=== PATIENT | male | born 1950 | race Caucasian/White ===

== ENCOUNTER 2020-07-19 11:33 | Outpatient (CLI) | payer MEDICARE, SELFPAY ==
--- NOTE | 2020-07-19 11:56 | CT_ITS ---
WS: [id number] CT CHEST WITHOUT INTRAVENOUS CONTRAST HISTORY: Pulmonary lesion. TECHNIQUE: Contiguous 5 mm axial imaging performed on the thorax. Coronal and sagittal reformats are submitted. All CT scans at [facility] use at least one of these dose optimization techniq ues: automated exposure control; mA and/or kV adjustment per patient size (includes targeted exams wh ere dose is matched to clinical indication); or iterative reconstruction. CONTRAST: None DLP: 950.55 mGycm COMPARISON: 07/04/2019 Lungs and central airway: Severe chronic emphysema. Bullous and bleb disease. Significant adverse traci nge in the previously described soft tissue and fibrotic process in the RIGHT upper lobe since 019. Progression in the irregular wall thickening and soft tissue component surrounding the area of f ibrosis/cystic/cavitary disease in the RIGHT upper lobe. The entire cystic and soft tissue component measures approximately 5.2 x 3.5 cm. There is progression of the scarring and fibrosis and tethering with tagging extending towards the pleural surface. Bilateral pulmonary nodules are now identified. T hese nodules range in size from a few millimeters to 10 mm. Nodules are present in the RIGHT upper an d RIGHT lower lobes and also LEFT upper and lower lobes. Additional area of soft tissue thickening along the LEFT lateral trachea Pleura: Normal. No pleural effusion. Heart and pericardium: Normal size heart with no pericardial effusion. Mediastinum and funmilayo: Small mediastinal and hilar lymph nodes. Larger lymph nodes at the RIGHT hilum cannot be excluded without IV contrast. Vessels: Mild atherosclerosis aorta and coronary arteries. Chest wall and lower neck: No soft tissue masses. Upper abdomen: No hiatal hernia. Visualized unenhanced liver is negative. No adrenal mass. Exophytic 2.0 cm cyst upper pole RIGHT kidney. Pancreas is markedly atrophic and fatty replaced. No adrenal mas s. Osseous structures: Increase in the thoracic kyphosis. No osteoblastic or osteolytic disease is appre ciated. CT/CT chest wo con [id number] IMPRESSION: 1. Significant progression of the irregular soft tissue mass surrounding the c ystic/cavitary fibrotic lesion in the RIGHT upper lobe since 07/04/2019 with new additional metastatic pulmonary nodules. Highly suspicious for neoplasm with m etastatic disease. Recommend PET/CT imaging for further evaluation at this time . 2. Severe emphysema. 3. Atherosclerosis aorta. 4. Fatty replacement of the pancreas. 5. No adrenal mass. 6. Soft tissue thickening along the LEFT lateral tracheal wall. Endoscopy may be necessary for further evaluation. May be a focal area of mucus.
== END 2020-07-19 11:34 | disposition home or self-care (01) ==
PROVIDERS: Family Provider Nurse Practitioner Family; PCP Nurse Practitioner Family; Visit Provider Nurse Practitioner Family
DX: J98.4 Other disorders of lung (principal); J43.9 Emphysema, unspecified; I70.0 Atherosclerosis of aorta; R91.8 Other nonspecific abnormal finding of lung field
CPT/HCPCS: 71250

== ENCOUNTER 2020-08-20 08:42 | Day surgery (SDC) | payer MEDICARE, SELFPAY ==
[2020-08-17 11:18] VITALS: BMI 31.8
--- NOTE | 2020-08-17 12:12 | ANES.PREANE2 ---
Pre-Anesthetic Assessment Pre-Anesthetic Assessment: Height/Weight: Height 1.83 m Weight 106.594 kg Preop Diagnosis: Lung mass Proposed Procedure: Operation Date: 08/20/20 10:40 Proposed Procedures p Bronchoscopy(Not Applicable) - Gama Moreno MD s Mediastinoscopy(Not Applicable) - Gama Moreno MD Was Beta Adriana taken within 24 hours: N/A Social: Social History: No alcohol and No tobacco Comment: Quit smoking 15 years ago Exam: Pre-Anes Outpt Exam: alert, oriented x 3, clear to auscultation bilaterally and regular rate & rhythm Airway: Submandibular: WNL Cervical ROM: WNL MP: 2 History/ROS: No significant complaints Pulmonary: Pulmonary: COPD Comments: Emphysematous COPD CV/HEM: CV/HEM: HTN : : None reported Hepatic: Hepatic: None reported GI: GI: None reported Metabolic: Metabolic: Hyperlipidemia Musc/skel: Musc/skel: None reported Neuropsych: Neuropsych: None reported Anesthetic Plan: ASA status: 3 Anesthesia: General Other: Disc A-line PFSH Anesthesia PFSH: Family History Father CAD (coronary artery disease) Denies family history of Diabetes Hyperlipidemia Cancer Hypertension Stroke Social History Smoking and tobacco status: smoker, details unknown cigarettes Packs smoked per day: 2 Years cigarettes smoked: 40 Quit status (tobacco): has quit using tobacco Year quit tobacco: 2002 Alcohol intake: never Lives independently: Yes Household members: none Housing: House Marital status: History of recent travel: No Data Anesthesia Cardiac Studies: No Data to Display
[2020-08-17 12:15] LABS: Add Urine Microscopic? NO
[2020-08-17 12:21] LABS: Basophils # 0.1 10^3/uL (0.0-0.1); Basophils % 0.8 %; Eosinophils # 0.2 10^3/uL (0.0-0.8); Eosinophils % 2.5 %; Hematocrit 44.7 % (42.0-52.0); Hemoglobin 14.4 g/dL (11.7-16.6); Lymphocytes # 1.1 10^3/uL (0.8-4.8); Mean Corpuscular HGB Conc 32.2 g/dL (30.0-36.0); Mean Corpuscular Volume 96.1 fL (80-94); Mean Platelet Volume 9.9 fL (7.4-10.4); Monocytes # 0.9 10^3/uL (0.2-0.9); Monocytes % 14.4 %; Neutrophils # 3.82 10^3/uL (1.8-7.7); Neutrophils % 63.8 %; Nucleated Red Blood Cells % 0 %; Platelet Count 169 10^3/cmm (130-400); Red Blood Count 4.65 10^6/uL (4.1-5.3); Red Cell Distribution Width 14.3 % (12.1-15.1)
[2020-08-17 12:37] LABS: INR 0.97 (0.8-1.2)
[2020-08-17 12:53] LABS: Alanine Aminotransferase 16 U/L (0-41); Albumin Level 4.2 g/dL (3.5-5.2); Alkaline Phosphatase 64 IU/L (40-130); Anion Gap 13.1 (5-19); Aspartate Amino Transferase 29 U/L (0-40); Blood Urea Nitrogen 19 mg/dL (8-23); Calcium 9.2 mg/dL (8.5-10.5); Carbon Dioxide 28 mmol/L (22-29); Chloride 105 mmol/L (98-107); Globulin 3.1 g/dL (1.3-4.6); Glucose 85 mg/dL (65-115); Osmolality Calculated 296 mOsm/kg (285-295); Potassium 4.1 mmol/L (3.5-5.1); Sodium 142 mmol/L (136-145); Total Bilirubin 0.4 mg/dL (0.15-1.2); Total Protein 7.3 g/dL (6.6-8.7)
[2020-08-17 13:39] LABS: Bilirubin Urine Neg (Negative); Blood Urine Neg (Negative); Glucose Urine UA Norm (Normal); Ketones Urine Negative (Negative); Leukocyte Esterase Urine Negative (Negative); Nitrate Urine Negative (Negative); Protein Urine Neg (Negative); Urine Appearance Clear (CLEAR); Urine Color Yellow (Yellow); Urobilinogen Urine Neg (Negative); pH Urine 6 (5-7)
--- NOTE | 2020-08-20 08:48 | ECG_ITS ---
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 Measurements Intervals [place] Rate: 65 P: 47 ME: 178 QRS: 5 QRSD: 109 T: 55 QT: 403 QTc: 421 Interpretive Statements SINUS RHYTHM NONSPECIFIC T-WAVE ABNORMALITY Compared to ECG 08/23/2018 20:28:58 No significant changes Electronically Signed On 08-20-2020 20:18:39 CDT by Porsha Reyes M.D. [id number]
[2020-08-20 08:56] VITALS: BP 150/74; PULSE 66; RESP 16; TEMP 36.1; O2SAT 96
[2020-08-20] MEDS: sodium chloride 0.9% 1,000 ML 30 ML IV (09:16)
--- NOTE | 2020-08-20 09:27 | P.ANESUD_ITS ---
Pre-Anesthetic Update Pre-Anesthetic Assessment: Date of Surgery/Procedure: 08/20/20 Preop Sharlene gnosis: Lung mass Proposed Procedure: Operation Date: 08/20/20 10:40 Proposed Procedures p Bronchoscopy(Not Applicable) - Gama Moreno MD s Mediastinoscopy(Not Applicable) - Gama Moreno MD Any changes to Pre-Anesthetic Assessment?: No Last Intake: Intake Last Liquid Date 08/19/20 Last Liquid Time 22:00 Last Solid Date 08/19/20 Last Solid Time 22:00 Vitals: Temperature 97.0 F L 08/20/20 08:56 Temperature Source Temporal Artery S can 08/20/20 08:56 Pulse Rate 66 08/20/20 08:56 Respiratory Rate 16 08/20/20 08:56 Blood Pressure 150/74 08/20/20 08:56 Blood Pressure Lynne n 99 08/20/20 08:56 Pulse Oximetry 96 08/20/20 08:56 Oxygen Delivery Me thod 08/20/20 08:56 Exam: Pre-Anes Outpt Exam: alert, oriented x 3, clear to auscultation bilaterally and regular rate & rhythm Cardiac Studies: No Data to Display
--- NOTE | 2020-08-20 10:35 | W.PM.OPSUD ---
Surgery/Procedure H&P Update DATE OF PROCEDURE: August 20, 2020 DATE H&P PERFORMED: 08/08/20 H&P UPDATE INFORMATION: I have reviewed H&P completed within last 30 days, I have examined patient prior to procedure and No changes to prior documentation PREOP DIAGNOSIS: Lung mass PRIMARY INDICATION FOR PROCEDURE: Cavitary RUL mass with increased activity on PET scan and increased activity of mediastinal lymph node PLANNED PROCEDURE: Operation Date: 08/20/20 10:40 Proposed Procedures p Bronchoscopy(Not Applicable) - Gama Moreno MD s Mediastinoscopy(Not Applicable) - Gama Moreno MD
[2020-08-20] MEDS: cetacaine Spray 5 gm Can 5 SPRAY (11:50)
[2020-08-20] MEDS: EPINEPHrine 1 mg/mL INJ XX (11:50)
--- NOTE | 2020-08-20 12:05 | PM.OP ---
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 Flexible diagnostic bronchoscopy with biopsy 2. Mediastinoscopy with biopsy Specimens removed/disposition: Endobronchial biopsies x3 of segmental bronchus of right upper lobe Lymph nodes from the mediastinum and stations 4R and precarina were sent to pathology. Frozen section of station 4R lymph nodes returned metastatic adenocarcinoma. Surgeon: Gama Moreno Anesthesia: General Complications: None: Postprocedure chest x-ray pending Condition: stable Disposition: PACU Brief History: Mr. Ozuna is a 69-year-old gentleman with a long history of tobacco use and an enlarging cavitary lesion of the right upper lobe along with scattered pulmonary nodules bilaterally concerning for metastatic disease as well as mediastinal adenopathy with a prominent lymph node at station 4R. PET scan does show increased activity in this cavitary lesion as well as mediastinal lymph node. Bronchoscopy and mediastinoscopy were recommended and the rationale carefully discussed. He is in agreement. Details and risks of both procedures were carefully and frankly discussed. Proper consents have been reviewed and signed. Procedure: 1. Flexible diagnostic bronchoscopy Procedure: Mr. Ozuna underwent general endotracheal anesthesia with an 8.0 endotracheal tube. With adequate anesthesia, flexible bronchoscope was inserted through the endotracheal tube. In a methodical fashion the trachea, sharee, right main bronchus and associated lobar bronchi were inspected. In a similar fashion the left side was inspected. Secretions were cleared as needed to allow for adequate inspection. Normal saline or normal saline and bicarbonate solution were used to clear thick or tenacious secretions. Findings: Branching anatomy was normal. Sharee was sharp. There was no evidence for submucosal infiltration or extrinsic compression. Secretions were rather thick, clear, and light in volume. No skyla endobronchial lesions were identified, however, in the right upper lobe and what appeared to be the anterior segment, there was some effacement of the mucosa with some edema and inability to completely open this region manually with the scope. This was near the extent of the scopes reach in relation to caliber of the segmental bronchi. I elected to perform endobronchial biopsies in this region x3. Specimens were placed in formalin for permanent analysis. Modest bleeding was controlled with the use of a solution of saline and epinephrine with good effect. I will bronchi were then cleared of any small amounts of blood and irrigant. Scope was then withdrawn. Once completed, the scope was withdrawn under direct visualization confirming cleared secretions and no substantial bleeding. Endoscopic photos were taken as required to document pathology. Following this, Mr. Ozuna was repositioned in preparation for planned mediastinoscopy. 2. Mediastinoscopy with biopsy After repositioning and sterilely prepping and draping, transverse incision was made just above the sternal notch and carried down to this obtains tissues and through adipose tissue with bridging veins being secured with clips prior to division. Anterior surface of the trachea was reached. Clot section was then performed with the surgeon's finger. Mediastinal scope was then inserted and advanced down along the anterior surface of the trachea where at the station 4R, very large prominent lymph node packet was identified. After careful aspiration, multiple biopsies were taken and sent to pathology for frozen analysis. Pathology has returned metastatic adenocarcinoma. Further biopsies were taken from substantial lymphoid tissue in the precarinal region as well. Once completed, hemostasis was controlled utilizing cautery followed by packing and subsequent use of Surgicel gauze. Patient was placed in the reverse Trendelenburg position. Hemostasis confirmed. Sponge and needle count was correct. Wound was then closed in 2 layers of 2-0 Vicryl suture. Skin was reapproximated in a subcuticular manner. Sterile dressings were applied. Mr. Ozuna was awakened from anesthesia and extubated. He is taken to the postoperative care unit. We did intellectual property counsel with family at the completion of the procedure.
[2020-08-20] MEDS: vancomycin 1,000 MG SDV 1000 MG IRRIGATION (12:20)
[2020-08-20 13:18] VITALS: BP 136/86; PULSE 83; RESP 16; TEMP 36.2; O2SAT 98
--- NOTE | 2020-08-20 13:21 | PTH.FRZRPT ---
Frozen Section Notes Specimen(s): Lymph node station 4R. Gross: The specimen is received fresh in a container labeled the patient's name and MRN number and additionally labeled, station 4R lymph node for frozen section diagnoses and consists of 8 fragments of trimlbe-red tissue measuring 1.3 x 0.6 x 0.4 cm. 2 fragments that appear suspicious measuring 0.6 cm in greatest dimension are submitted in cassette FS A1. Preliminary Impression: Lymph node, station 4R, excisional biopsy: ?Metastatic adenocarcinoma. - Specimen Information Pathologist: Kenyatta Connell Date: 08/20/20 Specimen reported at what time: 12:56 - Clinician Specimen collection time: 12:43 Clinician reported to: Gama Moreno
[2020-08-20 13:25] VITALS: BP 145/77; PULSE 73; RESP 20; TEMP 36.3; O2SAT 98
[2020-08-20 13:30] VITALS: BP 141/71; PULSE 77; RESP 16; TEMP 36.6; O2SAT 97
[2020-08-20] MEDS: HYDROcodone-acetaminophen 5-325 mg Tablet 1 TAB PO (13:39)
[2020-08-20 13:45] VITALS: BP 157/80; PULSE 64; RESP 17; TEMP 36.6; O2SAT 95
--- NOTE | 2020-08-20 14:20 | ANE.PACU2 ---
Inpatient post-anesthesia follow up: Airway intact: Yes Vital signs: Temperature 97.9 F Pulse Rate 64 Respiratory Rate 17 Blood Pressure 157/80 Pulse Oximetry 95 Oxygen Delivery Me thod Room Air Oxygen Flow Rate 8 Fraction of Inspir ed Oxygen Hydration adequate: Yes Nausea and vomiting: No Pain level: 2 Mental status: Baseline
[2020-12-04 07:53] LABS: PD-L1 (Clone 22C3) by IHC BBPL See Report
== END 2020-08-20 14:20 | disposition home or self-care (01) ==
PROVIDERS: Internal Medicine Medical Oncology; PCP Nurse Practitioner Family; Visit Provider Thoracic Surgery (Cardiothoracic Vascular Surgery)
PROC: 0BJ08ZZ Inspection of Tracheobronchial Tree, Via Natural or Artificial Opening Endoscopic (ICD-10-PCS; CPT 31622; principal; 2020-08-20 10:30)
PROC: 0WJC4ZZ Inspection of Mediastinum, Percutaneous Endoscopic Approach (ICD-10-PCS; CPT 39401; 2020-08-20 10:30)
DX: R91.8 Other nonspecific abnormal finding of lung field (principal)
CPT/HCPCS: 12345; 31625; 36415; 80053; 81003; 85025; 85610; 86850; 86900; 86920; 87635; 88305; 88342; 93005; J0171; J0690; J2405; J2704; J2710; J3010; J3370; J3490; J7030

== ENCOUNTER 2020-09-03 12:32 | Outpatient (CLI) | payer MEDICARE, SELFPAY ==
--- NOTE | 2020-09-03 16:14 | ONC CON_ITS ---
Dr. Yun New Patient Note Patient: Roge Ozuna Unit #: [id number]: 1950 Dicatated By: Shamar Yun M.D.Date of Visit: Sep 03, 2020 Onc MED New Patient/Consult Referring Physician: Monet Ashton N.P. Chief Complaint: Lung cancer. 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 This is a patient with multiple medical illnesses including hypertension, hyperlipidemia, GERD, rheumatoid arthritis, peripheral neuropathy, benign prostatic hypertrophy, and emphysema. He has, though, been in good general health. He has been followed for an abnormal chest CT scan, with the main concern being a nodule at the right lung base noted on a study from June 2017. On follow-up studies that nodule had resolved. Also noted were some fibrotic changes in the right upper lobe which had remained stable as of August 2018. A repeat chest CT on 07/04/2019 showed progression in the scarring and soft tissue surrounding bullous disease in the right upper lobe, possibly due to progression of fibrosis, though early neoplasm was not excluded. His repeat chest CT on 07/19/2020 showed significant progression of irregular soft tissue mass surrounding the cystic/cavitary fibrotic lesion in the right upper lobe. The lesion measured approximately 5.2 x 3.5 cm. The appearance was highly suspicious for neoplasm. Also noted was soft tissue thickening along the left lateral tracheal wall, possibly due to focal area of mucus. Also noted were bilateral pulmonary nodules ranging in size from a few millimeters up to 10 mm, suspicious for metastatic disease. Further evaluation with PET/CT on 07/28/2020 showed FDG avid cavitary right upper lobe mass measuring 4.5 x 5.1 cm, SUV 12.1, indicating high probability of malignancy. Secondary pulmonary nodules were noted in the right upper lobe, superior segment right lower lobe, left apex, and medial left lower lung base, consistent with metastatic disease. A 1.7 cm right paratracheal lymph node was also FDG avid, SUV 4.8, consistent with a metastatic node. He was referred to Dr. Moreno. On 08/20/2020 he underwent flexible diagnostic bronchoscopy with endobronchial biopsy from the right upper lobe and mediastinoscopy with biopsy of station 4R lymph node. Pathology from the right upper lobe biopsy showed adenosquamous carcinoma favoring lung primary. 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 He has been feeling pretty good generally. He says his energy is not too bad. He still has normal activity. ECOG score is 0. His appetite is good. He does not have fever or night sweats. He says he does tend to have acid reflux, but he does not complain of cough. He has some shortness of breath, but his breathing is not getting any worse. He has occasional pulling/heaviness in his chest. He has chronic constipation. He does have some difficulty voiding, as he tends to start and stop. He has joint pain, mainly in the knees and ankles. He also has a little back pain. He does not complain of headache. He sometimes has dizziness when he gets up too fast. He has no focal neurologic symptoms. Past Medical History: His medical history includes benign prostatic hypertrophy, emphysema, gastroesophageal reflux disease, hypercholesterolemia, hypertension, peripheral neuropathy, and rheumatoid arthritis. Past Surgical History: He unerwent flexible diagnostic bronchoscopy and mediastinoscopy on08/20/2020. His only other surgery was an appendectomy in 2008. Medications: Aspirin 81 Tablet, enteric coated Oral daily, Atorvastatin Calcium 1 (40 mg) Tablet Oral daily, Co Q10 (200 mg) Capsule Oral daily, Finasteride (5 mg) Tablet Oral daily, Lyrica (225 mg) Capsule Oral b.i.d., Nortriptyline HCl (10 mg) Capsule Oral daily, Omeprazole 1 (20 mg) Capsule Delayed Release Oral daily, Tamsulosin HCl 2 Capsule (of 0.4 mg) Oral daily Allergies: No Known Allergies. Social History: Mr. Ozuna is and he is a disabled. He has a history of smoking about 2 packs of cigarettes daily for about 40 years. He quit smoking 15 years ago. He previously had some weekend alcohol use, but he also quit drinking at the same time. Family History: Father of heart disease and mother of TB. He had 2 half-brothers, one of whom is due to drug related problems. Review Of Symptoms: Constitutional - He has been feeling pretty good generally. His energy is not too bad. He has normal activity. Appetite is good and weight is stable. He has no fever or night sweats. ECOG score is 0, Eyes - No change in vision, ENMT - No sinus congestion/drainage. No mouth sores. No sore throat or difficulty swallowing, Hematologic/Lymphatic - He has easy bruising, Respiratory - He has some shortness of breath, but his breathing has not been getting any worse. He does not complain of cough. He has occasional pulling/heaviness in his chest. No hemoptysis, Cardiovascular - No angina pain. No palpitations, Gastrointestinal - No nausea or vomiting. He has acid reflux. He has chronic constipation. No blood in the stool or black stools, Genitourinary (M) - He has some difficulty voiding and he tends to start and stop. No dysuria or hematuria. No urinary frequency. No urgency or incontinence, Musculoskeletal - He has arthritis pain in his knees and ankles and he has a little back pain, Integumentary - No skin rash, Neurologic - No headache. He sometimes has dizziness if he gets up too fast. No numbness or tingling. No other focal neurologic symptoms, Psychiatric - No anxiety or depression. No insomnia. Vital Signs: Performed on Sep 03, 2020 13:10: 0, 31.98 (HIGH), 2.28 sq.m, 72.00 in, 98 %, 74 /min, 18 /min, 152/74 mm(hg) (HIGH), 96.9 F (LOW), and 235.8 lbs (HIGH). Physical Examination: Constitutional - He appears to be in good general health, Eyes - Sclerae nonicteric. Conjunctivae clear, ENMT - No lesions noted in the oral cavity, Neck - No mass or thyromegaly, Hematologic/Lymphatic - No cervical, clavicular, or axillary adenopathy, Respiratory - Lungs are clear with diminished air movement bilaterally, Cardiovascular - Heart rhythm is regular. There is no murmur, gallop, or rub noted, Abdomen - Soft and non-tender. Liver and spleen are not enlarged. There is no abdominal mass or ascites noted and there is no inguinal adenopathy, Back/Spine - No spine or CVA tenderness noted, Extremities - Slight edema. I am not able to palpate pedal pulses, Integumentary - No rashes. No suspicious skin lesions noted, Neurologic - No focal neurologic deficits noted. Impression: 1. 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 2. He underwent diagnostic flexible bronchoscopy and mediastinoscopy on 08/08/2020. 3. He has CT evidence of underlying COPD. His other medical illnesses include: 4. Hypertension. 5. Hyperlipidemia. 6. GERD. 7. Rheumatoid arthritis. 8. Peripheral neuropathy. 9. Benign prostatic hypertrophy. Plan: The CT findings and pathology results were reviewed with the patient. We also reviewed the CT images, and we discussed the clinical implications. He has non-small cell carcinoma involving the upper lobe of the right lung. There is biopsy-proven mediastinal lymph node involvement. There is CT and PET/CT evidence of multiple bilateral pulmonary nodules, consistent with metastatic disease. He is advised that his disease is not going to be amenable to either surgery or radiation. With regard to the latter, I also will review the CT scan with the radiation oncologist, but my expectation is that he will need to begin systemic therapy as initial treatment. Specific treatment recommendations, though, will depend on additional pathologic studies to include a next generation sequencing study and PD-L1 expression, and those will be requested today. In the meantime, he also will need to complete staging with brain MRI. Signed By: Shamar Yun M.D. <<Signature on File>>
== END 2020-09-03 12:33 | disposition home or self-care (01) ==
LOC: ONCMED 12:36
PROVIDERS: PCP Nurse Practitioner Family; Visit Provider Internal Medicine Medical Oncology
DX: C34.11 Malignant neoplasm of upper lobe, right bronchus or lung (principal); C77.1 Secondary and unspecified malignant neoplasm of intrathoracic lymph nodes; R91.8 Other nonspecific abnormal finding of lung field; I10 Essential (primary) hypertension; E78.5 Hyperlipidemia, unspecified; K21.9 Gastro-esophageal reflux disease without esophagitis; M06.9 Rheumatoid arthritis, unspecified; G62.9 Polyneuropathy, unspecified; N40.0 Benign prostatic hyperplasia without lower urinary tract symptoms
CPT/HCPCS: 99205

== ENCOUNTER 2020-09-10 08:00 | Outpatient (CLI) | payer MEDICARE, SELFPAY ==
--- NOTE | 2020-09-10 08:07 | MR_ITS ---
WS: [id number] MRI HEAD WITH CONTRAST TECHNIQUE: Sagittal T1, T2 axial, T2 axial FLAIR, axial susceptibility weighted imaging, axial diffus ion weighted images, and coronal T2 images were obtained. Pre and post-T1 axial and post T1 coronal i mages. ADC and FSPGR images. CLINICAL INFORMATION: Lung cancer COMPARISON: PET/CT July 28, 2020 FINDINGS: No evidence of restricted diffusion to suggest acute ischemia. Ventricular system and basal cisterns are patent. Heterogeneously enhancing intrasellar mass with suprasellar extension measuring 1.4 x 1.6 x 1.7 CM. Suprasellar extension results in mild mass effect on the optic chiasm. Recommend correlati on with visual symptoms. Slight extension to the right cavernous sinus. Cavernous sinuses and Meckel' s cave appear patent. No hemosiderin on the susceptibility weighted images. No other suspicious intracranial signal abnorma lities. Moderate parenchymal volume loss. Normal posterior fossa. Normal vascular flow voids at the s kull base. No extra-axial fluid collections. Paranasal sinuses and mastoid air cells are well aerated . No enhancing intraparenchymal abnormalities. Normal dural venous sinuses. MR/MR head wo/w con [id number] IMPRESSION: 1. No evidence of restricted diffusion to suggest acute ischemia. 2. Intrasellar pituitary mass with suprasellar extension measuring 1.4 x 1.6 x 1.7 cm AP by transverse by craniocaudal with impingement on the optic chiasm. Findings typical for pituitary macroadenoma. Involvement of the right cavernous sinus. Cavernous carotid arteries are patent. 3. No other suspicious intracranial signal abnormalities. 4. Moderate parenchymal volume loss. 5. Paranasal sinuses and mastoid air cells are well aerated. 6. No suspicious enhancing intracranial parenchymal abnormalities.
== END 2020-09-10 08:01 | disposition home or self-care (01) ==
LOC: RADSHAW 08:04
PROVIDERS: PCP Nurse Practitioner Family; Visit Provider Internal Medicine Medical Oncology
DX: C34.11 Malignant neoplasm of upper lobe, right bronchus or lung (principal)
CPT/HCPCS: 70553; A9579

== ENCOUNTER 2020-10-03 11:58 | Outpatient (CLI) | payer MEDICARE, SELFPAY ==
[2020-10-03 12:41] LABS: Basophils # 0.1 10^3/uL (0.0-0.1); Basophils % 1.1 %; Eosinophils # 0.2 10^3/uL (0.0-0.8); Eosinophils % 2.3 %; Hemoglobin 14.2 g/dL (11.7-16.6); Lymphocytes # 0.9 10^3/uL (0.8-4.8); Lymphocytes % 13.1 %; Mean Corpuscular HGB Conc 31.6 g/dL (30.0-36.0); Mean Corpuscular Hemoglobin 30.6 pg (28.0-34.0); Mean Platelet Volume 9.4 fL (7.4-10.4); Monocytes # 0.7 10^3/uL (0.2-0.9); Monocytes % 11.4 %; Neutrophils # 4.64 10^3/uL (1.8-7.7); Neutrophils % 71.3 %; Nucleated Red Blood Cells % 0 %; Platelet Count 183 10^3/cmm (130-400); Red Blood Count 4.64 10^6/uL (4.1-5.3); Red Cell Distribution Width 13.8 % (12.1-15.1); White Blood Count 6.5 10^3/uL (4.0-10.0)
[2020-10-03 12:55] LABS: Alanine Aminotransferase 16 U/L (0-41); Albumin Level 3.8 g/dL (3.5-5.2); Alkaline Phosphatase 71 IU/L (40-130); Anion Gap 11.2 (5-19); Aspartate Amino Transferase 24 U/L (0-40); Blood Urea Nitrogen 12 mg/dL (8-23); Calcium 8.9 mg/dL (8.5-10.5); Carbon Dioxide 29 mmol/L (22-29); Chloride 103 mmol/L (98-107); Globulin 2.9 g/dL (1.3-4.6); Glucose 104 mg/dL (65-115); Osmolality Calculated 288 mOsm/kg (285-295); Potassium 4.2 mmol/L (3.5-5.1); Sodium 139 mmol/L (136-145); Total Bilirubin 0.3 mg/dL (0.15-1.2); Total Protein 6.7 g/dL (6.6-8.7)
[2020-10-03 15:02] LABS: Thyroid Stimulating Hormone 1.77 uIU/mL (0.27-4.20)
--- NOTE | 2020-10-05 11:51 | ONC FU_ITS ---
Dr. Yun Patient Follow-Up Note Patient: Roge Ozuna Unit #: [id number]: 1950 Dicatated By: Shamar Yun M.D.Date of Visit:Oct 03, 2020 Onc Med Follow-up/Prog Note Chief Complaint: Lung cancer. 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 He has been followed for an abnormal chest CT scan, with the main concern being a nodule at the right lung base noted on a study from June 2017. On follow-up studies that nodule had resolved. Also noted were some fibrotic changes in the right upper lobe which had remained stable as of August 2018. A repeat chest CT on 07/04/2019 showed progression in the scarring and soft tissue surrounding bullous disease in the right upper lobe, possibly due to progression of fibrosis, though early neoplasm was not excluded. His repeat chest CT on 07/19/2020 showed significant progression of irregular soft tissue mass surrounding the cystic/cavitary fibrotic lesion in the right upper lobe. The lesion measured approximately 5.2 x 3.5 cm. The appearance was highly suspicious for neoplasm. Also noted was soft tissue thickening along the left lateral tracheal wall, possibly due to focal area of mucus. Also noted were bilateral pulmonary nodules ranging in size from a few millimeters up to 10 mm, suspicious for metastatic disease. Further evaluation with PET/CT on 07/28/2020 showed FDG avid cavitary right upper lobe mass measuring 4.5 x 5.1 cm, SUV 12.1, indicating high probability of malignancy. Secondary pulmonary nodules were noted in the right upper lobe, superior segment right lower lobe, left apex, and medial left lower lung base, consistent with metastatic disease. A 1.7 cm right paratracheal lymph node was also FDG avid, SUV 4.8, consistent with a metastatic node. He was referred to Dr. Moreno. On 08/20/2020 he underwent flexible diagnostic bronchoscopy with endobronchial biopsy from the right upper lobe and mediastinoscopy with biopsy of station 4R lymph node. Pathology from the right upper lobe biopsy showed adenosquamous carcinoma favoring lung primary. 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 A next generation sequencing study showed no actionable mutations. The PD-L1 (22c3) expression was positive at 25% and the PD-L1 (28-8) expression was positive at 35%. His staging head MRI showed an intrasellar pituitary mass with suprasellar extension measuring 1.4 x 1.6 x 1.7 cm. There was associated impingement on the optic chiasm. 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 There appeared to be involvement of the right cavernous sinus but cavernous carotid arteries were noted to be patent. There were no suspicious enhancing intracranial parenchymal abnormalities noted. His other medical illnesses include hypertension, hyperlipidemia, GERD, rheumatoid arthritis, peripheral neuropathy, benign prostatic hypertrophy, and emphysema. He has history of smoking 2 packs of cigarettes daily. He quit smoking 15 years ago. I had seen him initially on 09/03/2020. With evidence of multiple pulmonary metastatic lesions bilaterally, it appeared that he would require systemic therapy. Specific recommendations were deferred pending outcome of the results of the next generation sequencing study, and those have just now become available. He still feels good generally. He has normal activity. He has good appetite. He says he has gained weight. He says he has a little bit of fever about once a week. He has no night sweating. He does not complain of shortness of breath, cough, or chest pain. He has no GI complaints other than constipation, which has been a chronic problem for years. He says his bladder function is so-so. He has pain in his back and in his knees, which also is chronic. He does not complain of headache. He has numbness/tingling in his feet. Medications: Aspirin 81 Tablet, enteric coated Oral daily, Atorvastatin Calcium 1 (40 mg) Tablet Oral daily, Co Q10 (200 mg) Capsule Oral daily, Finasteride (5 mg) Tablet Oral daily, Lyrica (225 mg) Capsule Oral b.i.d., Nortriptyline HCl (10 mg) Capsule Oral daily, Omeprazole 1 (20 mg) Capsule Delayed Release Oral daily, Tamsulosin HCl 2 Capsule (of 0.4 mg) Oral daily Allergies: No Known Allergies. Review of Systems: Constitutional - He generally feels good. He has normal activity. Appetite is good and he has gained weight. No fever or night sweats. ECOG score is 1, ENMT - No sinus congestion/drainage. No mouth sores. No sore throat or difficulty swallowing, Hematologic/Lymphatic - No abnormal bruising or bleeding, Respiratory - No shortness of breath. No cough. No pleuritic pain or hemoptysis, Cardiovascular - No angina pain. No palpitations, Gastrointestinal - No nausea or vomiting. No heartburn or acid reflux. He has chronic constipation. No blood in the stool or black stools, Genitourinary (M) - Bladder function is so-so. No dysuria or hematuria. No urgency or incontinence, Musculoskeletal - He has pain in his back and in his knees, Integumentary - No skin rash, Neurologic - No headache. He sometimes has dizziness. He has numbness/tingling in his feet. No other focal neurologic symptoms, Psychiatric - No anxiety or depression. No insomnia. Vital Signs: Performed on Oct 03, 2020 13:09 Height - 72.00 in Weight - 244.0 lbs (HIGH) BSA - 2.32 sq.m BMI - 33.09 (HIGH) Temperature - 97.6 F (LOW) Pulse - 69 /min Respiration - 20 /min BP - 150/80 mm(hg) (HIGH) O2 Sat - 96 % Pain - 0 Physical Examination: Constitutional - He looks pretty good generally, Eyes - Sclerae nonicteric. Conjunctivae clear, ENMT - No lesions noted in the oral cavity, Hematologic/Lymphatic - No cervical, clavicular, or axillary adenopathy, Respiratory - Lungs are clear with diminished air movement bilaterally, Cardiovascular - Heart rhythm is regular. There is no murmur, gallop, or rub noted, Abdomen - Soft. Liver and spleen are not enlarged. There is no abdominal mass or ascites noted and there is no inguinal adenopathy, Extremities - Mild edema, Neurologic - No focal neurologic deficits noted. Lab/Imaging: Test performed on Oct 03, 2020 12:27 Sodium 139 mmol/L TSH 1.77 uIU/mL Potassium 4.2 mmol/L Chloride 103 mmol/L CO2 29 mmol/L Anion Gap 11.2 BUN 12 mg/dL Creatinine 1.0 mg/dL Cr Clearance (Est) 104.53 mL/min Glucose 104 mg/dL Osmolality - Calculated 288 mOsm/kg Calcium 8.9 mg/dL Protein, Total 6.7 g/dL Albumin 3.8 g/dL Globulin 2.9 g/dL Bilirubin, Total 0.3 mg/dL ALT (SGPT) 16 U/L AST (SGOT) 24 U/L Alkaline Phosphatase 71 IU/L WBC 6.5 10 3/uL RBC 4.64 10 6/uL HGB 14.2 g/dL HCT 45.0 % MCV 97.0 fL MCH 30.6 pg MCHC 31.6 g/dL RDW 13.8 % Platelet Count 183 10 3/cmm MPV 9.4 fL Neutrophils 4.64 10 3/uL Lymphocytes 0.9 10 3/uL Monocytes 0.7 10 3/uL Eosinophils 0.2 10 3/uL Basophils 0.1 10 3/uL Neutrophil % 71.3 % Lymphocyte % 13.1 % Monocyte % 11.4 % Eosinophil % 2.3 % Basophils % 1.1 % NRBC % 0 % Impression: 1. 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 His next generation sequencing study showed no actionable mutation, but the tumor was noted to be positive for PD-L1 expression. 2. He underwent diagnostic flexible bronchoscopy and mediastinoscopy on 08/08/2020. 3. 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 4. He has CT evidence of underlying COPD. His other medical illnesses include: 5. Hypertension. 6. Hyperlipidemia. 7. GERD. 8. Rheumatoid arthritis. 9. Peripheral neuropathy. 10. Benign prostatic hypertrophy. Plan: With evidence of pulmonary metastatic lesions bilaterally, he was recommended to initiate systemic therapy. Specific treatment recommendations were initially deferred pending outcome of the next generation sequencing study. With his tumor showing positive PD-L1 expression at less than 50%, the recommended treatment per NCCN guidelines would be chemotherapy in combination with immunotherapy. The patient, however, does not want to assume the risk of chemotherapy associated toxicities, and his preference instead is to proceed with a trial of immunotherapy alone. As such, he will be scheduled to return for treatment with pembrolizumab 200 mg by IV infusion every 3 weeks, pending verification of insurance coverage. Potential side effects were reviewed. The main concern would be the potential for exacerbation of his rheumatoid arthritis. We also discussed the MRI findings. Under other circumstances I would recommend referral to a neurosurgeon, but in the setting of metastatic non-small cell lung cancer, I feel it would be more appropriate to initially just monitor expectantly. Signed By: Shamar Yun M.D. <<Signature on File>>
== END 2020-10-03 11:59 | disposition home or self-care (01) ==
LOC: ONCMED 12:00
PROVIDERS: PCP Nurse Practitioner Family; Visit Provider Internal Medicine Medical Oncology
DX: C34.11 Malignant neoplasm of upper lobe, right bronchus or lung (principal); C78.02 Secondary malignant neoplasm of left lung; J44.9 Chronic obstructive pulmonary disease, unspecified; I10 Essential (primary) hypertension; E78.5 Hyperlipidemia, unspecified; K21.9 Gastro-esophageal reflux disease without esophagitis; M06.9 Rheumatoid arthritis, unspecified; G62.9 Polyneuropathy, unspecified; N40.0 Benign prostatic hyperplasia without lower urinary tract symptoms; Z79.899 Other long term (current) drug therapy
CPT/HCPCS: 36415; 80053; 84443; 85025; 99214

== ENCOUNTER 2020-11-07 05:31 | Outpatient (RCR) | payer MEDICARE, SELFPAY ==
[2020-10-17] MEDS: sodium chloride 0.9% 250 ML 125 ML IV (13:50)
--- NOTE | 2020-11-07 11:00 | ONC FU_ITS ---
[facility] Patient Note Patient: Roge Ozuna Unit #: [id number]: 1950 Dictated By: Ted SantosDate of Visit: Nov 07, 2020 Onc MED Follow-Up/Prog Note Chief Complaint: Lung cancer. 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 He has been followed for an abnormal chest CT scan, with the main concern being a nodule at the right lung base noted on a study from June 2017. On follow-up studies that nodule had resolved. Also noted were some fibrotic changes in the right upper lobe which had remained stable as of August 2018. A repeat chest CT on 07/04/2019 showed progression in the scarring and soft tissue surrounding bullous disease in the right upper lobe, possibly due to progression of fibrosis, though early neoplasm was not excluded. His repeat chest CT on 07/19/2020 showed significant progression of irregular soft tissue mass surrounding the cystic/cavitary fibrotic lesion in the right upper lobe. The lesion measured approximately 5.2 x 3.5 cm. The appearance was highly suspicious for neoplasm. Also noted was soft tissue thickening along the left lateral tracheal wall, possibly due to focal area of mucus. Also noted were bilateral pulmonary nodules ranging in size from a few millimeters up to 10 mm, suspicious for metastatic disease. Further evaluation with PET/CT on 07/28/2020 showed FDG avid cavitary right upper lobe mass measuring 4.5 x 5.1 cm, SUV 12.1, indicating high probability of malignancy. Secondary pulmonary nodules were noted in the right upper lobe, superior segment right lower lobe, left apex, and medial left lower lung base, consistent with metastatic disease. A 1.7 cm right paratracheal lymph node was also FDG avid, SUV 4.8, consistent with a metastatic node. He was referred to Dr. Moerno. On 08/20/2020 he underwent flexible diagnostic bronchoscopy with endobronchial biopsy from the right upper lobe and mediastinoscopy with biopsy of station 4R lymph node. Pathology from the right upper lobe biopsy showed adenosquamous carcinoma favoring lung primary. 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 A next generation sequencing study showed no actionable mutations. The PD-L1 (22c3) expression was positive at 25% and the PD-L1 (28-8) expression was positive at 35%. His staging head MRI showed an intrasellar pituitary mass with suprasellar extension measuring 1.4 x 1.6 x 1.7 cm. There was associated impingement on the optic chiasm. 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 There appeared to be involvement of the right cavernous sinus but cavernous carotid arteries were noted to be patent. There were no suspicious enhancing intracranial parenchymal abnormalities noted. His other medical illnesses include hypertension, hyperlipidemia, GERD, rheumatoid arthritis, peripheral neuropathy, benign prostatic hypertrophy, and emphysema. He has history of smoking 2 packs of cigarettes daily. He quit smoking [address] Yun had seen him initially on 09/03/2020. With evidence of multiple pulmonary metastatic lesions bilaterally, it appeared that he would require systemic therapy. Specific recommendations were deferred pending outcome of the results of the next generation sequencing study, and that became available in September 2020. With evidence of pulmonary metastatic lesions bilaterally, he was recommended to initiate systemic therapy. Specific treatment recommendations were initially deferred pending outcome of the next generation sequencing study. With his tumor showing positive PD-L1 expression at less than 50%, the recommended treatment per NCCN guidelines would be chemotherapy in combination with immunotherapy. Mr Ozuna, however, did not want to assume the risk of chemotherapy associated toxicities, and he preferred to proceed with a trial of immunotherapy alone. He began pembrolizumab 200 mg by IV infusion every 3 weeks on 10/17/2020. Mr. Ozuna is here today for follow-up. He is due for his second cycle of pembrolizumab. He states he tolerated the first cycle pretty well. He did have a flare of his RA in his right knee. He states that last week it began to swell and was having quite a bit of discomfort. It is somewhat better today the swelling has settled down but he is still having some discomfort with it. He states this really no worse than what it normally is when his RA flares up but he had not had any problems for a little while. He continues to have chronic back pain but states is no worse than what it has been. He states he does have a headache that kind of comes and goes. He states is been worse after the MRI. He denies any vision changes. He denies any one-sided weakness or numbness. He has had no sinus drainage. He states is just a dull ache. He states is not real bad and he does not take any medication for it. He states that he has had some shortness of breath but still the same as it has been. He states it is no worse. He denies any cough or hemoptysis. He denies any chest pain or palpitations. He states his appetite is good. His energy is fair. He has had no bowel or bladder issues. He denies any hearing or vision changes. His ECOG is 0. Past Medical History: Benign prostatic hypertrophy Emphysema Gastroesophageal reflux disease Hypercholesterolemia Hypertension Peripheral neuropathy Rheumatoid arthritis Past Surgical History: Flexible diagnostic bronchoscopy and mediastinoscopy in 2019 Appendectomy in 2008 Allergies: No Known Allergies. Medications: Aspirin 81 Tablet, enteric coated Oral daily Atorvastatin Calcium 1 (40 mg) Tablet Oral daily Co Q10 (200 mg) Capsule Oral daily Finasteride (5 mg) Tablet Oral daily Lyrica (225 mg) Capsule Oral b.i.d. Nortriptyline HCl (10 mg) Capsule Oral daily Omeprazole 1 (20 mg) Capsule Delayed Release Oral daily Tamsulosin HCl 2 Capsule (of 0.4 mg) Oral daily Family History: Mr. Ozuna's mother at age 19: tuberculosis. Mr. Ozuna's father is : heart disease. Father of heart disease and mother of TB. He had 2 half-brothers, one of whom is due to drug related problems. Social History: Mr. Ozuna is and he is a disabled. Mr. Ozuna quit smoking 17 years ago but had smoked 2.0 packs/day for 40 years. He is a former drinker. He has a history of smoking about 2 packs of cigarettes daily for about 40 years. He quit smoking 15 years ago. He previously had some weekend alcohol use, but he also quit drinking at the same time. Review Of Symptoms: Constitutional Denies fevers, chills, night sweats, excessive fatigue or weight loss. Allergic/Immunologic No reactions. Eyes Denies significant visual changes. No diplopia. No amaurosis. ENMT Denies changes in hearing, sore throat, mouth sores, difficulty or changes in swallowing ability, and/or sinus drainage. Hematologic/Lymphatic Denies easy bruising or bleeding. The patient denies any tender or palpable lymph nodes. Respiratory Denies new or worsening dyspnea on exertion, chest pain, cough or hemoptysis. Denies orthopnea. Cardiovascular Denies anginal chest pain, palpitations or orthopnea. Gastrointestinal Denies nausea, vomiting, diarrhea, GI bleeding, or constipation. Denies change in bowel habits and/or stool color, no heartburn or early satiety. Genitourinary (M) Denies hematuria, dysuria, increased frequency, urgency, hesitancy or incontinence. Musculoskeletal See above Integumentary Denies chronic rashes, inflammation, ulcerations or skin changes. Neurologic Denies headache, blurred vision, and no areas of focal weakness or numbness. Normal gait. No sensory problems. Psychiatric Denies insomnia, depression, stephan or mood swings. Vital Signs: Performed on Nov 07, 2020 09:30 Height - 72.00 in Weight - 241.6 lbs (LOW) BSA - 2.31 sq.m BMI - 32.77 (HIGH) Temperature - 97.7 F (LOW) Pulse - 79 /min Respiration - 18 /min BP - 151/68 mm(hg) (HIGH) O2 Sat - 95 % (LOW) Pain - 2,0 - Fully active, able to carry on all predisease activities without restrictions. (ECOG) Physical Examination: Constitutional Alert, oriented, no acute distress. Skin pink, warm and dry. Head Normocephalic; atraumatic. Eyes Conjunctivae and sclerae are clear and without icterus. Pupils are reactive and equal. Neck Supple without masses or thyromegaly. No jugular venous distension. Hematologic/Lymphatic No petechiae or purpura. No tender or palpable lymph nodes in the cervical or supraclavicular areas. Respiratory Lungs are clear to auscultation without rhonchi or wheezing. Cardiovascular Regular rate and rhythm of heart without murmurs,clicks, gallops or rubs. Abdomen Non-tender, non-distended, no masses or ascites. Good bowel sounds noted in all quads. No guarding or rebound tenderness. No pulsatile masses. Back/Spine Non-tender to palpation. Extremities No visible deformities, no cyanosis, clubbing or edema. Musculoskeletal No tenderness or swelling, normal range of motion without obvious weakness. Integumentary No rashes or lesions. Neurologic No sensory or motor deficits, normal cerebellar function, normal gait. Psychiatric Alert and oriented times three. Coherent speech. Verbalizes understanding of our discussions today. Laboratory:Test performed on Oct 03, 2020 12:27 Sodium 139 mmol/L TSH 1.77 uIU/mL Potassium 4.2 mmol/L Chloride 103 mmol/L CO2 29 mmol/L Anion Gap 11.2 BUN 12 mg/dL Creatinine 1.0 mg/dL Cr Clearance (Est) 104.53 mL/min Glucose 104 mg/dL Osmolality - Calculated 288 mOsm/kg Calcium 8.9 mg/dL Protein, Total 6.7 g/dL Albumin 3.8 g/dL Globulin 2.9 g/dL Bilirubin, Total 0.3 mg/dL ALT (SGPT) 16 U/L AST (SGOT) 24 U/L Alkaline Phosphatase 71 IU/L WBC 6.5 10 3/uL RBC 4.64 10 6/uL HGB 14.2 g/dL HCT 45.0 % MCV 97.0 fL MCH 30.6 pg MCHC 31.6 g/dL RDW 13.8 % Platelet Count 183 10 3/cmm MPV 9.4 fL Neutrophils 4.64 10 3/uL Lymphocytes 0.9 10 3/uL Monocytes 0.7 10 3/uL Eosinophils 0.2 10 3/uL Basophils 0.1 10 3/uL Neutrophil % 71.3 % Lymphocyte % 13.1 % Monocyte % 11.4 % Eosinophil % 2.3 % Basophils % 1.1 % NRBC % 0 % Impression: 1. 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 His next generation sequencing study showed no actionable mutation, but the tumor was noted to be positive for PD-L1 expression. 2. He underwent diagnostic flexible bronchoscopy and mediastinoscopy on 08/08/2020. 3. 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 4. He has CT evidence of underlying COPD. His other medical illnesses include: 5. Hypertension. 6. Hyperlipidemia. 7. GERD. 8. Rheumatoid arthritis. 9. Peripheral neuropathy. 10. Benign prostatic hypertrophy. With evidence of pulmonary metastatic lesions bilaterally, he was recommended to initiate systemic therapy. Specific treatment recommendations were initially deferred pending outcome of the next generation sequencing study. With his tumor showing positive PD-L1 expression at less than 50%, the recommended treatment per NCCN guidelines would be chemotherapy in combination with immunotherapy. Mr Ozuna, however, did not want to assume the risk of chemotherapy associated toxicities, and he preferred to proceed with a trial of immunotherapy alone. He began pembrolizumab 200 mg by IV infusion every 3 weeks on 10/17/2020. Mr. Ozuna began his first dose of pembrolizumab on 10/17/2020. He has tolerated it well overall. He did have some flare of his right knee pain from his rheumatoid arthritis. He has chronic back pain but states is not changed at all. He denies any other concerns with the immunotherapy at this time. We did discuss at length that the immunotherapy is most likely flaring his rheumatoid arthritis. I did give him the option of delaying his treatment today or proceeding. He states the knee pain is not that bad and he wants to pursue the immunotherapy today. Plan: 1. right lung upper lobe adenosquamous carcinoma with evidence of multiple bilateral pulmonary nodules???PD-L1+: A. Proceed with pembrolizumab 200 mg IV B. We will plan to see him back in 3 weeks as scheduled with CBC CMP and follow-up TSH. 2. Rheumatoid arthritis: A. Recent flare in right knee-most likely due to immunotherapy. We discussed utilizing steroids, nonsteroidal anti-inflammatory such as Aleve and Voltaren gel topically to the right knee and possible pain medication if he needs it. He states that he will try the Aleve or the Voltaren gel if the pain gets any worse. He did 1 proceed with treatment today but promises to call if the flare gets worse or if he has more joints involved. At that time we will need to possibly consider steroid treatment and taper. 3. Headache: Onset since his MRI in September. He states it comes and goes. He states is not that bad and he does not take medications for it. He has been advised to monitor to see if it worsens after his second dose of immunotherapy/pembrolizumab. 4. Mr. Ozuna was encouraged to contact us in interim should questions or problems arise. Signed By: Ted Santos-, AOCNP Shamar Yun MD <<Signature on File>>
== END 2020-11-08 23:59 | disposition home or self-care (01) ==
LOC: ONCMED 05:31
PROVIDERS: PCP Nurse Practitioner Family; Visit Provider Nurse Practitioner
DX: Z51.12 Encounter for antineoplastic immunotherapy (principal); C34.11 Malignant neoplasm of upper lobe, right bronchus or lung; C77.1 Secondary and unspecified malignant neoplasm of intrathoracic lymph nodes; C78.01 Secondary malignant neoplasm of right lung; C78.02 Secondary malignant neoplasm of left lung; R51.9 Headache, unspecified; M06.9 Rheumatoid arthritis, unspecified; D35.2 Benign neoplasm of pituitary gland; J44.9 Chronic obstructive pulmonary disease, unspecified; I10 Essential (primary) hypertension; E78.5 Hyperlipidemia, unspecified; K21.9 Gastro-esophageal reflux disease without esophagitis; G62.9 Polyneuropathy, unspecified; N40.0 Benign prostatic hyperplasia without lower urinary tract symptoms; Z87.891 Personal history of nicotine dependence; Z79.899 Other long term (current) drug therapy
CPT/HCPCS: 96413; 99214; J7050; J9271

== ENCOUNTER 2020-11-28 08:25 | Outpatient (RCR) | payer MEDICARE, SELFPAY ==
[2020-11-28 09:16] LABS: Basophils # 0.1 10^3/uL (0.0-0.1); Basophils % 1.1 %; Eosinophils # 0.2 10^3/uL (0.0-0.8); Eosinophils % 4.6 %; Hematocrit 43.9 % (42.0-52.0); Hemoglobin 14.3 g/dL (11.7-16.6); Lymphocytes # 1.2 10^3/uL (0.8-4.8); Lymphocytes % 27.3 %; Mean Corpuscular HGB Conc 32.6 g/dL (30.0-36.0); Mean Corpuscular Hemoglobin 31.4 pg (28.0-34.0); Mean Corpuscular Volume 96.3 fL (80-94); Mean Platelet Volume 10.1 fL (7.4-10.4); Monocytes # 1.1 10^3/uL (0.2-0.9); Monocytes % 23.3 %; Neutrophils # 1.94 10^3/uL (1.8-7.7); Neutrophils % 42.8 %; Nucleated Red Blood Cells % 0 %; Platelet Count 143 10^3/cmm (130-400); Red Blood Count 4.56 10^6/uL (4.1-5.3); Red Cell Distribution Width 13.9 % (12.1-15.1); White Blood Count 4.5 10^3/uL (4.0-10.0)
[2020-11-28 10:00] LABS: Alanine Aminotransferase 22 U/L (0-41); Albumin Level 3.6 g/dL (3.5-5.2); Alkaline Phosphatase 72 IU/L (40-130); Aspartate Amino Transferase 34 U/L (0-40); Blood Urea Nitrogen 15 mg/dL (8-23); Calcium 8.4 mg/dL (8.5-10.5); Carbon Dioxide 27 mmol/L (22-29); Chloride 101 mmol/L (98-107); Glucose 95 mg/dL (65-115); Osmolality Calculated 285 mOsm/kg (285-295); Sodium 137 mmol/L (136-145); Thyroid Stimulating Hormone 2.68 uIU/mL (0.27-4.20); Total Bilirubin 0.3 mg/dL (0.15-1.2); Total Protein 6.6 g/dL (6.6-8.7)
[2020-11-28 10:14] LABS: Anion Gap 12.8 (5-19); Potassium 3.8 mmol/L (3.5-5.1)
[2020-11-28] MEDS: sodium chloride 0.9% 250 ML 125 ML IV (10:56)
--- NOTE | 2020-11-28 12:15 | XR_ITS ---
WS: [id number] Left hip, AP and frog leg, AP pelvis, 11/28/2020 Clinical Data: HIP PAIN-INCLUDE PELVIS Comparison: None. Findings: No fractures or dislocations are seen. The hips show no erosion, sclerosis, narrowing or cyst formati on. The acetabular lips are prominent.The SI joints and pubic symphysis are unremarkable. The soft ti ssues are normal. XR/XR hip LT 2-3V wo/w pel* [id number] Impression: 1. Negative pelvis. 2. Bilateral ostial arthritis with prominent acetabular lips.
--- NOTE | 2020-11-28 12:17 | XR_ITS ---
WS: [id number] Left femur and thigh, AP and lateral views, 11/28/2020 Clinical Data: LEG PAIN Comparison: None. Findings: No fractures or dislocations are seen. The soft tissues are normal. The visualized left knee shows na rrowing of the medial joint compartment.. The left hip shows a prominent acetabular lip. XR/XR femur LT min 2V* [id number] Impression: 1. Negative left thigh and femur. 2. Prominent acetabular lip adjacent to the left femoral head. 3. Medial joint compartment narrowing of the left knee.
--- NOTE | 2020-12-02 09:31 | ONC FU_ITS ---
Dr. Yun Patient Follow-Up Note Patient: Roge Ozuna Unit #: [id number]: 1950 Dicatated By: Shamar Yun M.D.Date of Visit:Nov 28, 2020 Onc Med Follow-up/Prog Note Chief Complaint: Lung cancer. 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 He has been followed for an abnormal chest CT scan, with the main concern being a nodule at the right lung base noted on a study from June 2017. On follow-up studies that nodule had resolved. Also noted were some fibrotic changes in the right upper lobe which had remained stable as of August 2018. A repeat chest CT on 07/04/2019 showed progression in the scarring and soft tissue surrounding bullous disease in the right upper lobe, possibly due to progression of fibrosis, though early neoplasm was not excluded. His repeat chest CT on 07/19/2020 showed significant progression of irregular soft tissue mass surrounding the cystic/cavitary fibrotic lesion in the right upper lobe. The lesion measured approximately 5.2 x 3.5 cm. The appearance was highly suspicious for neoplasm. Also noted was soft tissue thickening along the left lateral tracheal wall, possibly due to focal area of mucus. Also noted were bilateral pulmonary nodules ranging in size from a few millimeters up to 10 mm, suspicious for metastatic disease. Further evaluation with PET/CT on 07/28/2020 showed FDG avid cavitary right upper lobe mass measuring 4.5 x 5.1 cm, SUV 12.1, indicating high probability of malignancy. Secondary pulmonary nodules were noted in the right upper lobe, superior segment right lower lobe, left apex, and medial left lower lung base, consistent with metastatic disease. A 1.7 cm right paratracheal lymph node was also FDG avid, SUV 4.8, consistent with a metastatic node. He was referred to Dr. Moreno. On 08/20/2020 he underwent flexible diagnostic bronchoscopy with endobronchial biopsy from the right upper lobe and mediastinoscopy with biopsy of station 4R lymph node. Pathology from the right upper lobe biopsy showed adenosquamous carcinoma favoring lung primary. 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 A next generation sequencing study showed no actionable mutations. The PD-L1 (22c3) expression was positive at 25% and the PD-L1 (28-8) expression was positive at 35%. His staging head MRI showed an intrasellar pituitary mass with suprasellar extension measuring 1.4 x 1.6 x 1.7 cm. There was associated impingement on the optic chiasm. 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 There appeared to be involvement of the right cavernous sinus but cavernous carotid arteries were noted to be patent. There were no suspicious enhancing intracranial parenchymal abnormalities noted. I had seen him initially on 09/03/2020. With evidence of multiple pulmonary metastatic lesions bilaterally, it appeared that he would require systemic therapy. By next generation sequencing, his tumor was positive for PD-L1 expression at 25% for PD-L1 (22c3). There were no actionable mutations identified. With his PD-L1 positive at less than 50%, he was recommended to have combined chemotherapy/immunotherapy, per NCCN guidelines. However, he opted to have immunotherapy monotherapy. His other medical illnesses include hypertension, hyperlipidemia, GERD, rheumatoid arthritis, peripheral neuropathy, benign prostatic hypertrophy, and emphysema. He has history of smoking 2 packs of cigarettes daily. He quit smoking 15 years ago. INTERIM HISTORY: He began cycle 1 of pembrolizumab on 10/17/2020. He tolerated it well and continued with cycle 2 on 11/07/2020. He is seen for a follow-up visit. He has been feeling pretty good generally. He says his energy is not too bad. He is doing light work. ECOG score is 1. He has good appetite. He has no fever or night sweats. His breathing has been pretty good, though he does get short of breath with activity. He has just occasional cough. He brings up only a small amount of phlegm, but he thinks that there may have been a little blood in it at times. He has no GI complaints other than constipation. Bladder function is the same. He starts and stops. Recently has been having pain in his left hip and left leg. He also has arthritis pain in his knees, which is chronic. He has numbness/tingling in his feet, but that has been going on for a long time. Medications: Aspirin 81 Tablet, enteric coated Oral daily, Atorvastatin Calcium 1 (40 mg) Tablet Oral daily, Co Q10 (200 mg) Capsule Oral daily, Finasteride (5 mg) Tablet Oral daily, Lyrica (225 mg) Capsule Oral b.i.d., Nortriptyline HCl (10 mg) Capsule Oral daily, Omeprazole 1 (20 mg) Capsule Delayed Release Oral daily, Tamsulosin HCl 2 Capsule (of 0.4 mg) Oral daily Allergies: No Known Allergies. Vital Signs: Performed on Nov 28, 2020 09:50 Height - 72.00 in Weight - 242.8 lbs (HIGH) BSA - 2.31 sq.m BMI - 32.93 (HIGH) Temperature - 97.2 F (LOW) Pulse - 64 /min Respiration - 18 /min BP - 141/74 mm(hg) (HIGH) O2 Sat - 95 % (LOW) Pain - 0 Physical Examination: Constitutional - He looks good generally, Eyes - Sclerae nonicteric. Conjunctivae clear, ENMT - No lesions noted in the oral cavity, Hematologic/Lymphatic - No cervical, clavicular, or axillary adenopathy, Respiratory - Lungs are clear with diminished air movement bilaterally, Cardiovascular - Heart rhythm is regular. There is no murmur, gallop, or rub noted, Abdomen - Soft. Liver and spleen are not enlarged. There is no abdominal mass or ascites noted and there is no inguinal adenopathy, Extremities - No edema, Neurologic - No focal neurologic deficits noted. Lab/Imaging: Test performed on Nov 28, 2020 08:44 Sodium 137 mmol/L TSH 2.68 uIU/mL Potassium 3.8 mmol/L Chloride 101 mmol/L CO2 27 mmol/L Anion Gap 12.8 BUN 15 mg/dL Creatinine 1.0 mg/dL Cr Clearance (Est) 104.0200 mL/min Glucose 95 mg/dL Osmolality - Calculated 285 mOsm/kg Calcium 8.4 mg/dL Protein, Total 6.6 g/dL Albumin 3.6 g/dL Globulin 3.0 g/dL Bilirubin, Total 0.3 mg/dL ALT (SGPT) 22 U/L AST (SGOT) 34 U/L Alkaline Phosphatase 72 IU/L WBC 4.5 10 3/uL RBC 4.56 10 6/uL HGB 14.3 g/dL HCT 43.9 % MCV 96.3 fL MCH 31.4 pg MCHC 32.6 g/dL RDW 13.9 % Platelet Count 143 10 3/cmm MPV 10.1 fL Neutrophils 1.94 10 3/uL Lymphocytes 1.2 10 3/uL Monocytes 1.1 10 3/uL Eosinophils 0.2 10 3/uL Basophils 0.1 10 3/uL Neutrophil % 42.8 % Lymphocyte % 27.3 % Monocyte % 23.3 % Eosinophil % 4.6 % Basophils % 1.1 % NRBC % 0 % Problem List: 1. Adenosquamous carcinoma involving the upper lobe of the right lung, by clinical evaluation stage TAMARA (T3, N2, M1a), with PET/CT evidence of multiple bilateral pulmonary nodules. His next generation sequencing study showed no actionable mutation, but the tumor was noted to be positive for PD-L1 expression. 2. He underwent diagnostic flexible bronchoscopy and mediastinoscopy on 08/08/2020. 3. 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 4. He has CT evidence of underlying COPD. His other medical illnesses include: 5. Hypertension. 6. Hyperlipidemia. 7. GERD. 8. Rheumatoid arthritis. 9. Peripheral neuropathy. 10. Benign prostatic hypertrophy. Problems Addressed with this Encounter and Plan: 1. Adenosquamous carcinoma involving the upper lobe of the right lung, by clinical evaluation stage TAMARA (T3, N2, M1a), with PET/CT evidence of multiple bilateral pulmonary nodules. The PD-L1 (22c3) expression was postive at 25%. He opted to have immunotherapy alone. He has now completed 2 cycles of treatment with pembrolizumab 200 mg by IV infusion every 3 weeks. Thus far he has had no obvious treatment related adverse effects. He has not been evaluated for response, but in the absence of any evidence of disease progression he will continue with cycle 3 of pembrolizumab. The dosage will remain the same. He returns for treatment in 3 weeks and for a follow-up visit in 6 weeks. 2. He has new pain in the left hip and left leg. He will be scheduled for x-rays of the pelvis, left hip, and left femur. He will have further evaluation as indicated. 3. He has ongoing complaints of constipation. He will be given instructions to start a bowel regimen with senna/docusate. 4. 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 He will require ongoing monitoring. Signed By: Shamar Yun M.D. <<Signature on File>>
== END 2020-12-09 23:59 | disposition home or self-care (01) ==
LOC: ONCMED 08:25
PROVIDERS: PCP Nurse Practitioner Family; Visit Provider Internal Medicine Medical Oncology
DX: Z51.12 Encounter for antineoplastic immunotherapy (principal); C34.11 Malignant neoplasm of upper lobe, right bronchus or lung; C78.01 Secondary malignant neoplasm of right lung; C78.02 Secondary malignant neoplasm of left lung; D69.6 Thrombocytopenia, unspecified; J44.9 Chronic obstructive pulmonary disease, unspecified; I10 Essential (primary) hypertension; E78.5 Hyperlipidemia, unspecified; K21.9 Gastro-esophageal reflux disease without esophagitis; M06.9 Rheumatoid arthritis, unspecified; G62.9 Polyneuropathy, unspecified; N40.0 Benign prostatic hyperplasia without lower urinary tract symptoms; Z79.899 Other long term (current) drug therapy
CPT/HCPCS: 73502; 73552; 80053; 84443; 85025; 96413; 99214; J7050; J9271

== ENCOUNTER 2020-12-04 13:14 | Emergency (ER) | payer MEDICARE, SELFPAY ==
[2020-12-04] VITALS (7 sets, daily range): BP systolic 116–139; BP diastolic 74–84; PULSE 75–78; RESP 18–20; TEMP 36.6; O2SAT 87–96; BMI 32.5
--- NOTE | 2020-12-04 13:31 | XR_ITS ---
WS: [id number] Exam: XR chest 1V portable [id number] Date/Time of Exam: 12/04/2020 1:50 PM Reason For Exam: cough, sob Comparison 08/23/2018. A lobulated masslike density is seen in the upper lobe of the right lung. This measures 5.2 cm at gre atest dimension. There is also an ill-defined 4.5 cm focal density in the region of the lingula. Also there is diffuse infiltrate in the left lower lung zone that is suspicious for pneumonia. Normal hea rt size. The mediastinum and bony thorax are unremarkable. No pleural effusions. XR/XR chest 1V portable [id number] IMPRESSION: 1. 5.2 cm mass in the upper lobe of the right lung suspicious for malignancy. 2. 4.5 cm mass or focal infiltrate in the left lower lung zone. There is also d iffuse infiltrate in the left lower lung zone suspicious for pneumonia.
--- NOTE | 2020-12-04 13:37 | ED_ITS ---
HPI - COVID General: Chief Complaint: COVID symptoms Stated Complaint: phy ref/cough/cob Time Seen by Provider: 12/04/20 13:30 Triage information: Has fever, cough or shortness of breath . No known COVID + exposure last 14 days History of Present Illness: HPI Narrative: Patient with a history of increasing shortness of breath fever chills muscle aches cough over the last few days. Is currently under treatment for lung cancer. MD complaint: has COVID symptoms Prior covid testing: no COVID 19 common symptoms: positive fever(s), chills, non-productive cough, dyspnea and body aches; negative headache(s), throat pain, nasal congestion, nausea or vomiting COVID 19 other sytmptoms: negative chest pain Onset (ago): day(s) Severity: moderate Pertinent comorbid conditions: cancer, immunocompromised state and other (Lung cancer) COVID Results: SARS-CoV-2 Antigen (Rapid) Positive (Negative) H 12/04/20 13:50 12/04/20 SARS-CoV-2 RNA (RT-PCR) Not detected (NOT DETECTED) 08/17/20 11:24 08/17/20 Nasal/Oral Coronavirus 2019 PCR Pending 08/17/20 09:36 08/17/20 Review of Systems Const: Reports: fever(s), chills and body aches Eyes: Denies: change in vision or blurry vision ENMT: Denies: throat pain or nasal congestion Card: Denies: chest pain or dyspnea on exertion Resp: Reports: dyspnea and non-productive cough GI: Denies: abdominal pain, nausea or vomiting : Denies: difficulty urinating Musc: Denies: extremity pain Skin/Breast: Denies: rash Neuro: Denies: headache(s) Psych: Denies: anxiety or depression Guillaume/Lymph: Denies: easy bruising PFSH ED PFSH: Family History Father CAD (coronary artery disease) Denies family history of Diabetes Hyperlipidemia Cancer Hypertension Stroke Social History Smoking and tobacco status: smoker, details unknown cigarettes Packs smoked per day: 2 Years cigarettes smoked: 40 Quit status (tobacco): has quit using tobacco Year quit tobacco: 2002 Alcohol intake: never Lives independently: Yes Household members: none Housing: House Marital status: History of recent travel: No Physical Exam Const: COMMON NORMALS: no acute distress, average body habitus and patient oriented x3 HENMT: COMMON NORMALS: normocephalic HEAD & SCALP: normal to inspection and normocephalic FACE & SINUS: normal facial exam Eye: COMMON NORMALS: conjunctivae normal GENERAL EYE: appearance normal, both eyes and all related structures CONJUNCTIVA: Yes conjunctivae normal Neck/C-Spine: COMMON NORMALS: no JVD Chest: COMMONS NORMALS: normal inspection of the chest Resp: COMMON NORMALS: normal respiratory effort AUSCULTATION: diminished lung sounds Cardio: COMMON NORMALS: no JVD, regular rate and regular rhythm RATE: regular rate RHYTHM: regular rhythm GI: COMMON NORMALS: Normal to inspection, nondistended, normoactive bowel sounds present Extremity: COMMON NORMALS: normal to inspection and full ROM Neuro: COMMON NORMALS: patient oriented x3 Course 2 Vital Signs: Vital signs: Vital Signs Temperature 97.9 F 12/04/20 13:25 Pulse Rate 75 12/04/20 13:56 Respiratory Rate 20 H 12/04/20 13:56 Blood Pressure 116/75 12/04/20 13:56 Pulse Oximetry 95 12/04/20 13:56 MDM - COVID MDM Narrative: Medical decision making narrative: Discussed patient's treatment results and treatment plan with Dr. Gaston. Lab Data: Labs: Lab Results 12/04/20 12/04/20 Range/Units 13:50 13:50 Influenza Type A A g Negative (Negative) Influenza Type B A g Positive H (Negative) SARS-CoV-2 Ag (Rap id) Positive H (Negative) COVID Results: SARS-CoV-2 Antigen (Rapid) Positive (Negative) H 12/04/20 13:50 12/04/20 SARS-CoV-2 RNA (RT-PCR) Not detected (NOT DETECTED) 08/17/20 11:24 08/17/20 Nasal/Oral Coronavirus 2019 PCR Pending 08/17/20 09:36 08/17/20 Discharge Plan Discharge Prescriptions: No Action finasteride 5 mg tablet 5 mg PO DAILY RF: 0 tamsulosin 0.4 mg capsule 0.4 mg PO DAILY RF: 0 famotidine 20 mg tablet 20 mg PO BID RF: 0 atorvastatin 40 mg tablet 40 mg PO DAILY RF: 0 coenzyme Q10 [CoQ-10] 100 mg capsule 100 mg PO DAILY RF: 0 pregabalin [Lyrica] 225 mg capsule 225 mg PO BID RF: 0 aspirin 325 mg tablet 325 mg PO DAILY RF: 0 amitriptyline 25 mg tablet 25 mg PO DAILY RF: 0 Coding Level of Care Code ED Socially Responsible [employer] for [employer] Fwd Exam Comprehensive
[2020-12-04 14:44] LABS: Influenza A by IFA Negative (Negative); Influenza B by IFA Positive (Negative)
[2020-12-04 14:45] LABS: SARS Covid-2 Antigen Positive (Negative)
[2020-12-04] MEDS: dexamethasone 4 mg Tablet 10 MG PO (15:49)
[2020-12-04 15:50] LABS: Basophils % 0.3 %; Eosinophils % 0.5 %; Hematocrit 44.1 % (42.0-52.0); Hemoglobin 14.5 g/dL (11.7-16.6); Lymphocytes # 0.8 10^3/uL (0.8-4.8); Lymphocytes % 19.8 %; Mean Corpuscular HGB Conc 32.9 g/dL (30.0-36.0); Mean Corpuscular Hemoglobin 30.6 pg (28.0-34.0); Mean Platelet Volume 9.4 fL (7.4-10.4); Monocytes # 0.7 10^3/uL (0.2-0.9); Monocytes % 16.8 %; Neutrophils # 2.41 10^3/uL (1.8-7.7); Neutrophils % 62.1 %; Nucleated Red Blood Cells % 0 %; Platelet Count 115 10^3/cmm (130-400); Red Blood Count 4.74 10^6/uL (4.1-5.3); Red Cell Distribution Width 13.4 % (12.1-15.1); White Blood Count 3.9 10^3/uL (4.0-10.0)
[2020-12-04 16:09] LABS: Alanine Aminotransferase 20 U/L (0-41); Albumin Level 3.7 g/dL (3.5-5.2); Alkaline Phosphatase 65 IU/L (40-130); Anion Gap 11.4 (5-19); Aspartate Amino Transferase 53 U/L (0-40); Blood Urea Nitrogen 15 mg/dL (8-23); Calcium 8.7 mg/dL (8.5-10.5); Carbon Dioxide 27 mmol/L (22-29); Chloride 99 mmol/L (98-107); Globulin 3.4 g/dL (1.3-4.6); Glucose 101 mg/dL (65-115); Osmolality Calculated 277 mOsm/kg (285-295); Potassium 4.4 mmol/L (3.5-5.1); Sodium 133 mmol/L (136-145); Total Bilirubin 0.6 mg/dL (0.15-1.2); Total Protein 7.1 g/dL (6.6-8.7)
== END 2020-12-04 17:21 | disposition home or self-care (01) ==
PROVIDERS: Emergency Provider Nurse Practitioner Family; PCP Nurse Practitioner Family
DX: U07.1 COVID-19 (principal); Z79.82 Long term (current) use of aspirin; F17.210 Nicotine dependence, cigarettes, uncomplicated; C34.90 Malignant neoplasm of unspecified part of unspecified bronchus or lung
CPT/HCPCS: 12345; 36415; 71045; 80053; 85025; 87426; 87804; 99282; 99283; J8540

== ENCOUNTER 2021-01-01 05:58 | Outpatient (CLI) | payer MEDICARE, SELFPAY | END 2021-01-01 05:59 | disposition home or self-care (01) | LOC: ONCMED 05:59 | PROVIDERS: PCP Nurse Practitioner Family; Visit Provider Internal Medicine Medical Oncology | DX: Z51.12 Encounter for antineoplastic immunotherapy (principal); C34.11 Malignant neoplasm of upper lobe, right bronchus or lung; C78.02 Secondary malignant neoplasm of left lung; D69.6 Thrombocytopenia, unspecified | CPT/HCPCS: 96413; J7050; J9271 ==

== ENCOUNTER 2021-01-24 09:50 | Outpatient (CLI) | payer MEDICARE, SELFPAY ==
[2021-01-24 10:36] LABS: Basophils # 0.1 10^3/uL (0.0-0.1); Basophils % 1.4 %; Eosinophils # 0.2 10^3/uL (0.0-0.8); Eosinophils % 4.8 %; Hematocrit 44.1 % (42.0-52.0); Hemoglobin 13.9 g/dL (11.7-16.6); Lymphocytes # 1.1 10^3/uL (0.8-4.8); Mean Corpuscular HGB Conc 31.5 g/dL (30.0-36.0); Mean Corpuscular Hemoglobin 30.5 pg (28.0-34.0); Mean Corpuscular Volume 96.7 fL (80-94); Mean Platelet Volume 11.2 fL (7.4-10.4); Monocytes # 0.8 10^3/uL (0.2-0.9); Monocytes % 16.4 %; Neutrophils # 2.78 10^3/uL (1.8-7.7); Nucleated Red Blood Cells % 0 %; Platelet Count 165 10^3/cmm (130-400); Red Blood Count 4.56 10^6/uL (4.1-5.3); Red Cell Distribution Width 14.9 % (12.1-15.1); White Blood Count 5.1 10^3/uL (4.0-10.0)
[2021-01-24 11:38] LABS: Alanine Aminotransferase 22 U/L (0-41); Albumin Level 3.5 g/dL (3.5-5.2); Alkaline Phosphatase 61 IU/L (40-130); Anion Gap 12.7 (5-19); Aspartate Amino Transferase 32 U/L (0-40); Blood Urea Nitrogen 13 mg/dL (8-23); Calcium 8.6 mg/dL (8.5-10.5); Carbon Dioxide 25 mmol/L (22-29); Chloride 105 mmol/L (98-107); Globulin 3.2 g/dL (1.3-4.6); Glucose 81 mg/dL (65-115); Lactate Dehydrogenase 225 U/L (135-225); Osmolality Calculated 287 mOsm/kg (285-295); Potassium 3.7 mmol/L (3.5-5.1); Sodium 139 mmol/L (136-145); Thyroid Stimulating Hormone 2.45 uIU/mL (0.27-4.20); Total Bilirubin 0.2 mg/dL (0.15-1.2); Total Protein 6.7 g/dL (6.6-8.7)
--- NOTE | 2021-02-04 00:08 | ONC FU_ITS ---
[facility] Patient Note Patient: Roge Ozuna Unit #: [id number]: [id number] Dictated By: Ted SantosDate of Visit: Jan 24, 2021 Onc MED Follow-Up/Prog Note Chief Complaint: Lung cancer. 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 He has been followed for an abnormal chest CT scan, with the main concern being a nodule at the right lung base noted on a study from June 2017. On follow-up studies that nodule had resolved. Also noted were some fibrotic changes in the right upper lobe which had remained stable as of August 2018. A repeat chest CT on 07/04/2019 showed progression in the scarring and soft tissue surrounding bullous disease in the right upper lobe, possibly due to progression of fibrosis, though early neoplasm was not excluded. His repeat chest CT on 07/19/2020 showed significant progression of irregular soft tissue mass surrounding the cystic/cavitary fibrotic lesion in the right upper lobe. The lesion measured approximately 5.2 x 3.5 cm. The appearance was highly suspicious for neoplasm. Also noted was soft tissue thickening along the left lateral tracheal wall, possibly due to focal area of mucus. Also noted were bilateral pulmonary nodules ranging in size from a few millimeters up to 10 mm, suspicious for metastatic disease. Further evaluation with PET/CT on 07/28/2020 showed FDG avid cavitary right upper lobe mass measuring 4.5 x 5.1 cm, SUV 12.1, indicating high probability of malignancy. Secondary pulmonary nodules were noted in the right upper lobe, superior segment right lower lobe, left apex, and medial left lower lung base, consistent with metastatic disease. A 1.7 cm right paratracheal lymph node was also FDG avid, SUV 4.8, consistent with a metastatic node. He was referred to Dr. Moreno. On 08/20/2020 he underwent flexible diagnostic bronchoscopy with endobronchial biopsy from the right upper lobe and mediastinoscopy with biopsy of station 4R lymph node. Pathology from the right upper lobe biopsy showed adenosquamous carcinoma favoring lung primary. 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 A next generation sequencing study showed no actionable mutations. The PD-L1 (22c3) expression was positive at 25% and the PD-L1 (28-8) expression was positive at 35%. His staging head MRI showed an intrasellar pituitary mass with suprasellar extension measuring 1.4 x 1.6 x 1.7 cm. There was associated impingement on the optic chiasm. 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 There appeared to be involvement of the right cavernous sinus but cavernous carotid arteries were noted to be patent. There were no suspicious enhancing intracranial parenchymal abnormalities noted. Dr Yun had seen him initially on 09/03/2020. With evidence of multiple pulmonary metastatic lesions bilaterally, it appeared that he would require systemic therapy. By next generation sequencing, his tumor was positive for PD-L1 expression at 25% for PD-L1 (22c3). There were no actionable mutations identified. With his PD-L1 positive at less than 50%, he was recommended to have combined chemotherapy/immunotherapy, per NCCN guidelines. However, he opted to have immunotherapy monotherapy. His other medical illnesses include hypertension, hyperlipidemia, GERD, rheumatoid arthritis, peripheral neuropathy, benign prostatic hypertrophy, and emphysema. He has history of smoking 2 packs of cigarettes daily. He quit smoking 15 years ago. INTERIM HISTORY: He began cycle 1 of pembrolizumab on 10/17/2020. He tolerated it well and has completed 4 cycles thus far. Mr Ozuna is here today for followup. He is due for cycle 5 pembrolizumab (Keytruda). He states overall he is doing well. He has no new concerns today. He denies any fever or chills. He denies any recent Covid 19 exposure or symptoms. He did test positive for the SARS???Covid???2 antigen (rapid) and influenza type B on November 24, 2020. He did not require hospital admission. He states his breathing is pretty good for him. He denies any new pain. He states his bowels and bladder are about the same. He has constipation is some better with the senna/docusate. He has recently been having pain in his left hip and left leg but states it is no worse today. He also has arthritis pain in his knees, which is chronic. He has numbness/tingling in his feet, but that has been going on for a long time. On November 28, 2020, he did have x-rays of the left thigh and femur which were negative for bone mets. He also had x-ray of the pelvis and right and left hip at the same time. Again there were no bone metastasis but bilateral osteoarthritis with prominent acetabular lips per Dr. Zuniga's report. Past Medical History: Benign prostatic hypertrophy Emphysema Gastroesophageal reflux disease Hypercholesterolemia Hypertension Peripheral neuropathy Rheumatoid arthritis Past Surgical History: Flexible diagnostic bronchoscopy and mediastinoscopy in 2019 Appendectomy in 2008 Allergies: No Known Allergies. Medications: Aspirin 81 Tablet, enteric coated Oral daily Atorvastatin Calcium 1 (40 mg) Tablet Oral daily Co Q10 (200 mg) Capsule Oral daily Finasteride (5 mg) Tablet Oral daily Lyrica (225 mg) Capsule Oral b.i.d. Nortriptyline HCl (10 mg) Capsule Oral daily Omeprazole 1 (20 mg) Capsule Delayed Release Oral daily Tamsulosin HCl 2 Capsule (of 0.4 mg) Oral daily Family History: Mr. Ozuna's mother at age 19: tuberculosis. Mr. Ozuna's father is : heart disease. Father of heart disease and mother of TB. He had 2 half-brothers, one of whom is due to drug related problems. Social History: Mr. Ozuna is and he is a disabled. Mr. Ozuna quit smoking 18 years ago but had smoked 2.0 packs/day for 40 years. He is a former drinker. He has a history of smoking about 2 packs of cigarettes daily for about 40 years. He quit smoking 15 years ago. He previously had some weekend alcohol use, but he also quit drinking at the same time. 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 Review Of Symptoms: Constitutional Denies fevers, chills, night sweats, excessive fatigue or weight loss. Allergic/Immunologic No reactions. Eyes Denies significant visual changes. No diplopia. No amaurosis. ENMT Denies changes in hearing, sore throat, mouth sores, difficulty or changes in swallowing ability, and/or sinus drainage. Hematologic/Lymphatic Denies easy bruising or bleeding. The patient denies any tender or palpable lymph nodes. Respiratory Denies new or worsening dyspnea on exertion, chest pain, cough or hemoptysis. Denies orthopnea. Cardiovascular Denies anginal chest pain, palpitations or orthopnea. Gastrointestinal Denies nausea, vomiting, diarrhea, GI bleeding, or constipation. Denies change in bowel habits and/or stool color, no heartburn or early satiety. Genitourinary (M) Denies hematuria, dysuria, increased frequency, urgency, hesitancy or incontinence. Musculoskeletal See above Integumentary Denies chronic rashes, inflammation, ulcerations or skin changes. Neurologic Denies headache, blurred vision, and no areas of focal weakness or numbness. Normal gait. No sensory problems. Psychiatric Denies insomnia, depression, stephan or mood swings. Vital Signs: Performed on Jan 24, 2021 12:15 Height - 72.00 in Weight - 243 lbs (HIGH) BSA - 2.31 sq.m BMI - 32.96 (HIGH) Temperature - 95.9 F (LOW) Pulse - 78 /min Respiration - 18 /min BP - 121/86 mm(hg) O2 Sat - 96 % Pain - 6 Fatigue - 8,1 - No physically strenuous activity, but ambulatory and able to carry out light or sedentary work (e.g. office work, light house work). (ECOG) Physical Examination: Constitutional Alert, oriented, no acute distress. Skin pink, warm and dry. Head Normocephalic; atraumatic. Eyes Conjunctivae and sclerae are clear and without icterus. Pupils are reactive and equal. Neck Supple without masses or thyromegaly. No jugular venous distension. Hematologic/Lymphatic No petechiae or purpura. No tender or palpable lymph nodes in the cervical or supraclavicular areas. Respiratory Lungs are clear to auscultation without rhonchi or wheezing. Cardiovascular Regular rate and rhythm of heart without murmurs,clicks, gallops or rubs. Abdomen Non-tender, non-distended, no masses or ascites. Good bowel sounds noted in all quads. No guarding or rebound tenderness. No pulsatile masses. Back/Spine Non-tender to palpation. Extremities No visible deformities, no cyanosis, clubbing or edema. Musculoskeletal No tenderness or swelling, normal range of motion without obvious weakness. Integumentary No rashes or lesions. Neurologic No sensory or motor deficits, normal cerebellar function, normal gait. Psychiatric Alert and oriented times three. Coherent speech. Verbalizes understanding of our discussions today. Laboratory:Test performed on Jan 24, 2021 10:49 LDH (Total) 225 U/L Sodium 139 mmol/L TSH 2.45 uIU/mL Potassium 3.7 mmol/L Chloride 105 mmol/L CO2 25 mmol/L Anion Gap 12.7 BUN 13 mg/dL Creatinine 0.9 mg/dL Cr Clearance (Est) 115.6700 mL/min Glucose 81 mg/dL Osmolality - Calculated 287 mOsm/kg Calcium 8.6 mg/dL Protein, Total 6.7 g/dL Albumin 3.5 g/dL Globulin 3.2 g/dL Bilirubin, Total 0.2 mg/dL ALT (SGPT) 22 U/L AST (SGOT) 32 U/L Alkaline Phosphatase 61 IU/L Test performed on Jan 24, 2021 10:13 WBC 5.1 10 3/uL RBC 4.56 10 6/uL HGB 13.9 g/dL HCT 44.1 % MCV 96.7 fL MCH 30.5 pg MCHC 31.5 g/dL RDW 14.9 % Platelet Count 165 10 3/cmm MPV 11.2 fL Neutrophils 2.78 10 3/uL Lymphocytes 1.1 10 3/uL Monocytes 0.8 10 3/uL Eosinophils 0.2 10 3/uL Basophils 0.1 10 3/uL Neutrophil % 55.0 % Lymphocyte % 22.0 % Monocyte % 16.4 % Eosinophil % 4.8 % Basophils % 1.4 % NRBC % 0 % Impression: 1. Adenosquamous carcinoma involving the upper lobe of the right lung, by clinical evaluation stage TAMARA (T3, N2, M1a), with PET/CT evidence of multiple bilateral pulmonary nodules. His next generation sequencing study showed no actionable mutation, but the tumor was noted to be positive for PD-L1 expression. 2. He underwent diagnostic flexible bronchoscopy and mediastinoscopy on 08/08/2020. 3. 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 4. He has CT evidence of underlying COPD. His other medical illnesses include: 5. Hypertension. 6. Hyperlipidemia. 7. GERD. 8. Rheumatoid arthritis. 9. Peripheral neuropathy. 10. Benign prostatic hypertrophy. Plan: 1. Adenosquamous carcinoma involving the upper lobe of the right lung, by clinical evaluation stage TAMARA (T3, N2, M1a), with PET/CT evidence of multiple bilateral pulmonary nodules. The PD-L1 (22c3) expression was postive at 25%. He opted to have immunotherapy alone. He has now completed 2 cycles of treatment with pembrolizumab 200 mg by IV infusion every 3 weeks. Thus far he has had no obvious treatment related adverse effects. He has not been evaluated for response, but in the absence of any evidence of disease progression A. Proceed with cycle 5 pembrolizumab 200 mg. B. Today's labs reviewed in detail discussed with Mr. Ozuna and a copy was given to him. WBC 5.1, hemoglobin 13.9 platelets are 65,000 ANC is 2780. Potassium 3.7 creatinine 0.9 LFTs are normal TSH is 2.45. 2. He has pain in the left hip and left leg. A. Xrays from 11/28/2020 were negative for bone mets, but he does have arthritis. B. B. He continues to have pain but states it is no worse. He is currently on Lyrica to 25 twice daily. He is also on baby aspirin daily. C. He states that he has been on arthritis medicine in the past. He does have a history of RA as well. His chart indicates that he has been on Voltaren 75 mg twice daily. He has also been on prednisone 10 mg daily. He states typically the prednisone does not help a whole lot unless he is at high dosing. That is currently contraindicated with the immunotherapy. D. We will have him try Celebrex 200 mg daily. He is to call if his insurance does not cover this. 3. Chronic constipation A. Currently controlled with senna and docusate. B. Mr. Ozuna is advised that he can increase to 2 tablets twice daily if needed. C. He also may try MiraLAX if needed. He states currently he is comfortable with his bowel habits. 4. 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 He will require ongoing monitoring. 5. Follow-up plan A. We will plan to see him back in 3 weeks with CBC CMP and TSH. B. Mr. Ozuna instructed to contact us in the interim should questions or problems arise. C. He has not been yet evaluated for response to his immunotherapy. He will complete 5 cycles today. Signed By: Ted Santos-, AOCNP Shamar Yun MD <<Signature on File>>
== END 2021-01-24 09:51 | disposition home or self-care (01) ==
LOC: ONCMED 09:52
PROVIDERS: PCP Nurse Practitioner Family; Visit Provider Nurse Practitioner
DX: Z51.12 Encounter for antineoplastic immunotherapy (principal); C34.11 Malignant neoplasm of upper lobe, right bronchus or lung; C78.02 Secondary malignant neoplasm of left lung; D69.49 Other primary thrombocytopenia; J44.9 Chronic obstructive pulmonary disease, unspecified; I10 Essential (primary) hypertension; E78.5 Hyperlipidemia, unspecified; K21.9 Gastro-esophageal reflux disease without esophagitis; M06.9 Rheumatoid arthritis, unspecified; G62.9 Polyneuropathy, unspecified; N40.0 Benign prostatic hyperplasia without lower urinary tract symptoms; Z79.899 Other long term (current) drug therapy
CPT/HCPCS: 80053; 83615; 84443; 85025; 96413; 99214; J7050; J9271

== ENCOUNTER 2021-02-14 06:18 | Outpatient (CLI) | payer MEDICARE, SELFPAY ==
[2021-02-14 09:10] LABS: Basophils # 0.1 10^3/uL (0.0-0.1); Basophils % 1.3 %; Eosinophils # 0.2 10^3/uL (0.0-0.8); Eosinophils % 3.9 %; Hematocrit 42.7 % (42.0-52.0); Lymphocytes # 0.9 10^3/uL (0.8-4.8); Lymphocytes % 18.6 %; Mean Corpuscular HGB Conc 32.8 g/dL (30.0-36.0); Mean Corpuscular Hemoglobin 31.8 pg (28.0-34.0); Mean Platelet Volume 11.2 fL (7.4-10.4); Monocytes # 0.7 10^3/uL (0.2-0.9); Monocytes % 14.7 %; Neutrophils # 2.82 10^3/uL (1.8-7.7); Neutrophils % 60.9 %; Nucleated Red Blood Cells % 0 %; Platelet Count 148 10^3/cmm (130-400); Red Cell Distribution Width 14.8 % (12.1-15.1); White Blood Count 4.6 10^3/uL (4.0-10.0)
[2021-02-14 09:47] LABS: Alanine Aminotransferase 19 U/L (0-41); Albumin Level 3.6 g/dL (3.5-5.2); Alkaline Phosphatase 67 IU/L (40-130); Aspartate Amino Transferase 27 U/L (0-40); Blood Urea Nitrogen 16 mg/dL (8-23); Calcium 8.6 mg/dL (8.5-10.5); Carbon Dioxide 26 mmol/L (22-29); Chloride 104 mmol/L (98-107); Glucose 106 mg/dL (65-115); Osmolality Calculated 288 mOsm/kg (285-295); Sodium 138 mmol/L (136-145); Thyroid Stimulating Hormone 3.97 uIU/mL (0.27-4.20); Total Bilirubin 0.3 mg/dL (0.15-1.2); Total Protein 6.6 g/dL (6.6-8.7)
[2021-02-14 10:19] LABS: Anion Gap 11.9 (5-19); Potassium 3.9 mmol/L (3.5-5.1)
--- NOTE | 2021-02-16 17:52 | ONC FU_ITS ---
Dr. Yun Patient Follow-Up Note Patient: Roge Ozuna Unit #: [id number]: [id number] Dicatated By: Shamar Yun M.D.Date of Visit:Feb 14, 2021 Onc Med Follow-up/Prog Note Chief Complaint: Lung cancer. 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 He has been followed for an abnormal chest CT scan, with the main concern being a nodule at the right lung base noted on a study from June 2017. On follow-up studies that nodule had resolved. Also noted were some fibrotic changes in the right upper lobe which had remained stable as of August 2018. A repeat chest CT on 07/04/2019 showed progression in the scarring and soft tissue surrounding bullous disease in the right upper lobe, possibly due to progression of fibrosis, though early neoplasm was not excluded. His repeat chest CT on 07/19/2020 showed significant progression of irregular soft tissue mass surrounding the cystic/cavitary fibrotic lesion in the right upper lobe. The lesion measured approximately 5.2 x 3.5 cm. The appearance was highly suspicious for neoplasm. Also noted was soft tissue thickening along the left lateral tracheal wall, possibly due to focal area of mucus. Also noted were bilateral pulmonary nodules ranging in size from a few millimeters up to 10 mm, suspicious for metastatic disease. Further evaluation with PET/CT on 07/28/2020 showed FDG avid cavitary right upper lobe mass measuring 4.5 x 5.1 cm, SUV 12.1, indicating high probability of malignancy. Secondary pulmonary nodules were noted in the right upper lobe, superior segment right lower lobe, left apex, and medial left lower lung base, consistent with metastatic disease. A 1.7 cm right paratracheal lymph node was also FDG avid, SUV 4.8, consistent with a metastatic node. He was referred to Dr. Moreno. On 08/20/2020 he underwent flexible diagnostic bronchoscopy with endobronchial biopsy from the right upper lobe and mediastinoscopy with biopsy of station 4R lymph node. Pathology from the right upper lobe biopsy showed adenosquamous carcinoma favoring lung primary. 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 A next generation sequencing study showed no actionable mutations. The PD-L1 (22c3) expression was positive at 25% and the PD-L1 (28-8) expression was positive at 35%. His staging head MRI showed an intrasellar pituitary mass with suprasellar extension measuring 1.4 x 1.6 x 1.7 cm. There was associated impingement on the optic chiasm. 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 There appeared to be involvement of the right cavernous sinus but cavernous carotid arteries were noted to be patent. There were no suspicious enhancing intracranial parenchymal abnormalities noted. I had seen him initially on 09/03/2020. With evidence of multiple pulmonary metastatic lesions bilaterally, it appeared that he would require systemic therapy. By next generation sequencing, his tumor was positive for PD-L1 expression at 25% for PD-L1 (22c3). There were no actionable mutations identified. With his PD-L1 positive at less than 50%, he was recommended to have combined chemotherapy/immunotherapy, per NCCN guidelines. However, he opted to have immunotherapy monotherapy. His other medical illnesses include hypertension, hyperlipidemia, GERD, rheumatoid arthritis, peripheral neuropathy, benign prostatic hypertrophy, and emphysema. He has history of smoking 2 packs of cigarettes daily. He quit smoking 15 years ago. INTERIM HISTORY: He began cycle 1 of pembrolizumab on 10/17/2020. He tolerated it well and he then continued treatment at 3-week intervals. He received cycle 5 on 01/24/2021. He is seen for a follow-up visit. He has been feeling pretty good generally. He has not been as active lately, but his energy is still pretty good. He says he is sometimes a little shaky. His ECOG score is 1. He has good appetite. He has no fever or night sweats. He complains of having dry mouth. His breathing has been pretty good. He does not complain of cough and he has not been having chest pain. He currently has no GI/ complaints. His bowel function is better now. He has significant pain in his knees, but no other joint or bone pain. He does not complain of headache. He sometimes has dizziness when he first gets up. He has no numbness/paresthesia or other focal neurologic symptoms. Medications: Aspirin 81 Tablet, enteric coated Oral daily, Atorvastatin Calcium 1 (40 mg) Tablet Oral daily, Co Q10 (200 mg) Capsule Oral daily, Finasteride (5 mg) Tablet Oral daily, Lyrica (225 mg) Capsule Oral b.i.d., Nortriptyline HCl (10 mg) Capsule Oral daily, Omeprazole 1 (20 mg) Capsule Delayed Release Oral daily, Tamsulosin HCl 2 Capsule (of 0.4 mg) Oral daily Allergies: No Known Allergies. Vital Signs: Performed on Feb 14, 2021 09:18 Height - 72.00 in Weight - 249.6 lbs (HIGH) BSA - 2.34 sq.m BMI - 33.85 (HIGH) Temperature - 96.9 F (LOW) Pulse - 82 /min Respiration - 18 /min BP - 147/77 mm(hg) (HIGH) O2 Sat - 92 % (LOW) Pain - 7 Fatigue - 0 Physical Examination: Constitutional - He looks pretty good generally, Eyes - Sclerae nonicteric. Conjunctivae clear, ENMT - No lesions noted in the oral cavity, Hematologic/Lymphatic - No cervical, clavicular, or axillary adenopathy, Respiratory - Lungs are clear with diminished air movement bilaterally, Cardiovascular - Heart rhythm is regular. There is no murmur, gallop, or rub noted, Abdomen - Soft. Liver and spleen are not enlarged. There is no abdominal mass or ascites noted and there is no inguinal adenopathy, Extremities - Mild edema, Neurologic - No focal neurologic deficits noted. Lab/Imaging: Test performed on Feb 14, 2021 08:18 Sodium 138 mmol/L TSH 3.97 uIU/mL Potassium 3.9 mmol/L Chloride 104 mmol/L CO2 26 mmol/L Anion Gap 11.9 BUN 16 mg/dL Creatinine 0.9 mg/dL Cr Clearance (Est) 118.8100 mL/min Glucose 106 mg/dL Osmolality - Calculated 288 mOsm/kg Calcium 8.6 mg/dL Protein, Total 6.6 g/dL Albumin 3.6 g/dL Globulin 3.0 g/dL Bilirubin, Total 0.3 mg/dL ALT (SGPT) 19 U/L AST (SGOT) 27 U/L Alkaline Phosphatase 67 IU/L WBC 4.6 10 3/uL RBC 4.40 10 6/uL HGB 14.0 g/dL HCT 42.7 % MCV 97.0 fL MCH 31.8 pg MCHC 32.8 g/dL RDW 14.8 % Platelet Count 148 10 3/cmm MPV 11.2 fL Neutrophils 2.82 10 3/uL Lymphocytes 0.9 10 3/uL Monocytes 0.7 10 3/uL Eosinophils 0.2 10 3/uL Basophils 0.1 10 3/uL Neutrophil % 60.9 % Lymphocyte % 18.6 % Monocyte % 14.7 % Eosinophil % 3.9 % Basophils % 1.3 % NRBC % 0 % Problem List: 1. Adenosquamous carcinoma involving the upper lobe of the right lung, by clinical evaluation stage TAMARA (T3, N2, M1a), with PET/CT evidence of multiple bilateral pulmonary nodules. His next generation sequencing study showed no actionable mutation, but the tumor was noted to be positive for PD-L1 expression. 2. He underwent diagnostic flexible bronchoscopy and mediastinoscopy on 08/08/2020. 3. 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 4. He has CT evidence of underlying COPD. 5. Hypertension. 6. Hyperlipidemia. 7. GERD. 8. Rheumatoid arthritis. 9. Peripheral neuropathy. 10. Benign prostatic hypertrophy. Problems Addressed with this Encounter and Plan: 1. 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 The PD-L1 (22c3) expression was postive at 25%. He opted to have immunotherapy alone. He has been tolerating treatment well. He has not had any restaging evaluation, but his overall clinical status has remained stable. He will proceed with cycle 6 of pembrolizumab, but with the dosage increase to 400 mg and with treatment now administered at 6-week intervals. 2. 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 The MRI will be repeated in 6 weeks along with his restaging chest CT. Signed By: Shamar Yun M.D. <<Signature on File>>
== END 2021-02-14 06:19 | disposition home or self-care (01) ==
LOC: ONCMED 06:21
PROVIDERS: PCP Nurse Practitioner Family; Visit Provider Internal Medicine Medical Oncology
DX: Z51.12 Encounter for antineoplastic immunotherapy (principal); C34.11 Malignant neoplasm of upper lobe, right bronchus or lung; C78.02 Secondary malignant neoplasm of left lung; D35.2 Benign neoplasm of pituitary gland; Z51.81 Encounter for therapeutic drug level monitoring; Z79.899 Other long term (current) drug therapy
CPT/HCPCS: 80053; 84443; 85025; 96413; 99214; J7050; J9271

== ENCOUNTER → 2021-03-01 17:54 | Outpatient (BNVA) | payer MEDICARE, SELFPAY | PROVIDERS: PCP Nurse Practitioner Family; Visit Provider Nurse Practitioner | DX: R23.3 Spontaneous ecchymoses (principal) | CPT/HCPCS: 85025 ==

== ENCOUNTER 2021-03-06 19:51 | Emergency (ER) | payer MEDICARE, SELFPAY ==
[2021-03-06 19:57] VITALS: BP 147/101; PULSE 105; RESP 24; TEMP 36.9; O2SAT 96; BMI 27.3
[2021-03-06 20:04] VITALS: PULSE 98
--- NOTE | 2021-03-06 20:14 | CTR_ITS ---
PROCEDURE INFORMATION: Exam: CTA Chest With Contrast Exam date and time: 03/06/2021 8:34 PM Age: 70 years old Clinical indication: Abnormal findings; Abnormal diagnostic tests; Elevated d-dimer; Shortness of breath; Additional info: R/O pe. Dyspnea TECHNIQUE: Imaging protocol: Computed tomographic angiography of the chest with contrast. 3D rendering (Not supervised by radiologist): MIP and/or 3D reconstructed images were created by the technologist. Total images: 949 Radiation optimization: All CT scans at this facility use at least one of these dose optimization techniques: automated exposure control; mA and/or kV adjustment per patient size (includes targeted exams where dose is matched to clinical indication); or iterative reconstruction. Contrast material: VISI 320; Contrast volume: 95 ml; Contrast route: INTRAVENOUS (IV); COMPARISON: CTA Thorac/Abd Aor 14121/15025 08/23/2018 1:08 PM RADIATION DOSE METRICS: Total DLP (mGy-cm): 615.51 FINDINGS: Pulmonary arteries: No visible evidence of pulmonary embolism/pulmonary arterial thrombus. Aorta: The thoracic aorta is nonaneurysmal. Mild arteriosclerosis. Lungs: New right upper lobe spiculated mass approximate dimensions 39 mm x 28 mm x 32 mm. Mass has evolved at the site of a previous parenchymal scar. Potential scar carcinoma. Advanced bullous emphysema. Pleural spaces: Unremarkable. No pneumothorax. No pleural effusion. Heart: No cardiomegaly. No visible pericardial effusion. Moderate coronary artery disease. Lymph nodes: Prominent mediastinal and hilar lymph nodes. Interval increase in pre-existing mediastinal lymph nodes since last evaluation of 08/23/2018. Dominant aortopulmonic node measures 12 mm in the short axis. Pancreas: Advanced partial fatty replacement of the pancreas. No visible pancreatic ductal ectasia. Kidneys and ureters: Simple renal cortical cyst superior pole right kidney. No follow-up recommended. Bones/joints: No visible active or acute osseous pathology. Soft tissues: Unremarkable. CT/CT angio chest PE protcl [id number] IMPRESSION: 1. No visible evidence of pulmonary embolism/pulmonary arterial thrombus. 2. New right upper lobe spiculated mass approximate dimensions 39 mm x 28 mm x 32 mm. Mass has evolved at the site of a previous parenchymal scar. Potential scar carcinoma. 3. Prominent mediastinal and hilar lymph nodes. 4. Advanced bullous emphysema. 5. Moderate coronary artery disease. COMMENTS: Consistent with the [employer]'s Incidental Findings Committee white paper (J Am Diya Radiol 2018): Any incidental renal lesion less than 1 cm or classified as too small to characterize, or any incidental cystic renal lesion characterized as simple-appearing, is likely benign. No follow-up imaging is recommended for these lesions per consensus recommendations based on imaging criteria. Radiation Dose CTDIVOL = (mGy): DLP = 615.51 (mGy-cm)
--- NOTE | 2021-03-06 20:17 | ECG_ITS ---
[facility] Test Date: 2021-03-06 Pat Name: Roge Ozuna Department: Room: Gender: Male Director Of Graduate Admissions: : 1950 Requested By: Andrea Og Order Number: [id number] MD: Juan Daniel Montenegro M.D. Measurements Intervals [place] Rate: 94 P: 45 IL: 138 QRS: 20 QRSD: 148 T: 50 QT: 387 QTc: 485 Interpretive Statements SINUS RHYTHM LEFT BUNDLE BRANCH BLOCK [120+ ms QRS DURATION, 80+ ms Q/S IN V1/V2, 85+ ms R IN I/aVL/V5/V6] Compared to ECG 08/20/2020 08:57:13 Left bundle-branch block now present T-wave abnormality no longer present Electronically Signed On 03-07-2021 10:21:29 CDT by Juan Daniel Montenegro M.D. [id number]
--- NOTE | 2021-03-06 20:19 | XRR_ITS ---
PROCEDURE INFORMATION: Exam: XR Right Knee Exam date and time: 03/06/2021 8:21 PM Age: 70 years old Clinical indication: Pain; Knee; Right; Additional info: Knee pain TECHNIQUE: Imaging protocol: XR Right knee. Views: 3 views. Total images: 3 COMPARISON: CR Knee 3 views, RIGHT* [id number] 09/07/2019 1:23 PM FINDINGS: Bones/joints: Large joint effusion. No visible fracture, subluxation, or dislocation. Chondrocalcinosis. Mild primary osteoarthritis. Osteopenia. Soft tissues: Unremarkable. XR/XR knee RT 3V* [id number] IMPRESSION: Large joint effusion.
--- NOTE | 2021-03-06 20:19 | XRR_ITS ---
PROCEDURE INFORMATION: Exam: XR Left Knee Exam date and time: 03/06/2021 8:21 PM Age: 70 years old Clinical indication: Pain; Knee; Bilateral; Additional info: Knee pain TECHNIQUE: Imaging protocol: XR Left knee. Views: 3 views. Total images: 3 COMPARISON: No relevant prior studies available. FINDINGS: Bones/joints: Moderately large joint effusion. No visible fracture, subluxation, or dislocation. Mild chondrocalcinosis. Early primary osteoarthritis. Soft tissues: Unremarkable. XR/XR knee LT 3V* [id number] IMPRESSION: Moderately large joint effusion.
[2021-03-06 20:28] LABS: Basophils % 0.4 %; Eosinophils % 0.3 %; Hemoglobin 13.4 g/dL (11.7-16.6); Lymphocytes # 0.9 10^3/uL (0.8-4.8); Lymphocytes % 9.6 %; Mean Corpuscular HGB Conc 32.7 g/dL (30.0-36.0); Mean Corpuscular Hemoglobin 30.1 pg (28.0-34.0); Mean Corpuscular Volume 92.1 fL (80-94); Mean Platelet Volume 9.4 fL (7.4-10.4); Monocytes % 10.6 %; Neutrophils # 7.08 10^3/uL (1.8-7.7); Neutrophils % 78.4 %; Nucleated Red Blood Cells % 0 %; Platelet Count 193 10^3/cmm (130-400); Red Blood Count 4.45 10^6/uL (4.1-5.3); Red Cell Distribution Width 14.5 % (12.1-15.1)
[2021-03-06 20:33] LABS: D Dimer 3.55 ug/mIFEU (0-0.59)
[2021-03-06] MEDS: iodixanol 320 mg/mL 100mL Btl IV (20:38)
[2021-03-06 20:47] LABS: Troponin(5th) Baseline 14 ng/L (0-15)
[2021-03-06 20:55] LABS: Alanine Aminotransferase 10 U/L (0-41); Albumin Level 3.7 g/dL (3.5-5.2); Alkaline Phosphatase 64 IU/L (40-130); Anion Gap 14.2 (5-19); Aspartate Amino Transferase 18 U/L (0-40); Blood Urea Nitrogen 12 mg/dL (8-23); Calcium 8.1 mg/dL (8.5-10.5); Carbon Dioxide 25 mmol/L (22-29); Chloride 93 mmol/L (98-107); Globulin 3.4 g/dL (1.3-4.6); Glucose 98 mg/dL (65-115); NT Pro B Type Natriuretic Pept 541 pg/mL (0-125); Osmolality Calculated 266 mOsm/kg (285-295); Potassium 4.2 mmol/L (3.5-5.1); Sodium 128 mmol/L (136-145); Total Protein 7.1 g/dL (6.6-8.7)
[2021-03-06 21:10] VITALS: PULSE 98; RESP 18; O2SAT 97
[2021-03-06] MEDS: ipratropium-albuterol 3 mL Neb INHALATION (21:10)
[2021-03-06 21:16] VITALS: PULSE 92
[2021-03-06 21:32] VITALS: BP 163/55; PULSE 101; RESP 17; O2SAT 97
[2021-03-06] MEDS: HYDROcodone-acetaminophen 5-325 mg Tablet 2 TAB PO (21:55)
--- NOTE | 2021-03-06 21:59 | ED_ITS ---
HPI - Extremity Problem General: Chief complaint: Extremity Problem,Nontraumatic Stated complaint: KNEE PAIN Time Seen by Provider: 03/06/21 19:57 History of Present Illness: HPI Narrative: The patient is a 70-year-old male with known right upper lung cancer undergoing immunotherapy who comes to the ER complaining of chronic shortness of breath and bilateral severe knee pain and swelling. He has a history of rheumatoid arthritis per Dr. Yun's note and t he patient does admit to significant joint swelling off and on. Within the last couple days he also had a DVT scan bilaterally which was negative. Denies injury to his knees. That is his chief complaint is knee pain. EMS noted him to be around 90% on room air on scene and placed him on 2 L which brought him up to the upper 90s. On arrival to the ER he is not requiring oxygen and satting in the mid to upper 90s. MD Complaint: joint swelling and joint pain Onset (ago): day(s) Pain Consistency: constant Location: left, right and knee Severity scale (1-10): 10 Quality: sharp Radiation: none Relieving factors: rest Exacerbating factors: weight bearing, walking and other (He cannot walk with this pain) Associated symptoms: Deny chest pain or rash Review of Systems General: Reports: 10 or more systems reviewed and unremarkable except in HPI and below Const: Denies: fatigue Eyes: Denies: change in vision, blurry vision or eye redness ENMT: Denies: throat pain, swelling of lips/tongue, ear or mastoid pain or nasal congestion Card: Denies: chest pain, palpitations, irregular heart rhythm, edema, dyspnea on exertion or orthopnea Resp: Denies: dyspnea, productive cough or non-productive cough GI: Denies: abdominal pain, diarrhea or GI cramping : Denies: flank pain, urinary frequency or urinary urgency Musc: Reports: joint pain and joint swelling; Denies: neck pain, back pain, extremity pain, joint redness, limited range of motion or muscle weakness Skin/Breast: Denies: rash, pruritus, erythema, skin pain or skin tenderness Neuro: Denies: headache(s), numbness in extremities, weakness in extremities, sensory changes, difficulty walking, dizziness, confusion or Slurred speech present Psych: Denies: anxiety or depression Endo: Denies: polyuria All/Imm: Denies: urticaria, throat swelling or tongue swelling PFSH ED PFSH: Family History Father CAD (coronary artery disease) Denies family history of Diabetes Hyperlipidemia Cancer Hypertension Stroke Social History Smoking and tobacco status: never smoked Quit status (tobacco): has quit using tobacco Year quit tobacco: 2002 Alcohol intake: never Lives independently: Yes Household members: none Housing: House Marital status: History of recent travel: No Physical Exam Const: COMMON NORMALS: no acute distress, average body habitus, patient oriented x3, no limitations, healthy appearing, alert and well nourished GENERAL APPEARANCE: cooperative, comfortable, well kempt and well developed ORIENTATION/CONSCIOUSNESS: Yes awake, Yes oriented to person, Yes oriented to place and Yes oriented to time HENMT: COMMON NORMALS: normocephalic, external ears normal and Normal external nose present HEAD & SCALP: normal to inspection and normocephalic NOSE: Normal external nose present EXTERNAL EAR: Yes external ears normal MOUTH: Normal oral and palatal mucosa present THROAT: posterior oropharynx normal Eye: COMMON NORMALS: Equal, round and reactive pupils present and EOMs intact bilaterally GENERAL EYE: appearance normal, both eyes and all related structures PUPIL: Yes Equal, round and reactive pupils present Neck/C-Spine: COMMON NORMALS: full ROM, no lymphadenopathy, no meningeal signs and no JVD GENERAL: Yes normal visual inspection Lymph: LYMPHATIC: no lymphadenopathy noted Chest: COMMONS NORMALS: normal inspection of the chest and normal palpation of entire chest wall Resp: COMMON NORMALS: No retractions, No use of accessory muscles and percussion normal EFFORT & INSPECTION: Yes able to speak in complete sentences AUSCULTATION: diminished lung sounds PERCUSSION: percussion normal OTHER: tachypnea. Mild increase work of breathing. After a few mi nutes he relaxed and breathing became normal, his baseline. Cardio: COMMON NORMALS: no JVD, regular rate, regular rhythm, S1 normal heart sound present, S2 normal heart sound present and Peripheral pulses 2+ throughout RATE: regular rate RHYTHM: regular rhythm HEART SOUNDS: S1 normal heart sound present and S2 normal heart sound present PERIPHERAL PULSES: Peripheral pulses 2+ throughout GI: COMMON NORMALS: Normal to inspection, nondistended, normoactive bowel sounds present, Soft to palpation, non-tender and no masses INSPECTION: Yes normal to inspection PALPATION: Yes Soft to palpation : COMMON NORMALS: Yes no CVA tenderness BLADDER/KIDNEY EXAM: Yes no CVA tenderness Back/Pelvis: COMMON NORMALS: no CVA tenderness, thoracic and lumbar spine normal to inspection, no thoracic nor lumbar tenderness and thoraco-lumbar ROM normal Extremity: COMMON NORMALS: normal to inspection, full ROM, capillary refill normal, no joint enlargement and no pedal edema NARRATIVE EXTREMITY EXAM: Bilateral knee effusions which are warm and tender. No significant erythema seen no calf or lower extremity swelling suggestive of DVTs. He has significant weakness related to the knee pain. GENERAL: Yes normal exam except as noted Neuro: COMMON NORMALS: patient oriented x3, CN's II-XII intact bilaterally, moves all extremities, no focal motor deficits, no sensory deficits noted and gait normal SENSORIUM/ORIENTATION: Yes alert, Yes oriented to person, Yes oriented to place and Yes oriented to time MENINGEAL SIGNS: Yes no meningeal signs Psych: COMMON NORMALS: mental status grossly normal, Normal thought process present, cooperative, normal affect and speech normal APPEARANCE: Yes well kempt ATTITUDE: Yes calm SPEECH: Yes normal speech THOUGHT PROCESS: Normal thought process present Skin: COMMON NORMALS: no rashes or lesions noted GENERAL SKIN EXAM: no rashes or lesions noted Course Vital Signs: Vital signs: Vital Signs Temperature 98.4 F 03/06/21 19:57 Pulse Rate 101 H 03/06/21 21:32 Respiratory Rate 17 03/06/21 21:32 Blood Pressure 163/55 03/06/21 21:32 Pulse Oximetry 97 03/06/21 21:32 MDM - Extremity (Nontraumatic) MDM Narrative: Medical decision making narrative: The patient came in complaining of bilateral severe knee pain and swelling. He clearly has bilateral effusions likely from his rheumatoid arthritis. He is also a lung cancer patient and is on immunotherapy. I will give him hydrocodone for the pain and a steroid pack to help with the swelling some but I placed a case management referral to get him into with orthopedic surgery hopefully by next week for further evaluation. ER with worsening symptoms Lab Data: Labs: Lab Results 03/06/21 03/06/21 03/06/21 Range/Units 20:00 20:00 20:00 WBC 9.0 (4.0-10.0) 10^3/ uL RBC 4.45 (4.1-5.3) 10^6/u L Hgb 13.4 (11.7-16.6) g/dL Hct 41.0 L (42.0-52.0) % MCV 92.1 (80-94) fL MCH 30.1 (28.0-34.0) pg MCHC 32.7 (30.0-36.0) g/dL RDW 14.5 (12.1-15.1) % Plt Count 193 (130-400) 10^3/c mm MPV 9.4 (7.4-10.4) fL Neut % (Auto) 78.4 % Lymph % (Auto) 9.6 % [place] % (Auto) 10.6 % Eos % (Auto) 0.3 % Baso % (Auto) 0.4 % Neut # (Auto) 7.08 (1.8-7.7) 10^3/u L Lymph # (Auto) 0.9 (0.8-4.8) 10^3/u L [place] # (Auto) 1.0 H (0.2-0.9) 10^3/u L Eos # (Auto) 0.0 (0.0-0.8) 10^3/u L Baso # (Auto) 0.0 (0.0-0.1) 10^3/u L Nucleated RBC % (a uto) 0 % Nucleated RBCs # 0.0 /100WBC D-Dimer 3.55 H (0-0.59) ug/mIFE U Sodium 128 L (136-145) mmol/L Potassium 4.2 (3.5-5.1) mmol/L Chloride 93 L (98-107) mmol/L Carbon Dioxide 25 (22-29) mmol/L Anion Gap 14.2 (5-19) BUN 12 (8-23) mg/dL Creatinine 0.9 (0.7-1.2) mg/dL GFR Calculation Not Reportable Glucose 98 (65-115) mg/dL Calculated Osmolal ity 266 L (285-295) mOsm/k g Calcium 8.1 L (8.5-10.5) mg/dL Total Bilirubin 1.0 (0.15-1.2) mg/dL AST 18 (0-40) U/L ALT 10 (0-41) U/L Alkaline Phosphata se 64 (40-130) IU/L Troponin T Baselin e (0-15) ng/L NT-Pro-B Natriuret Pep 541 H (0-125) pg/mL Total Protein 7.1 (6.6-8.7) g/dL Albumin 3.7 (3.5-5.2) g/dL Globulin 3.4 (1.3-4.6) g/dL 03/06/21 Range/Units 20:00 WBC (4.0-10.0) 10^3/ uL RBC (4.1-5.3) 10^6/u L Hgb (11.7-16.6) g/dL Hct (42.0-52.0) % MCV (80-94) fL MCH (28.0-34.0) pg MCHC (30.0-36.0) g/dL RDW (12.1-15.1) % Plt Count (130-400) 10^3/c mm MPV (7.4-10.4) fL Neut % (Auto) % Lymph % (Auto) % [place] % (Auto) % Eos % (Auto) % Baso % (Auto) % Neut # (Auto) (1.8-7.7) 10^3/u L Lymph # (Auto) (0.8-4.8) 10^3/u L [place] # (Auto) (0.2-0.9) 10^3/u L Eos # (Auto) (0.0-0.8) 10^3/u L Baso # (Auto) (0.0-0.1) 10^3/u L Nucleated RBC % (a uto) % Nucleated RBCs # /100WBC D-Dimer (0-0.59) ug/mIFE U Sodium (136-145) mmol/L Potassium (3.5-5.1) mmol/L Chloride (98-107) mmol/L Carbon Dioxide (22-29) mmol/L Anion Gap (5-19) BUN (8-23) mg/dL Creatinine (0.7-1.2) mg/dL GFR Calculation Glucose (65-115) mg/dL Calculated Osmolal ity (285-295) mOsm/k g Calcium (8.5-10.5) mg/dL Total Bilirubin (0.15-1.2) mg/dL AST (0-40) U/L ALT (0-41) U/L Alkaline Phosphata se (40-130) IU/L Troponin T Baselin e 14 (0-15) ng/L NT-Pro-B Natriuret Pep (0-125) pg/mL Total Protein (6.6-8.7) g/dL Albumin (3.5-5.2) g/dL Globulin (1.3-4.6) g/dL Discharge Plan Discharge Patient Disposition: Home Clinical Impression: Bilateral knee effusions Condition: Stable Prescriptions: New hydrocodone-acetaminophen 5-325 mg tablet 1 tab PO Q6H PRN (Reason: pain) Qty: 15 RF: 0 Medrol (Jaspal) 4 mg tablets,dose pack See Rx Instructions .ROUTE .COMPLEX Qty: 21 RF: 0 albuterol sulfate 90 mcg/actuation HFA aerosol inhaler 2 inh inhalation Q6H PRN (Reason: shortness of breath or wheezing) 30 Days RF: 0 No Action finasteride 5 mg tablet 5 mg PO DAILY RF: 0 tamsulosin 0.4 mg capsule 0.8 mg PO DAILY RF: 0 famotidine 20 mg tablet 20 mg PO BID RF: 0 atorvastatin 40 mg tablet 40 mg PO DAILY RF: 0 coenzyme Q10 [CoQ-10] 100 mg capsule 100 mg PO DAILY RF: 0 pregabalin [Lyrica] 225 mg capsule 225 mg PO BID RF: 0 aspirin 325 mg tablet 325 mg PO DAILY RF: 0 amitriptyline 25 mg tablet 25 mg PO DAILY RF: 0 celecoxib 200 mg capsule 200 mg PO DAILY RF: 0 nortriptyline 10 mg capsule 10 mg PO BEDTIME RF: 0 furosemide 20 mg tablet 20 mg PO DAILY PRN (Reason: SWELLING/EDEMA) RF: 0 Discharge Orders: Discharge ED (Routine); Ordered 03/06/21 Ordered By: Andrea Og Referrals: Monet Ashton NP [Primary Care Provider] - Discharge Diet: Advance as tolerated Discharge Activity: Increase activity as tolerated Patient Instructions: Osteoarthritis (ED), Knee Effusion (ED), Opioid Safety Activity Restrictions/Additional Instructions: You have bilateral knee effusions which is likely related to your rheumatoid arthritis. Please take the steroid pack as directed and follow-up with your primary care physician in a few days to monitor improvement of your symptoms. Return to the ER at anytime with worsening symptoms. You may take hydrocodone for pain only for severe pain and do not mix with alcohol, drugs, nor operate machinery while using this medication. Also I have given you an albuterol inhaler to help with intermittent shortness of breath and you may use that as prescribed. Most importantly have placed a referral to a project/production manager imaging who should be calling you tomorrow to help you get an appointment with an orthopedic surgeon as they will be able to help you better with your knee pain. Coding Level of Care Code ED Auto [employer]er for Carter Drake Exam Comprehensive
[2021-03-06 22:29] LABS: Troponin 5 2HR 13.19 ng/L (0-15)
[2021-03-06 22:31] LABS: Troponin 5 2HR Delta -0.81 ABS# (0-10)
[2021-03-06] MEDS: predniSONE 20 mg Tablet 40 MG PO (22:57)
[2021-03-06 22:59] VITALS: BP 102/76; PULSE 92; O2SAT 93
--- NOTE | 2021-03-07 08:16 | DCPLANNER ---
senior manager mmcoe had message to schedule a follow up appointment for patient with ortho for bilateral knee effusions. senior manager mmcoe called the ortho clinic, spoke with Neelima, gave clinic patients information. senior manager mmcoe was told that patients information would be printed and reviewed. Clinic will call patient with appointment information.
--- NOTE | 2021-03-12 07:28 | DCPLANNER ---
Patient had a follow up appointment scheduled for 03.08.[address] Mendoza - patient did attend appointment.
== END 2021-03-06 23:00 | disposition home or self-care (01) ==
PROVIDERS: Emergency Provider Family Medicine; PCP Nurse Practitioner Family
DX: M25.462 Effusion, left knee (principal); M25.461 Effusion, right knee; Z79.82 Long term (current) use of aspirin; Z87.891 Personal history of nicotine dependence
CPT/HCPCS: 36415; 71275; 73562; 80053; 83880; 84484; 85025; 85378; 93005; 94640; 99284; J7512; Q9967

== ENCOUNTER 2021-03-25 09:42 | Outpatient (CLI) | payer MEDICARE, SELFPAY ==
--- NOTE | 2021-03-25 10:14 | MR_ITS ---
WS: [id number] MRI BRAIN WITH AND WITHOUT CONTRAST HISTORY: LUNG CANCER COMPARISON: None available. TECHNIQUE: Multiplanar imaging performed through the brain with MultiHance 20 ml's IV. No acute infarcts are seen. Chopra-white matter differentiation is well preserved. No susceptibility artifacts or prior lacunar infarcts. Ventricles and extra-axial spaces are normal. There is a large mild centered in the sella turcica with extension into the suprasellar region. Mass is heterogeneously enhancing and abuts and displaces the optic chiasm. Mass extends over a length of 1.7 cm transversely 1.6 cm and AP by 1.7 cm. The very similar in measurement as compared to the prior examination. There is displacement of the optic chiasm and mild extension into the RIGHT cavernous s inus. No progression of the mass. Visualized posterior fossa and brainstem are also normal. No additional enhancing masses. No vascular malformations. Dural venous sinuses are normal. Paranasal sinuses: Well aerated with no significant disease. Mastoid air cells: Normal. Calvarium and scalp: Normal. MR/MR head wo/w con [id number] IMPRESSION: 1. Stable appearance of the mass centered in the sella turcica with suprasella r extent extension measuring 1.7 x 1.6 x 1.7 cm. Similar to the prior examinati on. Most consistent with pituitary macroadenoma. Very minimal extension into th e RIGHT cavernous sinus. Mild displacement of the optic chiasm. 2. No acute infarcts.
[2021-03-25] MEDS: gadobenate dimeglumine 20 mL vial IV (11:28)
--- NOTE | 2021-03-25 11:43 | CT_ITS ---
WS: [id number] CT CHEST WITH INTRAVENOUS CONTRAST HISTORY: LUNG CANCER TECHNIQUE: Contiguous 5 mm axial imaging performed on the thorax. Coronal and sagittal reformats are submitted. All CT scans at [facility] use at least one of these dose optimization techniq ues: automated exposure control; mA and/or kV adjustment per patient size (includes targeted exams wh ere dose is matched to clinical indication); or iterative reconstruction. CONTRAST: Visipaque 320; 95 mL IV. DLP: 559.84 mGy-cm. COMPARISON: 03/06/2021 and 07/19/2020 Lungs and central airway: Severe paraseptal and centrilobular emphysematous changes. Spiculated mass with tethering in the RIGHT upper lobe measures 3.4 x 1.9 cm. As compared to the most recent study th ere is been an increase in the soft tissue nodular component since 07/19/2020 . There are new scattere d pulmonary opacifications within both lungs which are new since the prior examination. There is a ne w 9 mm nodule, image 29 of series 3 in the RIGHT lower lobe. Reticular nodular changes at the lung ba ses have progressed. Pleura: Normal. No pleural effusion. Heart and pericardium: Normal size heart. Mediastinum and funmilayo: Mediastinal and hilar lymph nodes are mildly hypervascular and have increased i n size and number since 07/19/2020. There are several new and indeterminate lymph nodes along the RIGH T pulmonary ligament and paraesophageal. Vessels: Mild atherosclerosis aorta. Normal size pulmonary artery. Chest wall and lower neck: No soft tissue masses. Upper abdomen: No metastatic disease to the liver or adrenal glands. Small lymph node near the lesser curvature the stomach measures 9 mm. This lymph node was present on the prior studies but smaller. Osseous structures: No destructive process. CT/CT chest w con* [id number] IMPRESSION: 1. Increase in size of the spiculated mass in the LEFT upper lobe associated w ith cavitation since 07/19/2020. Mass measures 3.4 x 1.9 cm. 2. There are new scattered centimeter opacifications which are ill-defined radha aterally and a 9 mm nodule in the posterior RIGHT lower lobe. Early metastatic lesions not excluded. 3. Mild increase in size and number of the mediastinal and hilar lymph nodes a nd lymph node along the lesser curvature the stomach. Early metastatic site inv olvement is likely versus reactive adenopathy. 4. Severe centrilobular and paraseptal emphysema.
== END 2021-03-25 09:43 | disposition home or self-care (01) ==
PROVIDERS: PCP Nurse Practitioner Family; Visit Provider Internal Medicine Medical Oncology
DX: C34.11 Malignant neoplasm of upper lobe, right bronchus or lung (principal); J43.2 Centrilobular emphysema; J43.8 Other emphysema
CPT/HCPCS: 70553; 71260; A9577

== ENCOUNTER 2021-03-28 09:02 | Outpatient (CLI) | payer MEDICARE, SELFPAY ==
[2021-03-28 10:00] LABS: Basophils % 0.5 %; Hematocrit 37.1 % (42.0-52.0); Hemoglobin 11.9 g/dL (11.7-16.6); Lymphocytes # 1.1 10^3/uL (0.8-4.8); Mean Corpuscular HGB Conc 32.1 g/dL (30.0-36.0); Mean Corpuscular Hemoglobin 29.5 pg (28.0-34.0); Mean Corpuscular Volume 92.1 fL (80-94); Mean Platelet Volume 9.3 fL (7.4-10.4); Monocytes # 0.8 10^3/uL (0.2-0.9); Monocytes % 39.6 %; Neutrophils % 7.9 %; Nucleated Red Blood Cells % 0 %; Platelet Count 185 10^3/cmm (130-400); Red Blood Count 4.03 10^6/uL (4.1-5.3); Red Cell Distribution Width 15.1 % (12.1-15.1)
[2021-03-28 10:29] LABS: Neutrophils # 0.16 10^3/uL (1.8-7.7); Slide Review Slide Review Perform
[2021-03-28 10:37] LABS: Alanine Aminotransferase 21 U/L (0-41); Albumin Level 2.9 g/dL (3.5-5.2); Alkaline Phosphatase 69 IU/L (40-130); Aspartate Amino Transferase 26 U/L (0-40); Blood Urea Nitrogen 16 mg/dL (8-23); Calcium 7.9 mg/dL (8.5-10.5); Carbon Dioxide 20 mmol/L (22-29); Chloride 104 mmol/L (98-107); Globulin 4.1 g/dL (1.3-4.6); Glucose 123 mg/dL (65-115); Osmolality Calculated 283 mOsm/kg (285-295); Sodium 135 mmol/L (136-145); Thyroid Stimulating Hormone 3.06 uIU/mL (0.27-4.20); Total Bilirubin 0.4 mg/dL (0.15-1.2)
[2021-03-28 12:11] LABS: Hemoglobin 11.8 g/dL (11.7-16.6); Lymphocytes % 55.9 %; Mean Corpuscular HGB Conc 32.8 g/dL (30.0-36.0); Mean Corpuscular Hemoglobin 30.5 pg (28.0-34.0); Mean Platelet Volume 9.5 fL (7.4-10.4); Monocytes # 0.6 10^3/uL (0.2-0.9); Monocytes % 32.2 %; Neutrophils % 11.9 %; Nucleated Red Blood Cells % 0 %; Platelet Count 171 10^3/cmm (130-400); Red Blood Count 3.87 10^6/uL (4.1-5.3); Red Cell Distribution Width 15.4 % (12.1-15.1); White Blood Count 1.8 10^3/uL (4.0-10.0)
[2021-03-28 12:51] LABS: Neutrophils # 0.21 10^3/uL (1.8-7.7); Slide Review Slide Review Perform
--- NOTE | 2021-04-04 13:44 | ONC FU_ITS ---
[facility] Patient Note Patient: Roge Ozuna Unit #: [id number]: 1950 Dictated By: Ted SantosDate of Visit: March 28, 2021 Onc MED Follow-Up/Prog Note Chief Complaint: Lung cancer. 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 He has been followed for an abnormal chest CT scan, with the main concern being a nodule at the right lung base noted on a study from June 2017. On follow-up studies that nodule had resolved. Also noted were some fibrotic changes in the right upper lobe which had remained stable as of August 2018. A repeat chest CT on 07/04/2019 showed progression in the scarring and soft tissue surrounding bullous disease in the right upper lobe, possibly due to progression of fibrosis, though early neoplasm was not excluded. His repeat chest CT on 07/19/2020 showed significant progression of irregular soft tissue mass surrounding the cystic/cavitary fibrotic lesion in the right upper lobe. The lesion measured approximately 5.2 x 3.5 cm. The appearance was highly suspicious for neoplasm. Also noted was soft tissue thickening along the left lateral tracheal wall, possibly due to focal area of mucus. Also noted were bilateral pulmonary nodules ranging in size from a few millimeters up to 10 mm, suspicious for metastatic disease. Further evaluation with PET/CT on 07/28/2020 showed FDG avid cavitary right upper lobe mass measuring 4.5 x 5.1 cm, SUV 12.1, indicating high probability of malignancy. Secondary pulmonary nodules were noted in the right upper lobe, superior segment right lower lobe, left apex, and medial left lower lung base, consistent with metastatic disease. A 1.7 cm right paratracheal lymph node was also FDG avid, SUV 4.8, consistent with a metastatic node. He was referred to Dr. Moreno. On 08/20/2020 he underwent flexible diagnostic bronchoscopy with endobronchial biopsy from the right upper lobe and mediastinoscopy with biopsy of station 4R lymph node. Pathology from the right upper lobe biopsy showed adenosquamous carcinoma favoring lung primary. 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 A next generation sequencing study showed no actionable mutations. The PD-L1 (22c3) expression was positive at 25% and the PD-L1 (28-8) expression was positive at 35%. His staging head MRI showed an intrasellar pituitary mass with suprasellar extension measuring 1.4 x 1.6 x 1.7 cm. There was associated impingement on the optic chiasm. 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 There appeared to be involvement of the right cavernous sinus but cavernous carotid arteries were noted to be patent. There were no suspicious enhancing intracranial parenchymal abnormalities noted. Dr Yun had seen him initially on 09/03/2020. With evidence of multiple pulmonary metastatic lesions bilaterally, it appeared that he would require systemic therapy. By next generation sequencing, his tumor was positive for PD-L1 expression at 25% for PD-L1 (22c3). There were no actionable mutations identified. With his PD-L1 positive at less than 50%, he was recommended to have combined chemotherapy/immunotherapy, per NCCN guidelines. However, he opted to have immunotherapy monotherapy. His other medical illnesses include hypertension, hyperlipidemia, GERD, rheumatoid arthritis, peripheral neuropathy, benign prostatic hypertrophy, and emphysema. He has history of smoking 2 packs of cigarettes daily. He quit smoking 15 years ago. INTERIM HISTORY: He began cycle 1 of pembrolizumab on 10/17/2020. He tolerated it well and he then continued treatment at 3-week intervals. He received cycle 5 on 01/24/2021. Mr. Ozuna is here today for follow-up. He is due for cycle 7 immunotherapy with pembrolizumab. His last dose was actually February 14, 2021 at which time we transitioned him to the 6-week dosing. He did have a follow-up CT of the chest with contrast on March 25, 2021. He reports an increase in the size of the spiculated mass in the left upper lobe associated with cavitation since 07/19/2020. The mass measures 3.4 x 1.9 cm. There are scattered centimeter opacifications which are ill-defined bilaterally. And a new 9 mm nodule in the posterior right lower lobe. Early metastatic lesions are not excluded. Mild increase in size and number of the mediastinal and hilar lymph nodes and lymph node along the lesser curvature of the stomach. Early metastatic site involvement is likely versus reactive adenopathy. Severe centrilobular and paraseptal emphysema. He also had a brain MRI with and without contrast on March 25, 2021 which reports a stable appearance of the mass centered in the sella turcica with suprasellar extension measuring 1.7 x 1.6 x 1.7 cm. Similar to the prior examination. Most consistent with pituitary macroadenoma. Very minimal extension into the right cavitary sinus. Mild displacement of the optic chiasm. No acute artifact. He states that his appetite has been down and that has been persistent for about 3 to 4 weeks post treatment. He states over the last few days it is started getting better. He also reported after his last treatment he had chills off and on but never documented fever. He denies any productive cough or signs of infection. He states that he felt good other than he was little washed out but not any more than what he felt was normal for him. He states he has been eating because I know I had to. He denies any current fever or chills. He said no chills in the last 72 hours. He states that he is breathing okay. He denies any diarrhea or constipation. He denies any new pain. His ECOG is 2. Past Medical History: Benign prostatic hypertrophy Emphysema Gastroesophageal reflux disease Hypercholesterolemia Hypertension Peripheral neuropathy Rheumatoid arthritis Past Surgical History: Covid 19 2nd dose in 2020 Flexible diagnostic bronchoscopy and mediastinoscopy in 2019 Appendectomy in 2008 Allergies: No Known Allergies. Medications: Aspirin 81 Tablet, enteric coated Oral daily Atorvastatin Calcium 1 (40 mg) Tablet Oral daily Co Q10 (200 mg) Capsule Oral daily Finasteride (5 mg) Tablet Oral daily Lyrica (225 mg) Capsule Oral b.i.d. Nortriptyline HCl (10 mg) Capsule Oral daily Omeprazole 1 (20 mg) Capsule Delayed Release Oral daily Tamsulosin HCl 2 Capsule (of 0.4 mg) Oral daily Family History: Mr. Ozuna's mother at age 19: tuberculosis. Mr. Ozuna's father is : heart disease. Father of heart disease and mother of TB. He had 2 half-brothers, one of whom is due to drug related problems. Social History: Mr. Ozuna is and he is a disabled. Mr. Oznua quit smoking 18 years ago but had smoked 2.0 packs/day for 40 years. He is a former drinker. He has a history of smoking about 2 packs of cigarettes daily for about 40 years. He quit smoking 15 years ago. He previously had some weekend alcohol use, but he also quit drinking at the same time. 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 Review Of Symptoms: <See Above> Vital Signs: Performed on March 28, 2021 11:03 Height - 72.00 in Weight - 227 lbs (LOW) BSA - 2.25 sq.m BMI - 30.79 (HIGH) Temperature - 96.4 F (LOW) Pulse - 88 /min Respiration - 18 /min BP - 92/60 mm(hg) O2 Sat - 94 % (LOW) Pain - 0 Fatigue - 6,1 - No physically strenuous activity, but ambulatory and able to carry out light or sedentary work (e.g. office work, light house work). (ECOG) Physical Examination: Constitutional Alert, oriented, no acute distress. Skin pink, warm and dry. Head Normocephalic; atraumatic. Eyes Conjunctivae and sclerae are clear and without icterus. Pupils are reactive and equal. Neck Supple without masses or thyromegaly. No jugular venous distension. Hematologic/Lymphatic No petechiae or purpura. No tender or palpable lymph nodes in the cervical or supraclavicular areas. Respiratory Lungs are clear to auscultation without rhonchi or wheezing. Cardiovascular Regular rate and rhythm of heart without murmurs,clicks, gallops or rubs. Abdomen Non-tender, non-distended, no masses or ascites. Good bowel sounds noted in all quads. No guarding or rebound tenderness. No pulsatile masses. Back/Spine Non-tender to palpation. Extremities No visible deformities, no cyanosis, clubbing or edema. Musculoskeletal No tenderness or swelling, normal range of motion without obvious weakness. Integumentary No rashes or lesions. Neurologic No sensory or motor deficits, normal cerebellar function, normal gait. Psychiatric Alert and oriented times three. Coherent speech. Verbalizes understanding of our discussions today. Laboratory:Test performed on March 28, 2021 11:44 WBC 1.8 10 3/uL RBC 3.87 10 6/uL HGB 11.8 g/dL HCT 36.0 % MCV 93.0 fL MCH 30.5 pg MCHC 32.8 g/dL RDW 15.4 % Platelet Count 171 10 3/cmm MPV 9.5 fL Neutrophils 0.21 10 3/uL Lymphocytes 1.0 10 3/uL Monocytes 0.6 10 3/uL Eosinophils 0.0 10 3/uL Basophils 0.0 10 3/uL Neutrophil % 11.9 % Lymphocyte % 55.9 % Monocyte % 32.2 % Eosinophil % 0.0 % Basophils % 0.0 % NRBC % 0 % CBC Slide Review Slide Review Perform SLIDE REVIEW AGREES WITH AUTOMATED RESULTS Test performed on March 28, 2021 09:23 TSH 3.06 uIU/mL Cr Clearance (Est) 74.81 mL/min Test performed on Jan 24, 2021 10:49 LDH (Total) 225 U/L Impression: 1. Adenosquamous carcinoma involving the upper lobe of the right lung, by clinical evaluation stage TAMARA (T3, N2, M1a), with PET/CT evidence of multiple bilateral pulmonary nodules. His next generation sequencing study showed no actionable mutation, but the tumor was noted to be positive for PD-L1 expression. 2. He underwent diagnostic flexible bronchoscopy and mediastinoscopy on 08/08/2020. 3. 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 4. He has CT evidence of underlying COPD. 5. Hypertension. 6. Hyperlipidemia. 7. GERD. 8. Rheumatoid arthritis. 9. Peripheral neuropathy. 10. Benign prostatic hypertrophy. Plan/Problems Addressed at this Visit: 1. 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 The PD-L1 (22c3) expression was postive at 25%. He opted to have immunotherapy alone. He has been tolerating treatment well. He has not had any restaging evaluation, but his overall clinical status has remained stable. He was transitioned to the 6-week dosing to 400 mg with cycle [address] Follow-up CT of the chest with contrast from 03/25/2021 reported increase in size of the spiculated mass in the left upper lobe associated with cavitation since 07/19/2020. Mass measures 3.4 x 1.9 cm. There were new scattered centimeter opacifications which are ill-defined bilaterally and a 9 mm nodule in the posterior right lower lobe. Early metastatic lesions are not excluded. Mild increase in size and number of the mediastinal and hilar lymph nodes and lymph node along the lesser curvature of the stomach. Early metastatic site involvement is likely versus reactive adenopathy. Severe centrilobular and paraseptal emphysema. He has had some different side effects with the 6-week dosing. He reports that his appetite was down and his energy was down some. He also had intermittent chills. He now presents with neutropenia with an ANC of 160. He is asymptomatic. A. We will recheck his CBC to make sure this is not an air or incorrect specimen. B. His repeat ANC was 210. His hemoglobin was reported at 11.8 and his platelet count was normal at 171,000. His creatinine had elevated to 1.3 versus 0.9 at his last follow-up. Calcium 7.9. C. After discussing his presentation and labs with Dr. Yun, it is elected to start him on prednisone 40 mg daily-Take with food. We will also start him on Levaquin 500 mg to cover for the severe neutropenia. Follow-up plan A. we will plan to see Mr. Ozuna back in 1 week with CBC CMP. B. He instructed to contact us in interim if any questions or problems arise or any signs or symptoms of infection. We did review neutropenic precautions and signs and symptoms. He verbalized understanding and has no further questions at this time. 2. 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 A. Follow-up MRI from 03/25/2021 reports stable appearance of the mass centered in the sella turcica with suprasellar extent extension measuring 1.7 x 1.6 x 1.7 cm. Similar to the prior examination. Most consistent with pituitary microadenoma. Very minimal extension to the right cavernous sinus. Mild displacement of the optic chiasm. No acute infarcts. Signed By: Ted Santos-AZEEM, [facility] WYANDOTTE HOSPITALSeema Yun MD <<Signature on File>>
== END 2021-03-28 09:03 | disposition home or self-care (01) ==
PROVIDERS: PCP Nurse Practitioner Family; Visit Provider Nurse Practitioner
DX: C34.11 Malignant neoplasm of upper lobe, right bronchus or lung (principal); C79.31 Secondary malignant neoplasm of brain; J43.9 Emphysema, unspecified; I10 Essential (primary) hypertension; E78.5 Hyperlipidemia, unspecified; K21.9 Gastro-esophageal reflux disease without esophagitis; M06.9 Rheumatoid arthritis, unspecified; G62.0 Drug-induced polyneuropathy; T45.1X5A Adverse effect of antineoplastic and immunosuppressive drugs, initial encounter; N40.0 Benign prostatic hyperplasia without lower urinary tract symptoms; Z92.21 Personal history of antineoplastic chemotherapy; Z79.899 Other long term (current) drug therapy
CPT/HCPCS: 36415; 80053; 84443; 85025; 99215

== ENCOUNTER 2021-04-05 11:03 | Outpatient (CLI) | payer MEDICARE, SELFPAY ==
[2021-04-05 11:18] LABS: Basophils % 0.9 %; Hemoglobin 14.1 g/dL (11.7-16.6); Lymphocytes # 0.8 10^3/uL (0.8-4.8); Lymphocytes % 72.4 %; Mean Corpuscular Hemoglobin 29.6 pg (28.0-34.0); Mean Corpuscular Volume 92.4 fL (80-94); Monocytes # 0.3 10^3/uL (0.2-0.9); Monocytes % 26.7 %; Nucleated Red Blood Cells % 0 %; Platelet Count 261 10^3/cmm (130-400); Red Blood Count 4.76 10^6/uL (4.1-5.3); Red Cell Distribution Width 14.9 % (12.1-15.1); White Blood Count 1.2 10^3/uL (4.0-10.0)
[2021-04-05 11:43] LABS: Alanine Aminotransferase 15 U/L (0-41); Albumin Level 3.1 g/dL (3.5-5.2); Alkaline Phosphatase 54 IU/L (40-130); Aspartate Amino Transferase 18 U/L (0-40); Blood Urea Nitrogen 26 mg/dL (8-23); Calcium 8.4 mg/dL (8.5-10.5); Carbon Dioxide 26 mmol/L (22-29); Chloride 100 mmol/L (98-107); Globulin 4.1 g/dL (1.3-4.6); Glucose 86 mg/dL (65-115); Osmolality Calculated 282 mOsm/kg (285-295); Sodium 134 mmol/L (136-145); Total Bilirubin 0.4 mg/dL (0.15-1.2); Total Protein 7.2 g/dL (6.6-8.7)
== END 2021-04-05 11:04 | disposition home or self-care (01) ==
LOC: ONCMED 11:03
PROVIDERS: PCP Nurse Practitioner Family; Visit Provider Internal Medicine Medical Oncology
DX: C34.11 Malignant neoplasm of upper lobe, right bronchus or lung (principal); C78.02 Secondary malignant neoplasm of left lung; D69.6 Thrombocytopenia, unspecified; Z79.899 Other long term (current) drug therapy
CPT/HCPCS: 80053; 85025

== ENCOUNTER 2021-04-11 11:37 | Outpatient (CLI) | payer MEDICARE, SELFPAY ==
[2021-04-11] MEDS: sodium chloride 0.9% 1,000 ML 999 ML IV (13:30)
[2021-04-11] MEDS: fluconazole premix 400 MG/200 ML PIGGYBACK 200 MG IV (13:30)
[2021-04-11 14:13] LABS: Hematocrit 38.2 % (42.0-52.0); Hemoglobin 12.4 g/dL (11.7-16.6); Lymphocytes # 0.3 10^3/uL (0.8-4.8); Lymphocytes % 68.3 %; Mean Corpuscular HGB Conc 32.5 g/dL (30.0-36.0); Mean Corpuscular Hemoglobin 30.3 pg (28.0-34.0); Mean Corpuscular Volume 93.4 fL (80-94); Mean Platelet Volume 9.5 fL (7.4-10.4); Monocytes # 0.1 10^3/uL (0.2-0.9); Monocytes % 26.8 %; Neutrophils % 4.9 %; Nucleated Red Blood Cells % 0 %; Platelet Count 133 10^3/cmm (130-400); Red Blood Count 4.09 10^6/uL (4.1-5.3); Red Cell Distribution Width 14.7 % (12.1-15.1)
[2021-04-11 14:34] LABS: White Blood Count 0.4 10^3/uL (4.0-10.0)
[2021-04-11 14:35] LABS: Neutrophils # 0.02 10^3/uL (1.8-7.7)
[2021-04-11 14:36] LABS: Slide Review Slide Review Perform
[2021-04-11 14:51] LABS: Alanine Aminotransferase 9 U/L (0-41); Albumin Level 2.8 g/dL (3.5-5.2); Alkaline Phosphatase 44 IU/L (40-130); Anion Gap 12.4 (5-19); Aspartate Amino Transferase 13 U/L (0-40); Blood Urea Nitrogen 29 mg/dL (8-23); Calcium 7.6 mg/dL (8.5-10.5); Carbon Dioxide 27 mmol/L (22-29); Chloride 102 mmol/L (98-107); Globulin 3.5 g/dL (1.3-4.6); Glucose 101 mg/dL (65-115); Osmolality Calculated 290 mOsm/kg (285-295); Potassium 4.4 mmol/L (3.5-5.1); Sodium 137 mmol/L (136-145); Thyroid Stimulating Hormone 1.27 uIU/mL (0.27-4.20); Total Bilirubin 0.4 mg/dL (0.15-1.2); Total Protein 6.3 g/dL (6.6-8.7)
[2021-04-11 14:54] LABS: Erythrocyte Sedimentation Rate 54 mm/hr (0-10)
--- NOTE | 2021-04-11 19:48 | ONC FU_ITS ---
Dr. Yun Patient Follow-Up Note Patient: Roge Ozuna Unit #: [id number]: 1950 Dicatated By: Shamar Yun M.D.Date of Visit:Apr 11, 2021 Onc Med Follow-up/Prog Note Chief Complaint: Lung cancer. 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 He has been followed for an abnormal chest CT scan, with the main concern being a nodule at the right lung base noted on a study from June 2017. On follow-up studies that nodule had resolved. Also noted were some fibrotic changes in the right upper lobe which had remained stable as of August 2018. A repeat chest CT on 07/04/2019 showed progression in the scarring and soft tissue surrounding bullous disease in the right upper lobe, possibly due to progression of fibrosis, though early neoplasm was not excluded. His repeat chest CT on 07/19/2020 showed significant progression of irregular soft tissue mass surrounding the cystic/cavitary fibrotic lesion in the right upper lobe. The lesion measured approximately 5.2 x 3.5 cm. The appearance was highly suspicious for neoplasm. Also noted was soft tissue thickening along the left lateral tracheal wall, possibly due to focal area of mucus. Also noted were bilateral pulmonary nodules ranging in size from a few millimeters up to 10 mm, suspicious for metastatic disease. Further evaluation with PET/CT on 07/28/2020 showed FDG avid cavitary right upper lobe mass measuring 4.5 x 5.1 cm, SUV 12.1, indicating high probability of malignancy. Secondary pulmonary nodules were noted in the right upper lobe, superior segment right lower lobe, left apex, and medial left lower lung base, consistent with metastatic disease. A 1.7 cm right paratracheal lymph node was also FDG avid, SUV 4.8, consistent with a metastatic node. He was referred to Dr. Moreno. On 08/20/2020 he underwent flexible diagnostic bronchoscopy with endobronchial biopsy from the right upper lobe and mediastinoscopy with biopsy of station 4R lymph node. Pathology from the right upper lobe biopsy showed adenosquamous carcinoma favoring lung primary. 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 A next generation sequencing study showed no actionable mutations. The PD-L1 (22c3) expression was positive at 25% and the PD-L1 (28-8) expression was positive at 35%. His staging head MRI showed an intrasellar pituitary mass with suprasellar extension measuring 1.4 x 1.6 x 1.7 cm. There was associated impingement on the optic chiasm. 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 There appeared to be involvement of the right cavernous sinus but cavernous carotid arteries were noted to be patent. There were no suspicious enhancing intracranial parenchymal abnormalities noted. I had seen him initially on 09/03/2020. With evidence of multiple pulmonary metastatic lesions bilaterally, it appeared that he would require systemic therapy. By next generation sequencing, his tumor was positive for PD-L1 expression at 25% for PD-L1 (22c3). There were no actionable mutations identified. With his PD-L1 positive at less than 50%, he was recommended to have combined chemotherapy/immunotherapy, per NCCN guidelines. However, he opted to have immunotherapy monotherapy. His other medical illnesses include hypertension, hyperlipidemia, GERD, rheumatoid arthritis, peripheral neuropathy, benign prostatic hypertrophy, and emphysema. He has history of smoking 2 packs of cigarettes daily. He quit smoking 15 years ago. INTERIM HISTORY: He began cycle 1 of pembrolizumab on 10/17/2020. He tolerated it well and he then continued treatment at 3-week intervals. He received cycle 5 on 01/24/2021. At his follow-up visit on 02/14/2021 he appeared stable clinically. He then continued immunotherapy with pembrolizumab but with his treatment changed to the 6-week dosing interval. On 03/06/2021 he was seen in the emergency room with shortness of breath. He also reported having bilateral knee pain. He was noted to have large joint effusions on x-ray. CT pulmonary angiogram showed no evidence of pulmonary embolism. A new spiculated mass measuring 39 x 28 x 32 mm was noted in the right upper lobe. Also noted were prominent mediastinal and hilar lymph nodes. There was advanced bullous emphysema. It was given a Medrol dose pack and symptomatic management with hydrocodone/APAP. A scheduled follow-up chest CT on 03/25/2021 showed right upper lobe spiculated mass measuring 3.4 x 1.9 cm with increase in size of mediastinal and hilar lymph nodes compared to the July 2020 study, and a 9 mm lymph node was noted near the lesser curvature of the stomach. Also noted were new scattered subcentimeter opacifications bilaterally and a 9 mm nodule in the posterior right lower lobe, with early metastatic disease not excluded. Brain MRI at that time showed stable appearance of the mass centered in the sella turcica with suprasellar extension measuring 1.7 x 1.6 x 1.7 cm, consistent with pituitary macroadenoma. Minimal extension was noted into the right cavernous sinus and there was mild displacement of the optic chiasm. He had further laboratory studies on 03/28/2021. At that time his hemoglobin had dropped to 11.8 g with his white blood cell count low at 1800 and his platelet count normal at 171,000. The differential showed only 12% neutrophils, with an absolute neutrophil count of 200. He began on steroid therapy with prednisone 40 mg daily, subsequently decreased to 20 mg daily. His repeat CBC on 04/05/2021 showed hemoglobin back up to 14.1 g, but there was further decrease in the white blood cell count with his ANC reported at 0. With those findings, he began antibiotic coverage with Levaquin. He is seen for a follow-up visit. He has been feeling very weak generally, he has virtually no activity. His ECOG score is 3. His appetite has been poor. He does not have fever or night sweats. He has developed sores in his mouth, and he has having difficulty eating. He also has pain with swallowing, in his upper chest and radiating into his back. He has shortness of breath with activity. He does not complain of cough and he otherwise is not having chest pain. He has had some heartburn. He has ongoing problems with constipation. Bladder function remains adequate, though he has noted a decrease in his urine output. He has no significant joint or bone pain. He does not complain of headache. He is dizzy/lightheaded when he gets up, he also has some jerking in his legs. He has no numbness/paresthesia or other focal neurologic symptoms. Medications: Aspirin 81 Tablet, enteric coated Oral daily, Atorvastatin Calcium 1 (40 mg) Tablet Oral daily, Co Q10 (200 mg) Capsule Oral daily, Finasteride (5 mg) Tablet Oral daily, Lyrica (225 mg) Capsule Oral b.i.d., Nortriptyline HCl (10 mg) Capsule Oral daily, Omeprazole 1 (20 mg) Capsule Delayed Release Oral daily, Tamsulosin HCl 2 Capsule (of 0.4 mg) Oral daily Allergies: No Known Allergies. Vital Signs: Performed on Apr 11, 2021 12:15 Height - 72.00 in Weight - 221 lbs (LOW) BSA - 2.22 sq.m BMI - 29.97 Temperature - 96.9 F (LOW) Pulse - 106 /min (HIGH) Respiration - 18 /min BP - 93/57 mm(hg) O2 Sat - 97 % Pain - 0 Fatigue - 8 Physical Examination: Constitutional - He appears generally weak, but not acutely ill, Eyes - Sclerae nonicteric. Conjunctivae clear, ENMT - There are multiple ulcerations in the oral cavity, Hematologic/Lymphatic - No cervical, clavicular, or axillary adenopathy, Respiratory - Lungs are clear with diminished air movement bilaterally, Cardiovascular - Heart rhythm is regular. There is no murmur, gallop, or rub noted, Abdomen - Soft. Liver and spleen are not enlarged. There is no abdominal mass or ascites noted and there is no inguinal adenopathy, Extremities - No edema, Neurologic - No focal neurologic deficits noted. Lab/Imaging: Test performed on Apr 11, 2021 13:38 Sodium 137 mmol/L TSH 1.27 uIU/mL Potassium 4.4 mmol/L Chloride 102 mmol/L CO2 27 mmol/L Anion Gap 12.4 BUN 29 mg/dL Creatinine 1.1 mg/dL Cr Clearance (Est) 86.0700 mL/min Glucose 101 mg/dL Osmolality - Calculated 290 mOsm/kg Calcium 7.6 mg/dL Protein, Total 6.3 g/dL Albumin 2.8 g/dL Globulin 3.5 g/dL Bilirubin, Total 0.4 mg/dL ALT (SGPT) 9 U/L AST (SGOT) 13 U/L Alkaline Phosphatase 44 IU/L ESR (Sed Rate) 54 mm/hr WBC 0.4 10 3/uL RBC 4.09 10 6/uL HGB 12.4 g/dL HCT 38.2 % MCV 93.4 fL MCH 30.3 pg MCHC 32.5 g/dL RDW 14.7 % Platelet Count 133 10 3/cmm MPV 9.5 fL Neutrophils 0.02 10 3/uL Lymphocytes 0.3 10 3/uL Monocytes 0.1 10 3/uL Eosinophils 0.0 10 3/uL Basophils 0.0 10 3/uL Neutrophil % 4.9 % Lymphocyte % 68.3 % Monocyte % 26.8 % Eosinophil % 0.0 % Basophils % 0.0 % NRBC % 0 % CBC Slide Review Slide Review Perform SLIDE REVIEW AGREES WITH AUTOMATED RESULT Problem List: 1. Adenosquamous carcinoma involving the upper lobe of the right lung, by clinical evaluation stage TAMARA (T3, N2, M1a), with PET/CT evidence of multiple bilateral pulmonary nodules. His next generation sequencing study showed no actionable mutation, but the tumor was noted to be positive for PD-L1 expression. 2. He underwent diagnostic flexible bronchoscopy and mediastinoscopy on 08/08/2020. 3. 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 4. He has CT evidence of underlying COPD. 5. Hypertension. 6. Hyperlipidemia. 7. GERD. 8. Rheumatoid arthritis. 9. Peripheral neuropathy. 10. Benign prostatic hypertrophy. Problems Addressed with this Encounter and Plan: 1. 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 The PD-L1 (22c3) expression was postive at 25%. He opted to have immunotherapy alone. As of his follow-up visit on 02/14/2021 he was tolerating treatment well, and his overall clinical status appeared stable. He continued immunotherapy with pembrolizumab but with his treatment change to the 6-week dosing interval. On 03/06/2021 he is seen in the emergency room with shortness of breath and bilateral knee pain. He had significant knee effusions bilaterally. His CT pulmonary angiogram showed new spiculated mass in the right upper lobe, but no other acute pathology. At that point his lab studies were unrevealing. As of his follow-up visit on 03/28/2021 he had developed severe neutropenia, and he began on steroid therapy with prednisone at 40 mg daily. By 04/05/2021 his neutrophil count had dropped to 0. His other blood counts at that point were normal. 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 He has not been febrile with it, but there has been a dramatic decline in his performance status and general condition. He also has oral stomatitis and symptoms of esophageal candidiasis. His immunotherapy obviously will remain on hold. He will be given IV hydration today and again tomorrow. He will start empiric treatment with fluconazole 400 mg IV today followed by oral fluconazole 200 mg daily and with acyclovir 400 mg 4 times daily for 5 days. He will continue antibiotic prophylaxis with Augmentin. I am going to increase his prednisone to 20 mg 3 times daily. He will have a follow-up visit with lab studies on Thursday. 2. 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 It has remained stable by follow-up surveillance MRI. Signed By: Shamar Yun M.D. <<Signature on File>>
== END 2021-04-11 11:38 | disposition home or self-care (01) ==
LOC: ONCMED 11:39
PROVIDERS: PCP Nurse Practitioner Family; Visit Provider Internal Medicine Medical Oncology
DX: C34.11 Malignant neoplasm of upper lobe, right bronchus or lung (principal); I10 Essential (primary) hypertension; E78.5 Hyperlipidemia, unspecified; K21.9 Gastro-esophageal reflux disease without esophagitis; M06.9 Rheumatoid arthritis, unspecified; G62.9 Polyneuropathy, unspecified; N40.0 Benign prostatic hyperplasia without lower urinary tract symptoms; Z79.52 Long term (current) use of systemic steroids; Z79.899 Other long term (current) drug therapy
CPT/HCPCS: 80053; 84443; 85025; 85651; 96361; 96365; 99215; J1450; J7030

== ENCOUNTER 2021-04-15 05:36 | Outpatient (RCR) | payer MEDICARE, SELFPAY ==
[2021-04-12] MEDS: sodium chloride 0.9% 1,000 ML 999 ML IV (10:39)
[2021-04-15] MEDS: sodium chloride 0.9% 1,000 ML 999 ML IV (15:30)
[2021-04-15 16:30] LABS: Hematocrit 38.7 % (42.0-52.0); Hemoglobin 12.7 g/dL (11.7-16.6); Lymphocytes # 0.3 10^3/uL (0.8-4.8); Mean Corpuscular HGB Conc 32.8 g/dL (30.0-36.0); Mean Corpuscular Hemoglobin 29.7 pg (28.0-34.0); Mean Corpuscular Volume 90.6 fL (80-94); Mean Platelet Volume 8.9 fL (7.4-10.4); Monocytes # 0.2 10^3/uL (0.2-0.9); Monocytes % 34.8 %; Neutrophils % 2.2 %; Nucleated Red Blood Cells % 0 %; Platelet Count 163 10^3/cmm (130-400); Red Blood Count 4.27 10^6/uL (4.1-5.3); Red Cell Distribution Width 14.9 % (12.1-15.1)
[2021-04-15 16:44] LABS: Anion Gap 21.5 (5-19); Blood Urea Nitrogen 33 mg/dL (8-23); Calcium 8.1 mg/dL (8.5-10.5); Carbon Dioxide 18 mmol/L (22-29); Chloride 102 mmol/L (98-107); Glucose 123 mg/dL (65-115); Osmolality Calculated 293 mOsm/kg (285-295); Potassium 4.5 mmol/L (3.5-5.1); Sodium 137 mmol/L (136-145)
[2021-04-15 17:01] LABS: Neutrophils # 0.01 10^3/uL (1.8-7.7); White Blood Count 0.5 10^3/uL (4.0-10.0)
== END 2021-05-08 23:59 | disposition home or self-care (01) ==
LOC: ONCMED 05:36
PROVIDERS: PCP Nurse Practitioner Family; Visit Provider Internal Medicine Medical Oncology
DX: C34.11 Malignant neoplasm of upper lobe, right bronchus or lung (principal); C78.01 Secondary malignant neoplasm of right lung; C78.02 Secondary malignant neoplasm of left lung; D69.6 Thrombocytopenia, unspecified; D70.8 Other neutropenia; Z79.899 Other long term (current) drug therapy
CPT/HCPCS: 80048; 85025; 96360; J7030

== ENCOUNTER 2021-05-22 14:37 | Outpatient (RCR) | payer MEDICARE, SELFPAY ==
[2021-05-15 11:20] LABS: Basophils % 1.4 %; Hematocrit 36.5 % (42.0-52.0); Hemoglobin 11.7 g/dL (11.7-16.6); Lymphocytes # 0.8 10^3/uL (0.8-4.8); Lymphocytes % 53.1 %; Mean Corpuscular HGB Conc 32.1 g/dL (30.0-36.0); Mean Corpuscular Hemoglobin 29.5 pg (28.0-34.0); Mean Corpuscular Volume 92.2 fL (80-94); Mean Platelet Volume 9.7 fL (7.4-10.4); Monocytes # 0.6 10^3/uL (0.2-0.9); Monocytes % 37.9 %; Neutrophils % 7.6 %; Nucleated Red Blood Cells # 0.1 /100WBC; Nucleated Red Blood Cells % 5.5 %; Platelet Count 213 10^3/cmm (130-400); Red Blood Count 3.96 10^6/uL (4.1-5.3); Red Cell Distribution Width 17.2 % (12.1-15.1); White Blood Count 1.5 10^3/uL (4.0-10.0)
[2021-05-15 11:55] LABS: Neutrophils # 0.11 10^3/uL (1.8-7.7); Slide Review Slide Review Perform
[2021-05-22] MEDS: sodium chloride 0.9% 1,000 ML 999 ML IV (15:25)
[2021-05-22 15:27] LABS: Basophils # 0.1 10^3/uL (0.0-0.1); Basophils % 0.7 %; Hematocrit 36.6 % (42.0-52.0); Lymphocytes # 0.6 10^3/uL (0.8-4.8); Lymphocytes % 9.3 %; Mean Corpuscular HGB Conc 32.8 g/dL (30.0-36.0); Mean Corpuscular Hemoglobin 29.9 pg (28.0-34.0); Mean Corpuscular Volume 91.3 fL (80-94); Mean Platelet Volume 9.9 fL (7.4-10.4); Monocytes # 0.2 10^3/uL (0.2-0.9); Monocytes % 2.5 %; Neutrophils # 5.44 10^3/uL (1.8-7.7); Neutrophils % 80.4 %; Nucleated Red Blood Cells % 0.4 %; Platelet Count 176 10^3/cmm (130-400); Positive C 1; Positive M 1; Red Blood Count 4.01 10^6/uL (4.1-5.3); Red Cell Distribution Width 17.1 % (12.1-15.1); White Blood Count 6.8 10^3/uL (4.0-10.0)
[2021-05-22 15:28] LABS: Slide Review Slide Review Perform
[2021-05-22 15:48] LABS: Alanine Aminotransferase 21 U/L (0-41); Albumin Level 3.3 g/dL (3.5-5.2); Alkaline Phosphatase 78 IU/L (40-130); Anion Gap 19.2 (5-19); Aspartate Amino Transferase 29 U/L (0-40); Blood Urea Nitrogen 15 mg/dL (8-23); Calcium 8.3 mg/dL (8.5-10.5); Carbon Dioxide 19 mmol/L (22-29); Chloride 103 mmol/L (98-107); Glucose 176 mg/dL (65-115); Osmolality Calculated 289 mOsm/kg (285-295); Potassium 4.2 mmol/L (3.5-5.1); Sodium 137 mmol/L (136-145); Total Bilirubin 0.4 mg/dL (0.15-1.2); Total Protein 6.3 g/dL (6.6-8.7)
--- NOTE | 2021-05-22 17:58 | ONC FU_ITS ---
Dr. Yun Patient Follow-Up Note Patient: Roge Ozuna Unit #: [id number]: [id number] Dicatated By: Shamar Yun M.D.Date of Visit:May 22, 2021 Onc Med Follow-up/Prog Note Chief Complaint: Lung cancer. 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 He has been followed for an abnormal chest CT scan, with the main concern being a nodule at the right lung base noted on a study from June 2017. On follow-up studies that nodule had resolved. Also noted were some fibrotic changes in the right upper lobe which had remained stable as of August 2018. A repeat chest CT on 07/04/2019 showed progression in the scarring and soft tissue surrounding bullous disease in the right upper lobe, possibly due to progression of fibrosis, though early neoplasm was not excluded. His repeat chest CT on 07/19/2020 showed significant progression of irregular soft tissue mass surrounding the cystic/cavitary fibrotic lesion in the right upper lobe. The lesion measured approximately 5.2 x 3.5 cm. The appearance was highly suspicious for neoplasm. Also noted was soft tissue thickening along the left lateral tracheal wall, possibly due to focal area of mucus. Also noted were bilateral pulmonary nodules ranging in size from a few millimeters up to 10 mm, suspicious for metastatic disease. Further evaluation with PET/CT on 07/28/2020 showed FDG avid cavitary right upper lobe mass measuring 4.5 x 5.1 cm, SUV 12.1, indicating high probability of malignancy. Secondary pulmonary nodules were noted in the right upper lobe, superior segment right lower lobe, left apex, and medial left lower lung base, consistent with metastatic disease. A 1.7 cm right paratracheal lymph node was also FDG avid, SUV 4.8, consistent with a metastatic node. He was referred to Dr. Moreno. On 08/20/2020 he underwent flexible diagnostic bronchoscopy with endobronchial biopsy from the right upper lobe and mediastinoscopy with biopsy of station 4R lymph node. Pathology from the right upper lobe biopsy showed adenosquamous carcinoma favoring lung primary. 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 A next generation sequencing study showed no actionable mutations. The PD-L1 (22c3) expression was positive at 25% and the PD-L1 (28-8) expression was positive at 35%. His staging head MRI showed an intrasellar pituitary mass with suprasellar extension measuring 1.4 x 1.6 x 1.7 cm. There was associated impingement on the optic chiasm. 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 There appeared to be involvement of the right cavernous sinus but cavernous carotid arteries were noted to be patent. There were no suspicious enhancing intracranial parenchymal abnormalities noted. I had seen him initially on 09/03/2020. With evidence of multiple pulmonary metastatic lesions bilaterally, it appeared that he would require systemic therapy. By next generation sequencing, his tumor was positive for PD-L1 expression at 25% for PD-L1 (22c3). There were no actionable mutations identified. With his PD-L1 positive at less than 50%, he was recommended to have combined chemotherapy/immunotherapy, per NCCN guidelines. However, he opted to have immunotherapy monotherapy. His other medical illnesses include hypertension, hyperlipidemia, GERD, rheumatoid arthritis, peripheral neuropathy, benign prostatic hypertrophy, and emphysema. He has history of smoking 2 packs of cigarettes daily. He quit smoking 15 years ago. INTERIM HISTORY: He began cycle 1 of pembrolizumab on 10/17/2020. He tolerated it well and he then continued treatment at 3-week intervals. He received cycle 5 on 01/24/2021. At his follow-up visit on 02/14/2021 he appeared stable clinically. He then continued immunotherapy with pembrolizumab but with his treatment changed to the 6-week dosing interval. On 03/06/2021 he was seen in the emergency room with shortness of breath. He also reported having bilateral knee pain. He was noted to have large joint effusions on x-ray. CT pulmonary angiogram showed no evidence of pulmonary embolism. A new spiculated mass measuring 39 x 28 x 32 mm was noted in the right upper lobe. Also noted were prominent mediastinal and hilar lymph nodes. There was advanced bullous emphysema. It was given a Medrol dose pack and symptomatic management with hydrocodone/APAP. A scheduled follow-up chest CT on 03/25/2021 showed right upper lobe spiculated mass measuring 3.4 x 1.9 cm with increase in size of mediastinal and hilar lymph nodes compared to the July 2020 study, and a 9 mm lymph node was noted near the lesser curvature of the stomach. Also noted were new scattered subcentimeter opacifications bilaterally and a 9 mm nodule in the posterior right lower lobe, with early metastatic disease not excluded. Brain MRI at that time showed stable appearance of the mass centered in the sella turcica with suprasellar extension measuring 1.7 x 1.6 x 1.7 cm, consistent with pituitary macroadenoma. Minimal extension was noted into the right cavernous sinus and there was mild displacement of the optic chiasm. He had further laboratory studies on 03/28/2021. At that time his hemoglobin had dropped to 11.8 g with his white blood cell count low at 1800 and his platelet count normal at 171,000. The differential showed only 12% neutrophils, with an absolute neutrophil count of 200. He began on steroid therapy with prednisone 40 mg daily, subsequently decreased to 20 mg daily. His repeat CBC on 04/05/2021 showed hemoglobin back up to 14.1 g, but there was further decrease in the white blood cell count with his ANC reported at 0. With those findings, he began antibiotic coverage with Levaquin and his prednisone dosage was increased to 60 mg daily. During subsequent follow-up he continued to have severe neutropenia, and he continued to have fairly severe generalized weakness. He did not report any fever, chills, or other symptoms to suggest any acute infectious process. As of 05/15/2021 his white count had increased to 1500, but with ANC still low at approximately 100. His hemoglobin was just slightly decreased at 11.7 g with platelet count normal at 213,000. I did have him reduce prednisone to 20 mg daily. He is seen for follow-up visit, accompanied by his daughter. He was feeling bad enough that he had been staying with her last week. He has been back at his own home the last 3 days. She indicates that when she saw him yesterday he was incoherent. He has been still weak, but he is able to get up and around. ECOG score is 2. Appetite is just so-so. He is eating some. He does not have fever, chills, or night sweats. He has not had sore mouth or throat. He is short of breath with activity. He does not complain of cough and he has not been having chest pain. He had one episode of nausea. He says his bowels have been pretty good. He has had occasional loose stools, but they are mostly formed. He has no complaints. He has no significant joint or bone pain. He does not complain of headache. He sometimes feels dizzy. He has some numbness/tingling in his feet. He has developed significant swelling in his legs and feet. Medications: Aspirin 81 Tablet, enteric coated Oral daily, Atorvastatin Calcium 1 (40 mg) Tablet Oral daily, Finasteride (5 mg) Tablet Oral daily, Lyrica (225 mg) Capsule Oral b.i.d., Nortriptyline HCl (10 mg) Capsule Oral daily, Omeprazole 1 (20 mg) Capsule Delayed Release Oral daily, PredniSONE 1 (20 mg) Tablet Oral t.i.d., Tamsulosin HCl 2 Capsule (of 0.4 mg) Oral daily Allergies: No Known Allergies. Vital Signs: Performed on May 22, 2021 15:55 Height - 72.00 in Temperature - 97.2 F (LOW) Pulse - 94 /min Respiration - 18 /min BP - 98/59 mm(hg) O2 Sat - 94 % (LOW) Pain - 0 Physical Examination: Constitutional - He appears generally weak, Eyes - Sclerae nonicteric. Conjunctivae clear, ENMT - No lesions noted in the oral cavity, Hematologic/Lymphatic - No cervical, clavicular, or axillary adenopathy, Respiratory - Lungs are clear with diminished air movement bilaterally, worse on the left, Cardiovascular - Heart rhythm is regular. There is no murmur, gallop, or rub noted, Abdomen - Soft. Liver and spleen are not enlarged. There is no abdominal mass or ascites noted and there is no inguinal adenopathy, Extremities - There is 2+ lower extremity edema, Neurologic - No focal neurologic deficits noted. Lab/Imaging: Test performed on May 22, 2021 15:15 Sodium 137 mmol/L Potassium 4.2 mmol/L Chloride 103 mmol/L CO2 19 mmol/L Anion Gap 19.2 BUN 15 mg/dL Creatinine 1.1 mg/dL Cr Clearance (Est) 86.0700 mL/min Glucose 176 mg/dL Osmolality - Calculated 289 mOsm/kg Calcium 8.3 mg/dL Protein, Total 6.3 g/dL Albumin 3.3 g/dL Globulin 3.0 g/dL Bilirubin, Total 0.4 mg/dL ALT (SGPT) 21 U/L AST (SGOT) 29 U/L Alkaline Phosphatase 78 IU/L WBC 6.8 10 3/uL RBC 4.01 10 6/uL HGB 12.0 g/dL HCT 36.6 % MCV 91.3 fL MCH 29.9 pg MCHC 32.8 g/dL RDW 17.1 % Platelet Count 176 10 3/cmm MPV 9.9 fL Neutrophils 5.44 10 3/uL Lymphocytes 0.6 10 3/uL Monocytes 0.2 10 3/uL Eosinophils 0.0 10 3/uL Basophils 0.1 10 3/uL Neutrophil % 80.4 % Lymphocyte % 9.3 % Monocyte % 2.5 % Eosinophil % 0.0 % Basophils % 0.7 % NRBC % 0.4 % CBC Slide Review Slide Review Perform Problem List: 1. Adenosquamous carcinoma involving the upper lobe of the right lung, by clinical evaluation stage TAMARA (T3, N2, M1a), with PET/CT evidence of multiple bilateral pulmonary nodules. His next generation sequencing study showed no actionable mutation, but the tumor was noted to be positive for PD-L1 expression. 2. He underwent diagnostic flexible bronchoscopy and mediastinoscopy on 08/08/2020. 3. 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 4. He has CT evidence of underlying COPD. 5. Hypertension. 6. Hyperlipidemia. 7. GERD. 8. Rheumatoid arthritis. 9. Peripheral neuropathy. 10. Benign prostatic hypertrophy. Problems Addressed with this Encounter and Plan: 1. 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 The PD-L1 (22c3) expression was postive at 25%. He opted to have immunotherapy alone. As of his follow-up visit on 02/14/2021 he was tolerating treatment well, and his overall clinical status appeared stable. He continued immunotherapy with pembrolizumab but with his treatment change to the 6-week dosing interval. On 03/06/2021 he was seen in the emergency room with shortness of breath and bilateral knee pain. He had significant knee effusions bilaterally. His CT pulmonary angiogram showed new spiculated mass in the right upper lobe, but no other acute pathology. At that point his lab studies were unrevealing. As of his follow-up visit on 03/28/2021 he had developed severe neutropenia. His treatment was put on hold, and he began on steroid therapy with prednisone at 40 mg daily. By 04/05/2021 his neutrophil count had dropped to 0. His other blood counts at that point were normal. 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 However, somewhere around that time he also had been given the [employer] COVID-19 vaccination, and there is some question now as to whether that may have been the cause for it. In any case, during subsequent follow-up the neutropenia persisted. He was given antibacterial prophylaxis and it also increased his prednisone dosage up to 60 mg daily. As of 1 week ago, his neutrophil count was still only 100, but his CBC today shows complete recovery. Despite the improvement in his blood count, he still feels very weak generally, and he has had relatively poor oral intake. His daughter indicates that he has been incoherent at times, though I do not see any indication of that with his visit today. He is being given IV hydration. He will reduce his prednisone to 10 mg daily. He will stop the antibiotic prophylaxis. He will be scheduled for restaging CT scans. I will tentatively plan a follow-up visit in 2 weeks. 2. 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 It has remained stable by follow-up surveillance MRI. Signed By: Shamar Yun M.D. <<Signature on File>>
== END 2021-06-08 23:59 | disposition home or self-care (01) ==
LOC: ONCMED 14:37
PROVIDERS: PCP Nurse Practitioner Family; Visit Provider Internal Medicine Medical Oncology
DX: C34.11 Malignant neoplasm of upper lobe, right bronchus or lung (principal); C78.02 Secondary malignant neoplasm of left lung; D35.2 Benign neoplasm of pituitary gland; J44.9 Chronic obstructive pulmonary disease, unspecified; I10 Essential (primary) hypertension; E78.5 Hyperlipidemia, unspecified; K21.9 Gastro-esophageal reflux disease without esophagitis; M06.9 Rheumatoid arthritis, unspecified; G62.9 Polyneuropathy, unspecified; N40.0 Benign prostatic hyperplasia without lower urinary tract symptoms; Z79.899 Other long term (current) drug therapy
CPT/HCPCS: 36415; 80053; 85025; 96360; 99214; J7030

== ENCOUNTER 2021-06-04 10:20 | Outpatient (CLI) | payer MEDICARE, SELFPAY ==
--- NOTE | 2021-06-04 10:37 | CT_ITS ---
WS: [id number] Exam: CT chest abd pel w con* Date/Time of Exam: 06/04/2021 10:38 AM Reason For Exam: LUNG CANCER DLP: 2190.[address] scans at [facility] use at least one of these dose optimization techniques: automat ed exposure control; mA and/or kV adjustment per patient size (includes targeted exams where dose is matched to clinical indication); or iterative reconstruction. Comparison 03/25/2021 CT scan of the chest with IV contrast. 3.4 x 1.9 cm spiculated mass again noted in the upper lobe of the right lung is unchanged in size. Em physematous changes with fibrosis and groundglass densities are noted throughout both lungs. Small sa tellite nodules are noted in the superior segment of the right lower lobe and also the anterior right upper lobe both measuring about 7 mm at greatest diameter. Numerous emphysematous blebs are noted. M ild posterior pleural thickening on the right. The thoracic aorta is normal in caliber. There are mi ldly enlarged mediastinal and subcarinal lymph nodes. The largest measuring about 11 mm at greatest s hort axis dimension. These are stable. No pericardial effusion noted. No axillary lymphadenopathy. Th e central pulmonary arteries are clear. No destructive bone lesions are seen. CT/CT chest abd pel w con* IMPRESSION: 1. 3.4 x 1.9 cm spiculated mass in the right upper lobe unchanged in size. 2. Small satellite nodules identified in the superior segment of the right lowe r lobe and also the anterior right upper lobe measuring about 7 mm at greatest diameter. These show little change. 3. Mediastinal and subcarinal lymphadenopathy unchanged. 4. Advanced emphysematous changes with numerous pulmonary blebs and groundglass densities noted in both lungs. CT scan of the abdomen and pelvis with IV and oral contrast. The liver, gallbladder and spleen appear normal. The stomach is unremarkable. T he abdominal aorta is normal in caliber. Normal adrenal glands. 3.4 cm right re nal cyst. Several small left renal cysts also noted. The kidneys are otherwise unremarkable. The portal vein and IVC are patent. Atrophy of the pancreas with fatty replacement. No significant lymphadenopathy seen. No free air. Small rody l loops are normal in caliber. No sign of acute appendix. No significant large bowel abnormality demonstrated. No mass or adenopathy in the pelvis. No obvious destructive bone lesions are seen. 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 The artery measures about 2 cm at gre atest diameter. IMPRESSION: 1. No abdominal mass or significant lymphadenopathy in the abdomen or pelvis. 2. Bilateral renal cysts. Pancreatic atrophy. 3. 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
[2021-06-04] MEDS: iohexol 300 mg/mL 50 mL Btl PO (10:58)
[2021-06-04] MEDS: iohexol 300 mg/mL 100 mL Btl IV (12:15)
== END 2021-06-04 10:21 | disposition home or self-care (01) ==
PROVIDERS: PCP Nurse Practitioner Family; Visit Provider Internal Medicine Medical Oncology
DX: C34.11 Malignant neoplasm of upper lobe, right bronchus or lung (principal); Q61.02 Congenital multiple renal cysts; K86.89 Other specified diseases of pancreas; I72.3 Aneurysm of iliac artery
CPT/HCPCS: 71260; 74177; Q9967

== ENCOUNTER 2021-06-10 10:18 | Emergency (ER) | payer MEDICARE, SELFPAY ==
[2021-06-10 10:22] VITALS: BP 116/79; PULSE 88; RESP 18; TEMP 36.4; O2SAT 98; BMI 30.9
[2021-06-10 10:27] VITALS: BP 122/80; PULSE 96; RESP 18; TEMP 36.4; O2SAT 98
--- NOTE | 2021-06-10 10:55 | ED_ITS ---
HPI - General Adult General: Chief complaint: General Medical Stated complaint: RESOLVED HYPOTENSION Time Seen by Provider: 06/10/21 10:37 Source: EMS Mode of arrival: ambulatory Limitations: no limitations History of Present Illness: HPI narrative: Patient is a 70-year-old male who presents to ED today via EMS from his doctor's office after they called an ambulance secondary to low blood pressure. Patient tells me he had an appointment today for routine medication refills but states while at the doctor's office his blood pressure was 80s/40s so they called an ambulance and brought him here. Upon arrival blood pressure is 120s/80s. He has no complaints of lightheadedness or dizziness. Patient does complain of some lower extremity pitting edema that has been slowly worsening. He has no history of CHF. He does have a history of lung cancer. He denies orthopnea or PND. Onset (ago): week(s) Location: lower extremity Associated symptoms: Reports no associated symptoms; Deny chest pain, dyspnea, headache(s), malaise, nausea, palpitations, syncope or vomiting Treatments prior to arrival: none Review of Systems Const: Denies: fever(s), chills, body aches, fatigue or malaise Eyes: Denies: change in vision or blurry vision Card: Reports: edema, swelling of feet/ankles and dyspnea on exertion (chronic ); Denies: chest pain, palpitations, irregular heart rhythm, lightheadedness, syncope, pre-syncope, orthopnea, leg pain with exertion or acrocyanosis Resp: Denies: dyspnea, productive cough, non-productive cough, hemoptysis or chest congestion GI: Denies: abdominal pain, nausea, vomiting or diarrhea Musc: Reports: extremity swelling Neuro: Denies: headache(s), numbness in extremities, weakness in extremities or sensory changes PFS ED PFSH: Medical History (Updated 06/10/21 @ 12:22 by GREG Henriquez) Rheumatoid arthritis Family History Father CAD (coronary artery disease) Denies family history of Diabetes Hyperlipidemia Cancer Hypertension Stroke Social History Smoking and tobacco status: never smoked Quit status (tobacco): has quit using tobacco Year quit tobacco: 2002 Alcohol intake: never Lives independently: Yes Household members: none Housing: House Marital status: History of recent travel: No Physical Exam Const: COMMON NORMALS: no acute distress, patient oriented x3, no limitations and alert NUTRITIONAL APPEARANCE: obese ORIENTATION/CONSCIOUSNESS: Yes awake, Yes oriented to person, Yes oriented to place and Yes oriented to time HENMT: COMMON NORMALS: normocephalic and atraumatic HEAD & SCALP: normocephalic and atraumatic Resp: COMMON NORMALS: normal respiratory effort and clear to auscultation bilaterally AUSCULTATION: clear to auscultation bilaterally Cardio: COMMON NORMALS: regular rate and regular rhythm RATE: regular rate RHYTHM: regular rhythm Extremity: COMMON NORMALS: capillary refill normal, no joint enlargement and no calf tenderness GENERAL: Yes edema (bilateral 2+ pitting) Neuro: COMMON NORMALS: patient oriented x3 SENSORIUM/ORIENTATION: Yes alert, Yes oriented to person, Yes oriented to place and Yes oriented to time Skin: COMMON NORMALS: no rashes or lesions noted GENERAL SKIN EXAM: no rashes or lesions noted TRAUMA: no lacerations or abrasions Course Vital Signs: Vital signs: Vital Signs Temperature 97.6 F 06/10/21 10:27 Pulse Rate 96 06/10/21 10:27 Respiratory Rate 18 06/10/21 10:27 Blood Pressure 122/80 06/10/21 10:27 Pulse Oximetry 98 06/10/21 10:27 MDM - General Adult MDM Narrative: Medical decision making narrative: Patient's blood pressure has been normal since arrival. He clinically does appear fluid overloaded with bilateral pitting edema. CXR also showing some interstitial congestion. His BNP today is 577. Previous lab value in February of this year was 541. Will give 40mg IV lasix here and will have him increase his lasix at home x 5 days (has rx for 20mg tabs but pharmacy stated this is written as a prn med-patient isn't sure if he has been taking it or not). Will put on potassium with this. Recommend follow up with PCP. I think echo to evaluate for CHF would be a good plan for this patient. Lab Data: Labs: Lab Results 06/10/21 06/10/21 Range/Units 11:16 11:16 WBC 6.7 (4.0-10.0) 10^3/ uL RBC 4.17 (4.1-5.3) 10^6/u L Hgb 12.4 (11.7-16.6) g/dL Hct 39.8 L (42.0-52.0) % MCV 95.4 H (80-94) fL MCH 29.7 (28.0-34.0) pg MCHC 31.2 (30.0-36.0) g/dL RDW 17.4 H (12.1-15.1) % Plt Count 175 (130-400) 10^3/c mm MPV 9.9 (7.4-10.4) fL Neut % (Auto) 70.1 % Lymph % (Auto) 17.0 % [place] % (Auto) 10.7 % Eos % (Auto) 0.0 % Baso % (Auto) 1.3 % Neut # (Auto) 4.69 (1.8-7.7) 10^3/u L Lymph # (Auto) 1.1 (0.8-4.8) 10^3/u L [place] # (Auto) 0.7 (0.2-0.9) 10^3/u L Eos # (Auto) 0.0 (0.0-0.8) 10^3/u L Baso # (Auto) 0.1 (0.0-0.1) 10^3/u L Nucleated RBC % (a uto) 0 % Nucleated RBCs # 0.0 /100WBC Sodium 139 (136-145) mmol/L Potassium 4.1 (3.5-5.1) mmol/L Chloride 105 (98-107) mmol/L Carbon Dioxide 25 (22-29) mmol/L Anion Gap 13.1 (5-19) BUN 11 (8-23) mg/dL Creatinine 1.1 (0.7-1.2) mg/dL GFR Calculation Not Reportable Glucose 95 (65-115) mg/dL Calculated Osmolal ity 287 (285-295) mOsm/k g Calcium 8.1 L (8.5-10.5) mg/dL Total Bilirubin 0.3 (0.15-1.2) mg/dL AST 27 (0-40) U/L ALT 13 (0-41) U/L Alkaline Phosphata se 57 (40-130) IU/L NT-Pro-B Natriuret Pep 577 H (0-125) pg/mL Total Protein 5.6 L (6.6-8.7) g/dL Albumin 3.3 L (3.5-5.2) g/dL Globulin 2.3 (1.3-4.6) g/dL Imaging Data^: CXR: Radiologist's impression: [address] [id number] ReportSigned Patient: Roge Ozuna #: [id number]: [id number]#:[id number]/Sex: 70 / MADM Date: 06/10/21Loc: ERRoom/Bed:Attending Dr: Ordering Provider/Ordering MD: Lamar Millard Date of Service: 06/10/21 Procedure(s): XR chest 1V portable [id number] Accession Number(s): [id number] Report Number: [id number] PROCEDURE INFORMATION: Exam: XR Chest Exam date and time: 06/10/2021 10:54 AM Age: 70 years old Clinical indication: Other: Swelling, legs and feet x 1 week; Prior surgery; Surgery type: Appendectomy; Patient HX: Bilat lung cancer TECHNIQUE: Imaging protocol: XR of the chest. Views: 1 view. COMPARISON: CT chest abd pel w con* 06/04/2021 12:13 PM FINDINGS: Lungs: Parenchymal density is seen in the right upper lobe prior CT chest examination show a mass lesion. There is interstitial congestion left lower lobe. Low lung volumes are seen. No consolidation. Pleural spaces: Unremarkable. No pleural effusion. No pneumothorax. Heart/Mediastinum: Unremarkable. No cardiomegaly. Bones/joints: Unremarkable. XR/XR chest 1V portable [id number] IMPRESSION: 1. Right upper lobe parenchymal density corresponding to mass 2. Left lower lobe interstitial congestion Dictated By:Jimmie Fournier By:Jimmie Fournier Date/Time:06/10/21 1216DD/ 1214 Discharge Plan Discharge Patient Disposition: Home Clinical Impression: Bilateral edema of lower extremity Condition: Stable Prescriptions: New K-Tab 10 mEq tablet extended release 10 meq PO DAILY Qty: 5 RF: 0 No Action finasteride 5 mg tablet 5 mg PO DAILY RF: 0 tamsulosin 0.4 mg capsule 0.8 mg PO DAILY RF: 0 famotidine 20 mg tablet 20 mg PO BID RF: 0 pregabalin [Lyrica] 225 mg capsule 225 mg PO BID RF: 0 amitriptyline 25 mg tablet 25 mg PO DAILY RF: 0 celecoxib 200 mg capsule 200 mg PO DAILY RF: 0 nortriptyline 10 mg capsule 10 mg PO BEDTIME RF: 0 furosemide 20 mg tablet 20 mg PO DAILY PRN (Reason: SWELLING/EDEMA) RF: 0 aspirin 81 mg Tablet,Chewable 81 mg PO DAILY RF: 0 Discharge Orders: Discharge ED (Routine); Ordered 06/10/21 Ordered By: Lamar Millard Referrals: Monet Ashton NP [Primary Care Provider] - Activity Restrictions/Additional Instructions: You should have 20mg furosemide/lasix pills at home. You need to take two of these pills daily for the next 5 days. I have prescribed you potassium pills to take as well as the lasix can cause low potassium levels. As we discussed please follow-up with your primary care provider in 3 to 5 days for reevaluation. Coding Level of Care Code ED Agricultural [employer] for [facility] Exam Detailed
[2021-06-10 11:20] LABS: Basophils # 0.1 10^3/uL (0.0-0.1); Basophils % 1.3 %; Hematocrit 39.8 % (42.0-52.0); Hemoglobin 12.4 g/dL (11.7-16.6); Lymphocytes # 1.1 10^3/uL (0.8-4.8); Mean Corpuscular HGB Conc 31.2 g/dL (30.0-36.0); Mean Corpuscular Hemoglobin 29.7 pg (28.0-34.0); Mean Corpuscular Volume 95.4 fL (80-94); Mean Platelet Volume 9.9 fL (7.4-10.4); Monocytes # 0.7 10^3/uL (0.2-0.9); Monocytes % 10.7 %; Neutrophils # 4.69 10^3/uL (1.8-7.7); Neutrophils % 70.1 %; Nucleated Red Blood Cells % 0 %; Platelet Count 175 10^3/cmm (130-400); Red Blood Count 4.17 10^6/uL (4.1-5.3); Red Cell Distribution Width 17.4 % (12.1-15.1); White Blood Count 6.7 10^3/uL (4.0-10.0)
[2021-06-10 11:52] LABS: Alanine Aminotransferase 13 U/L (0-41); Albumin Level 3.3 g/dL (3.5-5.2); Alkaline Phosphatase 57 IU/L (40-130); Aspartate Amino Transferase 27 U/L (0-40); Blood Urea Nitrogen 11 mg/dL (8-23); Calcium 8.1 mg/dL (8.5-10.5); Carbon Dioxide 25 mmol/L (22-29); Chloride 105 mmol/L (98-107); Globulin 2.3 g/dL (1.3-4.6); Glucose 95 mg/dL (65-115); NT Pro B Type Natriuretic Pept 577 pg/mL (0-125); Osmolality Calculated 287 mOsm/kg (285-295); Sodium 139 mmol/L (136-145); Total Bilirubin 0.3 mg/dL (0.15-1.2); Total Protein 5.6 g/dL (6.6-8.7)
[2021-06-10 12:00] LABS: Anion Gap 13.1 (5-19); Potassium 4.1 mmol/L (3.5-5.1)
[2021-06-10] MEDS: FUROsemide 10 mg/mL SDV 4mL 40 MG IVP (12:28)
[2021-06-10 12:29] VITALS: BP 129/81; PULSE 83; RESP 18; O2SAT 98
== END 2021-06-10 12:39 | disposition home or self-care (01) ==
PROVIDERS: Emergency Provider Physician Assistant; PCP Nurse Practitioner Family
DX: R60.0 Localized edema (principal); Z79.82 Long term (current) use of aspirin; Z87.891 Personal history of nicotine dependence
CPT/HCPCS: 71045; 80053; 83880; 85025; 96374; 99283; J1940

== ENCOUNTER 2021-06-13 06:16 | Outpatient (RCR) | payer MEDICARE, SELFPAY ==
[2021-06-13 12:43] LABS: Hematocrit 37.9 % (42.0-52.0); Mean Corpuscular HGB Conc 31.7 g/dL (30.0-36.0); Mean Corpuscular Hemoglobin 30.3 pg (28.0-34.0); Mean Corpuscular Volume 95.7 fL (80-94); Mean Platelet Volume 9.7 fL (7.4-10.4); Platelet Count 180 10^3/cmm (130-400); Red Blood Count 3.96 10^6/uL (4.1-5.3); Red Cell Distribution Width 17.2 % (12.1-15.1); White Blood Count 6.9 10^3/uL (4.0-10.0)
[2021-06-13 13:22] LABS: Alanine Aminotransferase 11 U/L (0-41); Albumin Level 3.2 g/dL (3.5-5.2); Alkaline Phosphatase 53 IU/L (40-130); Anion Gap 12.9 (5-19); Aspartate Amino Transferase 26 U/L (0-40); Blood Urea Nitrogen 9 mg/dL (8-23); Calcium 8.2 mg/dL (8.5-10.5); Carbon Dioxide 24 mmol/L (22-29); Chloride 105 mmol/L (98-107); Globulin 2.5 g/dL (1.3-4.6); Glucose 83 mg/dL (65-115); Osmolality Calculated 284 mOsm/kg (285-295); Potassium 3.9 mmol/L (3.5-5.1); Sodium 138 mmol/L (136-145); Thyroid Stimulating Hormone 4.75 uIU/mL (0.27-4.20); Total Bilirubin 0.2 mg/dL (0.15-1.2); Total Protein 5.7 g/dL (6.6-8.7)
[2021-06-13 14:37] LABS: Absolute Neutrophil 4.4 10^3/cmm (1.4-6.5); Absolute Segmented Neutrophil 4.4 10/cmm (1.6-7.1); Eosinophils 0 %; Lymphocytes 26 %; Lymphocytes Absolute 1.8 10^3/cmm (1.2-3.4); Monocytes Absolute 0.7 10^3/cmm (0.1-0.6); Platelet Estimate Normal (Normal); Segmented Neutrophils 64 %; Total Cells Counted 100 (0-100)
--- NOTE | 2021-06-16 14:48 | ONC FU_ITS ---
Dr. Ynu Patient Follow-Up Note Patient: Roge Ozuna Unit #: [id number]: 1950 Dicatated By: Shamar Yun M.D.Date of Visit:Jun 13, 2021 Onc Med Follow-up/Prog Note Chief Complaint: Lung cancer. 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 He has been followed for an abnormal chest CT scan, with the main concern being a nodule at the right lung base noted on a study from June 2017. On follow-up studies that nodule had resolved. Also noted were some fibrotic changes in the right upper lobe which had remained stable as of August 2018. A repeat chest CT on 07/04/2019 showed progression in the scarring and soft tissue surrounding bullous disease in the right upper lobe, possibly due to progression of fibrosis, though early neoplasm was not excluded. His repeat chest CT on 07/19/2020 showed significant progression of irregular soft tissue mass surrounding the cystic/cavitary fibrotic lesion in the right upper lobe. The lesion measured approximately 5.2 x 3.5 cm. The appearance was highly suspicious for neoplasm. Also noted was soft tissue thickening along the left lateral tracheal wall, possibly due to focal area of mucus. Also noted were bilateral pulmonary nodules ranging in size from a few millimeters up to 10 mm, suspicious for metastatic disease. Further evaluation with PET/CT on 07/28/2020 showed FDG avid cavitary right upper lobe mass measuring 4.5 x 5.1 cm, SUV 12.1, indicating high probability of malignancy. Secondary pulmonary nodules were noted in the right upper lobe, superior segment right lower lobe, left apex, and medial left lower lung base, consistent with metastatic disease. A 1.7 cm right paratracheal lymph node was also FDG avid, SUV 4.8, consistent with a metastatic node. He was referred to Dr. Moreno. On 08/20/2020 he underwent flexible diagnostic bronchoscopy with endobronchial biopsy from the right upper lobe and mediastinoscopy with biopsy of station 4R lymph node. Pathology from the right upper lobe biopsy showed adenosquamous carcinoma favoring lung primary. 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 A next generation sequencing study showed no actionable mutations. The PD-L1 (22c3) expression was positive at 25% and the PD-L1 (28-8) expression was positive at 35%. His staging head MRI showed an intrasellar pituitary mass with suprasellar extension measuring 1.4 x 1.6 x 1.7 cm. There was associated impingement on the optic chiasm. 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 There appeared to be involvement of the right cavernous sinus but cavernous carotid arteries were noted to be patent. There were no suspicious enhancing intracranial parenchymal abnormalities noted. I had seen him initially on 09/03/2020. With evidence of multiple pulmonary metastatic lesions bilaterally, it appeared that he would require systemic therapy. By next generation sequencing, his tumor was positive for PD-L1 expression at 25% for PD-L1 (22c3). There were no actionable mutations identified. With his PD-L1 positive at less than 50%, he was recommended to have combined chemotherapy/immunotherapy, per NCCN guidelines. However, he opted to have immunotherapy monotherapy. His other medical illnesses include hypertension, hyperlipidemia, GERD, rheumatoid arthritis, peripheral neuropathy, benign prostatic hypertrophy, and emphysema. He has history of smoking 2 packs of cigarettes daily. He quit smoking 15 years ago. INTERIM HISTORY: He began cycle 1 of pembrolizumab on 10/17/2020. He tolerated it well and he then continued treatment at 3-week intervals. He received cycle 5 on 01/24/2021. At his follow-up visit on 02/14/2021 he appeared stable clinically. He then continued immunotherapy with pembrolizumab but with his treatment changed to the 6-week dosing interval. On 03/06/2021 he was seen in the emergency room with shortness of breath. He also reported having bilateral knee pain. He was noted to have large joint effusions on x-ray. CT pulmonary angiogram showed no evidence of pulmonary embolism. A new spiculated mass measuring 39 x 28 x 32 mm was noted in the right upper lobe. Also noted were prominent mediastinal and hilar lymph nodes. There was advanced bullous emphysema. It was given a Medrol dose pack and symptomatic management with hydrocodone/APAP. A scheduled follow-up chest CT on 03/25/2021 showed right upper lobe spiculated mass measuring 3.4 x 1.9 cm with increase in size of mediastinal and hilar lymph nodes compared to the July 2020 study, and a 9 mm lymph node was noted near the lesser curvature of the stomach. Also noted were new scattered subcentimeter opacifications bilaterally and a 9 mm nodule in the posterior right lower lobe, with early metastatic disease not excluded. Brain MRI at that time showed stable appearance of the mass centered in the sella turcica with suprasellar extension measuring 1.7 x 1.6 x 1.7 cm, consistent with pituitary macroadenoma. Minimal extension was noted into the right cavernous sinus and there was mild displacement of the optic chiasm. He had further laboratory studies on 03/28/2021. At that time his hemoglobin had dropped to 11.8 g with his white blood cell count low at 1800 and his platelet count normal at 171,000. The differential showed only 12% neutrophils, with an absolute neutrophil count of 200. He began on steroid therapy with prednisone 40 mg daily, subsequently decreased to 20 mg daily. His repeat CBC on 04/05/2021 showed hemoglobin back up to 14.1 g, but there was further decrease in the white blood cell count with his ANC reported at 0. With those findings, he began antibiotic coverage with Levaquin and his prednisone dosage was increased to 60 mg daily. During subsequent follow-up he continued to have severe neutropenia, and he continued to have fairly severe generalized weakness. He did not report any fever, chills, or other symptoms to suggest any acute infectious process. As of 05/15/2021 his white count had increased to 1500, but with ANC still low at approximately 100. His hemoglobin was just slightly decreased at 11.7 g with platelet count normal at 213,000. I did have him reduce prednisone to 20 mg daily. As of his follow-up visit on 05/22/2021 his neutrophil count had recovered to 5400. His prednisone dosage at that point was reduced to 10 mg daily, and it was subsequently discontinued. Restaging CT scans on 06/04/2021 showed stable right upper lobe spiculated mass measuring 3.4 x 1.9 cm. Emphysematous changes with fibrosis and groundglass densities were noted throughout both lungs and small satellite nodules were noted in the superior segment right lower lobe and in the anterior right upper lobe, both measuring about 7 mm. There were mildly enlarged mediastinal and subcarinal lymph nodes, the largest measuring 11 mm. 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 There were no other significant findings in the abdomen/pelvis. On 06/10/2020 when he presented to the emergency room with swelling in both legs. Earlier in the day he had been noted to have low blood pressure, but it was back up to normal at the time of his ER visit. He was recommended to restart his furosemide along with a potassium supplement. He is seen for a follow-up visit. He says he has been feeling pretty good, though he does have limited activity. He also complains that he has been having jerking in both legs when he gets up and he also sometimes has shaking in his arms when he is trying to use them. He says he tends to get dizzy before he starts jerking. His ECOG score is 2. He has good appetite. He has no fever or night sweats. He has had no mouth sores. He is short of breath with activity. He does not complain of resting dyspnea or cough, and he has not been having chest pain. He has no GI complaints other than his bowels are sometimes a little loose. Bladder function has been okay. He has joint pain, especially in his knees, and he also has some pain in the neck area. He does not complain of headache. He has no numbness/paresthesia or other focal neurologic symptoms. Medications: Aspirin 81 Tablet, enteric coated Oral daily, Atorvastatin Calcium 1 (40 mg) Tablet Oral daily, Finasteride (5 mg) Tablet Oral daily, Furosemide (20 mg) Tablet Oral daily, Lyrica (150 mg) Capsule Oral b.i.d., Nortriptyline HCl (10 mg) Capsule Oral daily, Omeprazole 1 (20 mg) Capsule Delayed Release Oral daily, PredniSONE 1 (20 mg) Tablet Oral t.i.d., Tamsulosin HCl 2 Capsule (of 0.4 mg) Oral daily Allergies: No Known Allergies. Vital Signs: Performed on Jun 13, 2021 13:45 Height - 72.00 in Temperature - 97.1 F (LOW) Pulse - 81 /min Respiration - 18 /min BP - 147/82 mm(hg) (HIGH) O2 Sat - 96 % Pain - 0 Fatigue - 7 Physical Examination: Constitutional - He appears generally weak, Eyes - Sclerae nonicteric. Conjunctivae clear, ENMT - No lesions noted in the oral cavity, Hematologic/Lymphatic - No cervical, clavicular, or axillary adenopathy, Respiratory - Lungs are clear with diminished air movement bilaterally, Cardiovascular - Heart rhythm is regular. There is no murmur, gallop, or rub noted, Abdomen - Soft. Liver and spleen are not enlarged. There is no abdominal mass or ascites noted and there is no inguinal adenopathy, Extremities - There is 2+ lower extremity edema. There are purpuric lesions on both arms, Neurologic - He appears to have weakness in the proximal leg musculature and he has what appears to be intermittent myoclonic jerking. He does not appear to have any focal neurologic deficit. Lab/Imaging: Test performed on Jun 10, 2021 13:05 Sodium 139 mmol/L Potassium 4.1 mmol/L Chloride 105 mmol/L CO2 25 mmol/L Anion Gap 13.1 BUN 11 mg/dL Creatinine 1.1 mg/dL Cr Clearance (Est) 86.07 mL/min Glucose 95 mg/dL Osmolality - Calculated 287 mOsm/kg Calcium 8.1 mg/dL Protein, Total 5.6 g/dL Albumin 3.3 g/dL Globulin 2.3 g/dL Bilirubin, Total 0.3 mg/dL ALT (SGPT) 13 Units/L AST (SGOT) 27 Units/L Alkaline Phosphatase 57 IU/L WBC 6.7 10^3/uL RBC 4.17 10^6/uL HGB 12.4 g/dL HCT 39.8 % MCV 95.4 fl MCH 29.7 pg MCHC 31.2 g/dL RDW 17.4 % Platelet Count 175 10^3/uL MPV 9.9 fl Neutrophils 4.69 10^3/uL Lymphocytes 1.1 10^3/uL Monocytes 0.7 10^3/uL Eosinophils 0.0 10^3/uL Basophils 0.1 10^3/uL Neutrophil % 70.1 % Lymphocyte % 17.0 % Monocyte % 10.7 % Eosinophil % 0.0 % Basophils % 1.3 % Test performed on May 22, 2021 15:15 NRBC % 0.4 % CBC Slide Review Slide Review Perform Test performed on Apr 11, 2021 13:38 TSH 1.27 uIU/mL ESR (Sed Rate) 54 mm/hr Test performed on Jan 24, 2021 10:49 LDH (Total) 225 U/L Problem List: 1. Adenosquamous carcinoma involving the upper lobe of the right lung, by clinical evaluation stage TAMARA (T3, N2, M1a), with PET/CT evidence of multiple bilateral pulmonary nodules. His next generation sequencing study showed no actionable mutation, but the tumor was noted to be positive for PD-L1 expression. 2. He underwent diagnostic flexible bronchoscopy and mediastinoscopy on 08/08/2020. 3. 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 4. He has CT evidence of underlying COPD. 5. Hypertension. 6. Hyperlipidemia. 7. GERD. 8. Rheumatoid arthritis. 9. Peripheral neuropathy. 10. Benign prostatic hypertrophy. Problems Addressed with this Encounter and Plan: 1. 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 The PD-L1 (22c3) expression was postive at 25%. He opted to have immunotherapy alone. As of his follow-up visit on 02/14/2021 he was tolerating treatment well, and his overall clinical status appeared stable. He continued immunotherapy with pembrolizumab but with his treatment change to the 6-week dosing interval. On 03/06/2021 he was seen in the emergency room with shortness of breath and bilateral knee pain. He had significant knee effusions bilaterally. His CT pulmonary angiogram showed new spiculated mass in the right upper lobe, but no other acute pathology. At that point his lab studies were unrevealing. As of his follow-up visit on 03/28/2021 he had developed severe neutropenia. His treatment was put on hold, and he began on steroid therapy with prednisone at 40 mg daily. By 04/05/2021 his neutrophil count had dropped to 0. His other blood counts at that point were normal. 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 However, somewhere around that time he also had been given the [employer] COVID-19 vaccination, and there is some question now as to whether that may have been the cause for it. In any case, during subsequent follow-up the neutropenia persisted. He was given antibacterial prophylaxis and it also increased his prednisone dosage up to 60 mg daily. As of his follow-up visit on 05/22/2021 his neutrophil count had recovered to 5400. His prednisone dosage was reduced to 10 mg daily and it was subsequently discontinued. His restaging CT scans on 06/04/2021 showed no obvious progression of the lung cancer. He has continued, though, to have limited activity tolerance. In addition, he has been having complaints of jerking in both legs when he stands up and he also has had some shaking in his arms when he tries to use them. The cause for this is uncertain. However, it almost certainly does not represent seizure activity. 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 At this point I am going to have him reduce his Lyrica dosage to 150 mg daily, as he really is not having any significant neuropathy pain. He will continue furosemide 20 mg daily for the lower extremity edema, which is also very likely to be steroid related. I will see him again in 1 month, or sooner as needed. 2. 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 It has remained stable by follow-up surveillance MRI. Signed By: Shamar Yun M.D. <<Signature on File>>
== END 2021-07-09 23:59 | disposition home or self-care (01) ==
LOC: ONCMED 06:16
PROVIDERS: Orthopaedic Surgery; PCP Nurse Practitioner Family; Visit Provider Internal Medicine Medical Oncology
DX: C34.11 Malignant neoplasm of upper lobe, right bronchus or lung (principal); C78.02 Secondary malignant neoplasm of left lung; D35.2 Benign neoplasm of pituitary gland; J44.9 Chronic obstructive pulmonary disease, unspecified; I10 Essential (primary) hypertension; E78.5 Hyperlipidemia, unspecified; K21.9 Gastro-esophageal reflux disease without esophagitis; M06.9 Rheumatoid arthritis, unspecified; G62.9 Polyneuropathy, unspecified; N40.0 Benign prostatic hyperplasia without lower urinary tract symptoms; Z79.52 Long term (current) use of systemic steroids; Z79.899 Other long term (current) drug therapy; Z92.21 Personal history of antineoplastic chemotherapy
CPT/HCPCS: 36415; 80053; 84443; 85007; 85027; 99214

== ENCOUNTER 2021-07-16 05:32 | Outpatient (RCR) | payer MEDICARE, SELFPAY ==
[2021-07-12 11:48] LABS: Basophils # 0.1 10^3/uL (0.0-0.1); Basophils % 1.1 %; Eosinophils % 0.6 %; Hematocrit 42.6 % (42.0-52.0); Hemoglobin 13.9 g/dL (11.7-16.6); Lymphocytes # 1.1 10^3/uL (0.8-4.8); Lymphocytes % 17.8 %; Mean Corpuscular HGB Conc 32.6 g/dL (30.0-36.0); Mean Corpuscular Hemoglobin 30.3 pg (28.0-34.0); Mean Platelet Volume 10.1 fL (7.4-10.4); Monocytes # 0.8 10^3/uL (0.2-0.9); Monocytes % 12.5 %; Neutrophils # 4.33 10^3/uL (1.8-7.7); Neutrophils % 67.7 %; Nucleated Red Blood Cells % 0 %; Platelet Count 208 10^3/cmm (130-400); Red Blood Count 4.58 10^6/uL (4.1-5.3); Red Cell Distribution Width 14.6 % (12.1-15.1); White Blood Count 6.4 10^3/uL (4.0-10.0)
--- NOTE | 2021-07-16 10:26 | ONC FU_ITS ---
Dr. Yun Patient Follow-Up Note Patient: Roeg Ozuna Unit #: [id number]: [id number] Dicatated By: Shamar Yun M.D.Date of Visit:Jul 16, 2021 Onc Med Follow-up/Prog Note Chief Complaint: Lung cancer. 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 He has been followed for an abnormal chest CT scan, with the main concern being a nodule at the right lung base noted on a study from June 2017. On follow-up studies that nodule had resolved. Also noted were some fibrotic changes in the right upper lobe which had remained stable as of August 2018. A repeat chest CT on 07/04/2019 showed progression in the scarring and soft tissue surrounding bullous disease in the right upper lobe, possibly due to progression of fibrosis, though early neoplasm was not excluded. His repeat chest CT on 07/19/2020 showed significant progression of irregular soft tissue mass surrounding the cystic/cavitary fibrotic lesion in the right upper lobe. The lesion measured approximately 5.2 x 3.5 cm. The appearance was highly suspicious for neoplasm. Also noted was soft tissue thickening along the left lateral tracheal wall, possibly due to focal area of mucus. Also noted were bilateral pulmonary nodules ranging in size from a few millimeters up to 10 mm, suspicious for metastatic disease. Further evaluation with PET/CT on 07/28/2020 showed FDG avid cavitary right upper lobe mass measuring 4.5 x 5.1 cm, SUV 12.1, indicating high probability of malignancy. Secondary pulmonary nodules were noted in the right upper lobe, superior segment right lower lobe, left apex, and medial left lower lung base, consistent with metastatic disease. A 1.7 cm right paratracheal lymph node was also FDG avid, SUV 4.8, consistent with a metastatic node. He was referred to Dr. Moreno. On 08/20/2020 he underwent flexible diagnostic bronchoscopy with endobronchial biopsy from the right upper lobe and mediastinoscopy with biopsy of station 4R lymph node. Pathology from the right upper lobe biopsy showed adenosquamous carcinoma favoring lung primary. 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 A next generation sequencing study showed no actionable mutations. The PD-L1 (22c3) expression was positive at 25% and the PD-L1 (28-8) expression was positive at 35%. His staging head MRI showed an intrasellar pituitary mass with suprasellar extension measuring 1.4 x 1.6 x 1.7 cm. There was associated impingement on the optic chiasm. 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 There appeared to be involvement of the right cavernous sinus but cavernous carotid arteries were noted to be patent. There were no suspicious enhancing intracranial parenchymal abnormalities noted. I had seen him initially on 09/03/2020. With evidence of multiple pulmonary metastatic lesions bilaterally, it appeared that he would require systemic therapy. By next generation sequencing, his tumor was positive for PD-L1 expression at 25% for PD-L1 (22c3). There were no actionable mutations identified. With his PD-L1 positive at less than 50%, he was recommended to have combined chemotherapy/immunotherapy, per NCCN guidelines. However, he opted to have immunotherapy monotherapy. His other medical illnesses include hypertension, hyperlipidemia, GERD, rheumatoid arthritis, peripheral neuropathy, benign prostatic hypertrophy, and emphysema. He has history of smoking 2 packs of cigarettes daily. He quit smoking 15 years ago. INTERIM HISTORY: He began cycle 1 of pembrolizumab on 10/17/2020. He tolerated it well and he then continued treatment at 3-week intervals. He received cycle 5 on 01/24/2021. At his follow-up visit on 02/14/2021 he appeared stable clinically. He then continued immunotherapy with pembrolizumab but with his treatment changed to the 6-week dosing interval. On 03/06/2021 he was seen in the emergency room with shortness of breath. He also reported having bilateral knee pain. He was noted to have large joint effusions on x-ray. CT pulmonary angiogram showed no evidence of pulmonary embolism. A new spiculated mass measuring 39 x 28 x 32 mm was noted in the right upper lobe. Also noted were prominent mediastinal and hilar lymph nodes. There was advanced bullous emphysema. It was given a Medrol dose pack and symptomatic management with hydrocodone/APAP. A scheduled follow-up chest CT on 03/25/2021 showed right upper lobe spiculated mass measuring 3.4 x 1.9 cm with increase in size of mediastinal and hilar lymph nodes compared to the July 2020 study, and a 9 mm lymph node was noted near the lesser curvature of the stomach. Also noted were new scattered subcentimeter opacifications bilaterally and a 9 mm nodule in the posterior right lower lobe, with early metastatic disease not excluded. Brain MRI at that time showed stable appearance of the mass centered in the sella turcica with suprasellar extension measuring 1.7 x 1.6 x 1.7 cm, consistent with pituitary macroadenoma. Minimal extension was noted into the right cavernous sinus and there was mild displacement of the optic chiasm. He had further laboratory studies on 03/28/2021. At that time his hemoglobin had dropped to 11.8 g with his white blood cell count low at 1800 and his platelet count normal at 171,000. The differential showed only 12% neutrophils, with an absolute neutrophil count of 200. He began on steroid therapy with prednisone 40 mg daily, subsequently decreased to 20 mg daily. His repeat CBC on 04/05/2021 showed hemoglobin back up to 14.1 g, but there was further decrease in the white blood cell count with his ANC reported at 0. With those findings, he began antibiotic coverage with Levaquin and his prednisone dosage was increased to 60 mg daily. During subsequent follow-up he continued to have severe neutropenia, and he continued to have fairly severe generalized weakness. He did not report any fever, chills, or other symptoms to suggest any acute infectious process. As of 05/15/2021 his white count had increased to 1500, but with ANC still low at approximately 100. His hemoglobin was just slightly decreased at 11.7 g with platelet count normal at 213,000. I did have him reduce prednisone to 20 mg daily. As of his follow-up visit on 05/22/2021 his neutrophil count had recovered to 5400. His prednisone dosage at that point was reduced to 10 mg daily, and it was subsequently discontinued. Restaging CT scans on 06/04/2021 showed stable right upper lobe spiculated mass measuring 3.4 x 1.9 cm. Emphysematous changes with fibrosis and groundglass densities were noted throughout both lungs and small satellite nodules were noted in the superior segment right lower lobe and in the anterior right upper lobe, both measuring about 7 mm. There were mildly enlarged mediastinal and subcarinal lymph nodes, the largest measuring 11 mm. 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 There were no other significant findings in the abdomen/pelvis. On 06/10/2020 when he presented to the emergency room with swelling in both legs. Earlier in the day he had been noted to have low blood pressure, but it was back up to normal at the time of his ER visit. He was recommended to restart his furosemide along with a potassium supplement. I had seen him for a follow-up visit on 06/13/2021. At that point he was still having some orthostatic symptoms as well as some weakness in both legs. I did have him try reducing his Lyrica dosage, and I opted to keep him off prednisone. He is seen for a follow-up visit. He has been feeling a little better generally. He still has limited activity, but he now attributes it mainly to knee pain and limited mobility. He continues to have some swelling in his legs, but it is not as bad, and the muscle jerking is also not as bad. His ECOG score is 2. He has good appetite. He has no fever or night sweats. He has not had sore mouth or throat, and he does not complain of cough. He has some shortness of breath, but he says his breathing is a little better. He has very little chest pain now. He has no GI or complaints. He has no other joint or bone pain. He does not complain of headache. He is still sometimes lightheaded, mainly when he first gets up. He has numbness/tingling in his feet. Medications: Aspirin 81 Tablet, enteric coated Oral daily, Atorvastatin Calcium 1 (40 mg) Tablet Oral daily, Finasteride (5 mg) Tablet Oral daily, Furosemide (20 mg) Tablet Oral daily, Lyrica (150 mg) Capsule Oral b.i.d., Nortriptyline HCl (10 mg) Capsule Oral daily, Omeprazole 1 (20 mg) Capsule Delayed Release Oral daily, Tamsulosin HCl 2 Capsule (of 0.4 mg) Oral daily Allergies: No Known Allergies. Vital Signs: Performed on Jul 16, 2021 07:53 Height - 72.00 in Weight - 228.6 lbs (HIGH) BSA - 2.25 sq.m BMI - 31.00 (HIGH) Temperature - 97 F (LOW) Pulse - 96 /min Respiration - 18 /min BP - 123/73 mm(hg) O2 Sat - 93 % (LOW) Pain - 7 Physical Examination: Constitutional - He appears somewhat weak generally, Eyes - Sclerae nonicteric. Conjunctivae clear, ENMT - No lesions noted in the oral cavity, Hematologic/Lymphatic - No cervical, clavicular, or axillary adenopathy, Respiratory - Lungs are clear with diminished air movement bilaterally, Cardiovascular - Heart rhythm is regular. There is no murmur, gallop, or rub noted, Abdomen - Soft. Liver and spleen are not enlarged. There is no abdominal mass or ascites noted and there is no inguinal adenopathy, Extremities - There is mild lower extremity edema, Neurologic - No focal neurologic deficits noted. Lab/Imaging: Test performed on Jul 12, 2021 11:20 Sodium 139 mmol/L TSH 2.19 uIU/mL Chloride 103 mmol/L CO2 26 mmol/L BUN 11 mg/dL Creatinine 0.9 mg/dL Cr Clearance (Est) 105.2000 mL/min Glucose 98 mg/dL Osmolality - Calculated 287 mOsm/kg Calcium 9.0 mg/dL Albumin 3.6 g/dL Globulin 2.8 g/dL Bilirubin, Total 0.2 mg/dL Alkaline Phosphatase 41 IU/L WBC 6.4 10 3/uL RBC 4.58 10 6/uL HGB 13.9 g/dL HCT 42.6 % MCV 93.0 fl MCH 30.3 pg MCHC 32.6 g/dL RDW 14.6 % Platelet Count 208 10 3/cmm MPV 10.1 fL Neutrophils 4.33 10 3/uL Lymphocytes 1.1 10 3/uL Monocytes 0.8 10 3/uL Eosinophils 0.0 10 3/uL Basophils 0.1 10 3/uL Neutrophil % 67.7 % Lymphocyte % 17.8 % Monocyte % 12.5 % Eosinophil % 0.6 % Basophils % 1.1 % NRBC % 0 % Problem List: 1. Adenosquamous carcinoma involving the upper lobe of the right lung, by clinical evaluation stage TAMARA (T3, N2, M1a), with PET/CT evidence of multiple bilateral pulmonary nodules. His next generation sequencing study showed no actionable mutation, but the tumor was noted to be positive for PD-L1 expression. 2. He underwent diagnostic flexible bronchoscopy and mediastinoscopy on 08/08/2020. 3. 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 4. He has CT evidence of underlying COPD. 5. Hypertension. 6. Hyperlipidemia. 7. GERD. 8. Rheumatoid arthritis. 9. Peripheral neuropathy. 10. Benign prostatic hypertrophy. Problems Addressed with this Encounter and Plan: 1. 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 The PD-L1 (22c3) expression was postive at 25%. He opted to have immunotherapy alone. As of his follow-up visit on 02/14/2021 he was tolerating treatment well, and his overall clinical status appeared stable. He continued immunotherapy with pembrolizumab but with his treatment change to the 6-week dosing interval. On 03/06/2021 he was seen in the emergency room with shortness of breath and bilateral knee pain. He had significant knee effusions bilaterally. His CT pulmonary angiogram showed new spiculated mass in the right upper lobe, but no other acute pathology. At that point his lab studies were unrevealing. As of his follow-up visit on 03/28/2021 he had developed severe neutropenia. His treatment was put on hold, and he began on steroid therapy with prednisone at 40 mg daily. By 04/05/2021 his neutrophil count had dropped to 0. His other blood counts at that point were normal. 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 However, somewhere around that time he also had been given the [employer] COVID-19 vaccination, and there is some question now as to whether that may have been the cause for it. In any case, during subsequent follow-up the neutropenia persisted. He was given antibacterial prophylaxis and I also increased his prednisone dosage up to 60 mg daily. As 05/22/2021 his neutrophil count had recovered to 5400. His prednisone dosage was reduced to 10 mg daily and it was subsequently discontinued. His restaging CT scans on 06/04/2021 showed no obvious progression of the lung cancer. As of his follow-up visit on 06/13/2021 he still had very limited activity tolerance. He also was having orthostatic symptoms and he continued to have significant swelling in the lower extremities. He remained off steroid therapy. His Lyrica dosage was reduced to 150 mg daily and he continued furosemide at 20 mg daily. Since then he has had some improvement in his performance status. He continues to have limited activity, now attributable mainly to knee pain. As such, he is going to restart prednisone at 10 mg twice daily. His furosemide dosage will be increased to 40 mg daily. I will see him again in 1 month. 2. 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 It has remained stable by follow-up surveillance MRI. Signed By: Shamar Yun M.D. <<Signature on File>>
== END 2021-08-08 23:59 | disposition home or self-care (01) ==
LOC: ONCMED 05:32
PROVIDERS: PCP Nurse Practitioner Family; Visit Provider Internal Medicine Medical Oncology
DX: C34.11 Malignant neoplasm of upper lobe, right bronchus or lung (principal); C78.02 Secondary malignant neoplasm of left lung; D35.2 Benign neoplasm of pituitary gland; J44.9 Chronic obstructive pulmonary disease, unspecified; I10 Essential (primary) hypertension; E78.5 Hyperlipidemia, unspecified; K21.9 Gastro-esophageal reflux disease without esophagitis; M06.9 Rheumatoid arthritis, unspecified; G62.9 Polyneuropathy, unspecified; N40.0 Benign prostatic hyperplasia without lower urinary tract symptoms; Z79.52 Long term (current) use of systemic steroids; Z79.899 Other long term (current) drug therapy; Z92.21 Personal history of antineoplastic chemotherapy
CPT/HCPCS: 36415; 85025; 99214

== ENCOUNTER → 2021-07-31 08:39 | Outpatient (BNVA) | payer MEDICARE, SELFPAY | PROVIDERS: PCP Nurse Practitioner Family; Visit Provider Internal Medicine Rheumatology | DX: L40.50 Arthropathic psoriasis, unspecified (principal); C34.90 Malignant neoplasm of unspecified part of unspecified bronchus or lung; Z79.52 Long term (current) use of systemic steroids | CPT/HCPCS: 99214 ==

== ENCOUNTER 2021-09-04 06:37 | Outpatient (RCR) | payer MEDICARE, SELFPAY ==
[2021-09-04 14:07] LABS: Basophils % 0.3 %; Hematocrit 47.6 % (42.0-52.0); Hemoglobin 15.3 g/dL (11.7-16.6); Lymphocytes # 1.1 10^3/uL (0.8-4.8); Lymphocytes % 14.3 %; Mean Corpuscular HGB Conc 32.1 g/dL (30.0-36.0); Mean Corpuscular Hemoglobin 29.7 pg (28.0-34.0); Mean Corpuscular Volume 92.2 fl (80-94); Mean Platelet Volume 10.3 fL (7.4-10.4); Monocytes # 0.6 10^3/uL (0.2-0.9); Monocytes % 8.6 %; Neutrophils # 5.64 10^3/uL (1.8-7.7); Nucleated Red Blood Cells % 0 %; Platelet Count 188 10^3/cmm (130-400); Red Blood Count 5.16 10^6/uL (4.1-5.3); Red Cell Distribution Width 14.1 % (12.1-15.1); White Blood Count 7.4 10^3/uL (4.0-10.0)
[2021-09-04 14:45] LABS: Alanine Aminotransferase 28 U/L (0-41); Albumin Level 4.2 g/dL (3.5-5.2); Alkaline Phosphatase 54 IU/L (40-130); Aspartate Amino Transferase 31 U/L (0-40); Blood Urea Nitrogen 21 mg/dL (8-23); Calcium 9.2 mg/dL (8.5-10.5); Carbon Dioxide 32 mmol/L (22-29); Chloride 97 mmol/L (98-107); Glucose 116 mg/dL (65-115); Magnesium 2.4 mg/dL (1.7-2.3); Osmolality Calculated 284 mOsm/kg (285-295); Sodium 135 mmol/L (136-145); Thyroid Stimulating Hormone 1.17 uIU/mL (0.27-4.20); Total Bilirubin 0.3 mg/dL (0.15-1.2); Total Protein 7.2 g/dL (6.6-8.7)
[2021-09-04 14:51] LABS: Anion Gap 10.1 (5-19); Potassium 4.1 mmol/L (3.5-5.1)
[2021-09-05 14:47] LABS: Erythrocyte Sedimentation Rate 11 mm/hr (0-10)
--- NOTE | 2021-09-08 10:54 | ONC FU_ITS ---
Dr. Yun Patient Follow-Up Note Patient: Roge Ozuna Unit #: [id number]: 1950 Dicatated By: Shamar Yun M.D.Date of Visit:Sep 04, 2021 Onc Med Follow-up/Prog Note Chief Complaint: Lung cancer. 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 He has been followed for an abnormal chest CT scan, with the main concern being a nodule at the right lung base noted on a study from June 2017. On follow-up studies that nodule had resolved. Also noted were some fibrotic changes in the right upper lobe which had remained stable as of August 2018. A repeat chest CT on 07/04/2019 showed progression in the scarring and soft tissue surrounding bullous disease in the right upper lobe, possibly due to progression of fibrosis, though early neoplasm was not excluded. His repeat chest CT on 07/19/2020 showed significant progression of irregular soft tissue mass surrounding the cystic/cavitary fibrotic lesion in the right upper lobe. The lesion measured approximately 5.2 x 3.5 cm. The appearance was highly suspicious for neoplasm. Also noted was soft tissue thickening along the left lateral tracheal wall, possibly due to focal area of mucus. Also noted were bilateral pulmonary nodules ranging in size from a few millimeters up to 10 mm, suspicious for metastatic disease. Further evaluation with PET/CT on 07/28/2020 showed FDG avid cavitary right upper lobe mass measuring 4.5 x 5.1 cm, SUV 12.1, indicating high probability of malignancy. Secondary pulmonary nodules were noted in the right upper lobe, superior segment right lower lobe, left apex, and medial left lower lung base, consistent with metastatic disease. A 1.7 cm right paratracheal lymph node was also FDG avid, SUV 4.8, consistent with a metastatic node. He was referred to Dr. Moreno. On 08/20/2020 he underwent flexible diagnostic bronchoscopy with endobronchial biopsy from the right upper lobe and mediastinoscopy with biopsy of station 4R lymph node. Pathology from the right upper lobe biopsy showed adenosquamous carcinoma favoring lung primary. 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 A next generation sequencing study showed no actionable mutations. The PD-L1 (22c3) expression was positive at 25% and the PD-L1 (28-8) expression was positive at 35%. His staging head MRI showed an intrasellar pituitary mass with suprasellar extension measuring 1.4 x 1.6 x 1.7 cm. There was associated impingement on the optic chiasm. 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 There appeared to be involvement of the right cavernous sinus but cavernous carotid arteries were noted to be patent. There were no suspicious enhancing intracranial parenchymal abnormalities noted. I had seen him initially on 09/03/2020. With evidence of multiple pulmonary metastatic lesions bilaterally, it appeared that he would require systemic therapy. By next generation sequencing, his tumor was positive for PD-L1 expression at 25% for PD-L1 (22c3). There were no actionable mutations identified. With his PD-L1 positive at less than 50%, he was recommended to have combined chemotherapy/immunotherapy, per NCCN guidelines. However, he opted to have immunotherapy monotherapy. His other medical illnesses include hypertension, hyperlipidemia, GERD, rheumatoid arthritis, peripheral neuropathy, benign prostatic hypertrophy, and emphysema. He has history of smoking 2 packs of cigarettes daily. He quit smoking 15 years ago. INTERIM HISTORY: He began cycle 1 of pembrolizumab on 10/17/2020. He tolerated it well and he then continued treatment at 3-week intervals. He received cycle 5 on 01/24/2021. At his follow-up visit on 02/14/2021 he appeared stable clinically. He then continued immunotherapy with pembrolizumab but with his treatment changed to the 6-week dosing interval. On 03/06/2021 he was seen in the emergency room with shortness of breath. He also reported having bilateral knee pain. He was noted to have large joint effusions on x-ray. CT pulmonary angiogram showed no evidence of pulmonary embolism. A new spiculated mass measuring 39 x 28 x 32 mm was noted in the right upper lobe. Also noted were prominent mediastinal and hilar lymph nodes. There was advanced bullous emphysema. It was given a Medrol dose pack and symptomatic management with hydrocodone/APAP. A scheduled follow-up chest CT on 03/25/2021 showed right upper lobe spiculated mass measuring 3.4 x 1.9 cm with increase in size of mediastinal and hilar lymph nodes compared to the July 2020 study, and a 9 mm lymph node was noted near the lesser curvature of the stomach. Also noted were new scattered subcentimeter opacifications bilaterally and a 9 mm nodule in the posterior right lower lobe, with early metastatic disease not excluded. Brain MRI at that time showed stable appearance of the mass centered in the sella turcica with suprasellar extension measuring 1.7 x 1.6 x 1.7 cm, consistent with pituitary macroadenoma. Minimal extension was noted into the right cavernous sinus and there was mild displacement of the optic chiasm. He had further laboratory studies on 03/28/2021. At that time his hemoglobin had dropped to 11.8 g with his white blood cell count low at 1800 and his platelet count normal at 171,000. The differential showed only 12% neutrophils, with an absolute neutrophil count of 200. He began on steroid therapy with prednisone 40 mg daily, subsequently decreased to 20 mg daily. His repeat CBC on 04/05/2021 showed hemoglobin back up to 14.1 g, but there was further decrease in the white blood cell count with his ANC reported at 0. With those findings, he began antibiotic coverage with Levaquin and his prednisone dosage was increased to 60 mg daily. During subsequent follow-up he continued to have severe neutropenia, and he continued to have fairly severe generalized weakness. He did not report any fever, chills, or other symptoms to suggest any acute infectious process. As of 05/15/2021 his white count had increased to 1500, but with ANC still low at approximately 100. His hemoglobin was just slightly decreased at 11.7 g with platelet count normal at 213,000. I did have him reduce prednisone to 20 mg daily. As of his follow-up visit on 05/22/2021 his neutrophil count had recovered to 5400. His prednisone dosage at that point was reduced to 10 mg daily, and it was subsequently discontinued. Restaging CT scans on 06/04/2021 showed stable right upper lobe spiculated mass measuring 3.4 x 1.9 cm. Emphysematous changes with fibrosis and groundglass densities were noted throughout both lungs and small satellite nodules were noted in the superior segment right lower lobe and in the anterior right upper lobe, both measuring about 7 mm. There were mildly enlarged mediastinal and subcarinal lymph nodes, the largest measuring 11 mm. 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 There were no other significant findings in the abdomen/pelvis. On 06/10/2021 he presented to the emergency room with swelling in both legs. Earlier in the day he had been noted to have low blood pressure, but it was back up to normal at the time of his ER visit. He was recommended to restart his furosemide along with a potassium supplement. I had seen him for a follow-up visit on 06/13/2021. At that point he was still having some orthostatic symptoms as well as some weakness in both legs. I did have him try reducing his Lyrica dosage, and I opted to keep him off prednisone. As of his follow-up visit on 07/16/2021 he continued to have significant joint pain and limited activity, and had opted to restart the prednisone at 10 mg twice daily. He also had an increase his furosemide dosage for his lower extremity edema. He is seen for a follow-up visit. He has been feeling better generally on the prednisone. He has been able to taper the dosage to 2.5 mg in the morning and 5 mg in the evening. He has been able to control his edema taking 40 mg of furosemide daily. His energy is pretty good. He is able to do light work. ECOG score is 1. He has good appetite. He has no fever or night sweats. He has not had sore mouth or throat, and he does not complain of cough. He does have some shortness of breath. He has not been having chest pain. He has no GI/ complaints other than constipation, which he manages with milk of magnesia as needed. He still has a little pain in his right leg, but overall that has improved significantly. He does not complain of headache. He has some orthostatic lightheadedness. He still has numbness/tingling in his feet. Medications: Aspirin 81 Tablet, enteric coated Oral daily, Atorvastatin Calcium 1 (40 mg) Tablet Oral daily, Finasteride (5 mg) Tablet Oral daily, Furosemide (20 mg) Tablet Oral daily, Lyrica (150 mg) Capsule Oral b.i.d., Nortriptyline HCl (10 mg) Capsule Oral daily, Omeprazole 1 (20 mg) Capsule Delayed Release Oral daily, Tamsulosin HCl 2 Capsule (of 0.4 mg) Oral daily Allergies: No Known Allergies. Vital Signs: Performed on Sep 04, 2021 14:55 Height - 72.00 in Weight - 226.6 lbs (LOW) BSA - 2.25 sq.m BMI - 30.73 (HIGH) Temperature - 95.8 F (LOW) Pulse - 66 /min Respiration - 18 /min BP - 116/67 mm(hg) O2 Sat - 98 % Pain - 0 Fatigue - 7 Physical Examination: Constitutional - He looks pretty good generally, Eyes - Sclerae nonicteric. Conjunctivae clear, ENMT - No lesions noted in the oral cavity, Hematologic/Lymphatic - No cervical, clavicular, or axillary adenopathy, Respiratory - Lungs are clear with diminished air movement bilaterally, Cardiovascular - Heart rhythm is regular. There is no murmur, gallop, or rub noted, Abdomen - Soft. Liver and spleen are not enlarged. There is no abdominal mass or ascites noted and there is no inguinal adenopathy, Extremities - No edema, Neurologic - No focal neurologic deficits noted. Lab/Imaging: Test performed on Sep 04, 2021 13:54 Magnesium 2.4 mg/dL Sodium 135 mmol/L TSH 1.17 uIU/mL Potassium 4.1 mmol/L Chloride 97 mmol/L CO2 32 mmol/L Anion Gap 10.1 BUN 21 mg/dL Creatinine 1.0 mg/dL Cr Clearance (Est) 95.65 mL/min Glucose 116 mg/dL Osmolality - Calculated 284 mOsm/kg Calcium 9.2 mg/dL Protein, Total 7.2 g/dL Albumin 4.2 g/dL Globulin 3.0 g/dL Bilirubin, Total 0.3 mg/dL ALT (SGPT) 28 U/L AST (SGOT) 31 U/L Alkaline Phosphatase 54 IU/L ESR (Sed Rate) 11 mm/hr WBC 7.4 10 3/uL RBC 5.16 10 6/uL HGB 15.3 g/dL HCT 47.6 % MCV 92.2 fl MCH 29.7 pg MCHC 32.1 g/dL RDW 14.1 % Platelet Count 188 10 3/cmm MPV 10.3 fL Neutrophils 5.64 10 3/uL Lymphocytes 1.1 10 3/uL Monocytes 0.6 10 3/uL Eosinophils 0.0 10 3/uL Basophils 0.0 10 3/uL Neutrophil % 76.0 % Lymphocyte % 14.3 % Monocyte % 8.6 % Eosinophil % 0.0 % Basophils % 0.3 % NRBC % 0 % Problem List: 1. Adenosquamous carcinoma involving the upper lobe of the right lung, by clinical evaluation stage TAMARA (T3, N2, M1a), with PET/CT evidence of multiple bilateral pulmonary nodules. His next generation sequencing study showed no actionable mutation, but the tumor was noted to be positive for PD-L1 expression. 2. He underwent diagnostic flexible bronchoscopy and mediastinoscopy on 08/08/2020. 3. 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 4. He has CT evidence of underlying COPD. 5. Hypertension. 6. Hyperlipidemia. 7. GERD. 8. Rheumatoid arthritis. 9. Peripheral neuropathy. 10. Benign prostatic hypertrophy. Problems Addressed with this Encounter and Plan: 1. 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 The PD-L1 (22c3) expression was postive at 25%. He opted to have immunotherapy alone. As of his follow-up visit on 02/14/2021 he was tolerating treatment well, and his overall clinical status appeared stable. He continued immunotherapy with pembrolizumab but with his treatment change to the 6-week dosing interval. On 03/06/2021 he was seen in the emergency room with shortness of breath and bilateral knee pain. He had significant knee effusions bilaterally. His CT pulmonary angiogram showed new spiculated mass in the right upper lobe, but no other acute pathology. At that point his lab studies were unrevealing. As of his follow-up visit on 03/28/2021 he had developed severe neutropenia. His treatment was put on hold, and he began on steroid therapy with prednisone at 40 mg daily. By 04/05/2021 his neutrophil count had dropped to 0. His other blood counts at that point were normal. 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 However, somewhere around that time he also had been given the [employer] COVID-19 vaccination, and there is some question now as to whether that may have been the cause for it. In any case, during subsequent follow-up the neutropenia persisted. He was given antibacterial prophylaxis and I also increased his prednisone dosage up to 60 mg daily. As 05/22/2021 his neutrophil count had recovered to 5400. His prednisone dosage was reduced to 10 mg daily and it was subsequently discontinued. His restaging CT scans on 06/04/2021 showed no obvious progression of the lung cancer. As of his follow-up visit on 06/13/2021 he still had very limited activity tolerance. He also was having orthostatic symptoms and he continued to have significant swelling in the lower extremities. He remained off steroid therapy. His Lyrica dosage was reduced to 150 mg daily and he continued furosemide at 20 mg daily. As of his follow-up visit on 07/16/2021 he restarted prednisone at 10 mg twice daily and his furosemide dosage was increased to 40 mg daily. Since then he has been feeling better. He has been able to taper the prednisone dosage to 2.5 mg in morning and 5 mg in the evening. At least for now he will just continue on his same treatment. I will plan to see him again sometime in October, and I will schedule him for a restaging chest CT scan prior to that visit. 2. 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 It has remained stable by follow-up surveillance MRI. Signed By: Shamar Yun M.D. <<Signature on File>>
== END 2021-09-08 23:59 | disposition home or self-care (01) ==
LOC: ONCMED 06:37
PROVIDERS: PCP Nurse Practitioner Family; Visit Provider Internal Medicine Medical Oncology
DX: C34.11 Malignant neoplasm of upper lobe, right bronchus or lung (principal); D35.2 Benign neoplasm of pituitary gland; J44.9 Chronic obstructive pulmonary disease, unspecified; I10 Essential (primary) hypertension; E78.5 Hyperlipidemia, unspecified; K21.9 Gastro-esophageal reflux disease without esophagitis; M06.9 Rheumatoid arthritis, unspecified; G62.9 Polyneuropathy, unspecified; N40.0 Benign prostatic hyperplasia without lower urinary tract symptoms; Z79.899 Other long term (current) drug therapy; Z92.21 Personal history of antineoplastic chemotherapy
CPT/HCPCS: 36415; 80053; 83735; 84443; 85025; 85651; 99214

== ENCOUNTER 2021-10-17 13:30 | Outpatient (CLI) | payer MEDICARE, SELFPAY ==
[2021-10-17 14:54] LABS: Basophils # 0.1 10^3/uL (0.0-0.1); Basophils % 1.1 %; Eosinophils % 0.3 %; Hematocrit 42.5 % (42.0-52.0); Lymphocytes # 1.5 10^3/uL (0.8-4.8); Lymphocytes % 19.8 %; Mean Corpuscular HGB Conc 32.9 g/dL (30.0-36.0); Mean Corpuscular Hemoglobin 29.4 pg (28.0-34.0); Mean Corpuscular Volume 89.1 fl (80-94); Mean Platelet Volume 9.8 fL (7.4-10.4); Neutrophils # 4.86 10^3/uL (1.8-7.7); Nucleated Red Blood Cells % 0 %; Platelet Count 220 10^3/cmm (130-400); Red Blood Count 4.77 10^6/uL (4.1-5.3); White Blood Count 7.5 10^3/uL (4.0-10.0)
[2021-10-17 15:40] LABS: Alanine Aminotransferase 35 U/L (0-41); Albumin Level 3.7 g/dL (3.5-5.2); Alkaline Phosphatase 57 IU/L (40-130); Anion Gap 14.7 (5-19); Aspartate Amino Transferase 46 U/L (0-40); Blood Urea Nitrogen 11 mg/dL (8-23); Calcium 8.6 mg/dL (8.5-10.5); Carbon Dioxide 26 mmol/L (22-29); Chloride 101 mmol/L (98-107); Globulin 3.1 g/dL (1.3-4.6); Glucose 78 mg/dL (65-115); Osmolality Calculated 284 mOsm/kg (285-295); Potassium 3.7 mmol/L (3.5-5.1); Sodium 138 mmol/L (136-145); Thyroid Stimulating Hormone 2.16 uIU/mL (0.27-4.20); Total Bilirubin 0.3 mg/dL (0.15-1.2); Total Protein 6.8 g/dL (6.6-8.7)
--- NOTE | 2021-10-17 17:36 | ONC FU_ITS ---
Dr. Yun Patient Follow-Up Note Patient: Roge Ozuna Unit #: [id number]: 1950 Dicatated By: Shamar Yun M.D.Date of Visit:Oct 17, 2021 Onc Med Follow-up/Prog Note Chief Complaint: Lung cancer. 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 He had been followed for an abnormal chest CT scan, with the main concern being a nodule at the right lung base noted on a study from June 2017. On follow-up studies that nodule had resolved. Also noted were some fibrotic changes in the right upper lobe which had remained stable as of August 2018. A repeat chest CT on 07/04/2019 showed progression in the scarring and soft tissue surrounding bullous disease in the right upper lobe, possibly due to progression of fibrosis, though early neoplasm was not excluded. His repeat chest CT on 07/19/2020 showed significant progression of irregular soft tissue mass surrounding the cystic/cavitary fibrotic lesion in the right upper lobe. The lesion measured approximately 5.2 x 3.5 cm. The appearance was highly suspicious for neoplasm. Also noted was soft tissue thickening along the left lateral tracheal wall, possibly due to focal area of mucus. Also noted were bilateral pulmonary nodules ranging in size from a few millimeters up to 10 mm, suspicious for metastatic disease. Further evaluation with PET/CT on 07/28/2020 showed FDG avid cavitary right upper lobe mass measuring 4.5 x 5.1 cm, SUV 12.1, indicating high probability of malignancy. Secondary pulmonary nodules were noted in the right upper lobe, superior segment right lower lobe, left apex, and medial left lower lung base, consistent with metastatic disease. A 1.7 cm right paratracheal lymph node was also FDG avid, SUV 4.8, consistent with a metastatic node. He was referred to Dr. Moreno. On 08/20/2020 he underwent flexible diagnostic bronchoscopy with endobronchial biopsy from the right upper lobe and mediastinoscopy with biopsy of station 4R lymph node. Pathology from the right upper lobe biopsy showed adenosquamous carcinoma favoring lung primary. 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 A next generation sequencing study showed no actionable mutations. The PD-L1 (22c3) expression was positive at 25% and the PD-L1 (28-8) expression was positive at 35%. His staging head MRI showed an intrasellar pituitary mass with suprasellar extension measuring 1.4 x 1.6 x 1.7 cm. There was associated impingement on the optic chiasm. 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 There appeared to be involvement of the right cavernous sinus but cavernous carotid arteries were noted to be patent. There were no suspicious enhancing intracranial parenchymal abnormalities noted. I had seen him initially on 09/03/2020. With evidence of multiple pulmonary metastatic lesions bilaterally, it appeared that he would require systemic therapy. By next generation sequencing, his tumor was positive for PD-L1 expression at 25% for PD-L1 (22c3). There were no actionable mutations identified. With his PD-L1 positive at less than 50%, he was recommended to have combined chemotherapy/immunotherapy, per NCCN guidelines. However, he opted to have immunotherapy alone. He then began cycle 1 of pembrolizumab on 10/17/2020. He tolerated it well and he continued treatment at 3-week intervals. He received cycle 5 on 01/24/2021. At his follow-up visit on 02/14/2021 he appeared stable clinically. He then continued immunotherapy with pembrolizumab but with his treatment changed to the 6-week dosing interval. On 03/06/2021 he was seen in the emergency room with shortness of breath. He also reported having bilateral knee pain. He was noted to have large joint effusions on x-ray. CT pulmonary angiogram showed no evidence of pulmonary embolism. A new spiculated mass measuring 39 x 28 x 32 mm was noted in the right upper lobe. Also noted were prominent mediastinal and hilar lymph nodes. There was advanced bullous emphysema. He was given a Medrol dose pack and symptomatic management with hydrocodone/APAP. A scheduled follow-up chest CT on 03/25/2021 showed right upper lobe spiculated mass measuring 3.4 x 1.9 cm with increase in size of mediastinal and hilar lymph nodes compared to the July 2020 study, and a 9 mm lymph node was noted near the lesser curvature of the stomach. Also noted were new scattered subcentimeter opacifications bilaterally and a 9 mm nodule in the posterior right lower lobe, with early metastatic disease not excluded. Brain MRI at that time showed stable appearance of the mass centered in the sella turcica with suprasellar extension measuring 1.7 x 1.6 x 1.7 cm, consistent with pituitary macroadenoma. Minimal extension was noted into the right cavernous sinus and there was mild displacement of the optic chiasm. He had further laboratory studies on 03/28/2021. At that time his hemoglobin had dropped to 11.8 g with his white blood cell count low at 1800 and his platelet count normal at 171,000. The differential showed only 12% neutrophils, with an absolute neutrophil count of 200. He began on steroid therapy with prednisone 40 mg daily, subsequently decreased to 20 mg daily. His repeat CBC on 04/05/2021 showed hemoglobin back up to 14.1 g, but there was further decrease in the white blood cell count with his ANC reported at 0. With those findings, he began antibiotic coverage with Levaquin and his prednisone dosage was increased to 60 mg daily. During subsequent follow-up he continued to have severe neutropenia, and he continued to have fairly severe generalized weakness. He did not report any fever, chills, or other symptoms to suggest any acute infectious process. As of 05/15/2021 his white count had increased to 1500, but with ANC still low at approximately 100. His hemoglobin was just slightly decreased at 11.7 g with platelet count normal at 213,000. I did have him reduce prednisone to 20 mg daily. As of his follow-up visit on 05/22/2021 his neutrophil count had recovered to 5400. His prednisone dosage at that point was reduced to 10 mg daily, and it was subsequently discontinued. Restaging CT scans on 06/04/2021 showed stable right upper lobe spiculated mass measuring 3.4 x 1.9 cm. Emphysematous changes with fibrosis and groundglass densities were noted throughout both lungs and small satellite nodules were noted in the superior segment right lower lobe and in the anterior right upper lobe, both measuring about 7 mm. There were mildly enlarged mediastinal and subcarinal lymph nodes, the largest measuring 11 mm. 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 With those findings, he continued on observation/symptomatic management. His other medical illnesses include hypertension, hyperlipidemia, GERD, rheumatoid arthritis, peripheral neuropathy, benign prostatic hypertrophy, and emphysema. He has history of smoking 2 packs of cigarettes daily. He quit smoking 15 years ago. INTERIM HISTORY: On 06/10/2021 he presented to the emergency room with swelling in both legs. Earlier in the day he had been noted to have low blood pressure, but it was back up to normal at the time of his ER visit. He was recommended to restart his furosemide along with a potassium supplement. I had seen him for a follow-up visit on 06/13/2021. At that point he was still having some orthostatic symptoms as well as some weakness in both legs. I did have him try reducing his Lyrica dosage, and I opted to keep him off prednisone. As of his follow-up visit on 07/16/2021 he continued to have significant joint pain and limited activity, and had opted to restart the prednisone at 10 mg twice daily. He also had an increase his furosemide dosage for his lower extremity edema. At his follow-up visit on 09/04/2021 he was feeling better generally, though he continued to have swelling in the lower extremities, and he had begun to taper the prednisone dosage. Repeat chest CT on 10/17/2021 showed slight increase in the right upper lobe spiculated mass measuring 3.5 x 2.0 x 3.5 cm compared to 3.4 x 1.9 x 3.1 cm on the prior study from May. An additional nodule in the right upper lobe anteriorly measured 1.6 cm compared to 0.7 cm. Smaller nodules in the superior segment right lower lobe were noted to have improved and a subpleural opacity in the left lower lobe appeared stable at 7 cm. There was improved mediastinal and subcarinal lymphadenopathy. There were advanced chronic emphysematous changes with bulla formation. He is seen for a follow-up visit. He has been feeling pretty good generally, though about 2 weeks ago he was hacking up a little bit of blood, but it quit after stopping the prednisone. He has had pretty good energy and he has been doing light work. ECOG score is 1. He has good appetite. He has no fever or night sweats. He has not had sore mouth or throat. He currently is not having cough. He says his breathing is fair. He is sometimes short of breath. He has a little chest pain now and then. He has no GI or complaints other than some constipation, but it is adequately managed with senna. He has had some back pain, and he also reports having pain in his knees. He has just very occasional headache. He sometimes feels lightheaded when he first gets up. He has some numbness in his toes. Medications: Aspirin 81 Tablet, enteric coated Oral daily, Atorvastatin Calcium 1 (40 mg) Tablet Oral daily, Finasteride (5 mg) Tablet Oral daily, Furosemide (20 mg) Tablet Oral daily, Lyrica (150 mg) Capsule Oral b.i.d., Nortriptyline HCl (10 mg) Capsule Oral daily, Omeprazole 1 (20 mg) Capsule Delayed Release Oral daily, Tamsulosin HCl 2 Capsule (of 0.4 mg) Oral daily Allergies: No Known Allergies. Vital Signs: Performed on Oct 17, 2021 16:09 Height - 72.00 in Weight - 227.4 lbs (HIGH) BSA - 2.25 sq.m BMI - 30.84 (HIGH) Temperature - 96.2 F (LOW) Pulse - 96 /min Respiration - 18 /min BP - 130/74 mm(hg) O2 Sat - 99 % Pain - 0 Fatigue - 6 Physical Examination: Constitutional - He looks pretty good generally, Eyes - Sclerae nonicteric. Conjunctivae clear, ENMT - No lesions noted in the oral cavity, Hematologic/Lymphatic - No cervical, clavicular, or axillary adenopathy, Respiratory - Lungs are clear with diminished air movement bilaterally, Cardiovascular - Heart rhythm is regular. There is no murmur, gallop, or rub noted, Abdomen - Soft. Liver and spleen are not enlarged. There is no abdominal mass or ascites noted and there is no inguinal adenopathy, Extremities - Slight edema, Neurologic - No focal neurologic deficits noted. Lab/Imaging: CBC shows hemoglobin 14.0 g, white blood cell count 7500, and platelet count 220,000. Comprehensive metabolic profile is unremarkable except for slightly elevated SGOT at 46/40 U/L. Problem List: 1. Adenosquamous carcinoma involving the upper lobe of the right lung, by clinical evaluation stage TAMARA (T3, N2, M1a), with PET/CT evidence of multiple bilateral pulmonary nodules. His next generation sequencing study showed no actionable mutation, but the tumor was noted to be positive for PD-L1 expression. 2. He underwent diagnostic flexible bronchoscopy and mediastinoscopy on 08/08/2020. 3. 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 4. He has CT evidence of underlying COPD. 5. Hypertension. 6. Hyperlipidemia. 7. GERD. 8. Rheumatoid arthritis. 9. Peripheral neuropathy. 10. Benign prostatic hypertrophy. Problems Addressed with this Encounter and Plan: 1. 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 The PD-L1 (22c3) expression was postive at 25%. He opted to have immunotherapy alone. As of his follow-up visit on 02/14/2021 he was tolerating treatment well, and his overall clinical status appeared stable. He continued immunotherapy with pembrolizumab but with his treatment change to the 6-week dosing interval. On 03/06/2021 he was seen in the emergency room with shortness of breath and bilateral knee pain. He had significant knee effusions bilaterally. His CT pulmonary angiogram showed new spiculated mass in the right upper lobe, but no other acute pathology. At that point his lab studies were unrevealing. As of his follow-up visit on 03/28/2021 he had developed severe neutropenia. His treatment was put on hold, and he began on steroid therapy with prednisone at 40 mg daily. By 04/05/2021 his neutrophil count had dropped to 0. His other blood counts at that point were normal. 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 However, somewhere around that time he also had been given the [employer] COVID-19 vaccination, and there is some question now as to whether that may have been the cause for it. In any case, during subsequent follow-up the neutropenia persisted. He was given antibacterial prophylaxis and I also increased his prednisone dosage up to 60 mg daily. As 05/22/2021 his neutrophil count had recovered to 5400. His prednisone dosage was reduced to 10 mg daily and it was subsequently discontinued. His restaging CT scans on 06/04/2021 showed no obvious progression of the lung cancer. During subsequent follow-up he had restarted prednisone due to joint pain other side effects, but he recently had tapered off of it again. His current CT scan shows only slight progression of right upper lobe pulmonary nodules and no other evidence of disease progression. His overall clinical status appears stable. His options for further treatment are limited, as the severity of his neutropenia would preclude further immunotherapy and he does not want to take cytotoxic chemotherapy. Furthermore, there were no actionable mutations identified on his next generation sequencing. Since his disease progression does appear to be limited to the upper lobe of the right lung, I will review the scans with Dr. Fournier to see whether or not he may be an appropriate candidate for palliative radiation. 2. 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 It has remained stable by follow-up surveillance MRI. Signed By: Shamar Yun M.D. <<Signature on File>>
[2021-10-18 14:00] LABS: Erythrocyte Sedimentation Rate 56 mm/hr (0-10)
== END 2021-10-17 13:31 | disposition home or self-care (01) ==
LOC: ONCMED 13:31
PROVIDERS: PCP Nurse Practitioner Family; Visit Provider Internal Medicine Medical Oncology
DX: C34.11 Malignant neoplasm of upper lobe, right bronchus or lung (principal); C78.02 Secondary malignant neoplasm of left lung; D35.2 Benign neoplasm of pituitary gland; J44.9 Chronic obstructive pulmonary disease, unspecified; I10 Essential (primary) hypertension; E78.5 Hyperlipidemia, unspecified; K21.9 Gastro-esophageal reflux disease without esophagitis; M06.9 Rheumatoid arthritis, unspecified; G62.9 Polyneuropathy, unspecified; N40.0 Benign prostatic hyperplasia without lower urinary tract symptoms; Z79.899 Other long term (current) drug therapy; Z92.21 Personal history of antineoplastic chemotherapy; R91.8 Other nonspecific abnormal finding of lung field
CPT/HCPCS: 36415; 71260; 80053; 84443; 85025; 85651; 99214; Q9967

== ENCOUNTER 2021-10-17 14:28 | Outpatient (CLI) | payer MEDICARE, SELFPAY ==
--- NOTE | 2021-10-17 | CT_ITS ---
WS: [id number] CT CHEST TECHNIQUE: Contrast enhanced CT of the chest with coronal and sagittal reformatted images. CLINICAL INFORMATION: LUNG CANCER COMPARISON: CT June 04, 2021 DLP: 1011.[address] scans at [facility] use at least one of these dose optimization techniques: automated e xposure control; mA and/or kV adjustment per patient size (includes targeted exams where dose is matc hed to clinical indication); or iterative reconstruction. FINDINGS: Again seen is the spiculated mass in the right upper lobe appears slightly more prominent compared to previous today measuring 3.5 x 2.0 x 3.5 cm AP by transverse by craniocaudal compared to 3.4 x 1.9 x 3.1 cm. Progressed nodule in the right upper lobe anteriorly today measuring 1.6 cm compared to 0.7 cm previously. Smaller nodules in the super segment right lower lobe have improved compared to previo us. Small subpleural opacity left lower lobe measuring 7 mm is stable. Improved mediastinal and subcarinal lymphadenopathy. No progressed lymphadenopathy. Advanced chronic emphysematous changes with bulla formation. Aortic calcification. Normal caliber thoracic aorta. Prox imal main pulmonary arteries are normal. No axillary lymphadenopathy. Adrenal glands are normal. Partially visualized right renal cyst. Fatty atrophy of the pancreas. CT/CT chest w con* [id number] IMPRESSION: 1. Progressed spiculated mass in the right upper lobe described above. Increas ed solid soft tissue component compared to June 04, 2021 today measuring 3.5 x 2.0 x 3.5cm . 2. Additional progressed satellite nodule in the right upper lobe anteriorly t ama measuring 1.6 cm compared to 0.7 cm previous. 3. A few small nodules in the super segment right lower lobe have improved. 4. Improved anterior mediastinal and subcarinal lymphadenopathy. No progressiv e lymphadenopathy today. 5. No other significant changes compared to previous.
[2021-10-17] MEDS: iohexol 300 mg/mL 100 mL Btl IV (15:18)
== END 2021-10-17 14:29 | disposition home or self-care (01) ==
PROVIDERS: PCP Nurse Practitioner Family; Visit Provider Internal Medicine Medical Oncology
DX: C34.11 Malignant neoplasm of upper lobe, right bronchus or lung (principal); R91.8 Other nonspecific abnormal finding of lung field
CPT/HCPCS: 71260; Q9967

== ENCOUNTER → 2021-10-30 09:46 | Outpatient (BNVA) | payer MEDICARE, SELFPAY | PROVIDERS: PCP Nurse Practitioner Family; Visit Provider Internal Medicine Rheumatology | DX: L40.50 Arthropathic psoriasis, unspecified (principal); C34.90 Malignant neoplasm of unspecified part of unspecified bronchus or lung; Z79.899 Other long term (current) drug therapy; Z79.52 Long term (current) use of systemic steroids | CPT/HCPCS: 99214 ==

== ENCOUNTER 2021-11-28 08:58 | Outpatient (CLI) | payer MEDICARE, SELFPAY ==
--- NOTE | 2021-12-01 10:55 | ONC FU_ITS ---
Dr. Yun Patient Follow-Up Note Patient: Roge Ozuna Unit #: [id number]: 1950 Dicatated By: Shamar Yun M.D.Date of Visit:Nov 28, 2021 Onc Med Follow-up/Prog Note Chief Complaint: Lung cancer. 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 He had been followed for an abnormal chest CT scan, with the main concern being a nodule at the right lung base noted on a study from June 2017. On follow-up studies that nodule had resolved. Also noted were some fibrotic changes in the right upper lobe which had remained stable as of August 2018. A repeat chest CT on 07/04/2019 showed progression in the scarring and soft tissue surrounding bullous disease in the right upper lobe, possibly due to progression of fibrosis, though early neoplasm was not excluded. His repeat chest CT on 07/19/2020 showed significant progression of irregular soft tissue mass surrounding the cystic/cavitary fibrotic lesion in the right upper lobe. The lesion measured approximately 5.2 x 3.5 cm. The appearance was highly suspicious for neoplasm. Also noted was soft tissue thickening along the left lateral tracheal wall, possibly due to focal area of mucus. Also noted were bilateral pulmonary nodules ranging in size from a few millimeters up to 10 mm, suspicious for metastatic disease. Further evaluation with PET/CT on 07/28/2020 showed FDG avid cavitary right upper lobe mass measuring 4.5 x 5.1 cm, SUV 12.1, indicating high probability of malignancy. Secondary pulmonary nodules were noted in the right upper lobe, superior segment right lower lobe, left apex, and medial left lower lung base, consistent with metastatic disease. A 1.7 cm right paratracheal lymph node was also FDG avid, SUV 4.8, consistent with a metastatic node. He was referred to Dr. Moreno. On 08/20/2020 he underwent flexible diagnostic bronchoscopy with endobronchial biopsy from the right upper lobe and mediastinoscopy with biopsy of station 4R lymph node. Pathology from the right upper lobe biopsy showed adenosquamous carcinoma favoring lung primary. 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 A next generation sequencing study showed no actionable mutations. The PD-L1 (22c3) expression was positive at 25% and the PD-L1 (28-8) expression was positive at 35%. His staging head MRI showed an intrasellar pituitary mass with suprasellar extension measuring 1.4 x 1.6 x 1.7 cm. There was associated impingement on the optic chiasm. 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 There appeared to be involvement of the right cavernous sinus but cavernous carotid arteries were noted to be patent. There were no suspicious enhancing intracranial parenchymal abnormalities noted. I had seen him initially on 09/03/2020. With evidence of multiple pulmonary metastatic lesions bilaterally, it appeared that he would require systemic therapy. By next generation sequencing, his tumor was positive for PD-L1 expression at 25% for PD-L1 (22c3). There were no actionable mutations identified. With his PD-L1 positive at less than 50%, he was recommended to have combined chemotherapy/immunotherapy, per NCCN guidelines. However, he opted to have immunotherapy alone. He then began cycle 1 of pembrolizumab on 10/17/2020. He tolerated it well and he continued treatment at 3-week intervals. He received cycle 5 on 01/24/2021. At his follow-up visit on 02/14/2021 he appeared stable clinically. He then continued immunotherapy with pembrolizumab but with his treatment changed to the 6-week dosing interval. On 03/06/2021 he was seen in the emergency room with shortness of breath. He also reported having bilateral knee pain. He was noted to have large joint effusions on x-ray. CT pulmonary angiogram showed no evidence of pulmonary embolism. A new spiculated mass measuring 39 x 28 x 32 mm was noted in the right upper lobe. Also noted were prominent mediastinal and hilar lymph nodes. There was advanced bullous emphysema. He was given a Medrol dose pack and symptomatic management with hydrocodone/APAP. A scheduled follow-up chest CT on 03/25/2021 showed right upper lobe spiculated mass measuring 3.4 x 1.9 cm with increase in size of mediastinal and hilar lymph nodes compared to the July 2020 study, and a 9 mm lymph node was noted near the lesser curvature of the stomach. Also noted were new scattered subcentimeter opacifications bilaterally and a 9 mm nodule in the posterior right lower lobe, with early metastatic disease not excluded. Brain MRI at that time showed stable appearance of the mass centered in the sella turcica with suprasellar extension measuring 1.7 x 1.6 x 1.7 cm, consistent with pituitary macroadenoma. Minimal extension was noted into the right cavernous sinus and there was mild displacement of the optic chiasm. He had further laboratory studies on 03/28/2021. At that time his hemoglobin had dropped to 11.8 g with his white blood cell count low at 1800 and his platelet count normal at 171,000. The differential showed only 12% neutrophils, with an absolute neutrophil count of 200. He began on steroid therapy with prednisone 40 mg daily, subsequently decreased to 20 mg daily. His repeat CBC on 04/05/2021 showed hemoglobin back up to 14.1 g, but there was further decrease in the white blood cell count with his ANC reported at 0. With those findings, he began antibiotic coverage with Levaquin and his prednisone dosage was increased to 60 mg daily. During subsequent follow-up he continued to have severe neutropenia, and he continued to have fairly severe generalized weakness. He did not report any fever, chills, or other symptoms to suggest any acute infectious process. As of 05/15/2021 his white count had increased to 1500, but with ANC still low at approximately 100. His hemoglobin was just slightly decreased at 11.7 g with platelet count normal at 213,000. I did have him reduce prednisone to 20 mg daily. As of his follow-up visit on 05/22/2021 his neutrophil count had recovered to 5400. His prednisone dosage at that point was reduced to 10 mg daily, and it was subsequently discontinued. Restaging CT scans on 06/04/2021 showed stable right upper lobe spiculated mass measuring 3.4 x 1.9 cm. Emphysematous changes with fibrosis and groundglass densities were noted throughout both lungs and small satellite nodules were noted in the superior segment right lower lobe and in the anterior right upper lobe, both measuring about 7 mm. There were mildly enlarged mediastinal and subcarinal lymph nodes, the largest measuring 11 mm. 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 With those findings, he continued on observation/symptomatic management. His other medical illnesses include hypertension, hyperlipidemia, GERD, rheumatoid arthritis, peripheral neuropathy, benign prostatic hypertrophy, and emphysema. He has history of smoking 2 packs of cigarettes daily. He quit smoking 15 years ago. INTERIM HISTORY: On 06/10/2021 he presented to the emergency room with swelling in both legs. Earlier in the day he had been noted to have low blood pressure, but it was back up to normal at the time of his ER visit. He was recommended to restart his furosemide along with a potassium supplement. I had seen him for a follow-up visit on 06/13/2021. At that point he was still having some orthostatic symptoms as well as some weakness in both legs. I did have him try reducing his Lyrica dosage, and I opted to keep him off prednisone. As of his follow-up visit on 07/16/2021 he continued to have significant joint pain and limited activity, and had opted to restart the prednisone at 10 mg twice daily. He also had an increase his furosemide dosage for his lower extremity edema. At his follow-up visit on 09/04/2021 he was feeling better generally, though he continued to have swelling in the lower extremities, and he had begun to taper the prednisone dosage. Repeat chest CT on 10/17/2021 showed slight increase in the right upper lobe spiculated mass measuring 3.5 x 2.0 x 3.5 cm compared to 3.4 x 1.9 x 3.1 cm on the prior study from May. An additional nodule in the right upper lobe anteriorly measured 1.6 cm compared to 0.7 cm. Smaller nodules in the superior segment right lower lobe were noted to have improved and a subpleural opacity in the left lower lobe appeared stable at 7 cm. There was improved mediastinal and subcarinal lymphadenopathy. There were advanced chronic emphysematous changes with bulla formation. Restaging PET/CT on 11/23/2021 showed modest improvement in the central right upper lobe malignancy measuring 2.4 x 3.5 cm compared to 4.4 x 5.1 cm on the July 2020 study. The SUV was 10.5. There was slight progression of the secondary right upper lobe nodule measuring 1.7 cm compared to 1.2 cm with SUV 5.6. The superior segment right lower lobe nodule was no longer evident. FDG positive mediastinal lymph nodes appeared to have resolved. He is seen for a follow-up visit. He has been feeling pretty good generally. He does have some fatigue, but he is able to do light work. ECOG score is 1. He has good appetite. He has no fever or night sweats. He has not had sore mouth or throat. He does not complain of cough. He says his breathing is not too good, but it is not any worse. He occasionally has pain in the upper right chest. He has no GI complaints other than his bowel function is so-so. He complains that his urination is slow. He has pain in his knees, which is chronic. He has no other joint or bone pain. He does not complain of headache. He has occasional orthostatic lightheadedness. He has some numbness in his toes. Medications: Aspirin 81 Tablet, enteric coated Oral daily, Atorvastatin Calcium 1 (40 mg) Tablet Oral daily, Finasteride (5 mg) Tablet Oral daily, Furosemide (20 mg) Tablet Oral daily, Lyrica (150 mg) Capsule Oral b.i.d., Nortriptyline HCl (10 mg) Capsule Oral daily, Omeprazole 1 (20 mg) Capsule Delayed Release Oral daily, Tamsulosin HCl 2 Capsule (of 0.4 mg) Oral daily Allergies: No Known Allergies. Vital Signs: Performed on Nov 28, 2021 09:15 Height - 72.00 in Weight - 231.2 lbs (HIGH) BSA - 2.27 sq.m BMI - 31.36 (HIGH) Temperature - 96.8 F (LOW) Pulse - 71 /min Respiration - 16 /min BP - 95/54 mm(hg) O2 Sat - 91 % (LOW) Pain - 0 Fatigue - 6 Physical Examination: Constitutional - He looks pretty good generally, Eyes - Sclerae nonicteric. Conjunctivae clear, ENMT - No lesions noted in the oral cavity, Hematologic/Lymphatic - No cervical, clavicular, or axillary adenopathy, Respiratory - Lungs are clear with diminished air movement bilaterally, Cardiovascular - Heart rhythm is regular. There is no murmur, gallop, or rub noted, Abdomen - Soft. Liver and spleen are not enlarged. There is no abdominal mass or ascites noted and there is no inguinal adenopathy, Extremities - No edema, Neurologic - No focal neurologic deficits noted. Problem List: 1. Adenosquamous carcinoma involving the upper lobe of the right lung, by clinical evaluation stage TAMARA (T3, N2, M1a), with PET/CT evidence of multiple bilateral pulmonary nodules. His next generation sequencing study showed no actionable mutation, but the tumor was noted to be positive for PD-L1 expression. 2. He underwent diagnostic flexible bronchoscopy and mediastinoscopy on 08/08/2020. 3. 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 4. He has CT evidence of underlying COPD. 5. Hypertension. 6. Hyperlipidemia. 7. GERD. 8. Rheumatoid arthritis. 9. Peripheral neuropathy. 10. Benign prostatic hypertrophy. Problems Addressed with this Encounter and Plan: 1. 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 The PD-L1 (22c3) expression was postive at 25%. He opted to have immunotherapy alone. As of his follow-up visit on 02/14/2021 he was tolerating treatment well, and his overall clinical status appeared stable. He continued immunotherapy with pembrolizumab but with his treatment change to the 6-week dosing interval. On 03/06/2021 he was seen in the emergency room with shortness of breath and bilateral knee pain. He had significant knee effusions bilaterally. His CT pulmonary angiogram showed new spiculated mass in the right upper lobe, but no other acute pathology. At that point his lab studies were unrevealing. As of his follow-up visit on 03/28/2021 he had developed severe neutropenia. His treatment was put on hold, and he began on steroid therapy with prednisone at 40 mg daily. By 04/05/2021 his neutrophil count had dropped to 0. His other blood counts at that point were normal. 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 However, somewhere around that time he also had been given the [employer] COVID-19 vaccination, and there is some question now as to whether that may have been the cause for it. In any case, during subsequent follow-up the neutropenia persisted. He was given antibacterial prophylaxis and I also increased his prednisone dosage up to 60 mg daily. As 05/22/2021 his neutrophil count had recovered to 5400. His prednisone dosage was reduced to 10 mg daily and it was subsequently discontinued. His restaging CT scans on 06/04/2021 showed no obvious progression of the lung cancer. During subsequent follow-up he had restarted prednisone due to joint pain other side effects, but he recently had tapered off of it again. His repeat CT scan in October 2021 showed only slight progression of right upper lobe pulmonary nodules and no other evidence of disease progression. His restaging PET/CT on 11/23/2021 showed modest improvement in the central right upper lobe malignancy compared to the July 2020 study. There was slight progression of the secondary right upper lobe nodule with resolution of the superior segment right lower lobe nodule and the mediastinal adenopathy. With residual disease localized to the 2 right upper lobe lung nodules, I had conferred with Dr. Fournier regarding the possibility of treating the residual disease with radiation. As the larger of the 2 lesions did not appear to be amenable to SBRT due to size limitations, is offered the option to undergo chemoradiation, which would include treatment to both lung lesions and the mediastinal lymph nodes. The other option would be palliative radiation alone, but the likelihood of any significant benefit would be very low. I reviewed anticipated side effects with the chemoradiation. He has all along been opposed to undergoing cytotoxic chemotherapy, and he does not want to do the chemoradiation. As such, I will continue to follow him with observation/symptomatic management. I will see him again in 3 months, or sooner as needed. 2. 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 It has remained stable by follow-up surveillance MRI. Signed By: Shamar Yun M.D. <<Signature on File>>
== END 2021-11-28 08:59 | disposition home or self-care (01) ==
LOC: ONCMED 09:07
PROVIDERS: PCP Nurse Practitioner Family; Visit Provider Internal Medicine Medical Oncology
DX: Z51.12 Encounter for antineoplastic immunotherapy (principal); C34.11 Malignant neoplasm of upper lobe, right bronchus or lung; R22.0 Localized swelling, mass and lump, head; J44.9 Chronic obstructive pulmonary disease, unspecified; I10 Essential (primary) hypertension; E78.5 Hyperlipidemia, unspecified; K21.9 Gastro-esophageal reflux disease without esophagitis; M06.9 Rheumatoid arthritis, unspecified; G62.9 Polyneuropathy, unspecified; N40.0 Benign prostatic hyperplasia without lower urinary tract symptoms; Z79.52 Long term (current) use of systemic steroids
CPT/HCPCS: 99214

== ENCOUNTER 2022-02-12 08:29 | Outpatient (CLI) | payer MEDICARE, SELFPAY ==
--- NOTE | 2022-02-12 08:43 | CT_ITS ---
WS: [id number] CT CHEST TECHNIQUE: Contrast enhanced CT of the chest with coronal and sagittal reformatted images. CLINICAL INFORMATION: LUNG CANCER COMPARISON: PET CT November 23, [address] October 17, 2021 DLP: 677.[address] scans at [facility] use at least one of these dose optimization techniques: automated e xposure control; mA and/or kV adjustment per patient size (includes targeted exams where dose is matc hed to clinical indication); or iterative reconstruction. FINDINGS: Again seen is the spiculated mass in the RIGHT upper lobe stable in appearance compared to the prior PET/CT and chest CT. This measures approximately 3.4 x 2.3 x 3.5 cm AP by transverse by craniocaudal. Additional secondary nodule in the anterior RIGHT upper lobe stable since the recent PET/CT. Today t his measures 1.7 x 1.0 x 1.3 cm AP by transverse by craniocaudal. A few surrounding satellite nodules some of which are slightly more prominent today but subcentimeter in size. Remainder of examination is stable. No mediastinal or hilar lymphadenopathy. Normal caliber thoracic aorta. Proximal main pulmonary arter ies are normal. No axillary lymphadenopathy. Adrenal glands are normal. Fatty atrophy of the pancreas. IMPRESSION: 1. Spiculated RIGHT upper lobe mass is unchanged since the recent examinations. 2. Secondary nodule in the anterior RIGHT upper lobe is stable since the recent PET CT November 23 022 3. A few surrounding satellite nodules subcentimeter in size, some of which are slightly more promin ent today. These are technically indeterminant and recommend continued surveillance. 4. No new or progressive adenopathy 5. No other significant changes compared to previous.
[2022-02-12] MEDS: iohexol 300 mg/mL 100 mL Btl IV (09:58)
[2022-02-12 10:00] LABS: Blood Urea Nitrogen 18 mg/dL (8-23)
== END 2022-02-12 08:30 | disposition home or self-care (01) ==
PROVIDERS: PCP Nurse Practitioner Family; Visit Provider Internal Medicine Medical Oncology
DX: C34.11 Malignant neoplasm of upper lobe, right bronchus or lung (principal); R91.1 Solitary pulmonary nodule
CPT/HCPCS: 71260; 82565; 84520

== ENCOUNTER 2022-02-18 11:21 | Outpatient (CLI) | payer MEDICARE, SELFPAY ==
--- NOTE | 2022-02-20 21:42 | ONC FU_ITS ---
Leighann Rajan Progress Note Patient: Roge Ozuna Unit #: [id number]: [id number] Dicatated By: Leighann Rajan N.P.Date of Visit:Feb 18, 2022 Onc MED Follow-up/Prog Note Chief Complaint: Lung cancer. 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 He had been followed for an abnormal chest CT scan, with the main concern being a nodule at the right lung base noted on a study from June 2017. On follow-up studies that nodule had resolved. Also noted were some fibrotic changes in the right upper lobe which had remained stable as of August 2018. A repeat chest CT on 07/04/2019 showed progression in the scarring and soft tissue surrounding bullous disease in the right upper lobe, possibly due to progression of fibrosis, though early neoplasm was not excluded. His repeat chest CT on 07/19/2020 showed significant progression of irregular soft tissue mass surrounding the cystic/cavitary fibrotic lesion in the right upper lobe. The lesion measured approximately 5.2 x 3.5 cm. The appearance was highly suspicious for neoplasm. Also noted was soft tissue thickening along the left lateral tracheal wall, possibly due to focal area of mucus. Also noted were bilateral pulmonary nodules ranging in size from a few millimeters up to 10 mm, suspicious for metastatic disease. Further evaluation with PET/CT on 07/28/2020 showed FDG avid cavitary right upper lobe mass measuring 4.5 x 5.1 cm, SUV 12.1, indicating high probability of malignancy. Secondary pulmonary nodules were noted in the right upper lobe, superior segment right lower lobe, left apex, and medial left lower lung base, consistent with metastatic disease. A 1.7 cm right paratracheal lymph node was also FDG avid, SUV 4.8, consistent with a metastatic node. He was referred to Dr. Moreno. On 08/20/2020 he underwent flexible diagnostic bronchoscopy with endobronchial biopsy from the right upper lobe and mediastinoscopy with biopsy of station 4R lymph node. Pathology from the right upper lobe biopsy showed adenosquamous carcinoma favoring lung primary. 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 A next generation sequencing study showed no actionable mutations. The PD-L1 (22c3) expression was positive at 25% and the PD-L1 (28-8) expression was positive at 35%. His staging head MRI showed an intrasellar pituitary mass with suprasellar extension measuring 1.4 x 1.6 x 1.7 cm. There was associated impingement on the optic chiasm. 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 There appeared to be involvement of the right cavernous sinus but cavernous carotid arteries were noted to be patent. There were no suspicious enhancing intracranial parenchymal abnormalities noted. Dr. Yun had seen him initially on 09/03/2020. With evidence of multiple pulmonary metastatic lesions bilaterally, it appeared that he would require systemic therapy. By next generation sequencing, his tumor was positive for PD-L1 expression at 25% for PD-L1 (22c3). There were no actionable mutations identified. With his PD-L1 positive at less than 50%, he was recommended to have combined chemotherapy/immunotherapy, per NCCN guidelines. However, he opted to have immunotherapy alone. He then began cycle 1 of pembrolizumab on 10/17/2020. He tolerated it well and he continued treatment at 3-week intervals. He received cycle 5 on 01/24/2021. At his follow-up visit on 02/14/2021 he appeared stable clinically. He then continued immunotherapy with pembrolizumab but with his treatment changed to the 6-week dosing interval. On 03/06/2021 he was seen in the emergency room with shortness of breath. He also reported having bilateral knee pain. He was noted to have large joint effusions on x-ray. CT pulmonary angiogram showed no evidence of pulmonary embolism. A new spiculated mass measuring 39 x 28 x 32 mm was noted in the right upper lobe. Also noted were prominent mediastinal and hilar lymph nodes. There was advanced bullous emphysema. He was given a Medrol dose pack and symptomatic management with hydrocodone/APAP. A scheduled follow-up chest CT on 03/25/2021 showed right upper lobe spiculated mass measuring 3.4 x 1.9 cm with increase in size of mediastinal and hilar lymph nodes compared to the July 2020 study, and a 9 mm lymph node was noted near the lesser curvature of the stomach. Also noted were new scattered subcentimeter opacifications bilaterally and a 9 mm nodule in the posterior right lower lobe, with early metastatic disease not excluded. Brain MRI at that time showed stable appearance of the mass centered in the sella turcica with suprasellar extension measuring 1.7 x 1.6 x 1.7 cm, consistent with pituitary macroadenoma. Minimal extension was noted into the right cavernous sinus and there was mild displacement of the optic chiasm. He had further laboratory studies on 03/28/2021. At that time his hemoglobin had dropped to 11.8 g with his white blood cell count low at 1800 and his platelet count normal at 171,000. The differential showed only 12% neutrophils, with an absolute neutrophil count of 200. He began on steroid therapy with prednisone 40 mg daily, subsequently decreased to 20 mg daily. His repeat CBC on 04/05/2021 showed hemoglobin back up to 14.1 g, but there was further decrease in the white blood cell count with his ANC reported at 0. With those findings, he began antibiotic coverage with Levaquin and his prednisone dosage was increased to 60 mg daily. During subsequent follow-up he continued to have severe neutropenia, and he continued to have fairly severe generalized weakness. He did not report any fever, chills, or other symptoms to suggest any acute infectious process. As of 05/15/2021 his white count had increased to 1500, but with ANC still low at approximately 100. His hemoglobin was just slightly decreased at 11.7 g with platelet count normal at 213,000. I did have him reduce prednisone to 20 mg daily. As of his follow-up visit on 05/22/2021 his neutrophil count had recovered to 5400. His prednisone dosage at that point was reduced to 10 mg daily, and it was subsequently discontinued. Restaging CT scans on 06/04/2021 showed stable right upper lobe spiculated mass measuring 3.4 x 1.9 cm. Emphysematous changes with fibrosis and groundglass densities were noted throughout both lungs and small satellite nodules were noted in the superior segment right lower lobe and in the anterior right upper lobe, both measuring about 7 mm. There were mildly enlarged mediastinal and subcarinal lymph nodes, the largest measuring 11 mm. 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 With those findings, he continued on observation/symptomatic management. His other medical illnesses include hypertension, hyperlipidemia, GERD, rheumatoid arthritis, peripheral neuropathy, benign prostatic hypertrophy, and emphysema. He has history of smoking 2 packs of cigarettes daily. He quit smoking 15 years ago. INTERIM HISTORY: On 06/10/2021 he presented to the emergency room with swelling in both legs. Earlier in the day he had been noted to have low blood pressure, but it was back up to normal at the time of his ER visit. He was recommended to restart his furosemide along with a potassium supplement. I had seen him for a follow-up visit on 06/13/2021. At that point he was still having some orthostatic symptoms as well as some weakness in both legs. I did have him try reducing his Lyrica dosage, and I opted to keep him off prednisone. As of his follow-up visit on 07/16/2021 he continued to have significant joint pain and limited activity, and had opted to restart the prednisone at 10 mg twice daily. He also had an increase his furosemide dosage for his lower extremity edema. At his follow-up visit on 09/04/2021 he was feeling better generally, though he continued to have swelling in the lower extremities, and he had begun to taper the prednisone dosage. Repeat chest CT on 10/17/2021 showed slight increase in the right upper lobe spiculated mass measuring 3.5 x 2.0 x 3.5 cm compared to 3.4 x 1.9 x 3.1 cm on the prior study from May. An additional nodule in the right upper lobe anteriorly measured 1.6 cm compared to 0.7 cm. Smaller nodules in the superior segment right lower lobe were noted to have improved and a subpleural opacity in the left lower lobe appeared stable at 7 cm. There was improved mediastinal and subcarinal lymphadenopathy. There were advanced chronic emphysematous changes with bulla formation. Restaging PET/CT on 11/23/2021 showed modest improvement in the central right upper lobe malignancy measuring 2.4 x 3.5 cm compared to 4.4 x 5.1 cm on the July 2020 study. The SUV was 10.5. There was slight progression of the secondary right upper lobe nodule measuring 1.7 cm compared to 1.2 cm with SUV 5.6. The superior segment right lower lobe nodule was no longer evident. FDG positive mediastinal lymph nodes appeared to have resolved. Patient presents today for a follow-up visit. He continues to have a moderate amount of fatigue his ECOG is 1. His appetite is good. He denies fever, chills, night sweats. No sinus drainage or congestion. No shortness of breath, cough, chest pain. He denies any GI or problems. He has arthritis in his knees but otherwise he feels well. No headaches or dizziness. Review Of Symptoms: See above. Past Medical History: Benign prostatic hypertrophy Emphysema Gastroesophageal reflux disease Hypercholesterolemia Hypertension Peripheral neuropathy Rheumatoid arthritis Past Surgical History: Covid 19 2nd dose in 2020 Flexible diagnostic bronchoscopy and mediastinoscopy in 2019 Appendectomy in 2008 Allergies: No Known Allergies. Medications: Aspirin 81 Tablet, enteric coated Oral daily Atorvastatin Calcium 1 (40 mg) Tablet Oral daily Finasteride (5 mg) Tablet Oral daily Furosemide (20 mg) Tablet Oral daily Nortriptyline HCl (10 mg) Capsule Oral daily Omeprazole 1 (20 mg) Capsule Delayed Release Oral daily Tamsulosin HCl 2 Capsule (of 0.4 mg) Oral daily Family History: Mr. Ozuna's mother at age 19: tuberculosis. Mr. Ozuna's father is : heart disease. Father of heart disease and mother of TB. He had 2 half-brothers, one of whom is due to drug related problems. Social History: Mr. Ozuna is and he is a disabled. Mr. Ozuna quit smoking 19 years ago but had smoked 2.0 packs/day for 40 years. He is a former drinker. He has a history of smoking about 2 packs of cigarettes daily for about 40 years. He quit smoking 15 years ago. He previously had some weekend alcohol use, but he also quit drinking at the same time. 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 Physical Examination: Performed on Feb 18, 2022 12:20: Height - 72.00 in, Weight - 225.6 lbs (LOW), BSA - 2.24 sq.m, BMI - 30.60 (HIGH), Temperature - 97.0 F (LOW), Pulse - 91 /min, Respiration - 16 /min, BP - 133/83 mm(hg), O2 Sat - 98 %, Pain - 0, and Fatigue - 7. Performance Status: 1 - No physically strenuous activity, but ambulatory and able to carry out light or sedentary work (e.g. office work, light house work). (ECOG) Constitutional Alert, cooperative, oriented. Mood and affect appropriate. Appears close to chronological age. Well nourished. Well developed. Respiratory Lungs are clear to auscultation without rhonchi or wheezing. Cardiovascular Regular rate and rhythm of heart without murmurs, gallops or rubs. Abdomen Non-tender, non-distended, no masses, ascites or hepatosplenomegaly. Good bowel sounds. No guarding or rebound tenderness. Musculoskeletal No tenderness or swelling, normal range of motion without obvious weakness. Psychiatric Alert and oriented times three. Coherent speech. Verbalizes understanding of our discussions today. Laboratory: Test performed on Oct 17, 2021 14:16 Sodium 138 mmol/L TSH 2.16 uIU/mL Potassium 3.7 mmol/L Chloride 101 mmol/L CO2 26 mmol/L Anion Gap 14.7 BUN 11 mg/dL Creatinine 1.0 mg/dL Cr Clearance (Est) 95.99 mL/min Glucose 78 mg/dL Osmolality - Calculated 284 mOsm/kg Calcium 8.6 mg/dL Protein, Total 6.8 g/dL Albumin 3.7 g/dL Globulin 3.1 g/dL Bilirubin, Total 0.3 mg/dL ALT (SGPT) 35 U/L AST (SGOT) 46 U/L Alkaline Phosphatase 57 IU/L ESR (Sed Rate) 56 mm/hr WBC 7.5 10 3/uL RBC 4.77 10 6/uL HGB 14.0 g/dL HCT 42.5 % MCV 89.1 fl MCH 29.4 pg MCHC 32.9 g/dL RDW 15.0 % Platelet Count 220 10 3/cmm MPV 9.8 fL Neutrophils 4.86 10 3/uL Lymphocytes 1.5 10 3/uL Monocytes 1.0 10 3/uL Eosinophils 0.0 10 3/uL Basophils 0.1 10 3/uL Neutrophil % 65.0 % Lymphocyte % 19.8 % Monocyte % 13.0 % Eosinophil % 0.3 % Basophils % 1.1 % NRBC % 0 % Test performed on Sep 04, 2021 13:54 Magnesium 2.4 mg/dL Impression: 1. Adenosquamous carcinoma involving the upper lobe of the right lung, by clinical evaluation stage TAMARA (T3, N2, M1a), with PET/CT evidence of multiple bilateral pulmonary nodules. His next generation sequencing study showed no actionable mutation, but the tumor was noted to be positive for PD-L1 expression. 2. He underwent diagnostic flexible bronchoscopy and mediastinoscopy on 08/08/2020. 3. 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 4. He has CT evidence of underlying COPD. 5. Hypertension. 6. Hyperlipidemia. 7. GERD. 8. Rheumatoid arthritis. 9. Peripheral neuropathy. 10. Benign prostatic hypertrophy. Plan: 1. 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 The PD-L1 (22c3) expression was postive at 25%. He opted to have immunotherapy alone. As of his follow-up visit on 02/14/2021 he was tolerating treatment well, and his overall clinical status appeared stable. He continued immunotherapy with pembrolizumab but with his treatment change to the 6-week dosing interval. On 03/06/2021 he was seen in the emergency room with shortness of breath and bilateral knee pain. He had significant knee effusions bilaterally. His CT pulmonary angiogram showed new spiculated mass in the right upper lobe, but no other acute pathology. At that point his lab studies were unrevealing. As of his follow-up visit on 03/28/2021 he had developed severe neutropenia. His treatment was put on hold, and he began on steroid therapy with prednisone at 40 mg daily. By 04/05/2021 his neutrophil count had dropped to 0. His other blood counts at that point were normal. 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 However, somewhere around that time he also had been given the [employer] COVID-19 vaccination, and there is some question now as to whether that may have been the cause for it. In any case, during subsequent follow-up the neutropenia persisted. He was given antibacterial prophylaxis and I also increased his prednisone dosage up to 60 mg daily. As 05/22/2021 his neutrophil count had recovered to 5400. His prednisone dosage was reduced to 10 mg daily and it was subsequently discontinued. His restaging CT scans on 06/04/2021 showed no obvious progression of the lung cancer. During subsequent follow-up he had restarted prednisone due to joint pain other side effects, but he recently had tapered off of it again. His repeat CT scan in October 2021 showed only slight progression of right upper lobe pulmonary nodules and no other evidence of disease progression. His restaging PET/CT on 11/23/2021 showed modest improvement in the central right upper lobe malignancy compared to the July 2020 study. There was slight progression of the secondary right upper lobe nodule with resolution of the superior segment right lower lobe nodule and the mediastinal adenopathy. With residual disease localized to the 2 right upper lobe lung nodules, Dr. Yun had conferred with Dr. Fournier regarding the possibility of treating the residual disease with radiation. As the larger of the 2 lesions did not appear to be amenable to SBRT due to size limitations, he is offered the option to undergo chemoradiation, which would include treatment to both lung lesions and the mediastinal lymph nodes. The other option would be palliative radiation alone, but the likelihood of any significant benefit would be very low. Dr. Yun reviewed anticipated side effects with the chemoradiation. He has all along been opposed to undergoing cytotoxic chemotherapy, and he does not want to do the chemoradiation. He had a surveillance CT scan of the chest on 02/12/2022 which indicated: 1. Spiculated RIGHT upper lobe mass is unchanged since the recent examinations. 2. Secondary nodule in the anterior RIGHT upper lobe is stable since the recent PET CT November 23, 2021 3. A few surrounding satellite nodules subcentimeter in size, some of which are slightly more prominent today. These are technically indeterminant and recommend continued surveillance. 4. No new or progressive adenopathy 5. No other significant changes compared to previous. He has been followed with surveillance and expectant management. He is showing no signs or symptoms of disease progression. He will follow-up in [address] scan of chest 2. 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 It has remained stable by follow-up surveillance MRI. Signed By: Leighann Rajan N.P. <<Signature on File>>
== END 2022-02-18 11:22 | disposition home or self-care (01) ==
PROVIDERS: PCP Nurse Practitioner Family; Visit Provider Nurse Practitioner Family
DX: C34.11 Malignant neoplasm of upper lobe, right bronchus or lung (principal); C77.9 Secondary and unspecified malignant neoplasm of lymph node, unspecified; Z87.891 Personal history of nicotine dependence; E23.7 Disorder of pituitary gland, unspecified
CPT/HCPCS: 99214

== ENCOUNTER → 2022-02-28 09:08 | Outpatient (BNVA) | payer MEDICARE, SELFPAY | PROVIDERS: PCP Nurse Practitioner Family; Visit Provider Internal Medicine Rheumatology | DX: Z79.52 Long term (current) use of systemic steroids (principal); C34.90 Malignant neoplasm of unspecified part of unspecified bronchus or lung; L40.50 Arthropathic psoriasis, unspecified | CPT/HCPCS: 99214 ==

== ENCOUNTER → 2022-06-26 09:48 | Outpatient (BNVA) | payer MEDICARE, SELFPAY | PROVIDERS: PCP Nurse Practitioner Family; Visit Provider Internal Medicine Rheumatology | DX: L40.50 Arthropathic psoriasis, unspecified (principal); C34.11 Malignant neoplasm of upper lobe, right bronchus or lung; Z79.899 Other long term (current) drug therapy | CPT/HCPCS: 99214 ==

== ENCOUNTER 2022-07-09 08:43 | Oncology outpatient (recurring) (ONCR) | payer MEDICARE, SELFPAY ==
--- NOTE | 2022-06-25 12:44 | CT_ITS ---
WS: [id number] CT CHEST TECHNIQUE: Contrast enhanced CT of the chest with coronal and sagittal reformatted images. CLINICAL INFORMATION: LUNG CANCER COMPARISON: CT chest February 12, 2022, PET CT November 23, [address] October 17, 2021 DLP: 814.[address] scans at [facility] use at least one of these dose optimization techniques: automated e xposure control; mA and/or kV adjustment per patient size (includes targeted exams where dose is matc hed to clinical indication); or iterative reconstruction. FINDINGS: Previously described spiculated RIGHT upper lobe mass is progressed and more confluent in appearance compared to February 12, 2019. Today this measures approximately 6.7 x 3.4 x 3.1 cm extending into the R IGHT upper lobe and extending inferiorly to the RIGHT hilum. This is now confluent with the previousl y described adjacent satellite nodule. Bronchovascular thickening along the RIGHT hilum. Progressed R IGHT hilar lymph node measuring 10 mm. Normal sized anterior mediastinal and peribronchial lymph node s. Normal AP window lymph nodes. Additional adjacent satellite nodule along the posterior margin of t he lesion along the fissure measuring 12 mm. Similar-appearing patchy infiltrates in the RIGHT upper lobe. Moderate narrowing of the RIGHT upper lobe bronchus. Previously RIGHT upper lobe cystic mass measured 3.4 x 2.3 x 3.5 cm AP by transverse by craniocaudal. RIGHT lower lobe subpleural nodule progressed compared to previous measuring 7 mm along the diaphrag m. Moderate chronic emphysematous changes. No axillary lymphadenopathy. RIGHT renal cyst. Adrenal glands are normal. Fatty atrophy of the pancreas. Normal caliber thoracic aorta. Proximal main pulmonary ar teries are normal. No axillary lymphadenopathy. Adrenal glands are normal. Fatty atrophy of the pancr eas. CT/CT chest w con* [id number] IMPRESSION: 1. Significant increase in size and confluence RIGHT upper lobe mass today sonny suring 6.7 x 3.4 x 3.1 cm extending into the RIGHT upper lobe and extending inf eriorly to the RIGHT hilum. This is now confluent with the previously described adjacent satellite nodule. Findings compatible with disease progression. 2. Progressed 10 millimeter RIGHT hilar lymph node. 3. Additional progressed satellite nodule along the posterior margin measuring 12 mm at the fissure. 4. Moderate narrowing of the RIGHT upper lobe bronchus.
[2022-06-25 13:23] LABS: Blood Urea Nitrogen 19 mg/dL (8-23)
[2022-06-25] MEDS: iohexol 350 mg/mL 100 mL Btl IV (13:36)
[2022-07-03 13:40] LABS: Basophils # 0.1 10^3/uL (0.0-0.1); Basophils % 1.1 %; Eosinophils # 0.1 10^3/uL (0.0-0.8); Eosinophils % 2.1 %; Hematocrit 42.9 % (42.0-52.0); Hemoglobin 13.9 g/dL (11.7-16.6); Lymphocytes # 1.3 10^3/uL (0.8-4.8); Lymphocytes % 20.5 %; Mean Corpuscular HGB Conc 32.4 g/dL (30.0-36.0); Mean Corpuscular Hemoglobin 30.5 pg (28.0-34.0); Mean Corpuscular Volume 94.3 fl (80-94); Mean Platelet Volume 9.7 fL (7.4-10.4); Monocytes # 0.6 10^3/uL (0.2-0.9); Monocytes % 9.6 %; Neutrophils # 4.14 10^3/uL (1.8-7.7); Neutrophils % 66.4 %; Nucleated Red Blood Cells % 0 %; Platelet Count 170 10^3/cmm (130-400); Red Blood Count 4.55 10^6/uL (4.1-5.3); Red Cell Distribution Width 13.2 % (12.1-15.1); White Blood Count 6.2 10^3/uL (4.0-10.0)
[2022-07-03 13:53] LABS: Chloride 101 mmol/L (98-107); Potassium 3.8 mmol/L (3.5-5.1); Sodium 138 mmol/L (136-145)
[2022-07-03 14:31] LABS: Alanine Aminotransferase 17 U/L (0-41); Alkaline Phosphatase 61 U/L (40-130); Anion Gap 15.8 (5-19); Aspartate Amino Transferase 28 U/L (0-40); Blood Urea Nitrogen 22 mg/dL (8-23); Calcium 8.9 mg/dL (8.5-10.5); Carbon Dioxide 25 mmol/L (22-29); Globulin 2.5 g/dL (1.3-4.6); Glucose 77 mg/dL (65-115); Osmolality Calculated 288 mOsm/kg (285-295); Total Bilirubin 0.3 mg/dL (0.15-1.2); Total Protein 6.5 g/dL (6.6-8.7)
--- NOTE | 2022-07-09 | CT_ITS ---
Radiation Therapy Planning CT images; total exam DLP: 908.09 mGy-cm MTDD
--- NOTE | 2022-07-09 11:53 | N.ONRAD NP_ITS ---
Radiation Oncology New Patient Visit Patient: Roge Ozuna MR#: [id number] : 1950> Age: 71> Sex: Male> Dictated by: Dr. Joe White Date of Service: 07/09/2022 Referring Physician(s) : Shamar Yun M.D. 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 Radiotherapy to date: Summary > No prior radiation therapy. Chief Complaint / History of Present Illness: Mr. Ozuna is a 71-year-old man with adenosquamous carcinoma of the right lung. His diagnosis was made in August 2020 and his stage at that time was 4A (T3, N2, M1 a). He had a 5.2 x 3.5 cm mass in the right upper lobe with hilar and mediastinal lymphadenopathy as well as multiple bilateral lung nodules that appeared to represent metastatic disease. It was recommended he receive combined chemotherapy and immunotherapy. However Mr. Ozuna rejected chemotherapy and treatment was begun with pembrolizumab in October 2020. Restaging CT 03/25/2021 showed a mixed response with the primary cancer smaller, measuring 3.4 x 1.9 cm, but progression of the mediastinal and hilar lymphadenopathy as well as the lung nodules. A few days later his routine lab work showed severe neutropenia with an absolute neutrophil count of 200. 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 By mid May 2021 his neutrophil count had recovered. A restaging CT 06/04/2021 showed the primary cancer to be stable and probable improvement in the mediastinal lymphadenopathy and pulmonary nodules. A PET in November 2021 showed some improvement of the right upper lobe mass, slight progression in a right upper lobe nodule, but otherwise improvement in the lung nodules and mediastinal lymphadenopathy. He had repeat chest CT 06/25/2022 which shows progression of the primary cancer in the right upper lobe to 6.7 x 3.4 x 3.1 cm. The mass has become confluent with a previously noted satellite nodule. There is 1 right hilar node that has increased in size and now measures 10 mm. Mediastinal lymphadenopathy has resolved. Most of the previous bilateral pulmonary nodules have resolved. There is 1 satellite nodule measuring about 12 mm. Mr. Ozuna performance status is quite good. He is able to go about sedentary activities without any difficulty. Appetite is normal. He has no troublesome pulmonary symptoms. He has no bone pain. During his original work-up on brain imaging he was noted to have a mass in the pituitary which appeared to extend minimally into the right cavernous sinus and to displace the optic chiasm. Mr. Ozuna has not had any troublesome neurologic symptoms and he has not had any visual symptoms. 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 No active treatment recommended. Continued follow-up is recommended. Because of no progressive metastatic disease and progression of the primary cancer, it is recommended that Mr. Ozuna be evaluated for palliative radiation therapy. He continues to reject chemotherapy as a treatment option, and he confirmed that with me today. Current Medications: Aspirin 81, atorvastatin Calcium, celeBREX, finasteride, fluconazole, furosemide, furosemide, keytruda, levaquin, lyrica, nortriptyline HCl, omeprazole, predniSONE, pregabalin, primidone, prochlorperazine Maleate, tamsulosin HCl. Allergies: No Known Allergies Medical History: Benign prostatic hypertrophy, emphysema, gastroesophageal reflux disease, hypercholesterolemia, hypertension, peripheral neuropathy, rheumatoid arthritis. No history of collagen vascular disease. No previous radiation therapy. Surgical History: Appendectomy in 2008, covid 19 2nd dose in 12/2020 and flexible diagnostic bronchoscopy and mediastinoscopy on 08/20/2020. Family History: Father is having experienced heart disease. Mother is at age 19 having experienced tuberculosis. Father of heart disease and mother of TB. He had 2 half-brothers, one of whom is due to drug related problems. Social History: Last screened on 11/28/2021 - Yes - but has quit for 19 years. Smoked 2.0 packs/day for 40 years (80 pack years). Last screened on 11/28/2021 - Past drinker. Current Complaints / Review of Systems: . Vital Signs: Performed on 07/09/2022 8:56 AM BMI - 30.38 kg/m2 (high), Height - 72 in, Weight - 224.0 lbs, Temperature - 97.0 f, Pulse - 77 /min, Respiration - 16 /min, O2 Sat - 97 %, Pain - 0, Fatigue - 6 and BP - 124/ 69 mm(hg). Physical Exam: General: Alert, oriented, no acute distress. Neurologic: no gross abnormalities. Normal movement and strength in his extremities. Normal gait. Extraocular eye movements were normal. Neck: No masses detected. No lymphadenopathy. Supple. Lungs: Clear to percussion. On auscultation no rales, rhonchi, or wheezes. Heart: Regular rhythm. No murmur or gallop or rub. Abdomen: No distention. No organomegaly, mass, or tenderness. Bowel sounds normal. Musculoskeletal: No bone tenderness. 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 Lab: Test performed on 02/12/2022 8:53 AM eGFR - 64.0 ml/min (low). Imaging: See HPI Impression: Mr. Ozuna is a gentleman with a complex history of non-small cell lung cancer. He had metastatic disease at presentation based on having multiple bilateral lung nodules. He refused chemotherapy and therefore received immunotherapy. That treatment was complicated by an autoimmune neutropenia that required stopping treatment. Over time he has done well. Most pulmonary nodules have resolved. Mediastinal lymphadenopathy has resolved and he has a single hilar node that measures 10 mm and may represent disease. He has definitely had progression of the right upper lobe mass. In view of his good performance status, lack of symptoms from the cancer, and the lack of symptomatic metastatic disease, he is a candidate for palliative radiation to the area of the primary cancer and the right hilum. I discussed that with him. I discussed a palliative course of radiation over approximately 3 to 3-1/2 weeks. I discussed acute side effects and possible long-term complications. I primarily discussed the risk of pulmonary fibrosis which could worsen his pulmonary status and even lead to oxygen dependence. He wishes to proceed with treatment. Plan: Simulation performed today. Signed by: 07/09/2022 11:52:24 AM <<Signature on File>> Time spent with patient: CPT Code: CPT Code:
== END 2022-07-09 23:59 | disposition home or self-care (01) ==
PROVIDERS: Nurse Practitioner Family; PCP Family Medicine; Visit Provider Internal Medicine Medical Oncology
DX: Z51.0 Encounter for antineoplastic radiation therapy (principal); C34.11 Malignant neoplasm of upper lobe, right bronchus or lung; D70.1 Agranulocytosis secondary to cancer chemotherapy; T45.1X5A Adverse effect of antineoplastic and immunosuppressive drugs, initial encounter; C77.8 Secondary and unspecified malignant neoplasm of lymph nodes of multiple regions; C78.02 Secondary malignant neoplasm of left lung; Z79.52 Long term (current) use of systemic steroids; Z79.899 Other long term (current) drug therapy
CPT/HCPCS: 71260; 77290; 77295; 77300; 77334; 80053; 82565; 84520; 85025; 99205; 99214

== ENCOUNTER 2022-08-05 10:39 | Oncology outpatient (recurring) (ONCR) | payer MEDICARE, SELFPAY ==
--- NOTE | 2022-07-15 14:52 | ONCRAD TMN_ITS ---
Radiation Oncology Treatment Management Note Patient Name: Roge Ozuna Date of : 1950 Date of Service: 07/15/2022 Attending Physician: Lev Fournier M.D. Roge Ozuna is a 71 year-old white male diagnosed with a clinical stage IV ([id number]) non-small cell lung cancer. The patient has received 2.5 Gy of a prescribed 40 Chopra with an intensity modulated radiotherapy plan utilizing a step and shoot treatment technique. Upon review of systems, he denied pulmonary symptoms. On physical examination, the patient weighed 246 lbs. His temperature was 96.6 ???F with a blood pressure of 137/72 mmHg. The pulse was 74 bpm and his respiratory rate was 20. Oxygen saturation while breathing room air was 93%. There was no erythema within the treatment stephens. Continue thoracic radiotherapy as prescribed. Signed by: Dr. Lev Fournier 07/15/2022 2:51:07 PM
--- NOTE | 2022-07-15 14:53 | ONCRAD TMN_ITS ---
Radiation Oncology Treatment Management Note Patient Name: Roge Ozuna Date of : 1950 Date of Service: 07/15/2022 Attending Physician: Lve Fournier M.D. Roge Ozuna is a 71 year-old white male diagnosed with a clinical stage IV ([id number]) non-small cell lung cancer. The patient has received 2.5 Gy of a prescribed 40 Chopra with an intensity modulated radiotherapy plan utilizing a step and shoot treatment technique. Upon review of systems, he denied pulmonary symptoms. On physical examination, the patient weighed 223 lbs. His temperature was 96.7 ???F and the blood pressure was 127/69 mmHg. The pulse was 83 bpm and his respiratory rate was 18. The oxygen saturation while breathing room air was 97%. There was no erythema within the treatment stephens. Continue thoracic radiotherapy as prescribed. Signed by: Dr. Lev Fournier 07/15/2022 2:52:17 PM
--- NOTE | 2022-07-21 11:27 | ONCRAD TMN_ITS ---
Radiation Oncology Treatment Management Note Patient Name: Roge Ozuna Date of : 1950 Date of Service: 07/21/2022 Attending Physician: Lev Fournier M.D. Roge Ozuna is a 71 year-old white male diagnosed with a clinical stage IV ([id number]) non-small cell lung cancer. The patient has received 12.5 Gy of a prescribed 40 Chopra with an intensity modulated radiotherapy plan utilizing a step and shoot treatment technique. Upon review of systems, he denied pulmonary symptoms. On physical examination, the patient weighed 221 lbs. His temperature was 97.2 ???F and the blood pressure was 131/73 mmHg. The pulse was 85 bpm and his respiratory rate was 18. The oxygen saturation while breathing room air was 96%. There was no erythema within the treatment stephens. Decreased left sided breath sounds were auscultated. Continue thoracic radiotherapy as planned. Signed by: Dr. Lev Fournier 07/21/2022 11:26:11 AM
--- NOTE | 2022-07-28 11:11 | ONCRAD TMN_ITS ---
Radiation Oncology Treatment Management Note Patient Name: Roge Ozuna Date of : 1950 Date of Service: 07/28/2022 Attending Physician: Lev Fournier M.D. Roge Ozuna is a 71 year-old white male diagnosed with a clinical stage IV ([id number]) non-small cell lung cancer. The patient has received 25 Gy of a prescribed 40 Chopra with an intensity modulated radiotherapy plan utilizing a step and shoot treatment technique. Upon review of systems, he denied pulmonary symptoms. On physical examination, the patient weighed 222 lbs. His temperature was 97.1 ???F and the blood pressure was 126/78 mmHg. The pulse was 87 bpm and his respiratory rate was 16. The oxygen saturation while breathing room air was 98%. There was no erythema within the treatment stephens. Reduced left sided breath sounds were auscultated. Continue thoracic radiotherapy as prescribed. Signed by: Dr. Lev Fournier 07/28/2022 11:10:24 AM
--- NOTE | 2022-08-05 10:58 | N.ONRD TS_ITS ---
Radiation OncologyTreatment Summary Patient Name: Roge Ozuna Date of : 1950 Date of Service: 08/05/2022 Attending Physician: Lev Fournier M.D. Roge Ozuna has completed palliative thoracic radiotherapy for the management of a clinical stage IV ([id number]) non-small cell lung cancer. Thoracic radiation therapy was delivered between the dates of July 15, 2022 through August 05, 2022. A prescribed dose of 40 Gy was delivered in 15 fractions encompassing 22 elapsed days. The right upper-lobe mass was treated utilizing a 3-dimensional radiotherapy plan. The plan required four gantry angles (20???, 170???, 210???, and 320???). The collimator rotation 0???. The field sizes spanned between 10.7 cm x 8.9 cm to 11.7 cm x 8.9 cm. The SSDs measured a minimum of 83.1 cm to a maximum of 89.3 cm. The ports delivered 102 MU, 36 MU, 119 MU, and 105 MU corresponding to the gantry angles described. All treatments were performed with the Apart[employer] linear accelerator and an isocentric technique. The dose was calculated by Anisotropic Analytic Algorithm. A photon energy of 15 MV was prescribed with the plan normalized to deliver 100% of the prescription dose to 95% of the planning target volume. The plan was designed and approved by the [facility] physician. Signed by: Dr. Lev Fournier 08/05/2022 10:56:34 AM
== END 2022-08-08 23:59 | disposition home or self-care (01) ==
PROVIDERS: Absent Provider Internal Medicine Medical Oncology; PCP Family Medicine; Visit Provider Radiology Radiation Oncology
DX: Z51.0 Encounter for antineoplastic radiation therapy (principal); C34.31 Malignant neoplasm of lower lobe, right bronchus or lung; Z87.891 Personal history of nicotine dependence
CPT/HCPCS: 77336; 77387; 77412

== ENCOUNTER 2022-09-03 14:02 | Oncology outpatient (recurring) (ONCR) | payer MEDICARE, SELFPAY | END 2022-09-08 23:59 | disposition home or self-care (01) | PROVIDERS: PCP Family Medicine; Visit Provider Internal Medicine Medical Oncology | DX: C34.81 Malignant neoplasm of overlapping sites of right bronchus and lung (principal); C78.02 Secondary malignant neoplasm of left lung; Z92.21 Personal history of antineoplastic chemotherapy; Z92.3 Personal history of irradiation; Z87.891 Personal history of nicotine dependence | CPT/HCPCS: 99214 ==

== ENCOUNTER → 2022-09-17 13:00 | Outpatient (BNVA) | payer MEDICARE, SELFPAY | PROVIDERS: PCP Family Medicine; Visit Provider Internal Medicine Rheumatology | DX: L40.50 Arthropathic psoriasis, unspecified (principal); C34.11 Malignant neoplasm of upper lobe, right bronchus or lung; M54.50 Low back pain, unspecified; G89.29 Other chronic pain; Z79.52 Long term (current) use of systemic steroids | CPT/HCPCS: 99214 ==

== ENCOUNTER 2022-10-10 12:22 | Outpatient (CLI) | payer MEDICARE, SELFPAY ==
[2022-10-10] MEDS: iohexol 350 mg/mL 500 mL Btl (per mL) IV (12:28)
--- NOTE | 2022-10-10 12:30 | CT_ITS ---
WS: [id number] CT CHEST WITH INTRAVENOUS CONTRAST HISTORY: Restaging lung cancer. TECHNIQUE: Contiguous 5 mm axial imaging performed on the thorax. Coronal and sagittal reformats are submitted. All CT scans at [facility] use at least one of these dose optimization techniques: automated exposure control; mA and/or kV adjustment per patient size (includes targeted exams where dose is matched to clinical indication); or iterative reconstruction. CONTRAST: Omnipaque 350; 95 mL IV. DLP: 856.89 mGy.cm COMPARISON: 06/25/2022 Lungs and central airway: Severe centrilobular emphysema. Irregular conglomerate consolidation known to be a neoplasm has significantly decreased in size since 06/25/2022. Irregular shaped mass now measu res 5.0 x 2.6 cm as compared to 6.7 x 3.4 on the prior study. The smaller adjacent satellite nodules have essentially resolved. There is very mild narrowing of the RIGHT upper lobe bronchus with no prog ression. Interstitial thickening in the periphery of the lower lung stephens. RIGHT diaphragmatic nodul e measures 10 mm and is unchanged. 9 mm nodule along the medial LEFT diaphragmatic surface. No interv al change. Pleura: Normal. No pleural effusion. Heart and pericardium: Normal size heart. Mild coronary artery calcification. No effusion. Mediastinum and funmilayo: No mediastinum or hilar adenopathy. Vessels: Mild atherosclerosis aorta. No aneurysm. Normal size pulmonary artery. Chest wall and lower neck: No soft tissue masses. Upper abdomen: Hepatic steatosis. Fatty replacement of the pancreas. Mild cortical thinning of each k idney with bilateral cysts. Osseous structures: No destructive process. CT/CT chest w con* [id number] IMPRESSION: 1. Moderate decrease in size irregular mass in the RIGHT upper lobe. The adjac ent small satellite lesions have resolved are also decreased in size. Mass now measures 5.0 x 2.6 cm. 2. Very small nodules along the diaphragmatic surfaces of the RIGHT and LEFT l ower lobes. No change in size. 3. No mediastinal or hilar adenopathy. 4. Hepatic steatosis and fatty replacement of the pancreas.
[2022-10-10 13:04] LABS: Blood Urea Nitrogen 19 mg/dL (8-23)
== END 2022-10-10 12:23 | disposition home or self-care (01) ==
LOC: RAD 12:23
PROVIDERS: PCP Family Medicine; Visit Provider Internal Medicine Medical Oncology
DX: C34.11 Malignant neoplasm of upper lobe, right bronchus or lung; K76.0 Fatty (change of) liver, not elsewhere classified
CPT/HCPCS: 71260; 82565; 84520; Q9967

== ENCOUNTER 2022-11-27 10:02 | Oncology outpatient (recurring) (ONCR) | payer MEDICARE, SELFPAY ==
[2022-11-27 10:37] LABS: Basophils # 0.1 10^3/uL (0.0-0.1); Basophils % 1.1 %; Eosinophils # 0.2 10^3/uL (0.0-0.8); Eosinophils % 2.5 %; Hematocrit 45.9 % (42.0-52.0); Hemoglobin 14.6 g/dL (11.7-16.6); Lymphocytes % 15.9 %; Mean Corpuscular HGB Conc 31.8 g/dL (30.0-36.0); Mean Corpuscular Hemoglobin 30.5 pg (28.0-34.0); Mean Platelet Volume 9.2 fL (7.4-10.4); Monocytes # 0.6 10^3/uL (0.2-0.9); Monocytes % 9.5 %; Neutrophils # 4.53 10^3/uL (1.8-7.7); Neutrophils % 70.7 %; Nucleated Red Blood Cells % 0 %; Platelet Count 186 10^3/cmm (130-400); Red Blood Count 4.78 10^6/uL (4.1-5.3); Red Cell Distribution Width 13.1 % (12.1-15.1); White Blood Count 6.4 10^3/uL (4.0-10.0)
[2022-11-27 10:59] LABS: Alanine Aminotransferase 14 U/L (0-41); Albumin Level 4.3 g/dL (3.5-5.2); Alkaline Phosphatase 64 U/L (40-130); Anion Gap 16.3 (5-19); Aspartate Amino Transferase 26 U/L (0-40); Blood Urea Nitrogen 19 mg/dL (8-23); Calcium 9.3 mg/dL (8.5-10.5); Carbon Dioxide 26 mmol/L (22-29); Chloride 105 mmol/L (98-107); Globulin 2.8 g/dL (1.3-4.6); Glucose 118 mg/dL (65-115); Osmolality Calculated 299 mOsm/kg (285-295); Potassium 4.3 mmol/L (3.5-5.1); Sodium 143 mmol/L (136-145); Total Bilirubin 0.4 mg/dL (0.15-1.2); Total Protein 7.1 g/dL (6.6-8.7)
== END 2022-12-09 23:59 | disposition home or self-care (01) ==
PROVIDERS: PCP Family Medicine; Visit Provider Internal Medicine Medical Oncology
DX: Z08 Encounter for follow-up examination after completed treatment for malignant neoplasm (principal); Z85.118 Personal history of other malignant neoplasm of bronchus and lung; R22.2 Localized swelling, mass and lump, trunk; Z92.21 Personal history of antineoplastic chemotherapy; Z92.3 Personal history of irradiation; Z87.891 Personal history of nicotine dependence
CPT/HCPCS: 36415; 80053; 85025; 99213

== ENCOUNTER → 2023-01-21 13:03 | Outpatient (BNVA) | payer MEDICARE, SELFPAY | PROVIDERS: PCP Family Medicine; Visit Provider Internal Medicine Rheumatology | DX: L40.50 Arthropathic psoriasis, unspecified (principal); C34.31 Malignant neoplasm of lower lobe, right bronchus or lung; M54.50 Low back pain, unspecified; G89.29 Other chronic pain; G62.9 Polyneuropathy, unspecified | CPT/HCPCS: 99214 ==

== ENCOUNTER 2023-01-28 09:46 | Oncology outpatient (recurring) (ONCR) | payer MEDICARE, SELFPAY ==
[2023-01-28 10:17] LABS: Basophils # 0.1 10^3/uL (0.0-0.1); Basophils % 1.1 %; Eosinophils # 0.3 10^3/uL (0.0-0.8); Eosinophils % 3.2 %; Hematocrit 45.8 % (42.0-52.0); Hemoglobin 14.6 g/dL (11.7-16.6); Lymphocytes # 1.2 10^3/uL (0.8-4.8); Lymphocytes % 15.2 %; Mean Corpuscular HGB Conc 31.9 g/dL (30.0-36.0); Mean Corpuscular Hemoglobin 30.2 pg (28.0-34.0); Mean Corpuscular Volume 94.8 fl (80-94); Mean Platelet Volume 8.8 fL (7.4-10.4); Monocytes # 0.8 10^3/uL (0.2-0.9); Monocytes % 9.8 %; Neutrophils % 70.3 %; Nucleated Red Blood Cells % 0 %; Platelet Count 199 10^3/cmm (130-400); Red Blood Count 4.83 10^6/uL (4.1-5.3); Red Cell Distribution Width 12.9 % (12.1-15.1); White Blood Count 7.8 10^3/uL (4.0-10.0)
[2023-01-28 10:37] LABS: Alanine Aminotransferase 12 U/L (0-41); Albumin Level 4.2 g/dL (3.5-5.2); Alkaline Phosphatase 71 U/L (40-130); Anion Gap 14.3 (5-19); Aspartate Amino Transferase 29 U/L (0-40); Blood Urea Nitrogen 18 mg/dL (8-23); Calcium 8.7 mg/dL (8.5-10.5); Carbon Dioxide 28 mmol/L (22-29); Chloride 105 mmol/L (98-107); Globulin 2.9 g/dL (1.3-4.6); Glucose 110 mg/dL (65-115); Osmolality Calculated 299 mOsm/kg (285-295); Potassium 4.3 mmol/L (3.5-5.1); Sodium 143 mmol/L (136-145); Total Bilirubin 0.3 mg/dL (0.15-1.2); Total Protein 7.1 g/dL (6.6-8.7)
== END 2023-02-06 23:59 | disposition home or self-care (01) ==
LOC: ONCMED 09:47
PROVIDERS: Nurse Practitioner Family; PCP Family Medicine; Visit Provider Internal Medicine Medical Oncology
DX: Z51.0 Encounter for antineoplastic radiation therapy (principal); C34.31 Malignant neoplasm of lower lobe, right bronchus or lung; Z87.891 Personal history of nicotine dependence; Z53.9 Procedure and treatment not carried out, unspecified reason; C34.90 Malignant neoplasm of unspecified part of unspecified bronchus or lung
CPT/HCPCS: 36415; 80053; 85025; 88304; 88331; 99213

== ENCOUNTER 2023-02-03 15:22 | Outpatient (CLI) | payer MEDICARE, SELFPAY ==
--- NOTE | 2023-02-03 15:45 | US_ITS ---
WS: [id number] ULTRASOUND SOFT TISSUES suprasternal region. HISTORY: nodule upper chest COMPARISON: 10/10/2022 and 06/25/2022 TECHNIQUE: 2-D and color Doppler imaging is submitted. There is a hypoechoic solid mass in the region of palpable abnormality which was not present on the p rior CT. No increased vascularity. This mass measures 1.6 x 1.5 cm. US/US soft tissue head neck [id number] IMPRESSION: Solid mass in the suprasternal region measuring 1.6 x 1.5 cm. With history of l esau cancer this could very well be a metastatic site. Ultrasound-guided biopsy may be necessary for further characterization.
== END 2023-02-03 15:23 | disposition home or self-care (01) ==
PROVIDERS: PCP Family Medicine; Visit Provider Nurse Practitioner Family
DX: R22.2 Localized swelling, mass and lump, trunk (principal)
CPT/HCPCS: 76536

== ENCOUNTER 2023-02-26 12:53 | Oncology outpatient (recurring) (ONCR) | payer MEDICARE, SELFPAY ==
[2023-02-26 13:22] LABS: Basophils # 0.1 10^3/uL (0.0-0.1); Basophils % 0.7 %; Eosinophils # 0.2 10^3/uL (0.0-0.8); Eosinophils % 2.9 %; Hematocrit 42.7 % (42.0-52.0); Hemoglobin 13.6 g/dL (11.7-16.6); Lymphocytes # 0.8 10^3/uL (0.8-4.8); Lymphocytes % 10.1 %; Mean Corpuscular HGB Conc 31.9 g/dL (30.0-36.0); Mean Corpuscular Hemoglobin 30.2 pg (28.0-34.0); Mean Corpuscular Volume 94.9 fl (80-94); Mean Platelet Volume 9.3 fL (7.4-10.4); Monocytes # 0.8 10^3/uL (0.2-0.9); Neutrophils # 6.25 10^3/uL (1.8-7.7); Neutrophils % 76.1 %; Nucleated Red Blood Cells % 0 %; Platelet Count 176 10^3/cmm (130-400); Red Cell Distribution Width 13.2 % (12.1-15.1); White Blood Count 8.2 10^3/uL (4.0-10.0)
[2023-02-26 13:40] LABS: Alanine Aminotransferase 11 U/L (0-41); Albumin Level 3.7 g/dL (3.5-5.2); Alkaline Phosphatase 59 U/L (40-130); Anion Gap 14.4 (5-19); Aspartate Amino Transferase 19 U/L (0-40); Blood Urea Nitrogen 15 mg/dL (8-23); Calcium 8.6 mg/dL (8.5-10.5); Carbon Dioxide 25 mmol/L (22-29); Chloride 103 mmol/L (98-107); Globulin 2.9 g/dL (1.3-4.6); Glucose 109 mg/dL (65-115); Osmolality Calculated 287 mOsm/kg (285-295); Potassium 4.4 mmol/L (3.5-5.1); Sodium 138 mmol/L (136-145); Total Bilirubin 0.3 mg/dL (0.15-1.2); Total Protein 6.6 g/dL (6.6-8.7)
== END 2023-03-08 23:59 | disposition home or self-care (01) ==
LOC: ONCMED 12:53
PROVIDERS: Nurse Practitioner Family; PCP Family Medicine; Visit Provider Internal Medicine Medical Oncology
DX: Z08 Encounter for follow-up examination after completed treatment for malignant neoplasm; Z85.118 Personal history of other malignant neoplasm of bronchus and lung; Z90.2 Acquired absence of lung [part of]; Z92.21 Personal history of antineoplastic chemotherapy; Z92.3 Personal history of irradiation; Z87.891 Personal history of nicotine dependence
CPT/HCPCS: 36415; 80053; 85025; 99213

== ENCOUNTER → 2023-03-10 09:02 | Outpatient (BNVA) | payer MEDICARE, SELFPAY | PROVIDERS: PCP Family Medicine; Visit Provider Surgery | DX: R22.2 Localized swelling, mass and lump, trunk (principal); C34.31 Malignant neoplasm of lower lobe, right bronchus or lung | CPT/HCPCS: 99203 ==

== ENCOUNTER 2023-03-11 14:02 | Outpatient (CLI) | payer MEDICARE, SELFPAY ==
--- NOTE | 2023-03-11 14:00 | CT_ITS ---
WS: [id number] CTA OF THE CHEST WITH PULMONARY EMBOLISM PROTOCOL TECHNIQUE: High-resolution contrast enhanced CTA of the chest with coronal and sagittal reformatted i kaylas with pulmonary embolism protocol. MIP images are also reviewed. CLINICAL INFORMATION: hemoptysis COMPARISON: None. DLP: 435.[address] scans at [facility] use at least one of these dose optimization techniques: automated e xposure control; mA and/or kV adjustment per patient size (includes targeted exams where dose is matc hed to clinical indication); or iterative reconstruction. FINDINGS: Again seen is the solid suprasternal soft tissue mass similar in appearance to the recent ultrasound measuring 2.5 x 1.9 cm nonspecific but suspicious for metastatic disease given history. This measures larger compared to the recent ultrasound February 03, 2023. Proximal main pulmonary arteries are normal. Normal segmental and subsegmental pulmonary arteries. No evidence of pulmonary embolus. Aortic calcification. Coronary calcification. Narrowing of the RIGHT upper lobe bronchus with partial consolidation of the RIGHT upper lobe. This is new or progressed com pared to previous 10-30. Some of this is likely due to postobstructive pneumonia. Recurrent or progre ssive disease suspected. This can be further evaluated with bronchoscopy or PET/CT. Bronchovascular thickening along the RIGHT hilum. No anterior mediastinal or peribronchial lymphadeno heraclio. Numerous bilateral progressed pulmonary nodules suspicious for progressive metastatic disease the lar gest in the LEFT lower lobe measuring 1.5 x 1.5 cm and RIGHT lower lobe adjacent to the diaphragm sonny suring 1.7 CM. Additional smaller progressed pulmonary nodules within both lungs. Hazy groundglass infiltrates in RIGHT upper lobe and RIGHT middle lobe likely infectious or inflammat ory. Interstitial thickening in the lung bases. Hepatomegaly. Normal GE junction. Adrenal glands are radha l. Fatty atrophy of the pancreas. Adrenal glands are normal. CT/CT angio chest PE protcl [id number] IMPRESSION: 1. No evidence of pulmonary embolus. 2. Narrowing of the RIGHT upper lobe bronchus appears progressed compared to p revious with subtotal airspace consolidation RIGHT upper lobe in the area of pr ior neoplasm. Some this may be due to postobstructive pneumonia however recurre nt or progressed disease is suspected. Consider further evaluation with PET/CT and/or bronchoscopy. 3. Soft tissue nodule at the thoracic inlet increased in size compared to the recent ultrasound February 03, 2023 measuring 2.5 x 1.9 CM. This is indeterminant but suspicious for neoplasm considering history. 4. Slightly spiculated irregular nodule in the LEFT lower lobe posterior media lly appears progressed compared to previous suspicious for metastatic disease. Nodule measures 1.5 x 1.5 cm. 5. Additional notable progressed nodule in the RIGHT lower lobe along the fiss ure measuring near the diaphragm measuring 1.7 cm also progressed compared to p revious suspicious for progressive metastatic disease. 6. Groundglass hazy opacities in the RIGHT upper lobe and RIGHT middle lobe li jordana infectious or inflammatory. 7. Advanced chronic emphysematous changes with bulla formation in the upper lo bes. 8. Interstitial thickening in the lung bases bilaterally.
[2023-03-11] MEDS: iohexol 350 mg/mL 500 mL Btl (per mL) IV (14:25)
== END 2023-03-11 14:03 | disposition home or self-care (01) ==
LOC: RAD 14:07
PROVIDERS: PCP Family Medicine; Visit Provider Internal Medicine Medical Oncology
DX: C34.31 Malignant neoplasm of lower lobe, right bronchus or lung (principal); R04.2 Hemoptysis; R91.8 Other nonspecific abnormal finding of lung field
CPT/HCPCS: 71275; Q9967

== ENCOUNTER 2023-04-16 10:59 | Day surgery (SDC) | payer MEDICARE, SELFPAY ==
[2023-04-15 14:24] VITALS: BMI 29.8
[2023-04-16] VITALS (7 sets, daily range): BP systolic 122–141; BP diastolic 62–80; PULSE 85–108; RESP 14–20; TEMP 36.1–36.4; O2SAT 94–97
[2023-04-16] MEDS: sodium chloride 0.9% 1,000 ML 30 ML IV (11:39)
--- NOTE | 2023-04-16 11:55 | P.ANESASSM_ITS ---
Pre-Anesthetic Assessment Height/Weight: Height 1.83 m Weight 99.79 kg Temp Pulse Resp BP Pulse Ox O2 Del Method 97.3 F L 108 H 20 H 122/80 94 Room Air 04/16/23 11:17 04/16/23 11:17 04/16/23 11:17 04/16/23 11:17 04/16/23 11:17 04/16/23 11:32 Operation Date: 04/16/23 12:40 Proposed Procedures p [id number] excision subcutaneous anterior chest wall mass R22.2(Not Applicable) - Quintin Branch DO Familial anesthetic complications: None Was Beta Adriana taken within 24 hours: N/A Was Clonidine taken within 24 hours: N/A Last intake: Intake Last Liquid Date 04/15/23 Last Liquid Time 21:00 Last Solid Date 04/15/23 Last Solid Time 17:00 Social No alcohol and No tobacco Exam alert, oriented x 3, clear to auscultation bilaterally and regular rate & rhythm Airway Mallampati: Class III Dentition: chipped Pulmonary Chronic Obstructive Pulmonary Disease lung cancer [facility] [place] Rheumatoid Arthritis (steroid use within last year) Anesthetic Plan ASA status: 4 Anesthesia: MAC Risk of > 500 ml blood loss (7ml/kg in children): No Medications/Allergies Home Medications Medication Instructions Recorded Confirmed Last Taken Type finasteride 5 mg tablet 5 mg PO DAILY 08/08/20 04/16/23 04/15/23 History tamsulosin 0.4 mg capsule 0.8 mg PO DAILY 08/08/20 04/16/23 04/15/23 History nortriptyline 10 mg capsule 10 mg PO BEDTIME 03/06/21 04/16/23 04/15/23 History potassium chloride 10 mEq 10 meq PO DAILY #5 tabs 06/10/21 04/16/23 Unknown Rx tablet,extended release (K-Tab) furosemide 20 mg tablet 20 mg PO DAILY SWELLING/EDEMA #30 12/02/22 04/16/23 04/15/23 Rx tabs prednisone 5 mg tablet See Rx Instructions PO .COMPLEX 01/21/23 04/16/23 Unknown Rx PRN joint pain flares #90 tabs gabapentin 300 mg capsule 300 mg PO BID 04/15/23 04/16/23 04/15/23 History Allergies Allergy/AdvReac Type Severity Reaction Status Date / Time hydroxychloroquine AdvReac Intermediate DIzzy Verified 04/15/23 14:14 Current Medications Generic Name Dose Route Start Last Admin Trade Name Edwin PRN Reason Stop Dose Admin Sodium Chloride 1,000 mls @ 30 mls/hr 04/16/23 11:15 04/16/23 11:39 Sodium Chloride 0.9% IV 04/17/23 11:14 30 mls/hr .Q24H VITA Administration PFSH Anesthesia Medical History Benign prostatic hyperplasia Brain tumor 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 Chronic low back pain COPD (chronic obstructive pulmonary disease) GERD (gastroesophageal reflux disease) Hypercholesteremia Hypertension Peripheral neuropathy Peripheral neuropathy Psoriatic arthritis not significantly active Rheumatoid arthritis Surgical History History of appendectomy History of appendectomy History of bronchoscopy (08/20/20) Flexible diagnostic bronchoscopy and mediastinoscopy Family History Father CAD (coronary artery disease) Other Suicide Denies family history of Diabetes Clotting disorder Dementia Hyperlipidemia Psychiatric illness Chronic kidney disease (CKD) Anesthesia complication Bleeding disorder Lung disease Cancer Hypertension Stroke Social History Smoking and tobacco status: never smoked Quit status (tobacco): has quit using tobacco Year quit tobacco: 2002 Alcohol intake: never Substance/Drug Use: never Lives independently: Yes Household members: none Housing: House Marital status: Data Anesthesia Cardiac Studies: No Data to Display
--- NOTE | 2023-04-16 12:11 | PM.HP ---
Providers/Chief Complaint Primary Care Provider: Mike Og MD Chief Complaint: R22.2 History of Present Illness Roge Ozuna is a 72 year old male Here for excision of chest wall mass Medications/Allergies Home Medications Medication Instructions Recorded Confirmed Last Taken Type finasteride 5 mg tablet 5 mg PO DAILY 08/08/20 04/16/23 04/15/23 History tamsulosin 0.4 mg capsule 0.8 mg PO DAILY 08/08/20 04/16/23 04/15/23 History nortriptyline 10 mg capsule 10 mg PO BEDTIME 03/06/21 04/16/23 04/15/23 History potassium chloride 10 mEq 10 meq PO DAILY #5 tabs 06/10/21 04/16/23 Unknown Rx tablet,extended release (K-Tab) furosemide 20 mg tablet 20 mg PO DAILY SWELLING/EDEMA #30 12/02/22 04/16/23 04/15/23 Rx tabs prednisone 5 mg tablet See Rx Instructions PO .COMPLEX 01/21/23 04/16/23 Unknown Rx PRN joint pain flares #90 tabs gabapentin 300 mg capsule 300 mg PO BID 04/15/23 04/16/23 04/15/23 History Allergies Allergy/AdvReac Type Severity Reaction Status Date / Time hydroxychloroquine AdvReac Intermediate DIzzy Verified 04/15/23 14:14 PFSH Acute PFSH: Medical History Benign prostatic hyperplasia Brain tumor 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 Chronic low back pain COPD (chronic obstructive pulmonary disease) GERD (gastroesophageal reflux disease) Hypercholesteremia Hypertension Peripheral neuropathy Peripheral neuropathy Psoriatic arthritis not significantly active Rheumatoid arthritis Surgical History History of appendectomy History of appendectomy History of bronchoscopy (08/20/20) Flexible diagnostic bronchoscopy and mediastinoscopy Family History Father CAD (coronary artery disease) Other Suicide Denies family history of Diabetes Clotting disorder Dementia Hyperlipidemia Psychiatric illness Chronic kidney disease (CKD) Anesthesia complication Bleeding disorder Lung disease Cancer Hypertension Stroke Social History Smoking and tobacco status: never smoked Quit status (tobacco): has quit using tobacco Year quit tobacco: 2002 Alcohol intake: never Substance/Drug Use: never Lives independently: Yes Household members: none Housing: House Marital status: Vitals/I&O/Wt Last Vital Signs Temp 97.3 F L 04/16/23 11:17 Pulse 108 H 04/16/23 11:17 Resp 20 H 04/16/23 11:17 BP 122/80 04/16/23 11:17 Pulse Ox 94 04/16/23 11:17 O2 Del Method Room Air 04/16/23 11:32 Weight last 48 hrs Weight 220 lb A&P Assessment and plan (1) Nodule of chest wall: Plan Excision of chest wall mass The risks and benefits of the procedure, including but not limited to, bleeding, infection, recurrence, scar, numbness, pain, damage to surrounding structures, were explained to the patient. They are understanding of the risks and wish to proceed. Attestations Medical Necessity Statement*: Home Coding Level of Care Code Acute Code for Chg Fwd Diagnoses Nodule of chest wall R22.2
[2023-04-16] MEDS: ceFAZolin 2,000 MG in sodium chloride 0.9% (plus) 50 ML 100 MG IV (12:53)
[2023-04-16] MEDS: lidocaine-epi 2% 20 mL INJ 10 ML INJECTION (13:29)
--- NOTE | 2023-04-16 13:38 | PM.OP ---
Operative Report Date of procedure: April 16, 2023 Pre-op diagnosis: Chest wall mass Post-op diagnosis: same Procedure done: Excision of chest wall mass Implants: None Specimens removed/disposition: Elliptical excision of chest wall mass Surgeon: Dr. Quintin Branch, Anesthesia: General Estimated blood loss (mL): 5 Complications: None apparent Brief History: This very pleasant 72-year-old gentleman with metastatic adenosquamous carcinoma of the lung. He previously had a mediastinoscopy and now has a subcutaneous growth that his incision on his chest. He desires excision. The risk and benefits were explained and documented. Procedure: The area was inspected prepped and draped in the usual sterile fashion. A timeout was performed. All present were in agreement. 2% lidocaine with epinephrine was used to anesthetize the area around the lesion a 15 blade scalpel was used to make a 4.5 cm elliptical excision over the mass. Incision was carried down to subcutaneous tissue and the specimen was passed off. Mass was 4.5 cm in greatest diameter. Hemostasis was created with electrocautery. Dermis was approximated with 3-0 Vicryl and a subcuticular interrupted fashion. Skin Was closed with 4-0 Monocryl in a running subcuticular fashion. Skin glue was used. Patient tolerated the procedure well.
--- NOTE | 2023-04-16 14:14 | ANE.PACU2 ---
Inpatient post-anesthesia follow up: Airway intact: Yes Vital signs: Temperature 97.0 F Pulse Rate 85 Respiratory Rate 18 Blood Pressure 141/64 Pulse Oximetry 97 Oxygen Delivery Me thod Room Air Oxygen Flow Rate 6 Fraction of Inspir ed Oxygen Hydration adequate: Yes Nausea and vomiting: Yes Pain level: 1 Mental status: Baseline
== END 2023-04-16 14:22 | disposition home or self-care (01) ==
PROVIDERS: PCP Family Medicine; Visit Provider Surgery
PROC: (CPT 21552; principal; 2023-04-16 12:30)
DX: C34.90 Malignant neoplasm of unspecified part of unspecified bronchus or lung (principal); C79.89 Secondary malignant neoplasm of other specified sites; K21.9 Gastro-esophageal reflux disease without esophagitis; I10 Essential (primary) hypertension
CPT/HCPCS: 21552; 88309; 88342; J0690; J2704; J3010; J7030

== ENCOUNTER → 2023-04-29 13:23 | Outpatient (BNVA) | payer MEDICARE, SELFPAY | PROVIDERS: PCP Family Medicine; Visit Provider Surgery | DX: Z98.890 Other specified postprocedural states (principal) | CPT/HCPCS: 99213 ==

== ENCOUNTER 2023-05-23 06:08 | Outpatient (CLI) | payer MEDICARE, SELFPAY ==
--- NOTE | 2023-05-23 10:30 | PETR_ITS ---
PROCEDURE INFORMATION: Exam: PET/CT Skull Base to Mid-thigh Exam date and time: 05/23/2023 11:21 AM Age: 72 years old Clinical indication: Condition or disease; Primary cancer: Lung cancer; Follow-up oncological assessment; Additional info: Restaging LABS AND CLINICAL REPORTS: Glucose: 91 mg/dl Treatment strategy for malignancy (PET staging): Restaging (PS) TECHNIQUE: Imaging protocol: Following at least four-hour fasting and following the injection of radiopharmaceutical, low dose CT images were obtained. Then, PET images were obtained. Attenuation corrected images were constructed using the CT scan. Fused images of PET and CT were reviewed. The standardized uptake values (SUV) reported below are maximum values within a region of interest, expressed in gm/ml. Exam includes orbital meatal line to mid-thigh. Radiopharmaceutical: 12.37 mCi F-18 FDG (Fluorodeoxyglucose), IV. Time of imaging post radiopharmaceutical administration: 1 hour Injection site: Left antecubital COMPARISON: CTA chest 03/11/2023, PT PET Scan 11/23/2021 9:21 AM (rotating MIP and fused axial, sagittal and coronal images are provided however the dedicated PET and CT images are not available for comparison). FINDINGS: Brain: Abnormal uptake is identified in the region of the pituitary gland, SUV max 18.2. Uptake on the prior PET-CT also appears elevated in this region although SUV measurements on the prior exam cannot be made as the prior axial PET images are not available for direct comparison. Pharynx: No abnormal uptake. Larynx: There is physiologic appearing uptake in the region of the vocal cords. Lungs, pleura and trachea: An ovoid heterogeneous solid right upper lobe mass measuring approximately 6.2 x 3.9 cm on series 3, image 46 is appears more confluent compared with 03/11/2023 SUV max 21.0. A small focus of elevated uptake slightly anterior to this region is noted on PET series 4, image 47 measuring approximately 1 cm, SUV max 9.2. Uptake within the right upper lobe within two lesions which were more laterally located on the prior PET-CT was previously reported within SUV max 10.5 and SUV max 5.6, respectively. Rounded and ovoid regions of lobulated fluid along the anterior posterior aspect of these regions is noted, measuring up to 5.3 x 2.2 cm in the axial plane anteriorly on series 3, image 45. Patchy consolidation in the right upper lobe and the right perihilar region is decreased compared with 03/11/2023. Narrowing of the right upper lobe bronchus appears similar. A bandlike area streaky linear density in the superior segment of the right lower lobe demonstrates low-level activity, SUV max 3.4. Moderate bilateral centrilobular and paraseptal emphysematous changes are present. Elevated uptake in the mid to inferior right hilar region is noted without a well-defined lesion, SUV max 4.4. There is a soft tissue density noncalcified solid inferior medial left lower lobe nodule measuring 1 cm on series 3, image 74 with an SUV max 2.2. This nodule is decreased in size, previously measuring 1.5 cm in diameter on the exam from 03/11/2023. A solid noncalcified right lower lobe nodule measuring 1.1 cm on series 3, image 65 is not radiotracer avid (previously measuring 1.5 cm in diameter on the CT from 03/11/2023). Heart: Normal physiologic uptake. Mediastinal space: No abnormal uptake. Liver: No abnormal uptake. Gallbladder and bile ducts: No abnormal uptake. Pancreas: No abnormal uptake. Spleen: No abnormal uptake. Adrenal glands: No abnormal uptake. Kidneys and ureters: Normal physiologic uptake. Stomach and bowel: No abnormal uptake. Vasculature: No abnormal uptake. There are diffuse atherosclerotic changes, including within the coronary arteries. Lymph nodes: No abnormal uptake. No lymphadenopathy in the head, neck, chest, abdomen, pelvis, and extremities. Bones/joints: No abnormal uptake in the visualized axial and appendicular skeleton. [id number] degenerative changes in the spine are noted. There is relative straightening of the lumbar lordosis, with mild kyphosis of the upper thoracic spine. Soft tissues: No abnormal uptake in the visualized head, neck, chest, abdomen, pelvis, and extremities. METRICS: Mediastinal blood pool: SUV max 2.7 PET/PET skulltothi SUBSEQ [id number] IMPRESSION: 1. An ovoid masslike region of soft tissue density in the medial right upper lobe is radiotracer avid (SUV max 21.0), and an adjacent smaller more anteriorly located region of right upper lobe elevated uptake is present. The degree of uptake is greater than that reported within two radiotracer avid regions of malignancy on the prior PET-CT. The current areas of uptake are more laterally located than the previously identified lesions. These findings are highly concerning for malignancy. 2. Interval decrease in consolidation of the right upper lobe with similar narrowing of the right upper lobe bronchus. 3. Bandlike density in the superior segment of the right lower lobe is mildly radiotracer avid, likely inflammatory in etiology. 4. Interval decrease in size of solid nodules in the bilateral lower lobes compared with 03/11/2023. The left lower lobe nodule demonstrates uptake less than mediastinal blood pool in the right lower lobe nodule is not radiotracer avid. No new nodules are identified. 5. Abnormal uptake in the pituitary gland is noted for which malignancy cannot be excluded. Consider dedicated brain MRI with and without contrast with pituitary protocol for further assessment. 6. Additional nonurgent findings as detailed above.
== END 2023-05-23 06:09 | disposition home or self-care (01) ==
LOC: RAD 05-25 06:09
PROVIDERS: PCP Family Medicine; Visit Provider Internal Medicine Medical Oncology
DX: C34.31 Malignant neoplasm of lower lobe, right bronchus or lung (principal)
CPT/HCPCS: 78815; A9552

== ENCOUNTER 2023-05-28 13:54 | Oncology outpatient (recurring) (ONCR) | payer MEDICARE, SELFPAY | END 2023-06-08 23:59 | disposition home or self-care (01) | PROVIDERS: PCP Family Medicine; Visit Provider Internal Medicine Medical Oncology | DX: C34.31 Malignant neoplasm of lower lobe, right bronchus or lung (principal); C79.2 Secondary malignant neoplasm of skin; M25.562 Pain in left knee; M25.561 Pain in right knee; R42 Dizziness and giddiness; R20.0 Anesthesia of skin; Z87.891 Personal history of nicotine dependence | CPT/HCPCS: 99214 ==

== ENCOUNTER 2023-06-25 09:57 | Oncology outpatient (recurring) (ONCR) | payer MEDICARE, SELFPAY | END 2023-07-09 23:59 | disposition home or self-care (01) | PROVIDERS: PCP Family Medicine; Visit Provider Internal Medicine Medical Oncology | DX: C34.31 Malignant neoplasm of lower lobe, right bronchus or lung (principal); C78.02 Secondary malignant neoplasm of left lung; Z90.2 Acquired absence of lung [part of]; Z87.891 Personal history of nicotine dependence | CPT/HCPCS: 99213 ==

== ENCOUNTER 2023-08-25 15:52 | Oncology outpatient (recurring) (ONCR) | payer MEDICARE, SELFPAY | END 2023-09-08 23:59 | disposition home or self-care (01) | LOC: ONCMED 15:53 | PROVIDERS: PCP Family Medicine; Visit Provider Internal Medicine Medical Oncology | DX: C34.11 Malignant neoplasm of upper lobe, right bronchus or lung (principal); C77.9 Secondary and unspecified malignant neoplasm of lymph node, unspecified; R06.02 Shortness of breath; Z87.891 Personal history of nicotine dependence | CPT/HCPCS: 99214 ==

== ENCOUNTER 2023-11-17 14:18 | Outpatient (CLI) | payer MEDICARE, SELFPAY ==
--- NOTE | 2023-11-17 14:30 | MR_ITS ---
WS: [id number] MRI BRAIN WITH AND WITHOUT CONTRAST HISTORY: having frequent headaches, history of lung ca COMPARISON: 03/25/2021, 09/10/2020 TECHNIQUE: Multiplanar imaging performed through the brain with MultiHance 20 ml's IV. Patient has a known heterogeneous enhancing intrasellar mass with suprasellar extension. Mass has sli ghtly increased in size since the prior study. Mass extends 2.1 cm superiorly as compared to 1.7 cm o n the prior examination. Transverse diameter of 1.6 cm as compared to 1.4 cm. Anterior posterior diam eter 1.5 cm. There is slightly greater mass effect upon the optic chiasm. Mass extends to about the c avernous sinuses. There is diffuse enhancement on the post contrast sequences. Partial encasement of the RIGHT cavernous carotid artery. The encasement appears progressed as compared to 03/25/2021. There is a single new enhancing 5 mm lesion in the posterior LEFT parieto-occipital region involving the cortex which was not present on the prior study. No additional enhancing nodules are identified. There is mild cerebral atrophy and mild small vessel disease. Normal sized ventricles. Paranasal sinuses: Well aerated with no significant disease. Mastoid air cells: Normal. Calvarium and scalp: Normal. IMPRESSION: 1. New 5 mm enhancing nodule LEFT parotid occipital cortex. Highly suspicious for metastatic site as this was not present on prior studies. 2. Patient has a known pituitary macroadenoma which has slightly increased in size since 03/25/2021. Largest increase in dimension is superior-inferior by 0.4 cm. Slightly greater encroachment and parti al encasement of the RIGHT cavernous sinus.
[2023-11-17] MEDS: gadobenate dimeglumine 20 mL vial IV (15:38)
== END 2023-11-17 14:19 | disposition home or self-care (01) ==
LOC: RAD 14:19
PROVIDERS: PCP Family Medicine; Visit Provider Nurse Practitioner Family
DX: R51.9 Headache, unspecified (principal); C34.31 Malignant neoplasm of lower lobe, right bronchus or lung; R93.0 Abnormal findings on diagnostic imaging of skull and head, not elsewhere classified; D35.2 Benign neoplasm of pituitary gland
CPT/HCPCS: 70553; A9577

== ENCOUNTER 2023-11-26 13:45 | Oncology outpatient (recurring) (ONCR) | payer MEDICARE, SELFPAY ==
--- NOTE | 2023-11-19 13:39 | ONCRAD EPV_ITS ---
Radiation Oncology Established Patient Visit Patient: Roge Ozuna [id number] : 1950 Age: 73 Sex: Male Dictated by: Dr. 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 He had been followed for an abnormal chest CT scan, with the main concern being a nodule at the right lung base noted on a study from June 2017. On follow-up studies that nodule had resolved. Also noted were some fibrotic changes in the right upper lobe which had remained stable as of August 2018. A repeat chest CT on 07/04/2019 showed progression in the scarring and soft tissue surrounding bullous disease in the right upper lobe, possibly due to progression of fibrosis, though early neoplasm was not excluded. His repeat chest CT on 07/19/2020 showed significant progression of irregular soft tissue mass surrounding the cystic/cavitary fibrotic lesion in the right upper lobe. The lesion measured approximately 5.2 x 3.5 cm. The appearance was highly suspicious for neoplasm. Also noted was soft tissue thickening along the left lateral tracheal wall, possibly due to focal area of mucus. Also noted were bilateral pulmonary nodules ranging in size from a few millimeters up to 10 mm, suspicious for metastatic disease. Further evaluation with PET/CT on 07/28/2020 showed FDG avid cavitary right upper lobe mass measuring 4.5 x 5.1 cm, SUV 12.1, indicating high probability of malignancy. Secondary pulmonary nodules were noted in the right upper lobe, superior segment right lower lobe, left apex, and medial left lower lung base, consistent with metastatic disease. A 1.7 cm right paratracheal lymph node was also FDG avid, SUV 4.8, consistent with a metastatic node. He was referred to Dr. Moreno. On 08/20/2020 he underwent flexible diagnostic bronchoscopy with endobronchial biopsy from the right upper lobe and mediastinoscopy with biopsy of station 4R lymph node. Pathology from the right upper lobe biopsy showed adenosquamous carcinoma favoring lung primary. 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 A next generation sequencing study showed no actionable mutations. The PD-L1 (22c3) expression was positive at 25% and the PD-L1 (28-8) expression was positive at 35%. His staging head MRI showed an intrasellar pituitary mass with suprasellar extension measuring 1.4 x 1.6 x 1.7 cm. There was associated impingement on the optic chiasm. 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 There appeared to be involvement of the right cavernous sinus but cavernous carotid arteries were noted to be patent. There were no suspicious enhancing intracranial parenchymal abnormalities noted. Dr. Yun had seen him initially on 09/03/2020. With evidence of multiple pulmonary metastatic lesions bilaterally, it appeared that he would require systemic therapy. By next generation sequencing, his tumor was positive for PD-L1 expression at 25% for PD-L1 (22c3). There were no actionable mutations identified. With his PD-L1 positive at less than 50%, he was recommended to have combined chemotherapy/immunotherapy, per NCCN guidelines. However, he opted to have immunotherapy alone. He then began cycle 1 of pembrolizumab on 10/17/2020. He tolerated it well and he continued treatment at 3-week intervals. He received cycle 5 on 01/24/2021. At his follow-up visit on 02/14/2021 he appeared stable clinically. He then continued immunotherapy with pembrolizumab but with his treatment changed to the 6-week dosing interval. On 03/06/2021 he was seen in the emergency room with shortness of breath. He also reported having bilateral knee pain. He was noted to have large joint effusions on x-ray. CT pulmonary angiogram showed no evidence of pulmonary embolism. A new spiculated mass measuring 39 x 28 x 32 mm was noted in the right upper lobe. Also noted were prominent mediastinal and hilar lymph nodes. There was advanced bullous emphysema. He was given a Medrol dose pack and symptomatic management with hydrocodone/APAP. A scheduled follow-up chest CT on 03/25/2021 showed right upper lobe spiculated mass measuring 3.4 x 1.9 cm with increase in size of mediastinal and hilar lymph nodes compared to the July 2020 study, and a 9 mm lymph node was noted near the lesser curvature of the stomach. Also noted were new scattered subcentimeter opacifications bilaterally and a 9 mm nodule in the posterior right lower lobe, with early metastatic disease not excluded. Brain MRI at that time showed stable appearance of the mass centered in the sella turcica with suprasellar extension measuring 1.7 x 1.6 x 1.7 cm, consistent with pituitary macroadenoma. Minimal extension was noted into the right cavernous sinus and there was mild displacement of the optic chiasm. He had further laboratory studies on 03/28/2021. At that time his hemoglobin had dropped to 11.8 g with his white blood cell count low at 1800 and his platelet count normal at 171,000. The differential showed only 12% neutrophils, with an absolute neutrophil count of 200. He began on steroid therapy with prednisone 40 mg daily, subsequently decreased to 20 mg daily. His repeat CBC on 04/05/2021 showed hemoglobin back up to 14.1 g, but there was further decrease in the white blood cell count with his ANC reported at 0. With those findings, he began antibiotic coverage with Levaquin and his prednisone dosage was increased to 60 mg daily. During subsequent follow-up he continued to have severe neutropenia, and he continued to have fairly severe generalized weakness. He did not report any fever, chills, or other symptoms to suggest any acute infectious process. As of 05/15/2021 his white count had increased to 1500, but with ANC still low at approximately 100. His hemoglobin was just slightly decreased at 11.7 g with platelet count normal at 213,000. I did have him reduce prednisone to 20 mg daily. As of his follow-up visit on 05/22/2021 his neutrophil count had recovered to 5400. His prednisone dosage at that point was reduced to 10 mg daily, and it was subsequently discontinued. Restaging CT scans on 06/04/2021 showed stable right upper lobe spiculated mass measuring 3.4 x 1.9 cm. Emphysematous changes with fibrosis and groundglass densities were noted throughout both lungs and small satellite nodules were noted in the superior segment right lower lobe and in the anterior right upper lobe, both measuring about 7 mm. There were mildly enlarged mediastinal and subcarinal lymph nodes, the largest measuring 11 mm. 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 With those findings, he continued on observation/symptomatic management. His other medical illnesses include hypertension, hyperlipidemia, GERD, rheumatoid arthritis, peripheral neuropathy, benign prostatic hypertrophy, and emphysema. He has history of smoking 2 packs of cigarettes daily. He quit smoking 15 years ago. INTERIM HISTORY: On 06/10/2021 he presented to the emergency room with swelling in both legs. Earlier in the day he had been noted to have low blood pressure, but it was back up to normal at the time of his ER visit. He was recommended to restart his furosemide along with a potassium supplement. I had seen him for a follow-up visit on 06/13/2021. At that point he was still having some orthostatic symptoms as well as some weakness in both legs. I did have him try reducing his Lyrica dosage, and I opted to keep him off prednisone. As of his follow-up visit on 07/16/2021 he continued to have significant joint pain and limited activity, and had opted to restart the prednisone at 10 mg twice daily. He also had an increase his furosemide dosage for his lower extremity edema. At his follow-up visit on 09/04/2021 he was feeling better generally, though he continued to have swelling in the lower extremities, and he had begun to taper the prednisone dosage. Repeat chest CT on 10/17/2021 showed slight increase in the right upper lobe spiculated mass measuring 3.5 x 2.0 x 3.5 cm compared to 3.4 x 1.9 x 3.1 cm on the prior study from May. An additional nodule in the right upper lobe anteriorly measured 1.6 cm compared to 0.7 cm. Smaller nodules in the superior segment right lower lobe were noted to have improved and a subpleural opacity in the left lower lobe appeared stable at 7 cm. There was improved mediastinal and subcarinal lymphadenopathy. There were advanced chronic emphysematous changes with bulla formation. Restaging PET/CT on 11/23/2021 showed modest improvement in the central right upper lobe malignancy measuring 2.4 x 3.5 cm compared to 4.4 x 5.1 cm on the July 2020 study. The SUV was 10.5. There was slight progression of the secondary right upper lobe nodule measuring 1.7 cm compared to 1.2 cm with SUV 5.6. The superior segment right lower lobe nodule was no longer evident. FDG positive mediastinal lymph nodes appeared to have resolved. Radiation Note11/19/2023: Patient is seen today to discuss the findings on his MRI. We reviewed his new headache that he has had since he got his RSV vaccination. He said initially it was very severe. It was there every morning and did not respond to ibuprofen or Tylenol. Over the intervening weeks and has decreased in severity and now he can take 1 ibuprofen which will leave the headache all day. It is not keeping him awake at night. Is located over the right eye and then radiates back around to his neck. He has not had any visual changes or any other symptoms. Radiotherapy to Date: Course: RT Lung 2021, Treatment Site: RT Lung 2021, Ref. ID: [id number], Energy: 15X, Dose/Fx (cGy): 250, #Fx: 16 / 16, Dose Correction (cGy): 0, Total Dose (cGy): 4,000, Start Date: 07/15/2022, End Date: 08/05/2022, Elapsed Days: 21 Current History: Current Medications: albuterol sulfate 90 mcg/actuation 2 puffs inhalation Q6H PRN, docusate sodium (Colace) 100 mg PO BID, finasteride 5 mg PO DAILY, fluticasone propion-salmeterol 250-50 mcg/dose 1 inh inhalation BID, furosemide 20 mg PO DAILY, gabapentin 300 mg PO BID, nortriptyline 10 mg PO BEDTIME, potassium chloride ER (K-Tab) 10 mEq PO DAILY, prednisone 5 mg PO DAILY PRN, tamsulosin 0.8 mg PO DAILY, tramadol 50 mg PO Q4H PRN Allergies: hydroxychloroquine Adverse Reaction (Intermediate, Verified 11/13/23 10:05) Dizzy Current Complaints / Review of Systems: . Vital Signs: Performed on 11/19/2023 1:09 PM BMI - 27.722 kg/m2 (high), Height - 72 in, Weight - 204.4 lbs, Temperature - 97.2 f, Pulse - 95 /min, Respiration - 16 /min, O2 Sat - 96 %, Pain - 0, Fatigue - 0 and BP - 153/ 85 mm(hg)(high/). Physical Exam: General: Alert and oriented x 3. No acute distress. HEENT: Normocephalic, atraumatic. Extraocular Movements Intact: Pupils Equal, Round, Reactive to Light: Sclerae anicteric. . . LUNGS: Respiratory rate is regular nonlabored. HEART: Regular rate and rhythm,. MUSCULOSKELETAL: No gross musculoskeletal abnormalities noted ABDOMEN: Nonprotuberant nontender EXTREMITIES: No clubbing cyanosis or edema NEUROLOGIC: Alert and orient x 3. Gait and speech within normal limits Psych: Affect appropriate for current situation Performance Status: ECOG 1 Lab: None pending. 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 Imaging: See HPI Impression: Non-small cell carcinoma of the lung stage IV with pulmonary nodules and a 4 mm lesion in the parietal occipital area on the left Plan: I reviewed with Mr. Ozuna the results of the MRI. We talked about the pituitary adenoma and the typical treatment involved. I reviewed with him that typically the neurosurgeon gets involved and would perform surgery. We did review how if patient is not able to withstand surgery we can use radiation to shrink the pituitary adenoma but it can take years for the mass to shrink from radiation. He is currently asymptomatic and after discussing a 5-week course of treatment he would like to just repeat his MRI in that regard. We then talked about the 4 to 5 mm lesion in the left parietal occipital region. It is currently asymptomatic with no surrounding edema. He talked frankly about his overall longevity. He said he really like to not do anything at this point in time. He is feeling fairly well. He would like to repeat his MRI and see if there is been any change in either of the lesions in the next 6 to 8 weeks. He will consider whether he would like to proceed with any external beam radiation for the small brain lesion. So at this point we will get him scheduled for repeat of his MRI and a follow-up within a day or 2 after. I do think after reviewing his symptoms and the way his symptoms have began to improve his headaches could have been called just by his RSV vaccination. They are definitely moving in the right direction and no longer has much of an issue as they were right after his shot. Signed by: 11/19/2023 1:38:01 PM <<Signature on File>> Time spent with patient:45 CPT Code: CPT Code:
[2023-11-26 13:48] LABS: Basophils # 0.1 10^3/uL (0.0-0.1); Basophils % 0.8 %; Eosinophils # 0.1 10^3/uL (0.0-0.8); Eosinophils % 0.8 %; Lymphocytes # 0.7 10^3/uL (0.8-4.8); Mean Corpuscular HGB Conc 33.3 g/dL (30-55); Mean Corpuscular Hemoglobin 29.6 pg (27-33); Mean Corpuscular Volume 88.9 fl (82-101); Mean Platelet Volume 8.7 fL (7.4-10.4); Monocytes # 0.7 10^3/uL (0.2-0.9); Monocytes % 7.8 %; Neutrophils # 7.14 10^3/uL (1.8-7.7); Neutrophils % 82.1 %; Nucleated Red Blood Cells % 0 %; Platelet Count 247 10^3/cmm (157-399); Red Cell Distribution Width 13.4 % (12.1-15.1)
[2023-11-26 14:03] LABS: Alanine Aminotransferase 11 U/L (0-41); Albumin Level 3.9 g/dL (3.5-5.2); Alkaline Phosphatase 79 U/L (40-130); Anion Gap 15.2 (5-19); Aspartate Amino Transferase 22 U/L (0-40); Blood Urea Nitrogen 16 mg/dL (8-23); Calcium 9.4 mg/dL (8.5-10.5); Carbon Dioxide 26 mmol/L (22-29); Chloride 101 mmol/L (98-107); Globulin 3.7 g/dL (1.3-4.6); Glucose 105 mg/dL (65-115); Osmolality Calculated 288 mOsm/kg (285-295); Potassium 4.2 mmol/L (3.5-5.1); Sodium 138 mmol/L (136-145); Total Bilirubin 0.3 mg/dL (0.15-1.2); Total Protein 7.6 g/dL (6.6-8.7)
[2023-11-26 14:05] LABS: Erythrocyte Sedimentation Rate 25 mm/hr (0-10)
== END 2023-12-09 23:59 | disposition home or self-care (01) ==
PROVIDERS: PCP Family Medicine; Visit Provider Internal Medicine Medical Oncology
DX: Z53.9 Procedure and treatment not carried out, unspecified reason (principal); C34.31 Malignant neoplasm of lower lobe, right bronchus or lung; Z79.899 Other long term (current) drug therapy
CPT/HCPCS: 36415; 80053; 85025; 85651; 99214

== ENCOUNTER 2024-01-07 09:50 | Oncology outpatient (recurring) (ONCR) | payer MEDICARE, SELFPAY ==
--- NOTE | 2023-12-30 10:35 | ONCRAD EPV_ITS ---
Radiation Oncology Established Patient Visit Patient: Roge Ozuna [id number] : 1950 Age: 73 Sex: Male Dictated by: Martinez Hobson M.D. Date of Service: 12/30/2023 Referring Physician(s) : Shamar Yun M.D. Diagnosis: C34.11 - Malignant neoplasm of upper lobe, right bronchus or lung, Diagnosed 09/03/2020 (Active) Stage BETTYE, T3, N2, M1a Lung cancer. 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 He had been followed for an abnormal chest CT scan, with the main concern being a nodule at the right lung base noted on a study from June 2017. On follow-up studies that nodule had resolved. Also noted were some fibrotic changes in the right upper lobe which had remained stable as of August 2018. A repeat chest CT on 07/04/2019 showed progression in the scarring and soft tissue surrounding bullous disease in the right upper lobe, possibly due to progression of fibrosis, though early neoplasm was not excluded. His repeat chest CT on 07/19/2020 showed significant progression of irregular soft tissue mass surrounding the cystic/cavitary fibrotic lesion in the right upper lobe. The lesion measured approximately 5.2 x 3.5 cm. The appearance was highly suspicious for neoplasm. Also noted was soft tissue thickening along the left lateral tracheal wall, possibly due to focal area of mucus. Also noted were bilateral pulmonary nodules ranging in size from a few millimeters up to 10 mm, suspicious for metastatic disease. Further evaluation with PET/CT on 07/28/2020 showed FDG avid cavitary right upper lobe mass measuring 4.5 x 5.1 cm, SUV 12.1, indicating high probability of malignancy. Secondary pulmonary nodules were noted in the right upper lobe, superior segment right lower lobe, left apex, and medial left lower lung base, consistent with metastatic disease. A 1.7 cm right paratracheal lymph node was also FDG avid, SUV 4.8, consistent with a metastatic node. He was referred to Dr. Moreno. On 08/20/2020 he underwent flexible diagnostic bronchoscopy with endobronchial biopsy from the right upper lobe and mediastinoscopy with biopsy of station 4R lymph node. Pathology from the right upper lobe biopsy showed adenosquamous carcinoma favoring lung primary. 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 A next generation sequencing study showed no actionable mutations. The PD-L1 (22c3) expression was positive at 25% and the PD-L1 (28-8) expression was positive at 35%. His staging head MRI showed an intrasellar pituitary mass with suprasellar extension measuring 1.4 x 1.6 x 1.7 cm. There was associated impingement on the optic chiasm. 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 There appeared to be involvement of the right cavernous sinus but cavernous carotid arteries were noted to be patent. There were no suspicious enhancing intracranial parenchymal abnormalities noted. Dr. Yun had seen him initially on 09/03/2020. With evidence of multiple pulmonary metastatic lesions bilaterally, it appeared that he would require systemic therapy. By next generation sequencing, his tumor was positive for PD-L1 expression at 25% for PD-L1 (22c3). There were no actionable mutations identified. With his PD-L1 positive at less than 50%, he was recommended to have combined chemotherapy/immunotherapy, per NCCN guidelines. However, he opted to have immunotherapy alone. He then began cycle 1 of pembrolizumab on 10/17/2020. He tolerated it well and he continued treatment at 3-week intervals. He received cycle 5 on 01/24/2021. At his follow-up visit on 02/14/2021 he appeared stable clinically. He then continued immunotherapy with pembrolizumab but with his treatment changed to the 6-week dosing interval. On 03/06/2021 he was seen in the emergency room with shortness of breath. He also reported having bilateral knee pain. He was noted to have large joint effusions on x-ray. CT pulmonary angiogram showed no evidence of pulmonary embolism. A new spiculated mass measuring 39 x 28 x 32 mm was noted in the right upper lobe. Also noted were prominent mediastinal and hilar lymph nodes. There was advanced bullous emphysema. He was given a Medrol dose pack and symptomatic management with hydrocodone/APAP. A scheduled follow-up chest CT on 03/25/2021 showed right upper lobe spiculated mass measuring 3.4 x 1.9 cm with increase in size of mediastinal and hilar lymph nodes compared to the July 2020 study, and a 9 mm lymph node was noted near the lesser curvature of the stomach. Also noted were new scattered subcentimeter opacifications bilaterally and a 9 mm nodule in the posterior right lower lobe, with early metastatic disease not excluded. Brain MRI at that time showed stable appearance of the mass centered in the sella turcica with suprasellar extension measuring 1.7 x 1.6 x 1.7 cm, consistent with pituitary macroadenoma. Minimal extension was noted into the right cavernous sinus and there was mild displacement of the optic chiasm. He had further laboratory studies on 03/28/2021. At that time his hemoglobin had dropped to 11.8 g with his white blood cell count low at 1800 and his platelet count normal at 171,000. The differential showed only 12% neutrophils, with an absolute neutrophil count of 200. He began on steroid therapy with prednisone 40 mg daily, subsequently decreased to 20 mg daily. His repeat CBC on 04/05/2021 showed hemoglobin back up to 14.1 g, but there was further decrease in the white blood cell count with his ANC reported at 0. With those findings, he began antibiotic coverage with Levaquin and his prednisone dosage was increased to 60 mg daily. During subsequent follow-up he continued to have severe neutropenia, and he continued to have fairly severe generalized weakness. He did not report any fever, chills, or other symptoms to suggest any acute infectious process. As of 05/15/2021 his white count had increased to 1500, but with ANC still low at approximately 100. His hemoglobin was just slightly decreased at 11.7 g with platelet count normal at 213,000. I did have him reduce prednisone to 20 mg daily. As of his follow-up visit on 05/22/2021 his neutrophil count had recovered to 5400. His prednisone dosage at that point was reduced to 10 mg daily, and it was subsequently discontinued. Restaging CT scans on 06/04/2021 showed stable right upper lobe spiculated mass measuring 3.4 x 1.9 cm. Emphysematous changes with fibrosis and groundglass densities were noted throughout both lungs and small satellite nodules were noted in the superior segment right lower lobe and in the anterior right upper lobe, both measuring about 7 mm. There were mildly enlarged mediastinal and subcarinal lymph nodes, the largest measuring 11 mm. 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 With those findings, he continued on observation/symptomatic management. His other medical illnesses include hypertension, hyperlipidemia, GERD, rheumatoid arthritis, peripheral neuropathy, benign prostatic hypertrophy, and emphysema. He has history of smoking 2 packs of cigarettes daily. He quit smoking 15 years ago. INTERIM HISTORY: On 06/10/2021 he presented to the emergency room with swelling in both legs. Earlier in the day he had been noted to have low blood pressure, but it was back up to normal at the time of his ER visit. He was recommended to restart his furosemide along with a potassium supplement. I had seen him for a follow-up visit on 06/13/2021. At that point he was still having some orthostatic symptoms as well as some weakness in both legs. I did have him try reducing his Lyrica dosage, and I opted to keep him off prednisone. As of his follow-up visit on 07/16/2021 he continued to have significant joint pain and limited activity, and had opted to restart the prednisone at 10 mg twice daily. He also had an increase his furosemide dosage for his lower extremity edema. At his follow-up visit on 09/04/2021 he was feeling better generally, though he continued to have swelling in the lower extremities, and he had begun to taper the prednisone dosage. Repeat chest CT on 10/17/2021 showed slight increase in the right upper lobe spiculated mass measuring 3.5 x 2.0 x 3.5 cm compared to 3.4 x 1.9 x 3.1 cm on the prior study from May. An additional nodule in the right upper lobe anteriorly measured 1.6 cm compared to 0.7 cm. Smaller nodules in the superior segment right lower lobe were noted to have improved and a subpleural opacity in the left lower lobe appeared stable at 7 cm. There was improved mediastinal and subcarinal lymphadenopathy. There were advanced chronic emphysematous changes with bulla formation. Restaging PET/CT on 11/23/2021 showed modest improvement in the central right upper lobe malignancy measuring 2.4 x 3.5 cm compared to 4.4 x 5.1 cm on the July 2020 study. The SUV was 10.5. There was slight progression of the secondary right upper lobe nodule measuring 1.7 cm compared to 1.2 cm with SUV 5.6. The superior segment right lower lobe nodule was no longer evident. FDG positive mediastinal lymph nodes appeared to have resolved. Patient presents today for a follow-up visit. He continues to have a moderate amount of fatigue his ECOG is 1. His appetite is good. He denies fever, chills, night sweats. No sinus drainage or congestion. No shortness of breath, cough, chest pain. He denies any GI or problems. He has arthritis in his knees but otherwise he feels well. No headaches or dizziness. Radiotherapy to Date: Course: RT Lung 2021, Treatment Site: RT Lung 2021, Ref. ID: [id number], Energy: 15X, Dose/Fx (cGy): 250, #Fx: 16 / 16, Dose Correction (cGy): 0, Total Dose Delivered (cGy): 4,000, Start Date: 07/15/2022, End Date: 08/05/2022, Elapsed Days: 21 Current History: Patient had biopsy of a chest wall lesion on 04/16/2023 with pathology revealing metastatic carcinoma. Patient has noticed 3 new small lesions which have developed over the past 6 months on the upper anterior chest wall proximal to the site of the excised metastatic carcinoma. He denies any pain or bleeding from the lesions. Patient also has a pituitary adenoma and is on a tapering dose of steroids. He had some headaches about a month ago but reports that the steroids have improved and he has been able to decrease his ibuprofen from 4 times a day to once daily. MRI of the head 11/17/2023 showed a new 5 mm enhancing nodule in the left parietal occipital cortex highly suspicious for metastatic disease however patient declined treatment at that time when seen by Dr. Mendieta November 19, 2023. He remains asymptomatic from that lesion. Current Medications: Atorvastatin Calcium, celeBREX, finasteride, fluconazole, furosemide, furosemide, keytruda, levaquin, lyrica, nortriptyline HCl, omeprazole, predniSONE, pregabalin, primidone, prochlorperazine Maleate, tamsulosin HCl. Allergies: No Known Allergies Current Complaints / Review of Systems: . Vital Signs: Performed on 12/30/2023 9:57 AM BMI - 28.291 kg/m2 (high), Height - 72 in, Weight - 208.6 lbs, Temperature - 96.5 f, Pulse - 98 /min, Respiration - 18 /min, O2 Sat - 95 % (low), Pain - 0, Fatigue - 0 and BP - 145/ 102 mm(hg)(high). Physical Exam: General: Alert and oriented x 3. No acute distress. HEENT: Normocephalic, atraumatic. Extraocular Movements Intact: Pupils Equal, Round, Reactive to Light and Accommodation: Sclerae anicteric. Oral cavity is clear without lesions, masses or ulcers. NECK: Supple without supraclavicular or jugular lymphadenopathy. LUNGS: Clear to auscultation bilaterally without rales, rhonchi or wheeze. 3 small superficial lesions are noted on the superior anterior chest wall. Just slightly to the right of midline is a 5 mm nodule, a 3 mm nodule centrally and a 4 mm nodule slightly to the left of midline. HEART: Regular rate and rhythm, normal S1 and S2 without murmur, gallop or rub. MUSCULOSKELETAL: No tenderness or percussion pain over the axial skeleton, scapulae or pelvis. ABDOMEN: Soft, nontender, nondistended without masses or organomegaly. Bowell sounds are present. EXTREMITIES: No peripheral edema is identified. Limited motor and sensory examination are grossly intact and symmetric bilaterally. NEUROLOGIC: Cranial nerves II ???XII are grossly intact. Normal sensation, strength 5/5 in all extremities, normal gait, no ataxia. Performance Status: Lab: None pending. 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 Imaging: See HPI Impression: Patient has 3 small superficial lesions on the anterior chest wall at the site of his previously excised metastatic lesion. He is agreeable to palliative radiation therapy to the chest wall in the hope of maintaining local control. Patient is aware that even with treatment additional lesions may occur. He indicates his understanding and willingness to proceed with treatment. Clinical set up will be arranged tomorrow afternoon with plans to deliver 30 Chopra to the skin utilizing electrons at 300 cGy per fraction over 10 fractions. Signed by: 12/30/2023 10:33:56 AM <<Signature on File>> Time spent with patient: 30 minutes CPT Code: CPT Code:
--- NOTE | 2024-01-05 10:33 | ONCRAD TMN_ITS ---
Radiation Oncology Weekly Treatment Management Patient: Laith Pak MR#: [id number] : 1950> Attending Physician: Dr. Trina Mendieta Date of Service: 01/05/2024 Referring Physician(s) : Shamar Yun M.D. 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 ID: [id number], Energy: 6E, Dose/Fx (cGy): 300, #Fx: , Dose Correction (cGy): 0, Total Dose Delivered (cGy): 300, Start Date: 01/05/2024, Elapsed Days: 0 Reason for visit: The patient is being seen today as part of their regularly scheduled weekly on treatment visits to assess for acute toxicities from radiotherapy. Review of Systems: Patient denies any new complaints today Vital Signs: Performed on 01/05/2024 10:14 AM BMI - 27.966 kg/m2 (high), Height - 72 in, Weight - 206.2 lbs, Temperature - 96.5 f, Pulse - 118 /min (high), Respiration - 18 /min, O2 Sat - 94 % (low), Pain - 4, Fatigue - 0 and BP - 127/ 82 mm(hg). Physical Exam: Patient is in no apparent distress. Skin is without changes Imaging: Radiation therapy imaging related to accurate target localization (i.e. KV, MV and CBCT) was reviewed. Appropriate changes, if any, were made to ensure treatment accuracy. Plan: Will continue with treatments as planned. Physics check to verify Signed by: Dr. Trina Mendieta 01/05/2024 10:31:44 AM
== END 2024-01-07 23:59 | disposition home or self-care (01) ==
PROVIDERS: PCP Family Medicine; Visit Provider Radiology Radiation Oncology
DX: Z51.0 Encounter for antineoplastic radiation therapy (principal); C34.11 Malignant neoplasm of upper lobe, right bronchus or lung
CPT/HCPCS: 77280; 77321; 77331; 77334; 77387; 77412; 99024; 99214; 99215

== ENCOUNTER 2024-01-21 14:21 | Oncology outpatient (recurring) (ONCR) | payer MEDICARE, SELFPAY ==
--- NOTE | 2024-01-12 10:31 | ONCRAD TMN_ITS ---
Radiation Oncology Weekly Treatment Management Patient: Roge Ozuna MR#: [id number] : 1950 Attending Physician: Dr. Trina Mendieta Date of Service: 01/12/2024 Referring Physician(s) : Shamar Yun M.D. 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 ID: [id number], Energy: 6E, Dose/Fx (cGy): 300, #Fx: 10, Dose Correction (cGy): 0, Total Dose Delivered (cGy): 1,800, Start Date: 01/05/2024, Elapsed Days: 7 Reason for visit: The patient is being seen today as part of their regularly scheduled weekly on treatment visits to assess for acute toxicities from radiotherapy. Review of Systems: Patient has no complaints in regards to the current treatment. He did report today however that he is having increased hemoptysis. He says he has had hemoptysis for quite some time but over the last month or so it has begun to become more frequent and more severe. He says he will happen 2 or 3 times a week and he will call for a couple hours which will bring up blood during the time period. Vital Signs: Performed on 01/12/2024 9:57 AM BMI - 28.291 kg/m2 (high), Height - 72 in, Weight - 208.6 lbs, Temperature - 97.0 f, Pulse - 104 /min (high), Respiration - 18 /min, O2 Sat - 97 %, Pain - 0, Fatigue - 5 and BP - 128/ 77 mm(hg). Physical Exam: No changes noted on the skin Imaging: Radiation therapy imaging related to accurate target localization (i.e. KV, MV and CBCT) was reviewed. Appropriate changes, if any, were made to ensure treatment accuracy. Plan: I spoke with Dr. Yun in regards to his hemoptysis. He recommended that we start Levaquin and obtain a new CT scan. We can then proceed with additional radiation for the hemoptysis. Signed by: Dr. Trina Mendieta 01/12/2024 10:30:19 AM
[2024-01-15] MEDS: sodium chloride 0.9% 500 ML 999 ML IV (10:42)
[2024-01-15 11:09] VITALS: BP 121/83; PULSE 95; TEMP 35.7; O2SAT 96
--- NOTE | 2024-01-18 13:11 | N.ONRD TS_ITS ---
Radiation Oncology Treatment Summary Patient: Roge Ozuna MR#: [id number] : 1950 Age: 73 Sex: Male Dictated by: Martinez Hobson Date of Service: 01/18/2024 Referring Physician(s) : Shamar Yun M.D. 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 ID: [id number], Energy: 6E, Dose/Fx (cGy): 300, #Fx: 10 / 10, Dose Correction (cGy): 0, Total Dose Delivered (cGy): 3,000, Start Date: 01/05/2024, End Date: 01/18/2024, Elapsed Days: 13 Course: RT Lung 2021, Treatment Site: RT Lung 2021, Ref. ID: [id number], Energy: 15X, Dose/Fx (cGy): 250, #Fx: 16 / 16, Dose Correction (cGy): 0, Total Dose Delivered (cGy): 4,000, Start Date: 07/15/2022, End Date: 08/05/2022, Elapsed Days: 21 Clinical Summary: The patient tolerated RT well. Plan: End of treatment today. Continue on the above medication until the skin reaction resolves. Follow up after on CT Chest on 01/29/24. Appt is scheduled for Thursday02/01/24. Signed by: Martinez Hobson>01/18/2024 1:08:54 PM <<Signature on File>>
== END 2024-02-07 23:59 | disposition home or self-care (01) ==
PROVIDERS: PCP Family Medicine; Visit Provider Radiology Radiation Oncology
DX: C34.11 Malignant neoplasm of upper lobe, right bronchus or lung; Z51.0 Encounter for antineoplastic radiation therapy; C79.2 Secondary malignant neoplasm of skin; Z87.891 Personal history of nicotine dependence; C34.31 Malignant neoplasm of lower lobe, right bronchus or lung; R04.2 Hemoptysis; Z79.899 Other long term (current) drug therapy
CPT/HCPCS: 77336; 77412; 77427; 96360; 99024; 99214; J7040

== ENCOUNTER 2024-02-17 13:50 | Oncology outpatient (recurring) (ONCR) | payer MEDICARE, SELFPAY | END 2024-03-08 23:59 | disposition home or self-care (01) | PROVIDERS: PCP Family Medicine; Visit Provider Radiology Radiation Oncology | DX: R53.1 Weakness; R06.09 Other forms of dyspnea; K59.09 Other constipation; M06.9 Rheumatoid arthritis, unspecified; R20.2 Paresthesia of skin; R42 Dizziness and giddiness; Z90.49 Acquired absence of other specified parts of digestive tract; R51.9 Headache, unspecified; C34.31 Malignant neoplasm of lower lobe, right bronchus or lung | CPT/HCPCS: 99214 ==

== ENCOUNTER 2024-03-10 13:07 | Oncology outpatient (recurring) (ONCR) | payer MEDICARE, SELFPAY ==
[2024-03-10 13:27] LABS: Basophils # 0.1 10^3/uL (0.0-0.1); Basophils % 0.4 %; Eosinophils % 0.3 %; Hematocrit 38.7 % (37-53); Lymphocytes # 0.7 10^3/uL (0.8-4.8); Lymphocytes % 6.2 %; Mean Corpuscular HGB Conc 31.8 g/dL (30-55); Mean Corpuscular Volume 91.3 fl (82-101); Mean Platelet Volume 8.9 fL (7.4-10.4); Monocytes # 0.9 10^3/uL (0.2-0.9); Monocytes % 7.3 %; Neutrophils # 10.21 10^3/uL (1.8-7.7); Nucleated Red Blood Cells % 0 %; Platelet Count 251 10^3/cmm (157-399); Red Blood Count 4.24 10^6/uL (3.85-5.65); Red Cell Distribution Width 13.6 % (12.1-15.1); White Blood Count 11.99 10^3/uL (3.29-11.43)
[2024-03-10 13:43] LABS: Alanine Aminotransferase 11 U/L (0-41); Albumin Level 3.6 g/dL (3.5-5.2); Alkaline Phosphatase 62 U/L (40-130); Anion Gap 17.2 (5-19); Aspartate Amino Transferase 20 U/L (0-40); Carbon Dioxide 24 mmol/L (22-29); Chloride 96 mmol/L (98-107); Globulin 3.4 g/dL (1.3-4.6); Glucose 108 mg/dL (65-115); Potassium 4.2 mmol/L (3.5-5.1); Sodium 133 mmol/L (136-145)
[2024-03-10 13:59] LABS: Blood Urea Nitrogen 22 mg/dL (8-23); Calcium 8.8 mg/dL (8.5-10.5); Osmolality Calculated 280 mOsm/kg (285-295)
[2024-03-10 14:12] LABS: Total Bilirubin 0.3 mg/dL (0.15-1.2)
== END 2024-04-08 23:59 | disposition home or self-care (01) ==
PROVIDERS: Nurse Practitioner Family; PCP Family Medicine; Visit Provider Radiology Radiation Oncology
DX: C34.11 Malignant neoplasm of upper lobe, right bronchus or lung; C79.2 Secondary malignant neoplasm of skin; Z87.891 Personal history of nicotine dependence; Z79.899 Other long term (current) drug therapy; R04.2 Hemoptysis; D35.2 Benign neoplasm of pituitary gland; C79.31 Secondary malignant neoplasm of brain; Z53.9 Procedure and treatment not carried out, unspecified reason
CPT/HCPCS: 36415; 80053; 85025; 99214

== ENCOUNTER 2024-04-28 14:00 | Oncology outpatient (recurring) (ONCR) | payer MEDICARE, SELFPAY ==
[2024-04-14 14:17] LABS: Basophils # 0.1 10^3/uL (0.0-0.1); Eosinophils # 0.2 10^3/uL (0.0-0.8); Eosinophils % 2.6 %; Hematocrit 35.1 % (37-53); Lymphocytes # 0.7 10^3/uL (0.8-4.8); Lymphocytes % 8.7 %; Mean Corpuscular HGB Conc 31.3 g/dL (30-55); Mean Corpuscular Hemoglobin 28.1 pg (27-33); Mean Corpuscular Volume 89.5 fl (82-101); Mean Platelet Volume 8.8 fL (7.4-10.4); Monocytes # 0.6 10^3/uL (0.2-0.9); Monocytes % 8.2 %; Neutrophils # 6.08 10^3/uL (1.8-7.7); Neutrophils % 79.1 %; Nucleated Red Blood Cells % 0 %; Platelet Count 285 10^3/cmm (157-399); Red Blood Count 3.92 10^6/uL (3.85-5.65); Red Cell Distribution Width 14.1 % (12.1-15.1); White Blood Count 7.69 10^3/uL (3.29-11.43)
[2024-04-14 14:44] LABS: Alanine Aminotransferase 9 U/L (0-41); Albumin Level 3.5 g/dL (3.5-5.2); Alkaline Phosphatase 67 U/L (40-130); Anion Gap 15.6 (5-19); Aspartate Amino Transferase 23 U/L (0-40); Blood Urea Nitrogen 12 mg/dL (8-23); Calcium 8.6 mg/dL (8.5-10.5); Carbon Dioxide 26 mmol/L (22-29); Chloride 104 mmol/L (98-107); Creatinine Clr Calc Pharmacy 83.2851; Globulin 3.4 g/dL (1.3-4.6); Glucose 113 mg/dL (65-115); Osmolality Calculated 295 mOsm/kg (285-295); Potassium 3.6 mmol/L (3.5-5.1); Sodium 142 mmol/L (136-145); Total Bilirubin 0.3 mg/dL (0.15-1.2); Total Protein 6.9 g/dL (6.6-8.7)
[2024-04-28 14:23] LABS: Basophils % 0.2 %; Eosinophils % 0.1 %; Hematocrit 38.7 % (37-53); Lymphocytes # 0.6 10^3/uL (0.8-4.8); Lymphocytes % 4.1 %; Mean Corpuscular HGB Conc 31.5 g/dL (30-55); Mean Corpuscular Hemoglobin 27.7 pg (27-33); Mean Platelet Volume 8.8 fL (7.4-10.4); Monocytes # 0.8 10^3/uL (0.2-0.9); Monocytes % 5.7 %; Neutrophils # 12.75 10^3/uL (1.8-7.7); Neutrophils % 89.1 %; Nucleated Red Blood Cells % 0 %; Platelet Count 323 10^3/cmm (157-399); Red Cell Distribution Width 14.9 % (12.1-15.1)
[2024-04-28 14:49] LABS: Alanine Aminotransferase 7 U/L (0-41); Albumin Level 3.9 g/dL (3.5-5.2); Alkaline Phosphatase 64 U/L (40-130); Anion Gap 14.1 (5-19); Aspartate Amino Transferase 14 U/L (0-40); Blood Urea Nitrogen 22 mg/dL (8-23); Calcium 8.7 mg/dL (8.5-10.5); Carbon Dioxide 25 mmol/L (22-29); Chloride 103 mmol/L (98-107); Creatinine Clr Calc Pharmacy 83.2851; Glucose 121 mg/dL (65-115); Osmolality Calculated 291 mOsm/kg (285-295); Potassium 4.1 mmol/L (3.5-5.1); Sodium 138 mmol/L (136-145); Total Bilirubin 0.2 mg/dL (0.15-1.2); Total Protein 6.9 g/dL (6.6-8.7)
== END 2024-05-08 23:59 | disposition home or self-care (01) ==
PROVIDERS: Nurse Practitioner Family; PCP Family Medicine; Visit Provider Radiology Radiation Oncology
DX: Z53.9 Procedure and treatment not carried out, unspecified reason (principal); Z87.891 Personal history of nicotine dependence; Z79.899 Other long term (current) drug therapy; R04.2 Hemoptysis; D35.2 Benign neoplasm of pituitary gland; C34.11 Malignant neoplasm of upper lobe, right bronchus or lung; Z92.3 Personal history of irradiation; Z79.52 Long term (current) use of systemic steroids; Z79.891 Long term (current) use of opiate analgesic; R09.02 Hypoxemia
CPT/HCPCS: 36415; 80053; 85025; 99214

== ENCOUNTER 2024-05-23 10:17 | Oncology outpatient (recurring) (ONCR) | payer MEDICARE, SELFPAY | END 2024-06-08 23:59 | disposition home or self-care (01) | PROVIDERS: PCP Family Medicine; Visit Provider Radiology Radiation Oncology | DX: C34.31 Malignant neoplasm of lower lobe, right bronchus or lung (principal) | CPT/HCPCS: 99213 ==

== ENCOUNTER 2024-05-30 00:17 | Emergency (ER) | payer MEDICARE, SELFPAY ==
--- NOTE | 2024-05-30 00:18 | CTR_ITS ---
PROCEDURE INFORMATION: Exam: CT Head Without Contrast Exam date and time: 05/30/2024 12:19 AM Age: 73 years old Clinical indication: Stroke-like symptoms; Visual disturbance; Left facial droop; Lt upper extremity and lt lower extremity weakness; Additional info: Stroke alert TECHNIQUE: Imaging protocol: Computed tomography of the head without contrast. Radiation optimization: All CT scans at this facility use at least one of these dose optimization techniques: automated exposure control; mA and/or kV adjustment per patient size (includes targeted exams where dose is matched to clinical indication); or iterative reconstruction. Other technique: STROKE PROTOCOL was implemented. COMPARISON: MR head wo/w con [id number] 07/10/2024 15:10 RADIATION DOSE METRICS: Total DLP (mGy-cm): 1168.78 FINDINGS: Brain: There is no evidence of intracranial hemorrhage. No mass effect or midline shift. There is a subtle hypodensity in the right frontal lobe that may be secondary to an acute infarct. There are mild confluent periventricular hypodensities consistent with chronic microischemic changes of white matter. There is a pituitary mass extending into the suprasellar space, measuring 16 x 18 mm, slightly larger than on the comparison MRI, which time it measured 16 x 14 mm. Cerebral ventricles: The ventricles and sulci are appropriate for the patient's age. Paranasal sinuses: There are no air-fluid levels. Mastoid air cells: The visualized mastoid air cells are well aerated. Bones: Unremarkable. No acute fracture. Soft tissues: Unremarkable. CT/CT head wo con* [id number] IMPRESSION: 1. Subtle hypodensity in the right frontal lobe that may be secondary to an acute infarct. 2. Mild cerebral small-vessel disease. 3. 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 The lesion demonstrates a slight increase in size from the comparison MRI. The tumor is in contact with the optic chiasm. ASSESSMENT: ASPECTS ([place] Stroke Program Early CT Score) is 10.
[2024-05-30 00:20] VITALS: BP 188/106; RESP 18; TEMP 36.6; O2SAT 97; BMI 25.6
--- NOTE | 2024-05-30 00:32 | CTR_ITS ---
PROCEDURE INFORMATION: Exam: CTA Head With Contrast, Arteriography Exam date and time: 05/30/2024 12:33 AM Age: 73 years old Clinical indication: Stroke-like symptoms; Visual disturbance; Left facial droop; Lt upper extremity and lt lower extremity weakness TECHNIQUE: Imaging protocol: Computed tomographic angiography of the head with contrast. Exam focused on the arteries. 3D rendering (Not supervised by radiologist): MIP and/or 3D reconstructed images were created by the technologist. Radiation optimization: All CT scans at this facility use at least one of these dose optimization techniques: automated exposure control; mA and/or kV adjustment per patient size (includes targeted exams where dose is matched to clinical indication); or iterative reconstruction. Contrast material: OMNI 350; Contrast volume: 100 ml; Contrast route: INTRAVENOUS (IV); COMPARISON: CT head wo con* [id number] 30/05/2024 00:19 RADIATION DOSE METRICS: Total DLP (mGy-cm): 326.45 FINDINGS: ANTERIOR CIRCULATION: Right internal carotid artery: Occluded right intracranial internal carotid artery. No aneurysm. Right middle cerebral artery: M1 segment occlusion. No aneurysm. Right anterior cerebral artery: No occlusion or significant stenosis. No aneurysm. Left internal carotid artery: Intracranial segment is patent with no significant stenosis. No aneurysm. Left middle cerebral artery: No occlusion or significant stenosis. No aneurysm. Left anterior cerebral artery: No occlusion or significant stenosis. No aneurysm. POSTERIOR CIRCULATION: Right vertebral artery: No occlusion or significant stenosis. No aneurysm. Left vertebral artery: No occlusion or significant stenosis. No aneurysm. Basilar artery: No occlusion or significant stenosis. No aneurysm. Right posterior cerebral artery: No occlusion or significant stenosis. No aneurysm. Left posterior cerebral artery: No occlusion or significant stenosis. No aneurysm. Brain: No definite mass, mass effect, or midline shift. Cerebral ventricles: No ventriculomegaly. Bones/joints: Unremarkable. No acute fracture. Soft tissues: Unremarkable. PROCEDURE INFORMATION: Exam: CTA Neck With Contrast Exam date and time: 05/30/2024 12:33 AM Age: 73 years old Clinical indication: Stroke-like symptoms; Visual disturbance; Left facial droop; Lt upper extremity and lt lower extremity weakness TECHNIQUE: Imaging protocol: Computed tomographic angiography of the neck with contrast. Exam focused on the cervical segments of the vasculature. 3D rendering (Not supervised by radiologist): MIP and/or 3D reconstructed images were created by the technologist. Radiation optimization: All CT scans at this facility use at least one of these dose optimization techniques: automated exposure control; mA and/or kV adjustment per patient size (includes targeted exams where dose is matched to clinical indication); or iterative reconstruction. Contrast material: OMNI 350; Contrast volume: 100 ml; Contrast route: INTRAVENOUS (IV); COMPARISON: PT PET skull to thigh SUBS [id number] 23/05/2023 11:21 RADIATION DOSE METRICS: Total DLP (mGy-cm): 326.45 FINDINGS: Right common carotid artery: No significant stenosis. No dissection or occlusion. Right internal carotid artery: Proximal occlusion. No dissection or occlusion. There is an adjacent surgical clip. Right external carotid artery: Mild stenosis of the origin. Left common carotid artery: No significant stenosis. No dissection or occlusion. Left internal carotid artery: Moderate 60% stenosis of the extracranial segment. No dissection or occlusion. Left external carotid artery: No occlusion or significant stenosis of the origin. Right vertebral artery: Moderate distal V4 segment stenosis. No dissection or occlusion. Left vertebral artery: No significant stenosis. No dissection or occlusion. Soft tissues: No significant soft tissue swelling. Bones/joints: No acute fracture. Lungs: A partially visualized medial right upper lobe mass as described on the comparison PET-CT. CT/CT angio headneck* [id number] IMPRESSION: 1. Occluded right intracranial internal carotid artery. 2. Right M1 segment occlusion. IMPRESSION: 1. Proximal total occlusion of the right extracranial internal carotid artery. 2. Moderate 60% stenosis of the left extracranial internal carotid artery by NASCET criteria. 3. Moderate distal stenosis of the dominant right vertebral artery at the V4 segment. 4. Widely patent left vertebral artery. THIS REPORT CONTAINS FINDINGS THAT MAY BE CRITICAL TO PATIENT CARE. The findings were verbally communicated via telephone conference with Horacio Mcintosh at 1:36 AM CDT on 05/30/2024. The findings were acknowledged and understood. REFERENCES: NASCET CRITERIA. The degree of stenosis in the cervical segment of the internal carotid artery is based on NASCET criteria. Normal is no stenosis. Mild is less than 50% stenosis. Moderate is 50-69% stenosis. Severe is 70% to 99% stenosis. Total occlusion is no detectable patent lumen.
--- NOTE | 2024-05-30 00:36 | ECG_ITS ---
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 Measurements Intervals [place] Rate: 102 P: 75 IN: 160 QRS: 38 QRSD: 104 T: 93 QT: 358 QTc: 468 Interpretive Statements SINUS TACHYCARDIA NONSPECIFIC ST & T-WAVE ABNORMALITY ABNORMAL RHYTHM ECG Compared to ECG 03/06/2021 20:52:28 T-wave abnormality now present Sinus rhythm no longer present Left bundle-branch block no longer present Electronically Signed On 05-30-2024 9:22:31 CDT by Rasheed Blank M.D. [id number]
--- NOTE | 2024-05-30 00:36 | XRR_ITS ---
PROCEDURE INFORMATION: Exam: XR Chest Exam date and time: 05/30/2024 1:01 AM Age: 73 years old Clinical indication: Other: Poss CVA; Patient HX: EMS arrival for possible CVA. History of lung cancer. ; Additional info: Stroke TECHNIQUE: Imaging protocol: Radiologic exam of the chest. Views: 1 view. COMPARISON: 1. CT angio chest PE protcl [id number] 01/11/2023 14:17 2. PT PET skull to thigh SUBS [id number] 05/23/2023 11:21 AM FINDINGS: Lungs: Medial right upper lobe mass extending to the mediastinal pleura, causing leftward deviation of the distal trachea and narrowing of the right mainstem bronchus. Asymmetric elevation of the right hemidiaphragm with loss of volume of the right lung. Left basilar interstitial opacities that may be secondary to atelectasis. Pleural spaces: No pleural effusion or pneumothorax. Heart/Mediastinum: Normal in size. Bones/joints: No acute fracture is identified. XR/XR chest 1V portable [id number] IMPRESSION: 1. Large, PET positive, medial right upper lobe mass with probable extension into the mediastinum as described above. Please refer to the comparison PET-CT for further characterization of this mass. 2. Left basilar interstitial opacities that may be secondary to atelectasis or in the appropriate clinical setting, pneumonia.
--- NOTE | 2024-05-30 00:44 | ED_ITS ---
HPI - Neuro Symptoms/Deficit 2 General: Chief Complaint: Neuro Symptoms/Deficit Stated Complaint: stroke Source: patient Mode of arrival: EMS History of Present Illness: Patient's last known well was approximately 830, patient had a fall and was found down with left-sided symptomatology,. EMS was called and brought patient here code stroke. Patient was taken immediately to CT NIH performed was approximately 18, glucose was 125, blood pressure was 188/106, last known well was approximately 830, [facility] was consulted, patient is on no blood thinners, preliminary readby myself and audiovisual aids technician the CT of the head was negative for hemorrhage, preliminary read of the CTA left-sided MCA and ICA occlusion Timing confirmed by: other (EMS) Location: speech, left face, dysarthria, left arm and left leg History of same: No Severity: moderate Quality: weak and numb Relieving factors: none Exacerbating factors: none Context: found down and recent fall On Anticoagulants: No Associated symptoms: Reports no associated symptoms Treatments Prior to Arrival: none PFSH ED 2 PFSH: Medical History Benign prostatic hyperplasia Brain tumor 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 garcia Family History Father CAD (coronary artery disease) Other Suicide Denies family history of Diabetes Clotting disorder Dementia Hyperlipidemia Psychiatric illness Chronic kidney disease (CKD) Anesthesia complication Bleeding disorder Lung disease Cancer Hypertension Stroke Social History Smoking and tobacco/nicotine status: former use of tobacco/nicotine (quit 20 years ago) Quit status (tobacco/nicotine): has quit using Year quit tobacco: 2002 Former quit date comment: smoked for 40 years/still uses chewing tobacco every once in a while Alcohol intake: never Substance/Drug Use: never Lives independently: Yes Household members: none Housing: House Marital status: NIH stroke score 2 NIHSS: Level Of Consciousness - 1a: 0 Level Of Consciousness Questions - 1b: One Correct Level Of Consciousness Commands - 1c: One Correct Best Gaze - 2: Partial Gaze Palsy Visual Fregoso - 3: Partial Hemianopia Facial Palsy - 4: Partial Paralysis Motor Arm Right - 5: No Drift Motor Arm Left - 5: No Movement Motor Leg Right - 6: Drift Motor Leg Left - 6: No Effort Against [place] Limb Ataxia - 7: Present In Two Limbs Sensory - 8: Mild To Moderate Loss Best Language - 9: Mild/Moderate Aphasia Dysarthia - 10: M ild/Moderate Dysarthia Extinction And Inattention - 11: 1 Score: Total Score: 20 Physical Exam 2 Const: COMMON NORMALS: average body habitus, alert and well nourished HENMT: COMMON NORMALS: normocephalic, atraumatic, hearing grossly normal bilaterally, external ears normal, EAC's normal, TM's normal bilaterally, Normal external nose present, Normal nasal mucous membranes and turbinates present, moist oral mucous membranes and oropharynx normal HEAD & SCALP: normocephalic and atraumatic NOSE: Normal external nose present and Normal nasal mucous membranes and turbinates present EXTERNAL EAR: Yes external ears normal E XTERNAL AUDITORY CANAL: EAC's normal TYMPANIC MEMBRANE: TM's normal bilaterally Eye: COMMON NORMALS: Equal, round and reactive pupils present, negative for EOMs intact bilaterally (Will not look left past midline), conjunctivae normal and no scleral icterus CONJUNCTIVA: Yes conjunctivae normal PUPIL: Yes Equal, round and reactive pupils present Neck/C-Spine: COMMON NORMALS: full ROM, no lymphadenopathy, no meningeal signs and no JVD Chest: COMMONS NORMALS: normal inspection of the chest and normal palpation of entire chest wall Resp: COMMON NORMALS: normal respiratory effort, No retractions, No use of accessory muscles and clear to auscultation bilaterally AUSCULTATION: clear to auscultation bilaterally Cardio: COMMON NORMALS: no JVD, regular rate, regular rhythm, S1 normal heart sound present, S2 normal heart sound present, No gallops present (Cardio), No clicks present (Cardio), No murmurs present (Cardio) and No rub (Cardio) R ATE: regular rate RHYTHM: regular rhythm HEART SOUNDS: S1 normal heart sound present and S2 normal heart sound present GI: COMMON NORMALS: Normal to inspection, nondistended, normoactive bowel sounds present, Soft to palpation, non-tender, No hepatosplenomegaly present and no masses PALPATION: Yes Soft to palpation and Yes No hepatosplenomegaly present Neuro: SENSORIUM/ORIENTATION: Yes alert MENINGEAL SIGNS: Yes no meningeal signs Course 2 Vital Signs: Vital signs: Vital Signs Temperature 97.8 F 05/30/24 00:20 Pulse Rate 93 05/30/24 01:30 Respiratory Rate 16 05/30/24 01:30 Blood Pressure 168/99 05/30/24 01:30 Pulse Oximetry 100 05/30/24 01:30 Oxygen Delivery Me thod Nasal Cannula 05/30/24 01:30 Oxygen Flow Rate 3 05/30/24 01:30 MDM - Neuro Symptoms/Deficit Medical Decision Making Patient was taken immediately to CT where CT and CTA was performed. NIH was performed which gave a score of approximately 18, patient's initial blood pressure was 188/106, [facility] stroke center called discussed this case with the neurologist [place] 0[address] Dr. Butts, she was able to review the images a large clot in the right MCA and IC, she feels he is a candidate for IR thrombectomy, he is just outside the criteria for TNKase and she said that is a hard stop on the time frame. She discussed this with the IR team who was unable to view the images themselves but they went ahead and said sent him appear. Patient will be flown to [facility] ER where Dr. Cox was notified of this and who accepted the patient in transfer we will give the patient a 325 mg of aspirin rectally per Dr. Poe recommendations. Differential Diagnosis Likely cerebrovascular accident Medical Records I reviewed the patient's medical records. Lab Data I reviewed the patient's lab results. 05/30/24 01:05 05/30/24 01:[address] 05/30/24 00:18 IMPRESSION: 1. Subtle hypodensity in the right frontal lobe that may be secondary to an acute infarct. 2. Mild cerebral small-vessel disease. 3. 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 The lesion demonstrates a slight increase in size from the comparison MRI. The tumor is in contact with the optic chiasm. ASSESSMENT: ASPECTS ([facility] Stroke Program Early CT Score) is 10. ADDENDUM: 05/30/24 0138 THIS REPORT CONTAINS FINDINGS THAT MAY BE CRITICAL TO PATIENT CARE. The findings were verbally communicated via telephone conference with Horacio Mcintosh at 1:37 AM CDT on 05/30/2024. The findings were acknowledged and understood. Head/Neck CTA 05/30/24 00:32 IMPRESSION: 1. Occluded right intracranial internal carotid artery. 2. Right M1 segment occlusion. IMPRESSION: 1. Proximal total occlusion of the right extracranial internal carotid artery. 2. Moderate 60% stenosis of the left extracranial internal carotid artery by NASCET criteria. 3. Moderate distal stenosis of the dominant right vertebral artery at the V4 segment. 4. Widely patent left vertebral artery. THIS REPORT CONTAINS FINDINGS THAT MAY BE CRITICAL TO PATIENT CARE. The findings were verbally communicated via telephone conference with Horacio Mcintosh at 1:36 AM CDT on 05/30/2024. The findings were acknowledged and understood. REFERENCES: NASCET CRITERIA. The degree of stenosis in the cervical segment of the internal carotid artery is based on NASCET criteria. Normal is no stenosis. Mild is less than 50% stenosis. Moderate is 50-69% stenosis. Severe is 70% to 99% stenosis. Total occlusion is no detectable patent lumen. ADDENDUM: 05/30/24 0153 ADDENDUM: Severe emphysematous changes of the included upper lung fregoso. Chest X-Ray 05/30/24 00:36 IMPRESSION: 1. Large, PET positive, medial right upper lobe mass with probable extension into the mediastinum as described above. Please refer to the comparison PET-CT for further characterization of this mass. 2. Left basilar interstitial opacities that may be secondary to atelectasis or in the appropriate clinical setting, pneumonia. Laboratory Results WBC 11.80 10^3/uL (3.29-11.43) H 05/30/24 01:05 RBC 3.61 10^6/uL (3.85-5.65) L 05/30/24 01:05 Hgb 9.40 g/dL (11.27-16.99) L 05/30/24 01:05 Hct 31.1 % (37-53) L 05/30/24 01:05 MCV 86.1 fl (82-101) 05/30/24 01:05 MCH 26.0 pg (27-33) L 05/30/24 01:05 MCHC 30.2 g/dL (30-55) 05/30/24 01:05 RDW 15.1 % (12.1-15.1) 05/30/24 01:05 Plt Count 258 10^3/cmm (157-399) 05/30/24 01:05 MPV 9.2 fL (7.4-10.4) 05/30/24 01:05 Neut % (Auto) 81.5 % 05/30/24 01:05 Lymph % (Auto) 9.0 % 05/30/24 01:05 [place] % (Auto) 8.0 % 05/30/24 01:05 Eos % (Auto) 0.5 % 05/30/24 01:05 Baso % (Auto) 0.3 % 05/30/24 01:05 Neut # (Auto) 9.62 10^3/uL (1.8-7.7) H 05/30/24 01:05 Lymph # (Auto) 1.1 10^3/uL (0.8-4.8) 05/30/24 01:05 [place] # (Auto) 0.9 10^3/uL (0.2-0.9) 05/30/24 01:05 Eos # (Auto) 0.1 10^3/uL (0.0-0.8) 05/30/24 01:05 Baso # (Auto) 0.0 10^3/uL (0.0-0.1) 05/30/24 01:05 Nucleated RBC % (auto) 0 % 05/30/24 01:05 Nucleated RBCs # 0.0 /100WBC 05/30/24 01:05 PT 14.20 SECONDS (12.1-14.9) 05/30/24 01:05 INR 1.07 (0.8-1.2) 05/30/24 01:05 APTT 30.2 SECONDS (23.9-36.7) 05/30/24 01:05 Sodium 138 mmol/L (136-145) 05/30/24 01:05 Potassium 3.7 mmol/L (3.5-5.1) 05/30/24 01:05 Chloride 100 mmol/L (98-107) 05/30/24 01:05 Carbon Dioxide 27 mmol/L (22-29) 05/30/24 01:05 Anion Gap 14.7 (5-19) 05/30/24 01:05 BUN 24 mg/dL (8-23) H 05/30/24 01:05 Creatinine 0.8 mg/dL (0.7-1.2) 05/30/24 01:05 GFR Calculation Not Reportable 05/30/24 01:05 Glucose 105 mg/dL (65-115) 05/30/24 01:05 Calculated Osmolality 290 mOsm/kg (285-295) 05/30/24 01:05 Calcium 8.2 mg/dL (8.5-10.5) L 05/30/24 01:05 Magnesium 1.9 mg/dL (1.7-2.3) 05/30/24 01:05 Total Bilirubin 0.2 mg/dL (0.15-1.2) 05/30/24 01:05 AST 15 U/L (0-40) 05/30/24 01:05 ALT < 5 U/L (0-41) 05/30/24 01:05 Alkaline Phosphatase 50 U/L (40-130) 05/30/24 01:05 Troponin T Baseline 65 ng/L (0-15) H 05/30/24 01:05 C-Reactive Protein 21.2 mg/L (0.0-4.9) H 05/30/24 01:05 NT-Pro-B Natriuret Pep 2445 pg/mL (0-450) H 05/30/24 01:05 Total Protein 5.3 g/dL (6.6-8.7) L 05/30/24 01:05 Albumin 3.1 g/dL (3.5-5.2) L 05/30/24 01:05 Globulin 2.2 g/dL (1.3-4.6) 05/30/24 01:05 TSH 3.25 uIU/mL (0.27-4.20) 05/30/24 01:05 Urine Color Yellow (Yellow) 05/30/24 01:00 Urine Appearance Clear (CLEAR) 05/30/24 01:00 Urine pH 6 (5-7) 05/30/24 01:00 Ur Specific [place] 1.020 (1.005-1.030) 05/30/24 01:00 Urine Protein Neg (Negative) 05/30/24 01:00 Urine Glucose (UA) Norm (Normal) 05/30/24 01:00 Urine Ketones Negative (Negative) 05/30/24 01:00 Urine Blood Neg (Negative) 05/30/24 01:00 Urine Nitrate Negative (Negative) 05/30/24 01:00 Urine Bilirubin Neg (Negative) 05/30/24 01:00 Urine Urobilinogen 1 mg/dL (Negative) H 05/30/24 01:00 Ur Leukocyte Esterase Negative (Negative) 05/30/24 01:00 Salicylates < 0.3 mg/dL (3-10) L 05/30/24 01:05 Urine Opiates Screen Negative ng/mL (Negative) 05/30/24 01:00 Acetaminophen < 5.0 ug/mL (10-30) L 05/30/24 01:05 Ur Barbiturates Screen Negative ng/mL (Negative) 05/30/24 01:00 Ur Phencyclidine Scrn Negative ng/mL (Negative) 05/30/24 01:00 Ur Amphetamines Screen Negative ng/mL (Negative) 05/30/24 01:00 U Benzodiazepines Scrn Negative ng/mL (Negative) 05/30/24 01:00 Urine Cocaine Screen Negative ng/mL (Negative) 05/30/24 01:00 U Marijuana (THC) Screen Negative ng/mL (Negative) 05/30/24 01:00 Ethyl Alcohol < 10 mg/dL (0-10) 05/30/24 01:05 All radiology interpretation(s) finalized by discharge Discharge Plan Discharge Patient Disposition: Xfer Short-Term Hosp Clinical Impression: Acute CVA (cerebrovascular accident) Condition: Stable Referrals: Mike Og MD [Primary Care Provider] - Coding Level of Care Code ED 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
[2024-05-30 00:47] VITALS: BP 165/92; PULSE 98; RESP 21; O2SAT 99
[2024-05-30] MEDS: iohexol 350 mg/mL 500 mL Btl (per mL) IV (00:47)
[2024-05-30 01:07] VITALS: BP 140/100; PULSE 95; RESP 30; O2SAT 100
[2024-05-30 01:10] LABS: Basophils % 0.3 %; Eosinophils # 0.1 10^3/uL (0.0-0.8); Eosinophils % 0.5 %; Hematocrit 31.1 % (37-53); Lymphocytes # 1.1 10^3/uL (0.8-4.8); Mean Corpuscular HGB Conc 30.2 g/dL (30-55); Mean Corpuscular Volume 86.1 fl (82-101); Mean Platelet Volume 9.2 fL (7.4-10.4); Monocytes # 0.9 10^3/uL (0.2-0.9); Neutrophils # 9.62 10^3/uL (1.8-7.7); Neutrophils % 81.5 %; Nucleated Red Blood Cells % 0 %; Platelet Count 258 10^3/cmm (157-399); Red Blood Count 3.61 10^6/uL (3.85-5.65); Red Cell Distribution Width 15.1 % (12.1-15.1)
[2024-05-30 01:15] VITALS: PULSE 97; O2SAT 100
[2024-05-30 01:22] LABS: INR 1.07 (0.8-1.2)
[2024-05-30 01:23] LABS: Partial Thromboplastin Time 30.2 SECONDS (23.9-36.7)
[2024-05-30 01:30] VITALS: BP 168/99; PULSE 93; RESP 16; O2SAT 100
[2024-05-30 01:32] LABS: Add Urine Microscopic? NO; Charge for UA Resulting for Rev
[2024-05-30 01:33] LABS: Troponin(5th) Baseline 65 ng/L (0-15)
[2024-05-30 01:39] LABS: Urine Appearance Clear (CLEAR); Urine Color Yellow (Yellow); pH Urine 6 (5-7)
[2024-05-30] MEDS: aspirin 325 mg Tablet XX (01:39)
[2024-05-30 01:40] LABS: Bilirubin Urine Neg (Negative); Blood Urine Neg (Negative); Glucose Urine UA Norm (Normal); Ketones Urine Negative (Negative); Leukocyte Esterase Urine Negative (Negative); Nitrate Urine Negative (Negative); Protein Urine Neg (Negative); Urobilinogen Urine 1 mg/dL (Negative)
[2024-05-30 01:40] LABS: Alanine Aminotransferase < 5 U/L (0-41); Albumin Level 3.1 g/dL (3.5-5.2); Alkaline Phosphatase 50 U/L (40-130); Anion Gap 14.7 (5-19); Aspartate Amino Transferase 15 U/L (0-40); Blood Urea Nitrogen 24 mg/dL (8-23); C Reactive Protein 21.2 mg/L (0.0-4.9); Calcium 8.2 mg/dL (8.5-10.5); Carbon Dioxide 27 mmol/L (22-29); Chloride 100 mmol/L (98-107); Creatinine Clr Calc Pharmacy 91.2388; Globulin 2.2 g/dL (1.3-4.6); Glucose 105 mg/dL (65-115); Magnesium 1.9 mg/dL (1.7-2.3); NT Pro B Type Natriuretic Pept 2445 pg/mL (0-450); Osmolality Calculated 290 mOsm/kg (285-295); Potassium 3.7 mmol/L (3.5-5.1); Sodium 138 mmol/L (136-145); Thyroid Stimulating Hormone 3.25 uIU/mL (0.27-4.20); Total Bilirubin 0.2 mg/dL (0.15-1.2); Total Protein 5.3 g/dL (6.6-8.7)
[2024-05-30 01:41] LABS: Acetaminophen < 5.0 ug/mL (10-30); Alcohol Level < 10 mg/dL (0-10); Salicylate < 0.3 mg/dL (3-10)
--- NOTE | 2024-05-30 01:43 | PC.NURSE ---
[facility] was contacted @[phone] about the life threat for the pt after [facility] declined for weather. [facility] [employer] Special[facility] stated they would let us know when they could send a truck for the life threat.
--- NOTE | 2024-05-30 01:44 | DCPLANNER ---
At 0134, called [facility] to transport patient. They declined due to deteriorating weather between [place] and [place]. At 0137, contacted [facility], spoke to Jose. 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 At 0144, contacted [facility]. They also declined due to weather. At 0154, contacted [facility].
[2024-05-30 01:48] LABS: Amphetamines Screen Urine Negative (Negative); Barbiturates Screen Urine Negative (Negative); Benzodiazepines Screen Urine Negative (Negative); Cocaine Screen Urine Negative (Negative); Opiate Screen Urine Negative (Negative); PCP Screen Urine Negative (Negative); THC Screen Urine Negative (Negative)
[2024-05-30 02:36] VITALS: BP 158/97; PULSE 88; RESP 18; O2SAT 100
--- NOTE | 2024-05-30 02:58 | DCPLANNER ---
At 0134, called [facility] to transport patient. They declined due to deteriorating weather between [place] and [place]. At 0137, contacted [facility], spoke to Jose. 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 At 0144, contacted [facility]. They also declined due to weather. At 0154, contacted [facility]. They said they would call back after a weather check. 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 At 021, called [facility], and spoke to Jose. He said he had also contacted [facility] for this patient and been declined. He said he was sending a truck now to transport patient to [place].
== END 2024-05-30 02:36 | disposition short-term general hospital (02) ==
PROVIDERS: Emergency Provider Emergency Medicine; PCP Family Medicine
DX: I63.9 Cerebral infarction, unspecified (principal); Z87.891 Personal history of nicotine dependence; J44.9 Chronic obstructive pulmonary disease, unspecified; I10 Essential (primary) hypertension
CPT/HCPCS: 36415; 51702; 70450; 70496; 70498; 71045; 80053; 80306; 80307; 81003; 83735; 83880; 84443; 84484; 85025; 85610; 85730; 86140; 93005; 99285; Q9967